=== PATIENT | male | born 1970 | race Caucasian/White ===

== ENCOUNTER 2023-05-04 06:24 | Emergency (ER) | payer BC, SELFPAY ==
[2023-05-04] VITALS (16 sets, daily range): BP systolic 148–178; BP diastolic 94–120; PULSE 79–95; RESP 16–29; TEMP 36.9; O2SAT 94–99; BMI 42.0
--- NOTE | 2023-05-04 06:38 | ECG_ITS ---
[facility] Test Date: 2023-05-04 Pat Name: OLIVIA ALVAREZ Department: Room: - Gender: Male [employer]per: : 1970 Requested By: [id number] Order Number: [id number] Reading MD: LINA ALICEA Measurements Intervals [place] Rate: 94 P: 57 [place]: 154 QRS: -15 QRSD: 96 T: 34 QT: 350 QTc: 402 Interpretive Statements 1100 Sinus rhythm 3633 Inferior myocardial infarction, probably old 9150 abnormal ECG No previous ECG available for comparison Electronically Signed On 05-05-2023 6:48:11 EST by LINA ALICEA
--- NOTE | 2023-05-04 06:38 | XR_ITS ---
The [address] [address] Patient Name: OLIVIA ALVAREZ MRN: [id number] date: 1970 Sex: M Assigned Patient Location: ER Current Patient Location: ED.MAIN Accession/Order Number: [id number] Exam Date: 05/04/2023 06:50 Report Date: 05/04/2023 07:08 At the request of: GIO DUGAN Procedure: XR chest 1V EXAM: XR chest 1V HISTORY: Chest pain. COMPARISON: Chest radiograph dated 05/27/2022. TECHNIQUE: AP erect portable chest radiograph performed. FINDINGS: The trachea is unremarkable. The heart size is within normal limits and stable. The cardiomediastinal silhouette and hilar shadows are unremarkable. There are diminished lung volumes. There is no consolidation or infiltrate, pleural effusion or pulmonary vascular congestion. There is no pneumothorax or acute osseous abnormality. There is a plate and screw device overlying the cervical spine. XR/XR chest 1V IMPRESSION: There is no acute cardiopulmonary process. Electronically authenticated by: PAPO ARGUELLO Date: 05/04/2023 07:08
--- NOTE | 2023-05-04 06:38 | ED.CHESTPAI1 ---
HPI - Chest Pain General Chief Complaint: Chest Pain Stated Complaint: CHEST PAIN Time Seen by Provider: 05/04/23 06:38 Source: patient Mode of arrival: walk-in Limitations: no limitations Related Data Home Medications Medication Instructions Recorded Confirmed cyclobenzaprine 10 mg tablet 10 mg PO DAILY 05/04/23 05/04/23 dapagliflozin propanediol 5 mg 5 mg PO DAILY 05/04/23 05/04/23 tablet (Farxiga) gabapentin 400 mg capsule 400 mg PO TID 05/04/23 05/04/23 Allergies Allergy/AdvReac Type Severity Reaction Status Date / Time tramadol [From Ultram] Allergy Intermediate Difficulty Verified 05/04/23 06:32 Breathing augmentin Allergy Intermediate Vomiting Uncoded 05/04/23 06:32 Exam Constitutional Vital Signs, click to edit/add: Last Vital Signs Temp 98.4 F 05/04/23 06:26 Pulse 88 05/04/23 07:31 Resp 16 05/04/23 07:31 BP 158/111 H 05/04/23 07:31 Pulse Ox 95 05/04/23 07:30 Course Vital Signs Vital signs: Vital Signs Temperature 98.4 F 05/04/23 06:26 Pulse Rate 92 H 05/04/23 06:26 Respiratory Rate 20 05/04/23 06:26 Blood Pressure 162/100 H 05/04/23 06:26 Pulse Oximetry 99 05/04/23 06:26 Temperature 98.4 F 05/04/23 06:26 Pulse Rate 88 05/04/23 07:31 Respiratory Rate 16 05/04/23 07:31 Blood Pressure 158/111 H 05/04/23 07:31 Pulse Oximetry 95 05/04/23 07:30 MDM - Chest Pain MDM Narrative Medical decision making narrative: patient was seen at change of shift. labs were ordered for oncoming physician. I had no other intervention regarding this patient Lab Data Labs: Lab Results 05/04/23 Range/Units 06:40 WBC 8.2 (4.0-11.0) 10^3/uL RBC 4.94 (4.70-6.10) 10^6/uL Hgb 15.8 (14.0-18.0) g/dL Hct 48.2 (42.0-54.0) % MCV 97.6 H (80.0-94.0) fL MCH 32.0 (25.9-34.0) pg MCHC 32.8 (29.9-35.2) g/dL RDW 12.4 (11.0-15.0) % Plt Count 279 (150-450) 10^3/uL MPV 8.9 L (9.5-13.5) fL Neut % (Auto) 51.0 (43.0-75.0) % Lymph % (Auto) 36.9 (20.5-60.0) % [place] % (Auto) 8.0 (1.7-12.0) % Eos % (Auto) 2.8 (0.9-7.0) % Baso % (Auto) 1.1 (0.2-2.0) % Neut # (Auto) 4.2 (1.4-6.5) 10^3/uL Lymph # (Auto) 3.0 (1.2-3.8) 10^3/uL [place] # (Auto) 0.7 (0.3-0.8) 10^3/uL Eos # (Auto) 0.2 (0.0-0.7) 10^3/uL Baso # (Auto) 0.1 (0.0-0.1) 10^3/uL Abs Immat Gran (auto) 0.02 (0.00-0.03) 10^3/uL Imm/Tot Granulo (auto) 0.2 (0.0-0.5) % Sodium 138 (136-145) mmol/L Potassium 3.4 L (3.5-5.1) mmol/L Chloride 101 (98-107) mmol/L Carbon Dioxide 28.7 (21.0-32.0) mmol/L Anion Gap 11.7 BUN 12.0 (7.0-18.0) mg/dL Creatinine 1.08 (0.70-1.30) mg/dL Est GFR ( Amer) >60 (>=60) Est GFR (Non-Af Amer) >60 (>=60) BUN/Creatinine Ratio 11.1 Glucose 207 H (74-106) mg/dL Calcium 8.8 (8.5-10.1) mg/dL Troponin I High Sens 7.4 (4.0-76.1) pg/mL Discharge Plan Discharge Chief Complaint: Chest Pain Clinical Impression: Left against medical advice, Chest pain Patient Disposition: Left Against Medical Advice Time of Disposition Decision: 07:30 Condition: Good Mode of Transportation: Private Vehicle Prescriptions / Home Meds: No Action gabapentin 400 mg capsule 400 mg PO TID cyclobenzaprine 10 mg tablet 10 mg PO DAILY Farxiga 5 mg tablet 5 mg PO DAILY Instructions: Chest Pain (ED) Additional Instructions: Contact your doctor today to have your blood pressure medication refilled. Return to the emergency department if you change her mind or symptoms change. Stand Alone Forms: Portal Instructions Referrals: Physician,Non-Staff, MD [Primary Care Provider] - 1 week Discharge Date/Time: 05/04/23 07:48
[2023-05-04] MEDS: LABETALOL HCL 20 MG/4 ML SYRINGE 10 MG IVP (06:55)
[2023-05-04 06:57] LABS: Basophils Absolute Auto 0.1 10^3/uL (0.0-0.1); Basophils Percent Auto 1.1 % (0.2-2.0); Eosinophils Absolute Auto 0.2 10^3/uL (0.0-0.7); Eosinophils Percent Auto 2.8 % (0.9-7.0); Hematocrit 48.2 % (42.0-54.0); Hemoglobin 15.8 g/dL (14.0-18.0); Immature Granulocytes Abs Auto 0.02 10^3/uL (0.00-0.03); Immature Granulocytes Pct Auto 0.2 % (0.0-0.5); Lymphocytes Percent Auto 36.9 % (20.5-60.0); Mean Corpuscular HGB Conc 32.8 g/dL (29.9-35.2); Mean Corpuscular Volume 97.6 fL (80.0-94.0); Mean Platelet Volume 8.9 fL (9.5-13.5); Monocytes Absolute Auto 0.7 10^3/uL (0.3-0.8); Neutrophils Absolute Auto 4.2 10^3/uL (1.4-6.5); Platelet Count 279 10^3/uL (150-450); Red Blood Count 4.94 10^6/uL (4.70-6.10); Red Cell Distribution Width 12.4 % (11.0-15.0); White Blood Count 8.2 10^3/uL (4.0-11.0)
[2023-05-04 07:17] LABS: Anion Gap 11.7; BUN Creatinine Ratio 11.1; Calcium 8.8 mg/dL (8.5-10.1); Carbon Dioxide 28.7 mmol/L (21.0-32.0); Chloride 101 mmol/L (98-107); Estimated GFR (African America >60 (>=60); Estimated GFR (Non-African Ame >60 (>=60); Glucose 207 mg/dL (74-106); Potassium 3.4 mmol/L (3.5-5.1); Sodium 138 mmol/L (136-145); Troponin I High Sensitivity 7.4 pg/mL (4.0-76.1)
--- NOTE | 2023-05-04 07:24 | ED.CHESTPAI1 ---
HPI - Chest Pain General Chief Complaint: Chest Pain Stated Complaint: CHEST PAIN Time Seen by Provider: 05/04/23 06:38 Source: patient Mode of arrival: walk-in Limitations: no limitations History of Present Illness HPI narrative: 52-year-old male presents to the emergency department for chest pain. He's had it intermittently since yesterday and it's right in the middle of the sternum. It feels like a dull pressure. He's been out of his blood pressure medication for two or three months. No fever cough or trauma or unusual activity. His father of heart attack at age 57. Related Data Home Medications Medication Instructions Recorded Confirmed cyclobenzaprine 10 mg tablet 10 mg PO DAILY 05/04/23 05/04/23 dapagliflozin propanediol 5 mg 5 mg PO DAILY 05/04/23 05/04/23 tablet (Farxiga) gabapentin 400 mg capsule 400 mg PO TID 05/04/23 05/04/23 Allergies Allergy/AdvReac Type Severity Reaction Status Date / Time tramadol [From [facility]] Allergy Intermediate Difficulty Verified 05/04/23 06:32 Breathing augmentin Allergy Intermediate Vomiting Uncoded 05/04/23 06:32 Review of Systems ROS Narrative A ten point review of systems is negative except as noted above. Exam Narrative Exam Narrative: Nurses note and vital signs reviewed and patient is not hypoxic. General: The patient appears well and in no apparent distress. Patient is resting comfortably on cart. Skin: Warm, dry, no pallor noted. There is no rash noted. Head: Normocephalic, atraumatic Eye: Normal conjunctiva, no drainage Ears, Nose, Mouth, and Throat: oral mucosa is moist. Nares patent. Cardiovascular: Regular Rate and Rhythm Respiratory: Patient is in no distress, no accessory muscle use, lungs are clear to auscultation, no wheezing, rales or rhonchi Back: non-tender GI: obese soft and nontender Musculoskeletal: The patient has no evidence of calf tenderness, no pitting edema, symmetrical pulses noted bilaterally Neurological: A&O, normal speech Psychiatric: Cooperative Constitutional Vital Signs, click to edit/add: Last Vital Signs Temp 98.4 F 05/04/23 06:26 Pulse 87 05/04/23 07:00 Resp 24 05/04/23 07:00 BP 156/113 H 05/04/23 07:00 Pulse Ox 94 L 05/04/23 07:00 Course Vital Signs Vital signs: Vital Signs Temperature 98.4 F 05/04/23 06:26 Pulse Rate 92 H 05/04/23 06:26 Respiratory Rate 20 05/04/23 06:26 Blood Pressure 162/100 H 05/04/23 06:26 Pulse Oximetry 99 05/04/23 06:26 Temperature 98.4 F 05/04/23 06:26 Pulse Rate 87 05/04/23 07:00 Respiratory Rate 24 05/04/23 07:00 Blood Pressure 156/113 H 05/04/23 07:00 Pulse Oximetry 94 L 05/04/23 07:00 MDM - Chest Pain MDM Narrative Medical decision making narrative: The patient's symptoms are concerning. He's had chest pressure and has multiple risk factors for coronary artery disease including family history, smoking, hypertension, obesity. The patient should be admitted to the hospital but he is refusing to stay. He is leaving against medical advice and is fully able to make medical decisions for himself. I made several attempts to convince him to stay but these were not successful. Differential Diagnosis Differential diagnosis: Likely pneumothorax, unstable angina pectoris, st elevation myocardial infarction and chest pain Lab Data Attestation: I reviewed the patient's lab results. Labs: Lab Results 05/04/23 Range/Units 06:40 WBC 8.2 (4.0-11.0) 10^3/uL RBC 4.94 (4.70-6.10) 10^6/uL Hgb 15.8 (14.0-18.0) g/dL Hct 48.2 (42.0-54.0) % MCV 97.6 H (80.0-94.0) fL MCH 32.0 (25.9-34.0) pg MCHC 32.8 (29.9-35.2) g/dL RDW 12.4 (11.0-15.0) % Plt Count 279 (150-450) 10^3/uL MPV 8.9 L (9.5-13.5) fL Neut % (Auto) 51.0 (43.0-75.0) % Lymph % (Auto) 36.9 (20.5-60.0) % [place] % (Auto) 8.0 (1.7-12.0) % Eos % (Auto) 2.8 (0.9-7.0) % Baso % (Auto) 1.1 (0.2-2.0) % Neut # (Auto) 4.2 (1.4-6.5) 10^3/uL Lymph # (Auto) 3.0 (1.2-3.8) 10^3/uL [place] # (Auto) 0.7 (0.3-0.8) 10^3/uL Eos # (Auto) 0.2 (0.0-0.7) 10^3/uL Baso # (Auto) 0.1 (0.0-0.1) 10^3/uL Abs Immat Gran (auto) 0.02 (0.00-0.03) 10^3/uL Imm/Tot Granulo (auto) 0.2 (0.0-0.5) % Sodium 138 (136-145) mmol/L Potassium 3.4 L (3.5-5.1) mmol/L Chloride 101 (98-107) mmol/L Carbon Dioxide 28.7 (21.0-32.0) mmol/L Anion Gap 11.7 BUN 12.0 (7.0-18.0) mg/dL Creatinine 1.08 (0.70-1.30) mg/dL Est GFR ( Amer) >60 (>=60) Est GFR (Non-Af Amer) >60 (>=60) BUN/Creatinine Ratio 11.1 Glucose 207 H (74-106) mg/dL Calcium 8.8 (8.5-10.1) mg/dL Troponin I High Sens 7.4 (4.0-76.1) pg/mL Imaging Data Chest x-ray: Radiologist's impression: ITS Impressions Chest X-Ray 05/04/23 06:38 IMPRESSION: There is no acute cardiopulmonary process. Electronically authenticated by: PAPO ARGUELLO Date: 05/04/2023 07:08 ECG Data Attestation: I personally reviewed and interpreted this ECG as follows: (EKG on my interpretation shows normal sinus rhythm without acute change) Heart Score History: Highly Suspicious ECG: Normal Age: >45-<65 years Risk Factors: >3 Risk Factors/ HX of CAD:2 Troponin: <Normal Limit Total Heart Score Recommendations & Risks:: 5 Discharge Plan Discharge Chief Complaint: Chest Pain Clinical Impression: Left against medical advice, Chest pain Patient Disposition: Left Against Medical Advice Time of Disposition Decision: 07:30 Condition: Good Mode of Transportation: Private Vehicle Prescriptions / Home Meds: No Action gabapentin 400 mg capsule 400 mg PO TID cyclobenzaprine 10 mg tablet 10 mg PO DAILY Farxiga 5 mg tablet 5 mg PO DAILY Instructions: Chest Pain (ED) Additional Instructions: Contact your doctor today to have your blood pressure medication refilled. Return to the emergency department if you change her mind or symptoms change. Stand Alone Forms: Portal Instructions Referrals: Physician,Non-Staff, MD [Primary Care Provider] - 1 week
== END 2023-05-04 07:48 | disposition left against medical advice (07) ==
PROVIDERS: Internal Medicine; Emergency Provider Emergency Medicine
DX: R07.9 Chest pain, unspecified (principal); Z79.899 Other long term (current) drug therapy; Z53.29 Procedure and treatment not carried out because of patient's decision for other reasons; F17.210 Nicotine dependence, cigarettes, uncomplicated; I10 Essential (primary) hypertension; E66.9 Obesity, unspecified; Z68.41 Body mass index [BMI] 40.0-44.9, adult
CPT/HCPCS: 36415; 71045; 80048; 84484; 85025; 93005; 96374; 99285; J1290

== ENCOUNTER 2024-03-12 14:12 | Emergency (ER) | payer SELFPAY ==
[2024-03-12 14:17] VITALS: BP 128/83; PULSE 78; TEMP 36.6; O2SAT 98; BMI 36.3
--- OUTSIDE RECORDS SUMMARY | 2024-03-12 14:21 | XMS_ITS | CCD ---
Author Organization [facility] Care Team Providers Care Watch Commander Name Role Phone Morris Mccartney Unavailable LAUREN HAGER Attending Unavailalicia e PAULA CASAREZ Primary Care Unavailable Mor Casarez Primary Care Provider Unavailabl e UNKNOWN, PHYSICIAN Primary Care Unavailable UNKNOWN, PHYSICIAN Referring Unavailable DANI LE Admitting Unavailable DANI LE Attending Unavailable DANI LE Surgeon Unavailable LA Procedure Practitioner Unavailab avani Casarez RUBBER OFF-NUMBERER AND WIRER, Paula Arias Primary Care Provider MOR CASAREZ Primary Care Unavailable DANI LE Referring Unavailable MOR CASAREZ Primary Care Unavailable Hollis RUBBER OFF-Paula HENDERSON Primary Care Provider Hollis RUBBER OFF-NUMBERER AND WIRERPaula Primary Care Provider DANI LE Attending Unavailable Adwoa RUBBER OFF-Monae HENDERSON Unavailable MONAE ORONA Attending Unavailable PAULA CASAREZ Primary Care Unavailable PAULA CASAREZ M Referring Unavailable GORDON, YESIKA Referring Unavailable GORDON, YESIKA Attending Unavailable PAULA CASAREZ Primary Care Unavailable HEIDI, YESIKA Attending Unavailable PAULA CASAREZ Primary Care Unavailable PAULA CASAREZ Referring Unavailable GORDON, YESIKA Attending Unavailable GORDON, YESIKA Referring Unavailable PAULA CASAREZ Primary Care Unavailable GORDON, YESIKA Referring Unavailable PAULA CASAREZ Primary Care Unavailable GORDON, YESIKA Attending Unavailable GORDON, YESIKA Referring Unavailable GORDON, YESIKA Attending Unavailable CASAREZ, PAULA M Primary Care Unavailable CASAREZ, PAULA Primary Care Unavailable LONDONMORRIS JAUREGUI Referring Unavailable LONDON, MORRIS Pinzon Admitting Unavailable LONDONMORRIS Attending Unavailable CASAREZ, PAULA Primary Care Unavailable LONDON, MORRIS L Referring Unavailable LONDON, MORRIS L Admitting Unavailable LONDON, MORRIS L Attending Unavailable CASAREZ, PAULA Primary Care Unavailable CASAREZ, PAULA Attending Unavailable SELF, SELF Referring Unavailable CASAREZ, PAULA Primary Care Unavailable CASAREZ, PAULA Referring Unavailable PANDA EAGLE Attending Unavailable LONDON, MORRIS Pinzon Referring Unavailable CASAREZ, PAULA Primary Care Unavailable LONDON, MORRIS Pinzon Attending Unavailable RUSTY ALAN Attending Unavailable CASAREZ, PAULA Primary Care Unavailable LONDON, MORRIS L Referring Unavailable CASAREZ, PAULA Attending Unavailable CASAREZ, PAULA Primary Care Unavailable SELF, SELF Referring Unavailable CASAREZ, PAULA Primary Care Unavailable PANDA EAGLE Attending Unavailable PANDA EAGLE Referring Unavailable Allergies Allergy Classification Reported Allergen(s) Allergy Type Date of Onset Reaction(s) Facility (20 sources) Amoxicillin / Clavulanate Drug Allergy [address] [facility] Work Phone: (20 sources) traMADol Drug Allergy [address] [facility] Work Phone: (1 source) Amoxicillin / Clavulanate Drug Allergy [address] [facility] Rep[facility] (1 source) traMADol Drug Allergy [address] [facility] Rep[facility] (1 source) BLEACH (SODIUM HYPOCHLORITE); Translations: [BLEACH (SODIUM HYPOCHLORITE)] Propensity to adverse reactions (disorder) [address] [facility] Repository (1 source) ALLERGIES NOT ON FILE; Translations: [ALLERGIES NOT ON FILE] Propensity to adverse reactions (disorder) [facility] Repository (8 sources) Coconut Flavor Propensity to adverse reactions to drug 4 [facility] [place] Medications Current Medications Medication Drug Class(es) Dates Sig (Normalized) Sig (Original) acetaminophen 325 mg / HYDROcodone bitartrate 5 mg oral tablet (10 sources) Opioid Agonist Start: 08-10-2023 End: 08-17-2023 take 1 tablet by mouth every eight hours as needed hydroCODone-aceta minophen 5-325 MG tablet Indications: Post-op pain Take 1 tablet by mouth every 8 hours as needed for up to 7 days. 10 tablet 08/10/2023 Active Start: 07-27-2023 End: 08-06-2023 take 1-2 tablets by mouth every four hours as needed hydroCODone-acetaminophen 5-325 MG table t Indications: Post-op pain Take 1-2 tablets by mouth every 4 hours as needed for up to 7 days. 25 tablet 07/30/2023 08/06/2023 Active Start: 07-27-2023 End: 07-27-2023 take 1-2 tablets by mouth every four hours as needed 1-2 tablet, Oral, EVERY 4 HOURS NEEDE D, Starting on Thu07/27/23 at 0904, Until Thu07/27/23 at 1617, Severe Pain, Maximum dose of acetaminophen is 4000 mg from all sources in 24 hours., Post-op/Post-Proc amLODIPine 5 mg oral tablet (11 sources) Dihydropyridine Calcium Channel Janae Start: 06-10-2021 take 1 tablet by mouth once daily amLODIPine 5 MG tablet Indications: Essential hypertension, benign Take 1 tablet by mouth daily. 30 tablet 3 06/10/2021 Active aspirin 81 mg chewable tablet (12 sources) Platelet Aggregation Inhibitor, Nonsteroidal Anti-inflammatory Drug Start: 05-27-2022 End: 05-27-2022 aspirin chewable tablet 324 mg Start: 02-22-2020 aspirin 81 MG Chew Tab chewable tablet Chew 1 tablet daily. 02/22/2020 Active atorvastatin 20 mg oral tablet (19 sources) HMG-CoA Reductase Inhibitor Start: 09-11-2022 End: 05-01-2023 take 1 tablet by mouth once daily Atorvastatin 20 MG tablet Indications: Hyperlipidemia, unspecified hyperlipidemia type , Atherosclerosis of wiyot coronary artery of wiyot heart without angina pectoris Take 1 tablet by mouth daily. 30 tablet 5 05/01/2023 Active Start: 12-23-2021 take 1 tablet by musa th once daily atorvastatin 20 MG tablet Indications: Hyperlipidemia, unspecified hyperlipidemia type , Atherosclerosis of wiyot coronary artery of wiyot heart without angina pectoris Take 1 tablet by mouth daily. 30 tablet 5 12/23/2021 Active Start: 04-22-2021 take 1 tablet by musa th once daily atorvastatin 20 MG tablet Indications: Hyperlipidemia, unspecified hyperlipidemia type , Atherosclerosis of wiyot coronary artery of wiyot heart without angina pectoris Take 1 tablet by mouth daily. 30 tablet 5 06/11/2021 Active carvedilol 25 mg oral tablet (16 sources) alpha-Adrenergic Janae, beta-Adrenergic Janae Start: 01-27-2023 End: 05-04-2023 take 1 tablet by mouth twice daily carveDILOL (Coreg) 25 MG tablet Indications: Essential hypertension, benign , Atherosclerosis of wiyot coronary artery of wiyot heart without angina pectoris Take 1 tablet by mouth 2 times daily. 60 tablet 5 05/04/2023 Active Start: 11-22-2021 take 1 tablet by musa th twice daily carveDILOL (Coreg) 25 MG tablet Indications: Essential hypertension, benign , Atherosclerosis of wiyot coronary artery of wiyot heart without angina pectoris Take 1 tablet by mouth 2 times daily. 180 tablet 3 11/22/2021 Active Start: 07-22-2021 take 1 tablet by musa th twice daily carveDILOL (Coreg) 25 MG tablet Take 1 tablet by mouth 2 times daily. 60 tablet 3 07/22/2021 Active cefadroxil 500 mg oral capsule (7 sources) Cephalosporin Antibacterial Start: 05-29-2023 take 1 capsule by mouth twice daily cefadroxil 500 MG capsule TAKE 1 CAPSULE BY MOUTH TWICE A DAY FOR SKIN INFECTION 05/29/2023 Active clobetasol propionate 0.5 mg/ml topical solution (7 sources) Corticosteroid Start: 05-29-2023 clobetasol 0.05 % Solution APPLY 3 DROPS TO SCALP ONCE DAILY NEEDED 05/29/2023 Active dapagliflozin 10 mg oral tablet (10 sources) Sodium-Glucose Cotransporter 2 Inhibitor Start: 08-10-2023 take 1 tablet by mouth once daily dapagliflozin (Farxiga) 10 MG tablet Indications: Type 2 diabetes mellitus with hyperglycemia, without long-term current use of insulin Take 1 tablet by mouth daily. 90 tablet 1 08/10/2023 Active Start: 05-01-2023 End: 08-10-2023 take 1 tablet by mouth once daily dapagliflozin (Farxiga) 5 MG tablet Take 1 tablet by mouth daily. 30 tablet 3 05/01/2023 08/10/2023 Discontinued (Dose adjustment (suppress cancel msg)) diclofenac sodium 75 mg delayed release oral tablet (2 sources) Nonsteroidal Anti-inflammatory Drug Start: 02-08-2018 take 1 tablet by mouth twice daily diclofenac EC [address] tablet Take 1 tablet by mouth 2 times daily. 60 tablet 1 02/08/2018 Active doxycycline hyclate 100 mg oral capsule (10 sources) Tetracycline-class Drug Start: 06-26-2023 take 1 capsule by mouth twice daily doxycycline hyclate 100 MG capsule Take 1 capsule by mouth 2 times daily. 06/26/2023 Active Start: 04-02-2022 End: 04-09-2022 doxycycline hyclate (VIBRAMY HOMERO) capsule 100 mg gabapentin 400 mg oral capsule (19 sources) Anti-epileptic Agent Start: 04-28-2019 Gabapenti n 400 MG capsule 1 capsule 3 times daily. 04/28/2019 Active Start: 04-28-2019 gabapentin 300 MG Cap capsule 400 mg 3 times daily. 04/28/2019 Active hydroCHLOROthiazide 25 mg / valsartan 320 mg oral tablet (16 sources) Thiazide Diuretic, Angiotensin 2 Receptor Janae Start: 01-27-2023 End: 05-04-2023 take 1 tablet by mouth once daily valsartan-hydrochlorothiazide (Diovan HCT) 320-25 MG tablet Indications: Essential hypertension, benign Take 1 tablet by mouth daily. 30 tablet 5 05/04/2023 Active Start: 07-22-2021 take 1 tablet by musa th once daily valsartan-hydrochlorothiazide (Diovan HC T) 320-25 MG tablet Take 1 tablet by mouth daily. 90 tablet 3 07/22/2021 Active ibuprofen 200 mg oral capsule (8 sources) Nonsteroidal Anti-inflammatory Drug Ibuprofen (Advil) 200 MG capsule Take by mouth as needed for Mild Pain. Active imiquimod 50 mg/ml topical cream (7 sources) Start: 03-02-2023 imiquimod 5 % Cream Apply 1 Application topically every Thursday, Thursday, Thursday dinner. Apply a thin layer as directed. Leave on skin for 6-10 hours. 12 Each 03/02/2023 Active Start: 02-19-2022 imiquimod 5 % Cream Apply 1 Application topically every Thursday, Thursday, Thursday dinner. Apply a thin layer as directed. Leave on skin for 6-10 hours. 24 Each 02/19/2022 Active Start: 11-29-2021 End: 12-29-2021 imiquimod 5 % Cream Apply 1 Application topically every Thursday, Thursday, Thursday dinner. Apply a thin layer as directed. Leave on skin for 6-10 hours. 24 Each 1 11/29/2021 Active ketoconazole 20 mg/ml medicated shampoo (8 sources) Azole Antifungal Start: 05-29-2023 Ketoconazole 2 % Shampoo shampoo WASH SCALP 3 TIMES A WEEK 05/29/2023 Active 3 ml liraglutide 6 mg/ml pen injector (13 sources) GLP-1 Receptor Agonist Start: 05-13-2022 Liraglutide (Victoza ) 18 MG/3ML Solution Pen-injector injection Indications: Type 2 diabetes mellitus without complication, without long-term current use of insulin , Class 3 severe obesity with serious comorbidity and body mass index (BMI) of 40.0 to 44.9 in adult, unspecified obesity type Inject 1.8 mg under the skin daily. 15 mL 3 05/13/2022 Active Start: 01-07-2022 Liraglutide (V ictoza) 18 MG/3ML Solution Pen-injector injection Indications: Type 2 diabetes mellitus without complication, without long-term current use of insulin , Class 3 severe obesity with serious comorbidity and body mass index (BMI) of 40.0 to 44.9 in adult, unspecified obesity type Inject 1.8 mg under the skin daily. 15 mL 3 01/07/2022 Active Start: 11-21-2021 Liraglutide (V ictoza) 18 MG/3ML Solution Pen-injector injection Indications: Type 2 diabetes mellitus without complication, without long-term current use of insulin , Class 3 severe obesity with serious comorbidity and body mass index (BMI) of 40.0 to 44.9 in adult, unspecified obesity type Inject 2.4 mg under the skin daily. 15 mL 3 11/21/2021 Active Start: 08-19-2021 Liraglutide (V ictoza) 18 MG/3ML Solution Pen-injector injection Indications: Type 2 diabetes mellitus without complication, without long-term current use of insulin , Class 3 severe obesity with serious comorbidity and body mass index (BMI) of 40.0 to 44.9 in adult, unspecified obesity type Inject 1.8 mg under the skin daily. 15 mL 3 08/19/2021 Active Start: 08-16-2021 End: 08-19-2021 Liraglutide (Victoza) 18 MG/ 3ML Solution Pen-injector injection Indications: Type 2 diabetes mellitus with other specified complication, unspecified whether terminal carman insulin use , Class 3 severe obesity with serious comorbidity and body mass index (BMI) of 40.0 to 44.9 in adult, unspecified obesity type Inject 1.2 mg under the skin daily. 15 mL 3 08/16/2021 08/19/2021 Discontinued (Reorder) Start: 07-18-2021 Liraglutide (V ictoza) 18 MG/3ML Solution Pen-injector injection Indications: Type 2 diabetes mellitus with other specified complication, unspecified whether terminal carman insulin use , Class 3 severe obesity with serious comorbidity and body mass index (BMI) of 40.0 to 44.9 in adult, unspecified obesity type Inject 1.2 mg under the skin daily. 15 mL 0 07/18/2021 Active Start: 05-07-2021 End: 07-18-2021 inject 0.6 mg by subcutaneous injection once daily Liraglutide (Victoza) 18 MG/3ML Solution Pen-injector injection Indications: Type 2 diabetes mellitus with other specified complication, unspecified whether nursing home insulin use Inject 0.6 mg under the skin daily. 15 mL 0 06/11/2021 07/18/2021 Discontinued (Reorder) meloxicam 7.5 mg oral tablet (19 sources) Nonsteroidal Anti-inflammatory Drug Start: 03-24-2023 take 1 tablet by mouth once daily Meloxicam 7.5 MG tablet Indications: Chronic pain of right knee Take 1 tablet by mouth daily. 30 tablet 3 03/24/2023 Active Start: 04-21-2022 take 1 tablet by musa th once daily Meloxicam 7.5 MG tablet Indications: Chronic pain of right knee Take 1 tablet by mouth daily. 30 tablet 1 04/21/2022 Active Start: 02-04-2022 take 1 tablet by musa th once daily meloxicam 7.5 MG tablet Indications: Chronic pain of right knee Take 1 tablet by mouth daily. 30 tablet 1 02/04/2022 Active Start: 10-24-2021 take 1 tablet by musa th once daily meloxicam 7.5 MG tablet Indications: Chronic pain of right knee Take 1 tablet by mouth daily. 30 tablet 1 11/29/2021 Active Start: 05-07-2021 take 1 tablet by musa th once daily meloxicam 7.5 MG tablet Indications: Chronic pain of right knee Take 1 tablet by mouth daily. 30 tablet 1 05/07/2021 Active 24 hr metFORMIN hydrochloride 500 mg extended release oral tablet (3 sources) Biguanide Start: 07-23-2021 take 1 tablet by mouth twice daily metFORMIN-XR 500 MG Tab SR 24 HR Indications: Type 2 diabetes mellitus with other specified complication, unspecified whether nursing home insulin use Take 1 tablet by mouth 2 times daily. 60 tablet 3 07/23/2021 Active Start: 06-11-2021 take 1 tablet by musa th twice daily metFORMIN-XR 500 MG Tab SR 24 HR Indications: Type 2 diabetes mellitus with other specified complication, unspecified whether nursing home insulin use Take 1 tablet by mouth 2 times daily. 60 tablet 3 06/11/2021 Active metoprolol tartrate 50 mg oral tablet (5 sources) beta-Adrenergic Janae Start: 04-22-2021 take 1 tablet by mouth twice daily metoprolol 50 MG tab regular release Indications: Essential hypertension, benign Take 1 tablet by mouth 2 times daily. 60 tablet 3 04/22/2021 Active Start: 10-26-2017 take 1 tablet by musa th twice daily, then take 1 tablet by mouth in the morning, then take 1 tablet by mouth in the evening metoprolol 50 MG tab regular release Take 1 tablet by mouth 2 times daily. 1 tablet in the am and 1 tablet in the pm 60 tablet 6 10/26/2017 Active nitroglycerin 0.4 mg sublingual tablet (3 sources) Nitrate Vasodilator Start: 05-27-2022 End: 05-27-2022 nitroGLYCERIN (NITRO-BID) 2 % ointment 1 inch Start: 03-27-2017 nitroGLYCERIN 0.[address] 1 tablet under tongue every 5 minutes as needed for Chest pain. max = 3 doses. If CP persists after 1st dose, call 911 30 tablet 0 03/27/2017 Active predniSONE 20 mg oral tablet (3 sources) Start: 04-02-2022 End: 04-09-2022 predniSONE (DELTASONE) table t 20 mg Start: 12-15-2020 End: 06-10-2021 predniSONE 20 MG tablet 3 ta bs daily x 3days; 2 tabs daily x 3days; 1 tab daily x 3days then 1/2 tablet daily x 3days 20 tablet 0 12/15/2020 06/10/2021 Discontinued (Therapy completed) Semaglutide,0.25 or 0.5MG/DOS, (Ozempic, 0.25 or 0.5 MG/DOSE,) 2 MG/3ML Solution Pen-injector (6 sources) Start: 08-11-2023 Semaglutide,0.25 or 0.5MG/DOS, (Ozempic, 0.25 or 0.5 MG/DOSE,) 2 MG/3ML Solution Pen-injector Indications: Type 2 diabetes mellitus with hyperglycemia, without long-term current use of insulin Inject 0.25 mg under the skin once a week. 3 mL 1 08/11/2023 Active SYRINGE-NEEDLE, DISP, 3 ML (BD Luer-Lock Syringe) 18G X 1-1/2 3 ML Misc (3 sources) Start: 08-25-2023 Syringe/Needle, Disp, (SYRINGE 3CC/20MU2-5/2 ) 22G X 1-1/2 3 ML Misc (3 sources) Start: 08-25-2023 testosterone cypionate 200 mg/ml injectable solution (3 sources) Androgen Start: 08-25-2023 Testosterone Cypionate 200 MG/ML Solution Indications: Low testosterone Inject 200 mg as directed every 14 days. 2 mL 1 08/25/2023 Active valsartan 320 mg oral tablet (3 sources) Angiotensin 2 Receptor Janae Start: 06-17-2021 take 1 tablet by mouth once daily valsartan 320 MG tablet Take 1 tablet by mouth daily. 30 tablet 1 06/17/2021 Active Start: 04-15-2021 take 1 tablet by musa once daily valsartan 320 MG tablet Take 1 tablet by mouth daily. 30 tablet 1 04/15/2021 Active vitamin b12 1 mg oral tablet (19 sources) Vitamin B12 cyanocobalamin 1 000 MCG tablet Take 1 tablet by mouth. One by mouth daily Active VITAMIN D PO (19 sources) VITAMIN D PO Bruno e by mouth. 2,000 mg two by mouth daily 04/29/23 10,000 units every morning. 08/10/23 5,000 units three by mouth once daily Active VITAMIN D PO Bruno e by mouth. 2,000 mg two by mouth daily 04/29/23 10,000 units every morning. Active VITAMIN D PO Bruno e by mouth. 2,000 mg two by mouth daily 04/29/23 10,000 units every morning. 0 Active VITAMIN D PO Bruno e by mouth. 2,000 mg two by mouth daily 0 Active Completed/Discontinued Medications Medication Drug Class(es) Dates Sig (Normalized) Sig (Original) acetaminophen 325 mg / oxyCODONE hydrochloride 5 mg oral tablet (1 source) Opioid Agonist Start: 05-01-2020 End: 06-10-2021 take 1 tablet by mouth every six hours oxyCODONE-acetaminop hen 5-325 MG per tablet Take 1 tablet by mouth every 6 hours. 0 05/01/2020 06/10/2021 Discontinued (Therapy completed) [id number] 200 actuat albuterol 0.09 mg/actuat metered dose inhaler (1 source) beta2-Adrenergi c Agonist Start: 12-15-2020 End: 06-10-2021 take 2 puff(s) by inhalation every four hours as needed for wheezing albuterol 108 (90 Base) MCG/ACT Aero Soln inhaler Inhale 2 puffs every 4 hours as needed for Wheezing. 6.7 g 0 12/15/2020 06/10/2021 Discontinued (Therapy completed) codeine phosphate 2 mg/ml / guaiFENesin 20 mg/ml oral solution (1 source) Opioid Agonist Start: 12-12-2020 End: 06-10-2021 take 5 mL by mouth every six hours as needed for cough guaiFENesin-codeine 100-10 MG/5ML Solution Indications: Exposure to COVID-19 virus Take 5 mL by mouth every 6 hours as needed for Cough for up to 7 days. 118 mL 0 12/12/2020 06/10/2021 Discontinued (Therapy completed) cyclobenzaprine hydrochloride 5 mg oral tablet (18 sources) Muscle Relaxant Start: 03-23-2020 End: 04-28-2023 take 1 tablet by mouth three times daily as needed cyclobenzaprine 5 MG tablet Take 1 tablet by mouth 3 times daily as needed. 0 03/23/2020 04/28/2023 Discontinued (Therapy completed) take 1 tablet by musa th at bedtime as needed for muscle spasms Cyclobenzaprine 10 MG tablet TAKE 1 TABL ET BY MOUTH IN THE MORNING, NOON AND AT BEDTIME FOR MUSCLE SPASMS NEEDED Active docusate sodium 100 mg oral capsule (1 source) Start: 03-23-2020 End: 06-10-2021 take 1 capsule by mouth twice daily DOK 100 MG capsule Take 1 capsule by mouth 2 times daily. 0 03/23/2020 06/10/2021 Discontinued (Therapy completed) fluticasone propionate 0.05 mg/actuat metered dose nasal spray (3 sources) Corticosteroid Start: 04-02-2022 End: 05-14-2023 take 2 spray(s) nasal route once daily fluticasone 50 MCG/ACT Suspension nasal spray 2 sprays each nostril daily 16 g 0 04/02/2022 05/14/2023 Discontinued (Patient Preference) INSULIN PEN NEEDLES ULTRA FINE PRESCRIPTION (11 sources) Start: 03-24-2023 End: 07-27-2023 INSULIN PEN NEEDLES ULTRA FINE PRESCRIPTION Indications: Type 2 diabetes mellitus with other specified complication, unspecified whether nursing home insulin use 1 Each by Instructed route daily. 100 Each 1 03/24/2023 07/27/2023 Discontinued (Stop Taking at Discharge) Start: 03-24-2023 INSULIN PEN NE EDLES ULTRA FINE PRESCRIPTION Indications: Type 2 diabetes mellitus with other specified complication, unspecified whether terminal carman insulin use 1 Each by Instructed route daily. 100 Each 1 03/24/2023 Active Start: 11-22-2021 INSULIN PEN NE EDLES ULTRA FINE PRESCRIPTION Indications: Type 2 diabetes mellitus with other specified complication, unspecified whether nursing home insulin use 1 Each by Instructed route daily. 100 Each 1 11/22/2021 Active Start: 06-11-2021 INSULIN PEN NE EDLES ULTRA FINE PRESCRIPTION Indications: Type 2 diabetes mellitus with other specified complication, unspecified whether terminal carman insulin use 1 Each by Instructed route daily. 100 Each 1 06/11/2021 Active lidocaine 1%/ epinephrine 1:100,000 with sodium bicarbonate 8.4% (10 mL Prepared by Pharmacy) (2 sources) Start: 07-30-2023 End: 07-30-2023 1-10 mL, Infiltration, ONCE, 1 dose, On Macey 07/30/23 at 0915, For physician administration ONLY, Pre-op/Pre-Proc Start: 07-27-2023 End: 07-27-2023 1-10 mL, Infiltration, ONCE, 1 dose, On Thu07/27/23 at 0900, For physician administration ONLY, Pre-op/Pre-Proc lidocaine 1%/epinephrine 1:100,000 with sodium bicarbonate 8.4% (3mL Prepared by Pharmacy) (2 sources) Start: 07-30-2023 End: 07-30-2023 0-3 mL, Infiltration, ONCE, 1 dose, On Thu07/30/23 at 0915, For physician administration ONLY, Pre-op/Pre-Proc Start: 07-27-2023 End: 07-27-2023 0-3 mL, Infiltration, ONCE, 1 dose, On Thu07/27/23 at 0900, For physician administration ONLY, Pre-op/Pre-Proc 2 ml ondansetron 2 mg/ml injection (1 source) Serotonin-3 Receptor Antagonist Start: 07-27-2023 End: 07-27-2023 take 4 mg intravenously every four hours as needed 4 mg, Intravenous, EVERY 4 HOURS NEEDED, Starting on Thu07/27/23 at 0904, Until Thu07/27/23 at 1617, Nausea / Vomiting, Post-op/Post-Proc 1000 ml sodium chloride 9 mg/ml injection (4 sources) Start: 07-30-2023 End: 07-30-2023 Intravenous, at 75 mL/hr, ONCE, 1 dose, On Thu07/30/23 at 0915, Pre-op/Pre-Proc Start: 07-27-2023 End: 07-27-2023 Intravenous, at 50 mL/hr, CO NTINUOUS, Starting on Thu07/27/23 at 0915, Until Thu07/27/23 at 1617, Until tolerating diet then discontinue, Post-op/Post-Proc Start: 05-27-2022 End: 05-27-2022 Sodium chloride 0.9% IV solu tion Problems Active Problems Problem Classification Problem Date Documented Date Episodic/Chronic Anxiety disorders (20 sources) Generalized anxiety disorder; Translations: [Generalized anxiety disorder] 08-16-2016 Chronic Conditions associated with dizziness or vertigo (20 sources) Vertigo; Translations: [Dizziness and giddiness] 08-16-2016 Episodic Diabetes mellitus with complications (4 sources) Type 2 diabetes mellitus; Translations: [Type 2 diabetes mellitus with other specified complication] Chronic Diabetes mellitus without complication (20 sources) Diabetes mellitus; Translations: [Type 2 diabetes mellitus without complications] Onset: 07-03-2020 07-03-2020 Chronic Diabetes mellitus without complication (1 source) Increased glucose level; Translations: [Other abnormal glucose] Episodic Disorders of lipid metabolism (20 sources) Pure hypercholesterolemia; Translations: [Mixed hyperlipidemia] Onset: 03-27-2017 03-27-2017 Chronic Esophageal disorders (20 sources) Gastroesophageal reflux disease; Translations: [Holguin's esophagus] 08-16-2016 Chronic Essential hypertension (20 sources) Benign essential hypertension; Translations: [Essential (primary) hypertension] Onset: 03-04-2019 08-16-2016 Chronic Genitourinary symptoms and ill-defined conditions (4 sources) Urgent desire to urinate; Translations: [Urgency of urination] Onset: 08-25-2023 08-18-2023 Episodic Gout and other crystal arthropathies (20 sources) Gout; Translations: [Gout, unspecified] 08-16-2016 Chronic Headache; including migraine (20 sources) Migraine; Translations: [Migraine, unspecified, not intractable, without status migrainosus] 08-16-2016 Chronic Headache; including migraine (1 source) Morning headache; Translations: [Morning headache] 08-28-2023 Episodic Headache; including migraine (2 sources) Headache; including migraine; Translations: [Headache, unspecified] Onset: 08-28-2023 Mycoses (20 sources) Tinea pedis; Translations: [Tinea pedis] 08-16-2016 Episodic Osteoarthritis (20 sources) Arthritis; Translations: [Unspecified osteoarthritis, unspecified site] 08-16-2016 Chronic Other and ill-defined heart disease (9 sources) Heart disease; Translations: [Heart disease, unspecified] Onset: 03-04-2019 07-02-2023 Chronic Other hereditary and degenerative nervous system conditions (2 sources) Restless legs; Translations: [Restless legs syndrome] Onset: 08-28-2023 08-28-2023 Chronic Other hereditary and degenerative nervous system conditions (1 source) Restless legs syndrome; Translations: [Restless legs syndrome] Onset: 08-28-2023 Chronic Other lower respiratory disease (2 sources) Snoring; Translations: [Snoring] Onset: 08-28-2023 08-28-2023 Episodic Other lower respiratory disease (1 source) Snoring; Translations: [Snoring] Onset: 08-28-2023 Episodic Other nervous system disorders (1 source) Bilateral carpal tunnel syndrome; Translations: [Carpal tunnel syndrome, bilateral upper limbs] 07-02-2023 Chronic Other nervous system disorders (1 source) Numbness of hand; Translations: [Anesthesia of skin] 07-02-2023 Episodic Other nervous system disorders (9 sources) Paresthesia of skin; Translations: [Disturbance of skin sensation] Onset: 07-02-2023 07-02-2023 Episodic Other nervous system disorders (2 sources) Postoperative pain ; Translations: [Other acute postprocedural pain] 07-27-2023 Episodic Other nervous system disorders (2 sources) Other acute postprocedural pain; Translations: [Other acute postprocedural pain] Onset: 07-30-2023 Episodic Other non-traumatic joint disorders (2 sources) Bilateral wrist pain; Translations: [Pain in right wrist] 05-14-2023 Episodic Other nutritional; endocrine; and metabolic disorders (2 sources) Morbid obesity; Translations: [Obesity, morbid, BMI 40.0-49.9] Onset: 02-08-2018 02-08-2018 Chronic Other nutritional; endocrine; and metabolic disorders (3 sources) Severe obesity; Translations: [Morbid (severe) obesity due to excess calories] Chronic Other nutritional; endocrine; and metabolic disorders (19 sources) Body mass index 40+ - severely obese; Translations: [Morbid (severe) obesity due to excess calories] Onset: 02-08-2018 02-08-2018 Chronic Other nutritional; endocrine; and metabolic disorders (1 source) Body mass index 30+ - obesity; Translations: [Obesity, unspecified] Chronic Other screening for suspected conditions (not mental disorders or infectious disease) (5 sources) Decreased testosterone level ; Translations: [Other specified abnormal findings of blood chemistry] Onset: 09-01-2023 08-17-2023 Episodic Other skin disorders (1 source) Pigmented skin lesion ; Translations: [Disorder of pigmentation, unspecified] 05-14-2023 Episodic Other upper respiratory infections (1 source) Acute maxillary sinusitis; Translations: [Acute maxillary sinusitis, unspecified] Episodic Residual codes; unclassified (20 sources) Sleep apnea; Translations: [Sleep apnea, unspecified] 08-16-2016 Chronic Residual codes; unclassified (2 sources) Tobacco user; Translations: [Tobacco abuse] Onset: 03-27-2017 03-27-2017 Chronic Residual codes; unclassified (20 sources) Chronic pain; Translations: [Other chronic pain] 08-16-2016 Chronic Residual codes; unclassified (2 sources) Hypersomnia; Translations: [Hypersomnia, unspecified] Onset: 08-28-2023 08-28-2023 Chronic Residual codes; unclassified (2 sources) Sleep apnea, unspecified; Translations: [Sleep apnea, unspecified] Onset: 08-16-2016 Chronic Residual codes; unclassified (1 source) Hypersomnia, unspecified; Translations: [Hypersomnia, unspecified] Onset: 08-28-2023 Chronic Residual codes; unclassified (1 source) Noncompliance with medication regimen; Translations: [Non compliance w medication regimen] 04-28-2023 Episodic Residual codes; unclassified (2 sources) Family history of prostate cancer; Translations: [Family history of malignant neoplasm of prostate] 08-18-2023 Episodic Residual codes; unclassified (1 source) Insomnia; Translations: [Insomnia, unspecified] 08-28-2023 Episodic Residual codes; unclassified (1 source) Edema of foot; Translations: [Localized edema] 08-28-2023 Episodic Residual codes; unclassified (2 sources) Insomnia, unspecified; Translations: [Insomnia, unspecified] Onset: 08-28-2023 Episodic Residual codes; unclassified (2 sources) Localized edema; Translations: [Localized edema] Onset: 08-28-2023 Episodic Residual codes; unclassified (2 sources) Family history of malignant neoplasm of prostate; Translations: [Family history of malignant neoplasm of prostate] Onset: 08-25-2023 Episodic Residual codes; unclassified (2 sources) Other specified postprocedural states; Translations: [Other specified postprocedural states] Onset: 08-13-2023 Episodic Spondylosis; intervertebral disc disorders; other back problems (10 sources) Displacement of cervical intervertebral disc; Translations: [Degeneration of cervical intervertebral disc] Onset: 01-01-2022 07-02-2023 Chronic Spondylosis; intervertebral disc disorders; other back problems (20 sources) Chronic low back pain; Translations: [Chronic low back pain] Onset: 03-04-2019 08-16-2016 Episodic Substance-related disorders (4 sources) Cigarette smoker ; Translations: [Nicotine dependence, cigarettes, uncomplicated] Onset: 08-25-2023 08-18-2023 Chronic Syncope (1 source) Near syncope; Translations: [Syncope and collapse] Episodic Viral infection (1 source) Genital warts; Translations: [Anogenital (venereal) warts] Episodic Past or Other Problems Problem Classification Problem Date Documented Date Episodic/Chronic Cardiac dysrhythmias (16 sources) Palpitations; Translations: [Palpitations] Onset: 07-22-2021 07-22-2021 Episodic Coronary atherosclerosis and other heart disease (20 sources) Coronary arteriosclerosis in wiyot artery; Translations: [Coronary atherosclerosis] Onset: 03-27-2017 Resolved: 02-27-2020 03-27-2017 Chronic Malaise and fatigue (20 sources) Fatigue; Translations: [Other fatigue] Onset: 03-27-2017 03-27-2017 Episodic Nonspecific chest pain (20 sources) Chest pain; Translations: [Other chest pain] Onset: 03-27-2017 03-27-2017 Episodic Other non-traumatic joint disorders (2 sources) Pain in right wrist; Translations: [Pain in right wrist] Onset: 07-02-2023 Episodic Other non-traumatic joint disorders (2 sources) Pain in left wrist; Translations: [Pain in left wrist] Onset: 07-02-2023 Episodic Residual codes; unclassified (19 sources) Tobacco user; Translations: [Tobacco use] Onset: 03-27-2017 03-27-2017 Episodic Superficial injury; contusion (20 sources) Contusion of sacral region; Translations: [Contusion of lower back and pelvis, initial encounter] Onset: 05-07-2017 05-07-2017 Episodic Unclassified (1 source) Sprain of right knee, unspecified ligament, initial encounter Results Test Name Value Interpretation Reference Range Facility CBC(NO DIFF)on 10-14-2023 Erythrocyte distribution width (RBC) [Ratio] 13.7 % Normal 11.5-14.5 [facility] Hematocrit (Bld) [Volume fraction] 50.2 % Normal 42.0-52.0 [facility] Hemoglobin (Bld) [Mass/Vol] 17.7 g/dL Normal 14.0-18.0 [facility] MCH (RBC) [Entitic mass] 33.9 pg Normal 26.0-35.0 [facility] MCHC (RBC) [Mass/Vol] 35.1 g/dL Normal 27.0-37.0 [facility] MCV (RBC) [Entitic vol] 96.6 fL Normal 80.0-100.0 [facility] Platelet mean volume (Bld) [Entitic vol] 7.1 fL Low 7.4-11.0 [facility] Platelets (Bld) [#/Vol] 299 10*3/uL Normal 130-400 [facility] RBC (Bld) [#/Vol] 5.20 10*6/uL Normal 4.0-6.1 [facility] WBC (Bld) [#/Vol] 11.2 10*3/uL High 3.6-11.0 [facility] PSA,TOTALon 10-14-2023 PSA,TOTAL 1.650 NG/ML Normal 0-4 [facility] Comment on above: Result Comment: OBTAIN BASELINE BETWEEN AGES OF 45-75 LESS THAN 1.0 ng/mL REPEAT TESTING AT 2-4 YEARS 1.0-3.0 ng/mL REPEAT TESTING AT 1-2 YEARS GREATER THAN 3.0 ng/mL REPEAT PSA,LYUDMILA, AND WORKUP FOR BENIGN DISEASE AGE GREATER THAN 75, PSA LESS THAN 3 ng/mL REPEAT TESTING IN 1-4 YEARS Patient results determined by testing on the [employer] Vitros 7600 analyzer by immunometric method. This assay may not be comparable using a different director translational or method. TESTOSTERONEon 10-14-2023 Testosterone [Mass/Vol] 1230.0 ng/dL High 71.8-623.0 [facility] POCT URINALYSIS DIPSTICK AUT OMATED W/O SCOPon 09-01-2023 Amorphous sediment LM Ql (Urine sed) [facility] Appearance (U) clear [facility] Bacteria LM Ql (Urine sed) [facility] Bilirubin Ql (U) Negative [facility] Casts LM.LPF (Urine sed) [#/Area] [facility] Color (U) yellow [facility] Crystals LM Nom (Urine sed) [facility] Epithelial cells.squamous LM.HPF (Urine sed) [#/Area] [facility] Flow cytometry specialist review Emerson (Unsp spec) [Interp] [facility] Glucose Auto test strip (U) [Mass/Vol] mg/dL mg/dL [facility] Ketones [Mass/Vol] Negative mg/dL [facility] Leukocyte esterase Qn (U) [facility] Leukocyte esterase Test strip Ql (U) Negative [facility] Nitrite Ql (U) Negative [facility] pH (U) 6.0 [pH] 5 - 7 [facility] Protein Ql (U) Negative mg/dL [facility] RBC LM.HPF (Urine sed) [#/Area] [facility] RBC Ql (U) Negative [facility] Specific gravity (U) [Rel density] 1.015 1.001 - 1.035 [facility] Transitional cells LM Ql (Urine sed) [facility] Urobilinogen Qn (U) 0.2 [facility] WBC LM.HPF (Urine sed) [#/Area] [facility] SEX HORMONE BINDING CLOBULIN on 08-20-2023 SEX HORMONE BINDING GLOB,SERUM 21.6 Normal [facility] Comment on above: Result Comment: Refe rence range: 19.3 to 76.4 Unit: nmol/L PERFORMED AT [facility] Performed By: #### L SEXH ####[place] [address] CBC(NO DIFF)on 08-19-2023 Erythrocyte distribution width (RBC) [Ratio] 12.9 % Normal 11.5-14.5 [facility] Comment on above: Performed By: #### L SEXH #### [place] [address] Hematocrit (Bld) [Volume fraction] 47.4 % Normal 42.0-52.0 [facility] Comment on above: Performed By: #### L SEXH #### Testing performed at [address] [place] [address] Hemoglobin (Bld) [Mass/Vol] 16.7 g/dL Normal 14.0-18.0 [facility] Comment on above: Performed By: #### L SEXH #### Testing performed at [address] [place] [address] MCH (RBC) [Entitic mass] 33.2 pg Normal 26.0-35.0 [facility] Comment on above: Performed By: #### L SEXH #### Testing performed at [address] [place] [address] MCHC (RBC) [Mass/Vol] 35.2 g/dL Normal 27.0-37.0 [facility] Comment on above: Performed By: #### L SEXH #### Testing performed at [address] [place] [address] MCV (RBC) [Entitic vol] 94.3 fL Normal 80.0-100.0 [facility] Comment on above: Performed By: #### L SEXH #### Testing performed at [address] [place] [address] Platelet mean volume (Bld) [Entitic vol] 6.7 fL Low 7.4-11.0 [facility] Comment on above: Performed By: #### L SEXH #### Testing performed at [address] [place] [address] Platelets (Bld) [#/Vol] 284 10*3/uL Normal 130-400 [facility] Comment on above: Performed By: #### L SEXH #### Testing performed at [address] [place] [address] RBC (Bld) [#/Vol] 5.03 10*6/uL Normal 4.0-6.1 [facility] Comment on above: Performed By: #### L SEXH #### Testing performed at [address] [place] [address] WBC (Bld) [#/Vol] 7.0 10*3/uL Normal 3.6-11.0 [facility] Comment on above: Performed By: #### L SEXH #### Testing performed at [facility] [address] [place] [id number] ESTRADIOLon 08-19-2023 ESTRADIOL 32.2 pg/mL Normal [facility] Comment on above: Result Comment: Reference Interval Normal female follicular 97.5-592 Normal pre-ovulatory peak 685-1404 Normal female luteal 120-738 Postmenopausal females 19.7-141 Normal males 19.7-242 FSHon 08-19-2023 FSH 2.27 mIU/mL Normal [facility] Comment on above: Result Comment: Reference Interval Follicular phase 1.98-11.6 Mid-cycle peak 5.14-23.4 Luteal phase 1.38-9.58 Postmenopausal 21.5-131 Normal males (Ages 19-65) 1.55-9.74 LHon 08-19-2023 LH 2.19 mIU/mL Normal [facility] Comment on above: Result Comment: Reference Interval Follicular phase 2.58-12.1 Mid-cycle peak 27.3-96.9 Luteal phase 0.833-15.5 Postmenopausal 13.1-86.5 PROLACTINon 08-19-2023 PROLACTIN 8.2 ng/mL Normal 3.7-17.9 [facility] PSA,TOTALon 08-19-2023 PSA,TOTAL 1.790 NG/ML Normal 0-4 [facility] Comment on above: Result Comment: OBTAIN BASELINE BETWEEN AGES OF 45-75 LESS THAN 1.0 ng/mL REPEAT TESTING AT 2-4 YEARS 1.0-3.0 ng/mL REPEAT TESTING AT 1-2 YEARS GREATER THAN 3.0 ng/mL REPEAT PSA,LYUDMILA, AND WORKUP FOR BENIGN DISEASE AGE GREATER THAN 75, PSA LESS THAN 3 ng/mL REPEAT TESTING IN 1-4 YEARS Patient results determined by testing on the [employer] 7600 analyzer by immunometric method. This assay may not be comparable using a different director translational or method. Performed By: #### L SEXH #### Testing performed at [facility] [address] [place] [address] [place] [address] TESTOSTERONEon 08-19-2023 Testosterone [Mass/Vol] 157.0 ng/dL Normal 71.8-623.0 [facility] Comment on above: Performed By: #### L SEXH #### Testing performed at [facility] [address] [facility] [place] [address] [place] [address] POCT URINALYSIS DIPSTICK AUT OMATED W/O SCOPon 08-18-2023 Amorphous sediment LM Ql (Urine sed) [facility] Appearance (U) clear [facility] Bacteria LM Ql (Urine sed) [facility] Bilirubin Ql (U) Negative [facility] Casts LM.LPF (Urine sed) [#/Area] [facility] Color (U) Yellow [facility] Crystals LM Nom (Urine sed) [facility] Epithelial cells.squamous LM.HPF (Urine sed) [#/Area] [facility] Flow cytometry specialist review Emerson (Unsp spec) [Interp] [facility] Glucose Auto test strip (U) [Mass/Vol] mg/dL mg/dL [facility] Ketones [Mass/Vol] Negative mg/dL [facility] Leukocyte esterase Qn (U) [facility] Leukocyte esterase Test strip Ql (U) Negative [facility] Nitrite Ql (U) Negative [facility] pH (U) 6 [pH] 5 - 7 [facility] Protein Ql (U) Negative mg/dL [facility] RBC LM.HPF (Urine sed) [#/Area] [facility] RBC Ql (U) Negative [facility] Specific gravity (U) [Rel density] 1.015 1.001 - 1.035 [facility] Transitional cells LM Ql (Urine sed) [facility] Urobilinogen Qn (U) 0.2 [facility] WBC LM.HPF (Urine sed) [#/Area] [facility] TESTOSTERONEon 08-11-2023 Testosterone [Mass/Vol] 122.0 ng/dL Normal 71.8-623.0 [facility] CMP FASTINGon 08-10-2023 A:G RATIO 1.3 RATIO Normal 1.3-2.2 [facility] Comment on above: Performed By: #### L IP2, CMPF #### Testing performed at [facility] [address] [place] [address] ALBUMIN 4.8 G/dl Normal 3.5-5.0 [facility] Comment on above: Performed By: #### L IP2, CMPF #### Testing performed at [facility] [address] [place] [address] ALP [Catalytic activity/Vol] 86 U/L Normal 38-126 [facility] Comment on above: Performed By: #### L IP2, CMPF #### Testing performed at [facility] [address] [place] [address] ALT [Catalytic activity/Vol] 37 U/L Normal <50 [facility] Comment on above: Performed By: #### L IP2, CMPF #### Testing performed at [address] [address] AST [Catalytic activity/Vol] 36 U/L Normal 17-59 [facility] Comment on above: Performed By: #### L IP2, CMPF #### Testing performed at [address] [address] Bilirubin [Mass/Vol] 0.6 mg/dL Normal 0.2-1.3 [facility] Comment on above: Performed By: #### L IP2, CMPF #### Testing performed at [address] [address] Calcium [Mass/Vol] 9.8 mg/dL Normal 8.4-10.2 [facility] Comment on above: Performed By: #### L IP2, CMPF #### Testing performed at [address] [address] Chloride [Moles/Vol] 102 mmol/L Normal 98-107 [facility] Comment on above: Result Comment: Jordan pickens note: Triglyceride levels of 600mg/dL or higher may positively bias chloride results by approximately 2.1 mmol Performed By: #### L IP2, CMPF #### Testing performed at [address] [address] CO2 [Moles/Vol] 27 mmol/L Normal 22-30 [facility] Comment on above: Performed By: #### L IP2, CMPF #### [place] [address] Creatinine [Mass/Vol] 0.90 mg/dL Normal 0.7-1.2 [facility] Comment on above: Performed By: #### L IP2, CMPF #### [place] [address] EST. GFR, 115 ml/min/1.73sq.m [facility] Comment on above: Performed By: #### L IP2, CMPF #### [place] [address] EST. GFR,Non 95 ml/min/1.73sq.m [facility] Comment on above: Performed By: #### L IP2, CMPF #### [place] [address] GFR Information Average GFR for 50-5 9 years old = 93. Normal [facility] Comment on above: Result Comment: [employer] Offbearer raymundo Kidney disease, GFR = <60. Kidney failure, GFR = <15. The GFR estimate is not adjusted for extreme body surface area or acute process, nor has it been validated for women or ethnic groups other than and . Testing performed at [place] [address] Performed By: #### L IP2, CMPF #### [place] [address] Glucose [Mass/Vol] 135 mg/dL High 70-100 [facility] Comment on above: Result Comment: NORMAL <100 mg/dL PREDIABETES 101-126 mg/dL DIABETES 126 mg/dL or higher Performed By: #### L IP2, CMPF #### [place] [address] Potassium [Moles/Vol] 3.7 mmol/L Normal 3.5-5.1 [facility] Comment on above: Performed By: #### L IP2, CMPF #### Testing performed at [facility] [address] [place] [address] Protein [Mass/Vol] 8.6 g/dL High 6.3-8.2 [facility] Comment on above: Performed By: #### L IP2 CMPF #### Testing performed at [facility] [address] [place] [address] Sodium [Moles/Vol] 137 mmol/L Normal 137-145 [facility] Comment on above: Performed By: #### L IP2 CMPF #### Testing performed at [facility] [address] [place] [address] Urea nitrogen [Mass/Vol] 15 mg/dL Normal 7-20 [facility] Comment on above: Performed By: #### L IP2 CMPF #### Testing performed at [address] [address] COMPREHENSIVE METABOLIC PANE Sean 08-10-2023 Albumin [Mass/Vol] 4.8 G/dl 3.5 - 5.0 G/dl [facility] Albumin/Globulin [Mass ratio] 1.3 {ratio} [facility] ALP [Catalytic activity/Vol] 86 U/L [facility] ALT [Catalytic activity/Vol] 37 U/L NINF [facility] AST [Catalytic activity/Vol] 36 U/L [facility] Bilirubin [Mass/Vol] 0.6 mg/dL [facility] Calcium [Mass/Vol] 9.8 mg/dL [facility] Chloride [Moles/Vol] 102 mmol/L [facility] Comment on above: Please note: Triglyc eride levels of 600mg/dL or higher may positively bias chloride results by approximately 2.1 mmol CO2 [Moles/Vol] 27 mmol/L [facility] Creatinine [Mass/Vol] 0.90 mg/dL [facility] GFR COMMENT Average GFR for 50-5 9 years old = 93. [facility] Comment on above: Chronic Kidney disea se, GFR = <60. Kidney failure, GFR = <15. The GFR estimate is not adjusted for extreme body surface area or acute process, nor has it been validated for women or ethnic groups other than and . Testing performed at [place] [address] GFR/1.73 sq M.predicted among blacks MDRD (S/P/Bld) [Vol rate/Area] 115 mL/min/{1.73_m2} ml/min/1.73s q.m [facility] GFR/1.73 sq M.predicted among non-blacks MDRD (S/P/Bld) [Vol rate/Area] 95 mL/min/{1.73_m2} ml/min/1.73s q.m [facility] Glucose post fast [Mass/Vol] 135 mg/dL High [facility] Comment on above: NORMAL <100 mg/dL PREDIABETES 101-126 mg/dL DIABETES 126 mg/dL or higher Potassium [Moles/Vol] 3.7 mmol/L [facility] Protein [Mass/Vol] 8.6 g/dL High [facility] Sodium [Moles/Vol] 137 mmol/L [facility] Urea nitrogen [Mass/Vol] 15 mg/dL [facility] HEMOGLOBIN A1Con 08-10-2023 Glucose [Mass/Vol] 197 mg/dL [facility] Comment on above: Testing performed at [place] [address] HbA1c (Bld) [Mass fraction] 8.5 % High 0 - 6 % [facility] Comment on above: NORMAL <5.7% PREDIABETES 5.7-6.4% DIABETES 6.5% OR HIGHER Interpretation and review of laboratory results Abnormal [facility] Glucose [Mass/Vol] 197 mg/dL Normal [facility] Comment on above: Result Comment: Test ing performed at [place] [address] Performed By: #### H A1CT #### [place] [address] HbA1c (Bld) [Mass fraction] 8.5 % High 0-6 [facility] Comment on above: Result Comment: NORMAL <5.7% PREDIABETES 5.7-6.4% DIABETES 6.5% OR HIGHER Performed By: #### H A1CT #### [place] [address] LIPID PANEL W CALCULATED LDL on 08-10-2023 Cholesterol [Mass/Vol] 166 mg/dL [facility] Cholesterol in HDL [Mass/Vol] 41 mg/dL [facility] Cholesterol in LDL [Mass/Vol] 68 mg/dL NINF [facility] Cholesterol in VLDL [Mass/Vol] 57 mg/dL High [facility] Cholesterol.total/Ch olesterol in HDL [Mass ratio] 4.05 {ratio} RATIO [facility] Comment on above: RISK TOTAL/HDL RATIO MEN WOMEN 1/2 AVERAGE 3.43 3.27 AVERAGE 4.97 4.44 2X AVERAGE 9.55 7.05 3X AVERAGE 23.99 11.04 Testing performed at [place], [place] [address] Triglyceride [Mass/Vol] 287 mg/dL High [facility] LIPID PROFILEon 08-10-2023 Cholesterol [Mass/Vol] 166 mg/dL Normal 120-200 [facility] Comment on above: Performed By: #### L IP2, CMPF #### Testing performed at [facility] [address] [place] [address] Cholesterol in HDL [Mass/Vol] 41 mg/dL Normal 26-63 [facility] Comment on above: Performed By: #### L IP2, CMPF #### Testing performed at [facility] [address] [place] [address] Cholesterol in LDL [Mass/Vol] 68 mg/dL Normal <100 [facility] Comment on above: Performed By: #### L IP2, CMPF #### Testing performed at [facility] [address] [place] [address] Cholesterol in VLDL [Mass/Vol] 57 mg/dL High 5.0-25 [facility] Comment on above: Performed By: #### L IP2, CMPF #### Testing performed at [facility] [address] [place] [address] Cholesterol.total/Ch olesterol in HDL [Mass ratio] 4.05 {ratio} Normal [facility] Comment on above: Result Comment: RISK TOTAL/HDL RATIO MEN WOMEN 1/2 AVERAGE 3.43 3.27 AVERAGE 4.97 4.44 2X AVERAGE 9.55 7.05 3X AVERAGE 23.99 11.04 Testing performed at [place], [place] [address] Performed By: #### L JO [id number] #### [place] [address] Triglyceride [Mass/Vol] 287 mg/dL High 0-150 [facility] Comment on above: Performed By: #### L JO [id number] #### [place] [address] No Panel Informationon 08-09 Interpretation and review of laboratory results Abnormal [facility] RAPID TOX SCREEN,URINEon AMPHETAMINE Negative Normal NEGATIVE [facility] Comment on above: Result Comment: <500 ng/ml CUTOFF Performed By: #### R TOX #### [place] [address] BARBITURATES Negative Normal NEGATIVE [facility] Comment on above: Result Comment: <200 ng/ml CUTOFF Performed By: #### R TOX #### [place] [address] BENZODIAZEPINES Positive Abnormal NEGATIVE [facility] Comment on above: Result Comment: <200 ng/ml CUTOFF *Unconfirmed Screening Result* Unconfirmed screening results are to be used only for medical treatment purposes. Performed By: #### R TOX #### [place] [address] BUPRENORPHINE Negative Normal NEGATIVE [facility] Comment on above: Result Comment: <12. 5 ng/ml CUTOFF Performed By: #### R TOX #### [place] [address] CANNABINOIDS Positive Abnormal NEGATIVE [facility] Comment on above: Result Comment: <50 ng/ml CUTOFF *Unconfirmed Screening Result* Unconfirmed screening results are to be used only for medical treatment purposes. Performed By: #### R TOX #### [place] [address] COCAINE Negative Normal NEGATIVE [facility] Comment on above: Result Comment: <150 ng/ml CUTOFF Performed By: #### R TOX #### [place] [address] FENTANYL Negative Normal NEGATIVE [facility] Comment on above: Result Comment: 20 n g/mL CUTOFF *Unconfirmed Screening Result* Unconfirmed screening results are to be used only for medical treatment purposes. This test has not been approved by the FDA. Testing performed at [place] [address] Performed By: #### R TOX #### [place] [address] METHADONE Negative Normal NEGATIVE [facility] Comment on above: Result Comment: Meth adone Metabolite <100 ng/ml CUTOFF Performed By: #### R TOX #### [place] [address] METHAMPHETAMINE Negative Normal NEGATIVE [facility] Comment on above: Result Comment: <500 ng/ml CUTOFF Performed By: #### R TOX #### [place] [address] OPIATES Positive Abnormal NEGATIVE [facility] Comment on above: Result Comment: <300 ng/ml CUTOFF *Unconfirmed Screening Result* Unconfirmed screening results are to be used only for medical treatment purposes. Performed By: #### R TOX #### [place] [address] OXYCODONE Positive Abnormal NEGATIVE [facility] Comment on above: Result Comment: <100 ng/ml CUTOFF *Unconfirmed Screening Result* Unconfirmed screening results are to be used only for medical treatment purposes. Performed By: #### R TOX #### [place] [address] TRICYCLIC ANTIDEPRESSANTS Negative Normal NEGATIVE [facility] Comment on above: Result Comment: <100 0 ng/ml CUTOFF Performed By: #### R TOX #### [place] [address] TOXICOLOGY DRUG SCREEN, URIN Magdaleno 07-30-2023 Amphetamine (U) [Mass/Vol] Negative NEGATIVE NG/ML [facility] Comment on above: <500 ng/ml CUTOFF Barbiturates Screen Ql (U) Negative NEGATIVE NG/ML [facility] Comment on above: <200 ng/ml CUTOFF Benzodiazepines Ql (U) Positive Abnormal NEGATIVE NG/ML [facility] Comment on above: <200 ng/ml CUTOFF *Unconfirmed Screening Result* Unconfirmed screening results are to be used only for medical treatment purposes. Benzoylecgonine Ql (U) Negative NEGATIVE NG/ML [facility] Comment on above: <150 ng/ml CUTOFF Buprenorphine Ql (U) Negative NEGATIV E NG/ML [facility] Comment on above: <12.5 ng/ml CUTOFF Cannabinoids Screen Ql (U) Positive Abnormal NEGATIVE NG/ML [facility] Comment on above: <50 ng/ml CUTOFF *Unconfirmed Screening Result* Unconfirmed screening results are to be used only for medical treatment purposes. Fentanyl Negative NEGATIVE NG/ML [facility] Comment on above: 20 ng/mL CUTOFF *Unconfirmed Screening Result* Unconfirmed screening results are to be used only for medical treatment purposes. This test has not been approved by the FDA. Testing performed at [place] [address] Interpretation and review of laboratory results Abnormal [facility] Methadone Screen Ql (U) Negative NEGATIVE NG/ML [facility] Comment on above: Methadone Metabolite <100 ng/ml CUTOFF Methamphetamine (U) [Mass/Vol] Negative NEGATIVE NG/ML [facility] Comment on above: <500 ng/ml CUTOFF Opiates Screen Ql (U) Positive Abnormal NEGATIVE NG/ML [facility] Comment on above: <300 ng/ml CUTOFF *Unconfirmed Screening Result* Unconfirmed screening results are to be used only for medical treatment purposes. oxyCODONE Ql (U) Positive Abnormal NEGATIVE NG/ML [facility] Comment on above: <100 ng/ml CUTOFF *Unconfirmed Screening Result* Unconfirmed screening results are to be used only for medical treatment purposes. Tricyclic antidepressants Screen Ql (U) Negative NEGATIVE NG/ML [facility] Comment on above: <1000 ng/ml CUTOFF [facility] RAPID TOX SCREEN,URINEon AMPHETAMINE Negative Normal NEGATIVE [facility] Comment on above: Result Comment: <500 ng/ml CUTOFF Performed By: #### R TOX #### [place] [address] BARBITURATES Negative Normal NEGATIVE [facility] Comment on above: Result Comment: <200 ng/ml CUTOFF Performed By: #### R TOX #### [place] [address] BENZODIAZEPINES Negative Normal NEGATIVE [facility] Comment on above: Result Comment: <200 ng/ml CUTOFF Performed By: #### R TOX #### [place] [address] BUPRENORPHINE Negative Normal NEGATIVE [facility] Comment on above: Result Comment: <12. 5 ng/ml CUTOFF Performed By: #### R TOX #### [place] [address] CANNABINOIDS Negative Normal NEGATIVE [facility] Comment on above: Result Comment: <50 ng/ml CUTOFF Performed By: #### R TOX #### [place] [address] COCAINE Negative Normal NEGATIVE [facility] Comment on above: Result Comment: <150 ng/ml CUTOFF Performed By: #### R TOX #### [place] [address] FENTANYL Negative Normal NEGATIVE [facility] Comment on above: Result Comment: 20 n g/mL CUTOFF *Unconfirmed Screening Result* Unconfirmed screening results are to be used only for medical treatment purposes. This test has not been approved by the FDA. Testing performed at [place] [address] Performed By: #### R TOX #### [place] [address] METHADONE Negative Normal NEGATIVE [facility] Comment on above: Result Comment: Meth adone Metabolite <100 ng/ml CUTOFF Performed By: #### R TOX #### [place] [address] METHAMPHETAMINE Negative Normal NEGATIVE [facility] Comment on above: Result Comment: <500 ng/ml CUTOFF Performed By: #### R TOX #### [place] [address] OPIATES Negative Normal NEGATIVE [facility] Comment on above: Result Comment: <300 ng/ml CUTOFF Performed By: #### R TOX #### [place] [address] OXYCODONE Negative Normal NEGATIVE [facility] Comment on above: Result Comment: <100 ng/ml CUTOFF Performed By: #### R TOX #### Testing performed at [facility] [address] [place] [address] TRICYCLIC ANTIDEPRESSANTS Positive Abnormal NEGATIVE [facility] Comment on above: Result Comment: <100 0 ng/ml CUTOFF *Unconfirmed Screening Result* Unconfirmed screening results are to be used only for medical treatment purposes. Performed By: #### R TOX #### [place] [address] TOXICOLOGY DRUG SCREEN, URIN Magdaleno 07-27-2023 Amphetamine (U) [Mass/Vol] Negative NEGATIVE NG/ML [facility] Comment on above: <500 ng/ml CUTOFF Barbiturates Screen Ql (U) Negative NEGATIVE NG/ML [facility] Comment on above: <200 ng/ml CUTOFF Benzodiazepines Ql (U) Negative NEGATIVE NG/ML [facility] Comment on above: <200 ng/ml CUTOFF Benzoylecgonine Ql (U) Negative NEGATIVE NG/ML [facility] Comment on above: <150 ng/ml CUTOFF Buprenorphine Ql (U) Negative NEGATIV E NG/ML [facility] Comment on above: <12.5 ng/ml CUTOFF Cannabinoids Screen Ql (U) Negative NEGATIVE NG/ML [facility] Comment on above: <50 ng/ml CUTOFF Fentanyl Negative NEGATIVE NG/ML [facility] Comment on above: 20 ng/mL CUTOFF *Unconfirmed Screening Result* Unconfirmed screening results are to be used only for medical treatment purposes. This test has not been approved by the FDA. Testing performed at [place] [address] Interpretation and review of laboratory results Abnormal [facility] Methadone Screen Ql (U) Negative NEGATIVE NG/ML [facility] Comment on above: Methadone Metabolite <100 ng/ml CUTOFF Methamphetamine (U) [Mass/Vol] Negative NEGATIVE NG/ML [facility] Comment on above: <500 ng/ml CUTOFF Opiates Screen Ql (U) Negative NEGATIVE NG/ML [facility] Comment on above: <300 ng/ml CUTOFF oxyCODONE Ql (U) Negative NEGATIVE NG/ML [facility] Comment on above: <100 ng/ml CUTOFF Tricyclic antidepressants Screen Ql (U) Positive Abnormal NEGATIVE NG/ML [facility] Comment on above: <1000 ng/ml CUTOFF *Unconfirmed Screening Result* Unconfirmed screening results are to be used only for medical treatment purposes. [facility] 36on 05-26-2023 36 Gabapentin refill requested. Allergies on file Pharmacy on file. Normal [facility] CBCon 04-28-2023 Basophils/100 WBC (Bld) 1 % Normal 0-2.0 [facility] Comment on above: Performed By: #### A CBC, CMPF, LIP2 #### Testing performed at [place] [id number] DTYPE MANUAL DIFF Normal [facility] Comment on above: Performed By: #### A CBC, CMPF, LIP2 #### Testing performed at [address] [address] Eosinophils/100 WBC (Bld) 4 % Normal 0-7.0 [facility] Comment on above: Performed By: #### A CBC, CMPF, LIP2 #### Testing performed at [address] [address] Lymphocytes/100 WBC (Bld) 41 % Normal 20.5-51.1 [facility] Comment on above: Performed By: #### A CBC, CMPF, LIP2 #### Testing performed at [address] [address] Monocytes/100 WBC (Bld) 7 % Normal 1.7-10.0 [facility] Comment on above: Performed By: #### A CBC, CMPF, LIP2 #### Testing performed at [address] [address] Neutrophils/100 WBC (Bld) 47 % Normal 42.2-75.2 [facility] Comment on above: Performed By: #### A CBC, CMPF, LIP2 #### Testing performed at [address] [address] PLATELET COMMENT ADEQUATE Normal [facility] Comment on above: Result Comment: Test ing performed at [place] [address] Performed By: #### A CBC, CMPF, LIP2 #### [place] [address] RBC morphology finding Nom (Bld) NORMAL Normal [facility] Comment on above: Performed By: #### A CBC, CMPF, LIP2 #### [place] [address] Erythrocyte distribution width (RBC) [Ratio] 13.4 % Normal 11.5-14.5 [facility] Comment on above: Performed By: #### A CBC, CMPF, LIP2 #### [place] [address] Hematocrit (Bld) [Volume fraction] 46.2 % Normal 42.0-52.0 [facility] Comment on above: Performed By: #### A CBC, CMPF, LIP2 #### [place] [address] Hemoglobin (Bld) [Mass/Vol] 15.5 g/dL Normal 14.0-18.0 [facility] Comment on above: Performed By: #### A CBC, CMPF, LIP2 #### [place] [address] MCH (RBC) [Entitic mass] 32.2 pg Normal 26.0-35.0 [facility] Comment on above: Performed By: #### A CBC, CMPF, LIP2 #### [place] [address] MCHC (RBC) [Mass/Vol] 33.6 g/dL Normal 27.0-37.0 [facility] Comment on above: Performed By: #### A CBC, CMPF, LIP2 #### [place] [address] MCV (RBC) [Entitic vol] 96.0 fL Normal 80.0-100.0 [facility] Comment on above: Performed By: #### A CBC, CMPF, LIP2 #### [place] [address] Platelet mean volume (Bld) [Entitic vol] 7.8 fL Normal 7.4-11.0 [facility] Comment on above: Result Comment: Test ing performed at [place] [address] Performed By: #### A CBC, CMPF, LIP2 #### [place] [address] Platelets (Bld) [#/Vol] 308 10*3/uL Normal 130-400 [facility] Comment on above: Performed By: #### A CBC, CMPF, LIP2 #### [place] [address] RBC (Bld) [#/Vol] 4.82 10*6/uL Normal 4.0-6.1 [facility] Comment on above: Performed By: #### A CBC, CMPF, LIP2 #### [place] [address] WBC (Bld) [#/Vol] 9.5 10*3/uL Normal 3.6-11.0 [facility] Comment on above: Performed By: #### A CBC, CMPF, LIP2 #### [place] [address] CBC, EDIF, PLATELETon 2023 Basophils/100 WBC (Bld) 1 % 0 - 2.0 % [facility] Differential cell count method Nom (Bld) MANUAL DIFF % [facility] Eosinophils/100 WBC (Bld) 4 % 0 - 7.0 % [facility] Erythrocyte distribution width (RBC) [Ratio] 13.4 % 11.5 - 14.5 % [facility] Hematocrit (Bld) [Volume fraction] 46.2 % 42.0 - 52.0 % [facility] Hemoglobin (Bld) [Mass/Vol] 15.5 g/dL [facility] Lymphocytes/100 WBC (Bld) 41 % 20.5 - 51.1 % [facility] MCH (RBC) [Entitic mass] 32.2 pg 26.0 - 35.0 PG [facility] MCHC (RBC) [Mass/Vol] 33.6 g/dL [facility] MCV (RBC) [Entitic vol] 96.0 fL [facility] Monocytes/100 WBC (Bld) 7 % 1.7 - 10.0 % [facility] Morphology Emerson (Bld) [Interp] NORMAL [facility] Neutrophils/100 WBC (Bld) 47 % 42.2 - 75.2 % [facility] Platelet mean volume (Bld) [Entitic vol] 7.8 fL [facility] Platelet morphology finding Nom (Bld) ADEQUATE [facility] Comment on above: Testing performed at [place], [place] [address] Platelets (Bld) [#/Vol] 308 10*3/uL 130 - 400 10*3/uL [facility] RBC (Bld) [#/Vol] 4.82 10*6/uL 4.0 - 6.1 10*6/uL [facility] WBC (Bld) [#/Vol] 9.5 10*3/uL 3.6 - 11.0 10*3/uL [facility] CMP FASTINGon 04-28-2023 A:G RATIO 1.3 RATIO Normal 1.3-2.2 [facility] Comment on above: Performed By: #### A CBC, CMPF, LIP2 #### Testing performed at [address] [address] ALBUMIN 4.6 G/dl Normal 3.5-5.0 [facility] Comment on above: Performed By: #### A CBC, CMPF, LIP2 #### Testing performed at [address] [address] ALP [Catalytic activity/Vol] 91 U/L Normal 38-126 [facility] Comment on above: Performed By: #### A CBC, CMPF, LIP2 #### Testing performed at [address] [address] ALT [Catalytic activity/Vol] 65 U/L High <50 [facility] Comment on above: Performed By: #### A CBC, CMPF, LIP2 #### [place] [address] AST [Catalytic activity/Vol] 56 U/L Normal 17-59 [facility] Comment on above: Performed By: #### A CBC, CMPF, LIP2 #### [place] [address] Bilirubin [Mass/Vol] 0.4 mg/dL Normal 0.2-1.3 [facility] Comment on above: Performed By: #### A CBC, CMPF, LIP2 #### [place] [address] Calcium [Mass/Vol] 9.5 mg/dL Normal 8.4-10.2 [facility] Comment on above: Performed By: #### A CBC, CMPF, LIP2 #### [place] [address] Chloride [Moles/Vol] 106 mmol/L Normal 98-107 [facility] Comment on above: Result Comment: Jordan pickens note: Triglyceride levels of 600mg/dL or higher may positively bias chloride results by approximately 2.1 mmol Performed By: #### A CBC, CMPF, LIP2 #### [place] [address] CO2 [Moles/Vol] 22 mmol/L Normal 22-30 [facility] Comment on above: Performed By: #### A CBC, CMPF, LIP2 #### [place] [address] Creatinine [Mass/Vol] 1.00 mg/dL Normal 0.7-1.2 [facility] Comment on above: Performed By: #### A CBC, CMPF, LIP2 #### [place] [address] EST. GFR, 102 ml/min/1.73sq.m Normal [facility] Comment on above: Performed By: #### A CBC, CMPF, LIP2 #### Testing [place] [address] EST. GFR,Non 84 ml/min/1.73sq.m Normal [facility] Comment on above: Performed By: #### A CBC, CMPF, LIP2 #### [place] [address] GFR Information Average GFR for 50-5 9 years old = 93. Normal [facility] Comment on above: Result Comment: [employer] raymundo Kidney disease, GFR = <60. Kidney failure, GFR = <15. The GFR estimate is not adjusted for extreme body surface area or acute process, nor has it been validated for women or ethnic groups other than and . Testing performed at [place] [address] Performed By: #### A CBC, CMPF, LIP2 #### [place] [address] Glucose [Mass/Vol] 177 mg/dL High 70-100 [facility] Comment on above: Result Comment: NORMAL <100 mg/dL PREDIABETES 101-126 mg/dL DIABETES 126 mg/dL or higher Performed By: #### A CBC, CMPF, LIP2 #### [place] [address] Potassium [Moles/Vol] 4.0 mmol/L Normal 3.5-5.1 [facility] Comment on above: Performed By: #### A CBC, CMPF, LIP2 #### [place] [address] Protein [Mass/Vol] 8.2 g/dL Normal 6.3-8.2 [facility] Comment on above: Performed By: #### A CBC, CMPF, LIP2 #### [place] [address] Sodium [Moles/Vol] 139 mmol/L Normal 137-145 [facility] Comment on above: Performed By: #### A CBC, CMPF, LIP2 #### [place] [address] Urea nitrogen [Mass/Vol] 11 mg/dL Normal 7-20 [facility] Comment on above: Performed By: #### A CBC, CMPF, LIP2 #### Testing performed at [address] [address] COMPREHENSIVE METABOLIC PANE Sean 04-28-2023 Albumin [Mass/Vol] 4.6 G/dl 3.5 - 5.0 G/dl [facility] Albumin/Globulin [Mass ratio] 1.3 {ratio} [facility] ALP [Catalytic activity/Vol] 91 U/L [facility] ALT [Catalytic activity/Vol] 65 U/L High NINF [facility] AST [Catalytic activity/Vol] 56 U/L [facility] Bilirubin [Mass/Vol] 0.4 mg/dL [facility] Calcium [Mass/Vol] 9.5 mg/dL [facility] Chloride [Moles/Vol] 106 mmol/L [facility] Comment on above: Please note: Triglyc eride levels of 600mg/dL or higher may positively bias chloride results by approximately 2.1 mmol CO2 [Moles/Vol] 22 mmol/L [facility] Creatinine [Mass/Vol] 1.00 mg/dL [facility] GFR COMMENT Average GFR for 50-5 9 years old = 93. [facility] Comment on above: Chronic Kidney disea se, GFR = <60. Kidney failure, GFR = <15. The GFR estimate is not adjusted for extreme body surface area or acute process, nor has it been validated for women or ethnic groups other than and . Testing performed at [place], [place] [address] GFR/1.73 sq M.predicted among blacks MDRD (S/P/Bld) [Vol rate/Area] 102 mL/min/{1.73_m2} ml/min/1.73s q.m [facility] GFR/1.73 sq M.predicted among non-blacks MDRD (S/P/Bld) [Vol rate/Area] 84 mL/min/{1.73_m2} ml/min/1.73s q.m [facility] Glucose post fast [Mass/Vol] 177 mg/dL High [facility] Comment on above: NORMAL <100 mg/dL PREDIABETES 101-126 mg/dL DIABETES 126 mg/dL or higher Potassium [Moles/Vol] 4.0 mmol/L [facility] Protein [Mass/Vol] 8.2 g/dL [facility] Sodium [Moles/Vol] 139 mmol/L [facility] Urea nitrogen [Mass/Vol] 11 mg/dL [facility] HEMOGLOBIN A1Con 04-28-2023 Glucose [Mass/Vol] 148 mg/dL [facility] Comment on above: Testing performed at [place] [address] HbA1c (Bld) [Mass fraction] 6.8 % High 0 - 6 % [facility] Comment on above: NORMAL <5.7% PREDIABETES 5.7-6.4% DIABETES 6.5% OR HIGHER Interpretation and review of laboratory results Abnormal [facility] Glucose [Mass/Vol] 148 mg/dL Normal [facility] Comment on above: Result Comment: Test ing performed at [place] [address] Performed By: #### H A1CT #### [place] [address] HbA1c (Bld) [Mass fraction] 6.8 % High 0-6 [facility] Comment on above: Result Comment: NORMAL <5.7% PREDIABETES 5.7-6.4% DIABETES 6.5% OR HIGHER Performed By: #### H A1CT #### [place] [address] LIPID PANEL W CALCULATED LDL on 04-28-2023 Cholesterol [Mass/Vol] 228 mg/dL High [facility] Cholesterol in HDL [Mass/Vol] 32 mg/dL [facility] Cholesterol in LDL [Mass/Vol] 110 mg/[facility] Cholesterol in VLDL [Mass/Vol] 86 mg/dL High [facility] Cholesterol.total/Ch olesterol in HDL [Mass ratio] 7.13 {ratio} RATIO [facility] Comment on above: RISK TOTAL/HDL RATIO MEN WOMEN 1/2 AVERAGE 3.43 3.27 AVERAGE 4.97 4.44 2X AVERAGE 9.55 7.05 3X AVERAGE 23.99 11.04 Testing performed at [facility], [place], [place] [address] Triglyceride [Mass/Vol] 429 mg/dL High [facility] LIPID PROFILEon 04-28-2023 Cholesterol [Mass/Vol] 228 mg/dL High 120-200 [facility] Comment on above: Performed By: #### A CBC, CMPF, LIP2 #### Testing performed at [facility] [address] [place] [address] Cholesterol in HDL [Mass/Vol] 32 mg/dL Normal 26-63 [facility] Comment on above: Performed By: #### A CBC, CMPF, LIP2 #### Testing performed at [address] [address] Cholesterol in LDL [Mass/Vol] 110 mg/dL High <100 [facility] Comment on above: Performed By: #### A CBC, CMPF, LIP2 #### Testing performed at [address] [address] Cholesterol in VLDL [Mass/Vol] 86 mg/dL High 5.0-25 [facility] Comment on above: Performed By: #### A CBC, CMPF, LIP2 #### Testing performed at [address] [address] Cholesterol.total/Ch olesterol in HDL [Mass ratio] 7.13 {ratio} Normal [facility] Comment on above: Result Comment: RISK TOTAL/HDL RATIO MEN WOMEN 1/2 AVERAGE 3.43 3.27 AVERAGE 4.97 4.44 2X AVERAGE 9.55 7.05 3X AVERAGE 23.99 11.04 Testing performed at [place], [place] [address] Performed By: #### A CBC, CMPF, LIP2 #### Testing performed at [facility] [address] [place] [address] Triglyceride [Mass/Vol] 429 mg/dL High 0-150 [facility] Comment on above: Performed By: #### A CBC, CMPF, LIP2 #### Testing performed at [address] [address] No Panel Informationon 04-28 Interpretation and review of laboratory results Abnormal [facility] 36on 02-12-2023 36 Prescription sent. Normal [facility]on 02-11-2023 36 Gabapentin 400 mg Allergies on file [facility] Patient requests a refill [facility] Telephoneon 02-11-2023 Telephone [phone] Janette Alvarez 1970 M Date Provider Department Center 02/11/2023 TO PONCE MP ORTHO MPORTHO No family history on file [facility] 12-27-2022 29 Addended by: DAVID VAUGHN on: 12/27/2022 07:57 AM Modules accepted: Orders [facility] Orders Onlyon 12-27-2022 Orders Only [id number] Janette Alvarez 1970 M Provider Department Center 12/27/2022 820-DAVID VAIL ORTHO MPORTHO No family history on file [facility] 12-04-2022 29 Addended by: DANI LE on: 02/11/2023 01:27 PM Modules accepted: Orders [facility] Follow-Upon 12-04-2022 Follow-Up [id number] Janette Alvarez 1970 Provider Department [place] 12/04/2022 266-DANI LE [facility] No family history on file Level of Service:93313 LA OFFICE/OUTPATIENT ESTABLISHED LOW MDM 20-29 MIN [facility] 11-11-2022 36 Voicemail left askin g patient to return call. [facility] 36on 11-10-2022 36 Patient would like t america Hale to call him back. [facility] 10-24-2022 36 Sent to pharmacy [facility] 36 pt called in wanting a refill on Gabapentin 400mg and Cyclobenzaprine 10mg. he uses [facility] This message was previously put in by someone else, but wasn't done correctly. He would like a call back when this is done. [facility] Telephoneon 10-22-2022 Telephone [id number] Janette Alvarez 1970 M Date Provider Department Center 10/22/2022 DANI QUEVEDO MP No family history on file [facility] 10-08-2022 36 I spoke with [facility] also and they got the order. They needed the C9 approval and I faxed them that today [facility] 10-03-2022 36 Patient returned hung l and states he would prefer to get this done in [facility]. Order faxed to [facility] to have them call to schedule. [facility] 10-02-2022 29 Addended by: DAVID VAUGHN on: 10/02/2022 02:07 PM Modules accepted: Orders [facility] 10-02-2022 36 Ok order is in - radiology should call him to schedule and we'll go from there. [facility] 36 There needs to be an order put in. If that is done, then he needs to call radiology and schedule it. If an end date extension is needed, I will get it done once radiology lets me know what date its scheduled for [facility] 09-22-2022 36 Patient left me a voicemail stating he had a hearing for his CT which he won, CT scan was denied and then overturned. He states that was over a month and a half ago and he has not received any notification from anyone on scheduling the CT scan. He would like to have this done rocco. Can you please look into this and update the patient on what needs to be done... Thanks! [facility] Telephoneon 09-22-2022 Telephone [id number] Janette Alvarez 1970 M Date Provider Department Center 09/22/2022 DANI QUEVEDO MP No family history on file [facility] 3608-04-2022 36 Please advise refill request. [facility] Refillon 08-04-2022 Refill [id number] Janette Alvarez 1970 M Date Provider Department Center 08/04/2022 266-ELGAFY DANI NWO [facility] No family history on file Reason for Visit and Comments: Med Refill [[id number]] [facility] 36on 06-30-2022 36 Please advise refill request. [facility]illon 06-30-2022 Refill [id number] UzielJanette montoya t 1970 M Date Provider Department Center 06/30/2022 266-ELHODAFYDEYSIDANI ORTHO MPORTHO No family history on file Reason for Visit and Comments: Med Refill [[id number]] [facility] Orders Onlyon 06-09-2022 Orders Only [id number] UzielJanette montoya jc 1970 M Date Provider Department Center 06/09/2022 [facility] No family history on file [facility] 36on 05-29-2022 36 Please advise refill request. [facility]illon 05-29-2022 Refill [id number] UzielJanette montoya jc 1970 M Date Provider Department Center 05/29/2022 266-ELDEYSI LONDONSEIN [facility] No family history on file Reason for Visit and Comments: Med Refill [[id number]] [facility] CBC, EDIF, PLATELETon 2022 ABSOLUTE BASOPHIL COUNT 0.1 10*3/uL 0.0 - 0.2 10*3/uL [facility] Basophils/100 WBC (Bld) 0.9 % 0.0 - 2.0 % [facility] Differential cell count method Nom (Bld) AUTO DIFF % [facility] Eosinophils (Bld) [#/Vol] 0.2 10*3/uL 0.0 - 0.7 10*3/uL [facility] Eosinophils/100 WBC (Bld) 2.8 % 0.0 - 11.0 % [facility] Erythrocyte distribution width (RBC) [Ratio] 13.4 % 11.5 - 14.5 % [facility] Hematocrit (Bld) [Volume fraction] 48.8 % 42.0 - 52.0 % [facility] Hemoglobin (Bld) [Mass/Vol] 16.2 g/dL [facility] Interpretation and review of laboratory results Abnormal [facility] Lymphocytes (Bld) [#/Vol] 2.7 10*3/uL 1.2 - 3.4 10*3/uL [facility] Lymphocytes/100 WBC (Bld) 33.7 % 20.0 - 55.0 % [facility] MCH (RBC) [Entitic mass] 32.1 pg 26.0 - 35.0 PG [facility] MCHC (RBC) [Mass/Vol] 33.3 g/dL [facility] MCV (RBC) [Entitic vol] 96.6 fL [facility] Monocytes (Bld) [#/Vol] 0.6 10*3/uL 0.0 - 0.7 10*3/uL [facility] Monocytes/100 WBC (Bld) 8.0 % 0.0 - 10.0 % [facility] Neutrophils (Bld) [#/Vol] 4.3 10*3/uL 1.4 - 6.5 10*3/uL [facility] Neutrophils/100 WBC (Bld) 54.6 % 37.0 - 75.0 % [facility] Platelet mean volume (Bld) [Entitic vol] 7.2 fL Low [facility] Platelets (Bld) [#/Vol] 285 10*3/uL 130.0 - 400.0 10*3/uL [facility] RBC (Bld) [#/Vol] 5.05 10*6/uL 4.0 - 6.1 10*6/uL [facility] WBC (Bld) [#/Vol] 7.9 10*3/uL 3.6 - 11.0 10*3/uL [facility] COMPREHENSIVE METABOLIC PANE Sean 05-27-2022 Albumin [Mass/Vol] 4.1 G/dl 3.5 - 5.0 G/dl [facility] Albumin/Globulin [Mass ratio] 1.0 {ratio} Low [facility] ALP [Catalytic activity/Vol] 72 U/L [facility] ALT [Catalytic activity/Vol] 24 U/L [facility] AST [Catalytic activity/Vol] 25 U/L [facility] Bilirubin [Mass/Vol] 0.2 mg/dL [facility] Calcium [Mass/Vol] 9.1 mg/dL [facility] Chloride [Moles/Vol] 96 mmol/L Low [facility] CO2 [Moles/Vol] 29 mmol/L [facility] Creatinine [Mass/Vol] 1.18 mg/dL [facility] GFR COMMENT Average GFR for 40-4 9 years old = 99. [facility] Comment on above: Chronic Kidney disea se, GFR = <60. Kidney failure, GFR = <15. The GFR estimate is not adjusted for extreme body surface area or acute process, nor has it been validated for women or ethnic groups other than and . GFR/1.73 sq M.predicted among blacks MDRD (S/P/Bld) [Vol rate/Area] 84 mL/min/{1.73_m2} ml/min/1.73s q.m [facility] GFR/1.73 sq M.predicted among non-blacks MDRD (S/P/Bld) [Vol rate/Area] 70 mL/min/{1.73_m2} ml/min/1.73s q.m [facility] Glucose post fast [Mass/Vol] 223 mg/dL High [facility] Comment on above: NORMAL <100 mg/dL PREDIABETES 101-126 mg/dL DIABETES 126 mg/dL or higher Interpretation and review of laboratory results Abnormal [facility] Potassium [Moles/Vol] 3.6 mmol/L [facility] Protein [Mass/Vol] 8.1 g/dL [facility] Sodium [Moles/Vol] 133 mmol/L Low [facility] Urea nitrogen [Mass/Vol] 16 mg/dL [facility] D-DIMER,QUANTITATIVEon 05-27 Fibrin D-dimer FEU (PPP) [Mass/Vol] <0.27 NINF [facility] Comment on above: If result is greater than the cutoff value of 0.56 mg/L then the potential for PE or DVT exists. Other conditions exist which may cause a falsely elevated level. Please correlate clinically, including radiological findings and other clinical parameters. [facility] NOVEL CORONAVIRUS LAB 1 - NA SOPHARYNGEALon 05-27-2022 NARRATIVE -1 This test was perfor med using isothermal JEFF and has been approved as Emergency Use Authorization (EUA) for the qualitative detection [id number] nucleic acid. [facility] SARS-CoV-2 (COVID-19) RNA JEFF+probe Ql (Unsp spec) Not detected NOT DETECTED [facility] Comment on above: Negative results do not preclude SARS-CoV-2 infection and should not be used as the sole basis for treatment or other patient management decisions. Optimum specimen types and timing for peak viral levels during infections caused by SARS-CoV-2 has not been determined. The possibility of a false negative result should especially be considered if the patient's recent exposures or clinical presentation suggest that SARS-CoV-2 infection is probable, and diagnostic tests for other causes of illness (e.g., other respiratory illness) are negative. Collection of a new specimen and re-testing may be necessary if the patient is critically ill or clinically deteriorating. [facility] TROPONIN I, HIGH SENSITIVITY on 05-27-2022 TROPONIN I, HIGH SENSITIVITY 2 pg/mL 0 - 20 pg/mL [facility] Comment on above: Indeterminant: >12 to 100 pg/mL female >20 to 100 pg/mL male Indicative of myocardial injury. Serial sampling is recommended, a change of greater than or equal to 20 pg/mL is indicative of acute coronary syndrome. [facility] XR Chest PA uprighton 2022 IMPRESSION: There is no acute cardiopulmonary process. RADIOLOGY EXAM: XR CHEST PA 1 VIEW HISTORY: Chest pain. COMPARISON: 05/25/2017. TECHNIQUE: Single AP erect portable chest radiograph performed. FINDINGS: Plate and screw device overlying the inferior aspect of the cervical spine/cervicothoracic junction. The trachea air column is unremarkable. The heart size is within normal limits and stable. The mediastinal and hilar shadows are unremarkable. The lung walker are clear. There is no consolidation or infiltrate. There is no pleural effusion or pulmonary vascular congestion. There is no pneumothorax or osseous abnormality. RADIOLOGY Wilian Mariscal MD - 05/27/2022 EXAM: XR CHEST PA 1 VIEW HISTORY: Chest pain. COMPARISON: 05/25/2017. TECHNIQUE: Single AP erect portable chest radiograph performed. FINDINGS: Plate and screw device overlying the inferior aspect of the cervical spine/cervicothoracic junction. The trachea air column is unremarkable. The heart size is within normal limits and stable. The mediastinal and hilar shadows are unremarkable. The lung walker are clear. There is no consolidation or infiltrate. There is no pleural effusion or pulmonary vascular congestion. There is no pneumothorax or osseous abnormality. IMPRESSION IMPRESSION: There is no acute cardiopulmonary process. [facility] Radiology Study observation (narrative) [employer] XR Chest PA uprightOrdered B y: Wilian Mariscal on 05-27-2022 [employer] Work Phone: INFLUENZA A AND B, PCRon FLUAV and FLUBV Ag IF Nom (Unsp spec) Negative NEGATIVE [facility] FLUBV Ag IA Ql (Unsp spec) Negative NEGATIVE [facility] Comment on above: TESTING PERFORMED BY JEFF [facility] NOVEL CORONAVIRUS LAB 1 - NA SOPHARYNGEALon 04-02-2022 NARRATIVE -1 This test was perfor med using isothermal JEFF and has been approved as Emergency Use Authorization (EUA) for the qualitative detection [id number] nucleic acid. [facility] SARS-CoV-2 (COVID-19) RNA JEFF+probe Ql (Unsp spec) Not detected NOT DETECTED [facility] Comment on above: Negative results do not preclude SARS-CoV-2 infection and should not be used as the sole basis for treatment or other patient management decisions. Optimum specimen types and timing for peak viral levels during infections caused by SARS-CoV-2 has not been determined. The possibility of a false negative result should especially be considered if the patient's recent exposures or clinical presentation suggest that SARS-CoV-2 infection is probable, and diagnostic tests for other causes of illness (e.g., other respiratory illness) are negative. Collection of a new specimen and re-testing may be necessary if the patient is critically ill or clinically deteriorating. [facility] [employer] CBC, EDIF, PLATELETon 2021 ABSOLUTE BASOPHIL COUNT 0.0 10*3/uL 0.0 - 0.2 10*3/uL [facility] Basophils/100 WBC (Bld) 0.5 % 0.0 - 2.0 % [facility] Differential cell count method Nom (Bld) AUTO DIFF % [facility] [employer] Eosinophils (Bld) [#/Vol] 0.2 10*3/uL 0.0 - 0.7 10*3/uL [facility] Eosinophils/100 WBC (Bld) 2.0 % 0.0 - 11.0 % [facility] Erythrocyte distribution width (RBC) [Ratio] 13.5 % 11.5 - 14.5 % [facility] Hematocrit (Bld) [Volume fraction] 44.9 % 42.0 - 52.0 % [facility] Hemoglobin (Bld) [Mass/Vol] 15.3 g/dL [facility] Interpretation and review of laboratory results Abnormal [facility] Lymphocytes (Bld) [#/Vol] 3.2 10*3/uL 1.2 - 3.4 10*3/uL [facility] Lymphocytes/100 WBC (Bld) 38.1 % 20.0 - 55.0 % [facility] MCH (RBC) [Entitic mass] 32.9 pg 26.0 - 35.0 PG [facility] MCHC (RBC) [Mass/Vol] 34.1 g/dL [facility] MCV (RBC) [Entitic vol] 96.3 fL [facility] Monocytes (Bld) [#/Vol] 0.8 10*3/uL High 0.0 - 0.7 10*3/uL [facility] Monocytes/100 WBC (Bld) 9.4 % 0.0 - 10.0 % [facility] Neutrophils (Bld) [#/Vol] 4.2 10*3/uL 1.4 - 6.5 10*3/uL [facility] Neutrophils/100 WBC (Bld) 50.0 % 37.0 - 75.0 % [facility] Platelet mean volume (Bld) [Entitic vol] 8.1 fL [facility] Platelets (Bld) [#/Vol] 248 10*3/uL 130.0 - 400.0 10*3/uL [facility] RBC (Bld) [#/Vol] 4.66 10*6/uL 4.0 - 6.1 10*6/uL [facility] WBC (Bld) [#/Vol] 8.4 10*3/uL 3.6 - 11.0 10*3/uL [facility] CHEM 7 (LYTES,BUN,CREA,GLUC) on 02-12-2022 Chloride [Moles/Vol] 98 mmol/L [facility] CO2 [Moles/Vol] 26 mmol/L [facility] Creatinine [Mass/Vol] 1.21 mg/dL [facility] GFR COMMENT Average GFR for 40-4 9 years old = 99. [facility] Comment on above: Chronic Kidney disea se, GFR = <60. Kidney failure, GFR = <15. The GFR estimate is not adjusted for extreme body surface area or acute process, nor has it been validated for women or ethnic groups other than and . GFR/1.73 sq M.predicted among blacks MDRD (S/P/Bld) [Vol rate/Area] 82 mL/min/{1.73_m2} ml/min/1.73s q.m [facility] GFR/1.73 sq M.predicted among non-blacks MDRD (S/P/Bld) [Vol rate/Area] 68 mL/min/{1.73_m2} ml/min/1.73s q.m [facility] Glucose post fast [Mass/Vol] 101 mg/dL High [facility] Comment on above: NORMAL <100 mg/dL PREDIABETES 101-126 mg/dL DIABETES 126 mg/dL or higher Potassium [Moles/Vol] 3.3 mmol/L Low [facility] Sodium [Moles/Vol] 139 mmol/L [facility] Urea nitrogen [Mass/Vol] 14 mg/dL [facility] HEPATIC FUNCTION PANELon Albumin [Mass/Vol] 4.3 g/dL [facility] ALP [Catalytic activity/Vol] 64 U/L [facility] ALT [Catalytic activity/Vol] 28 U/L [facility] AST [Catalytic activity/Vol] 34 U/L [facility] Bilirubin [Mass/Vol] 0.8 mg/dL [facility] Bilirubin.direct [Mass/Vol] 0.1 mg/dL [facility] Protein [Mass/Vol] 8.3 g/dL High [facility] LIPASEon 02-12-2022 Lipase [Catalytic activity/Vol] 34 U/L 23 - 300 U/L [facility] No Panel Informationon 02-12 Interpretation and review of laboratory results Abnormal [facility] Portable XR Chest Views APon 02-12-2022 IMPRESSION: Negative. RADIOLOGY EXAM: XR CHEST AP PORTABLE HISTORY: pain COMPARISON: Portable chest 07/09/2021 TECHNIQUE: AP portable chest 1615 hours. FINDINGS: Prior cervical spine fusion. Heart size normal. Lungs clear. RADIOLOGY Chino Cardenas Jr., MD - 02/12/2022 EXAM: XR CHEST AP PORTABLE HISTORY: pain COMPARISON: Portable chest 07/09/2021 TECHNIQUE: AP portable chest 1615 hours. FINDINGS: Prior cervical spine fusion. Heart size normal. Lungs clear. IMPRESSION IMPRESSION: Negative. [facility] Radiology Study observation (narrative) [facility] Portable XR Chest Views APOr dered By: Chino Cardenas on 02-12-2022 [employer] Work Phone: TROPONIN I, HIGH SENSITIVITY on 02-12-2022 TROPONIN I, HIGH SENSITIVITY 2 pg/mL 0 - 20 pg/mL [employer] Comment on above: Indeterminant: >12 to 100 pg/mL female >20 to 100 pg/mL male Indicative of myocardial injury. Serial sampling is recommended, a change of greater than or equal to 20 pg/mL is indicative of acute coronary syndrome. [facility] US.doppler Carotid arteries - bilateralon 11-29-2021 DUPLEX ULTRASOUND EXAMINATION OF THE CAROTID ARTERIES. COMPARISON: None. HISTORY / INDICATIONS: Near syncope TECHNIQUE: Bilateral common carotid arteries, extracranial internal and external carotid arteries are evaluated with monroy-scale imaging, color Doppler, and spectral analysis according to a standard protocol. ICA-CCA ratios are calculated with field service representative peak-systolic velocities and recorded. Vertebral arteries are evaluated in one segment to evaluate for patency and character of flow. Comparison with previous evaluation is performed when available. Unless otherwise specified, all velocities are measured in cm/sec. Carotid stenosis is reported according to validated velocity parameters, similar to NASCET criteria. FINDINGS: Right Carotid: There is minimal plaque burden. Velocity measurements as follows: Internal Carotid Artery 68/30; 81/33; 70/38. ICA to CCA ratio: 1.1. Left Carotid: There is minimal plaque burden. Velocity measurements as follows: Internal Carotid Artery 88/20; 82/32; 79/33. ICA to CCA ratio: 1.1. Antegrade flow was seen in both vertebral arteries. CONCLUSION: 1. Less than 50% stenosis of the right ICA. 2. Less than 50% stenosis of the left ICA. 3. Vertebral arteries are patent and demonstrate antegrade flow. RADIOLOGY Ene Wade MD - 11/29/2021 DUPLEX ULTRASOUND EXAMINATION OF THE CAROTID ARTERIES. COMPARISON: None. HISTORY / INDICATIONS: Near syncope TECHNIQUE: Bilateral common carotid arteries, extracranial internal and external carotid arteries are evaluated with monroy-scale imaging, color Doppler, and spectral analysis according to a standard protocol. ICA-CCA ratios are calculated with field service representative peak-systolic velocities and recorded. Vertebral arteries are evaluated in one segment to evaluate for patency and character of flow. Comparison with previous evaluation is performed when available. Unless otherwise specified, all velocities are measured in cm/sec. Carotid stenosis is reported according to validated velocity parameters, similar to NASCET criteria. FINDINGS: Right Carotid: There is minimal plaque burden. Velocity measurements as follows: Internal Carotid Artery 68/30; 81/33; 70/38. ICA to CCA ratio: 1.1. Left Carotid: There is minimal plaque burden. Velocity measurements as follows: Internal Carotid Artery 88/20; 82/32; 79/33. ICA to CCA ratio: 1.1. Antegrade flow was seen in both vertebral arteries. CONCLUSION: 1. Less than 50% stenosis of the right ICA. 2. Less than 50% stenosis of the left ICA. 3. Vertebral arteries are patent and demonstrate antegrade flow. [facility] Radiology Study observation (narrative) [facility] US.doppler Carotid arteries - bilateralOrdered By: Ene Wade on 11-29-2021 [facility] Work Phone: CT CERVICAL SPINE WO CONTRAS Ton 09-06-2021 CT CERVICAL SPINE WO CONTRAST RADRPT EXAMINATION: CT CERVICAL SPINE WO CONTRAST HISTORY: TECH NOTES: Degeneration of C5-C6 intervertebral disc Degeneration of C5-C6 intervertebral disc COMPARISON: Cervical spine radiograph on 06/21/2021, MRI cervical spine on 2019. TECHNIQUE: CT Cervical spine without IV contrast. Coronal and sagittal reformations were performed. Dose reduction techniques were achieved by using automated exposure control and/or adjustment of mA and/or kV according to patient size and/or use of iterative reconstruction technique. FINDINGS: The visualized portion of the posterior fossa appears unremarkable. The craniocervical alignment is preserved. The occipital condyles appear intact. The lateral mass of C1 and C2 is well aligned. There is mild dextroconvex curvature of the thoracic spine. The visualized portion of the paranasal sinuses, mastoid air cells are clear. There has been interval postsurgical changes from anterior cervical disc fusion at C5-C7 with plates and screws. The hardware appears intact. The visualized portion of the posterior fossa appears unremarkable. The clivus appears intact. The occiput appears intact. Degenerative disc disease as described level by level below: C2-C3: There is mild broad-based disc-osteophyte complex with uncovertebral hypertrophy. No significant central canal stenosis or neural foraminal narrowing. C3-C4: There is broad-based disc bulge superimposed with asymmetric left posterior disc-osteophyte complex and uncovertebral hypertrophy. Constellation of the findings are causing mild left-sided neural foraminal narrowing. There is mild central canal stenosis. C4-C5: Broad-based disc-osteophyte complex with mild uncovertebral hypertrophy. There is mild left neural foraminal narrowing. C5-C6: Postsurgical changes from anterior cervical disc fusion. There is broad-based disc bulge along with mild uncovertebral hypertrophy. There is moderate left, mild to moderate right-sided neural foraminal narrowing. There is also mild central canal stenosis. C6-C7: Disc-osteophyte complex superimposed with uncovertebral hypertrophy. Constellation of the findings are causing moderate central canal stenosis. The central canal at this level measures 8.5 mm. There is also mild bilateral neural foraminal narrowing. C7-T1: Moderate right, mild left-sided neural foraminal narrowing. No significant central canal stenosis. The prevertebral soft tissues appear unremarkable. The visualized portion of the nasopharynx, oropharynx appears unremarkable. The thyroid gland appears unremarkable. There is no deep cervical chain lymphadenopathy. Report electronically signed by: Dr. Ghada Montanez IMPRESSION: Postsurgical changes from anterior cervical disc fusion at C5-C7. The hardware appears intact. Multilevel degenerative disc disease as described above, most prominent at C5-C6, C6-C7. Degeneration of C5-C6 intervertebral disc Interpreted by: Ghada Montanez MD Signed by: Ghada Montanez MD 09/09/21 Final result Normal [facility] COMPREHENSIVE METABOLIC PANE Sean 08-19-2021 Albumin [Mass/Vol] 4.5 G/dl 3.5 - 5.0 G/dl [facility] Albumin/Globulin [Mass ratio] 1.2 {ratio} Low [facility] ALP [Catalytic activity/Vol] 77 U/L [facility] ALT [Catalytic activity/Vol] 59 U/L High <50 IU/L [facility] AST [Catalytic activity/Vol] 71 U/L High [facility] Bilirubin [Mass/Vol] 0.5 mg/dL [facility] Calcium [Mass/Vol] 10.0 mg/dL [facility] Chloride [Moles/Vol] 98 mmol/L [facility] Comment on above: Please note: Triglyc eride levels of 600mg/dL or higher may positively bias chloride results by approximately 2.1 mmol CO2 [Moles/Vol] 28 mmol/L [facility] Creatinine [Mass/Vol] 1.00 mg/dL [facility] GFR COMMENT Average GFR for 40-4 9 years old = 99. [facility] Comment on above: Chronic Kidney disea se, GFR = <60. Kidney failure, GFR = <15. The GFR estimate is not adjusted for extreme body surface area or acute process, nor has it been validated for women or ethnic groups other than and . Testing performed at [place], [place] [address] GFR/1.73 sq M.predicted among blacks MDRD (S/P/Bld) [Vol rate/Area] 103 mL/min/{1.73_m2} ml/min/1.73s q.m [facility] GFR/1.73 sq M.predicted among non-blacks MDRD (S/P/Bld) [Vol rate/Area] 85 mL/min/{1.73_m2} ml/min/1.73s q.m [facility] Glucose post fast [Mass/Vol] 92 mg/dL [facility] Comment on above: NORMAL <100 mg/dL PREDIABETES 101-126 mg/dL DIABETES 126 mg/dL or higher Interpretation and review of laboratory results Abnormal [facility] Potassium [Moles/Vol] 3.5 mmol/L [facility] Protein [Mass/Vol] 8.4 g/dL High [facility] Sodium [Moles/Vol] 137 mmol/L [facility] Urea nitrogen [Mass/Vol] 18 mg/dL [facility] HEMOGLOBIN A1Con 08-19-2021 Glucose [Mass/Vol] 146 mg/dL [facility] Comment on above: Testing performed at [place], [place] [address] HbA1c (Bld) [Mass fraction] 6.7 % High 0 - 6 % [facility] Comment on above: NORMAL <5.7% PREDIABETES 5.7-6.4% DIABETES 6.5% OR HIGHER Interpretation and review of laboratory results Abnormal [facility] CBC, EDIF, PLATELETon 2021 ABSOLUTE BASOPHIL COUNT 0.1 10*3/uL 0.0 - 0.2 10*3/uL [facility] Basophils/100 WBC (Bld) 0.6 % 0.0 - 2.0 % [facility] Differential cell count method Nom (Bld) AUTO DIFF % [facility] Eosinophils (Bld) [#/Vol] 0.20 10*3/uL 0.0 - 0.7 10*3/uL [facility] Eosinophils/100 WBC (Bld) 2.1 % 0.0 - 11.0 % [facility] Erythrocyte distribution width (RBC) [Ratio] 13.0 % 11.5 - 14.5 % [facility] Hematocrit (Bld) [Volume fraction] 48.4 % 42.0 - 52.0 % [facility] Hemoglobin (Bld) [Mass/Vol] 16.7 g/dL [facility] Lymphocytes (Bld) [#/Vol] 2.70 10*3/uL 1.2 - 3.4 10*3/uL [facility] Lymphocytes/100 WBC (Bld) 30.6 % 20.0 - 55.0 % [facility] MCH (RBC) [Entitic mass] 32.3 pg 26.0 - 35.0 PG [facility] MCHC (RBC) [Mass/Vol] 34.5 g/dL [facility] MCV (RBC) [Entitic vol] 93.5 fL [facility] Monocytes (Bld) [#/Vol] 0.7 10*3/uL 0.0 - 0.7 10*3/uL [facility] Monocytes/100 WBC (Bld) 8.4 % 0.0 - 10.0 % [facility] Neutrophils (Bld) [#/Vol] 5.1 10*3/uL 1.4 - 6.5 10*3/uL [facility] Neutrophils/100 WBC (Bld) 58.3 % 37.0 - 75.0 % [facility] Platelet mean volume (Bld) [Entitic vol] 7.6 fL [facility] Platelets (Bld) [#/Vol] 285 10*3/uL 130.0 - 400.0 10*3/uL [facility] RBC (Bld) [#/Vol] 5.17 10*6/uL 4.0 - 6.1 10*6/uL [facility] WBC (Bld) [#/Vol] 8.8 10*3/uL 3.6 - 11.0 10*3/uL [facility] COMPREHENSIVE METABOLIC PANE Sean 07-09-2021 Albumin [Mass/Vol] 4.3 G/dl 3.5 - 5.0 G/dl [facility] Albumin/Globulin [Mass ratio] 1.1 {ratio} Low [facility] ALP [Catalytic activity/Vol] 80 U/L [facility] ALT [Catalytic activity/Vol] 55 U/L [facility] AST [Catalytic activity/Vol] 43 U/L High [facility] Bilirubin [Mass/Vol] 0.6 mg/dL [facility] Calcium [Mass/Vol] 9.4 mg/dL [facility] Chloride [Moles/Vol] 101 mmol/L [facility] CO2 [Moles/Vol] 28 mmol/L [facility] Creatinine [Mass/Vol] 0.96 mg/dL [facility] GFR COMMENT Average GFR for 40-4 9 years old = 99. [facility] Comment on above: Chronic Kidney disea se, GFR = <60. Kidney failure, GFR = <15. The GFR estimate is not adjusted for extreme body surface area or acute process, nor has it been validated for women or ethnic groups other than and . GFR/1.73 sq M.predicted among blacks MDRD (S/P/Bld) [Vol rate/Area] 108 mL/min/{1.73_m2} ml/min/1.73s q.m [facility] GFR/1.73 sq M.predicted among non-blacks MDRD (S/P/Bld) [Vol rate/Area] 89 mL/min/{1.73_m2} ml/min/1.73s q.m [facility] Glucose post fast [Mass/Vol] 135 mg/dL High [facility] Comment on above: NORMAL <100 mg/dL PREDIABETES 101-126 mg/dL DIABETES 126 mg/dL or higher Interpretation and review of laboratory results Abnormal [facility] Potassium [Moles/Vol] 3.8 mmol/L [facility] Protein [Mass/Vol] 8.3 g/dL High [facility] Sodium [Moles/Vol] 137 mmol/L [facility] Urea nitrogen [Mass/Vol] 13 mg/dL [facility] D-DIMER,QUANTITATIVEon 07-09 Fibrin D-dimer FEU (PPP) [Mass/Vol] 0.30 <0.50 mg/L FEU [facility] Comment on above: If result is greater than the cutoff value of 0.50 mg/L then the potential for PE or DVT exists. Other conditions exist which may cause a falsely elevated level. Please correlate clinically, including radiological findings and other clinical parameters. [facility] LIPASEon 07-09-2021 Lipase [Catalytic activity/Vol] 29 U/L 23 - 300 U/L [facility] MAGNESIUMon 07-09-2021 Magnesium [Mass/Vol] 1.9 mg/dL [facility] No Panel Informationon 07-09 [facility] TROPONIN I, HIGH SENSITIVITY on 07-09-2021 TROPONIN I, HIGH SENSITIVITY 2 pg/mL 0 - 20 pg/mL [facility] Comment on above: Indeterminant: >12 to 100 pg/mL female >20 to 100 pg/mL male Indicative of myocardial injury. Serial sampling is recommended, a change of greater than or equal to 20 pg/mL is indicative of acute coronary syndrome. [facility] TROPONIN I, HIGH SENSITIVITY 3 pg/mL 0 - 20 pg/mL [facility] Comment on above: Indeterminant: >12 to 100 pg/mL female >20 to 100 pg/mL male Indicative of myocardial injury. Serial sampling is recommended, a change of greater than or equal to 20 pg/mL is indicative of acute coronary syndrome. [facility] XR CERVICAL SPINE (2-3 VIEWS )on 06-20-2021 XR CERVICAL SPINE (2-3 VIEWS) RADRPT HISTORY: Neck pain status post surgery TECHNIQUE: 3 views cervical spine were obtained. COMPARISON: 10/18/2020 FINDINGS: There has been anterior cervical fusion C5-C7. Metallic hardware is in satisfactory position. There is degenerative disc disease. No fracture, compression deformity or subluxation seen. Prevertebral soft tissues normal. Alignment is normal. There is mild tilting of the cervical spine leftward which is stable. Report electronically signed by: Dr. Porfirio Sanders IMPRESSION: Stable postoperative changes. Mild degenerative disc disease. Neck pain s/p sx Interpreted by: Porfirio Sanders MD Signed by: Porfirio Sanders MD 06/21/21 Final result Normal [facility] Comment on above: Order Comment: Trans cribed per paper order CBC, EDIF, PLATELETon 2021 ABSOLUTE BASOPHIL COUNT 0.1 10*3/uL 0.0 - 0.2 10*3/uL [facility] Comment on above: Testing performed at [facility], [place], [place] [address] Basophils/100 WBC (Bld) 1.2 % 0.0 - 2.0 % [facility] Differential cell count method Nom (Bld) AUTO DIFF % [facility] Eosinophils (Bld) [#/Vol] 0.10 10*3/uL 0.0 - 0.7 10*3/uL [facility] Eosinophils/100 WBC (Bld) 1.5 % 0.0 - 11.0 % [facility] Erythrocyte distribution width (RBC) [Ratio] 12.9 % 11.5 - 14.5 % [facility] Hematocrit (Bld) [Volume fraction] 48.0 % 42.0 - 52.0 % [facility] Hemoglobin (Bld) [Mass/Vol] 16.6 g/dL [facility] Lymphocytes (Bld) [#/Vol] 3.00 10*3/uL 1.2 - 3.4 10*3/uL [facility] Lymphocytes/100 WBC (Bld) 37.9 % 20.0 - 55.0 % [facility] MCH (RBC) [Entitic mass] 32.6 pg 26.0 - 35.0 PG [facility] MCHC (RBC) [Mass/Vol] 34.6 g/dL [facility] MCV (RBC) [Entitic vol] 94.2 fL [facility] Monocytes (Bld) [#/Vol] 0.6 10*3/uL 0.0 - 0.7 10*3/uL [facility] Monocytes/100 WBC (Bld) 7.4 % 0.0 - 10.0 % [facility] Neutrophils (Bld) [#/Vol] 4.1 10*3/uL 1.4 - 6.5 10*3/uL [facility] Neutrophils/100 WBC (Bld) 52.0 % 37.0 - 75.0 % [facility] Platelet mean volume (Bld) [Entitic vol] 7.9 fL [facility] Platelets (Bld) [#/Vol] 269 10*3/uL 130.0 - 400.0 10*3/uL [facility] RBC (Bld) [#/Vol] 5.10 10*6/uL 4.0 - 6.1 10*6/uL [facility] WBC (Bld) [#/Vol] 8.0 10*3/uL 3.6 - 11.0 10*3/uL [facility] COMPREHENSIVE METABOLIC PANE Sean 06-10-2021 Albumin [Mass/Vol] 4.5 G/dl 3.5 - 5.0 G/dl [facility] Albumin/Globulin [Mass ratio] 1.2 {ratio} Low [facility] ALP [Catalytic activity/Vol] 104 U/L [facility] ALT [Catalytic activity/Vol] 54 U/L High <50 IU/L [facility] AST [Catalytic activity/Vol] 47 U/L [facility] Bilirubin [Mass/Vol] 0.3 mg/dL [facility] Calcium [Mass/Vol] 9.1 mg/dL [facility] Chloride [Moles/Vol] 104 mmol/L [facility] Comment on above: Please note: Triglyc eride levels of 600mg/dL or higher may positively bias chloride results by approximately 2.1 mmol CO2 [Moles/Vol] 25 mmol/L [facility] Creatinine [Mass/Vol] 0.80 mg/dL [facility] GFR COMMENT Average GFR for 40-4 9 years old = 99. [facility] Comment on above: Chronic Kidney disea se, GFR = <60. Kidney failure, GFR = <15. The GFR estimate is not adjusted for extreme body surface area or acute process, nor has it been validated for women or ethnic groups other than and . Testing performed at [place], [place] [address] GFR/1.73 sq M.predicted among blacks MDRD (S/P/Bld) [Vol rate/Area] 133 mL/min/{1.73_m2} ml/min/1.73s q.m [facility] GFR/1.73 sq M.predicted among non-blacks MDRD (S/P/Bld) [Vol rate/Area] 110 mL/min/{1.73_m2} ml/min/1.73s q.m [facility] Glucose post fast [Mass/Vol] 134 mg/dL High [facility] Comment on above: NORMAL <100 mg/dL PREDIABETES 101-126 mg/dL DIABETES 126 mg/dL or higher Potassium [Moles/Vol] 4.0 mmol/L [facility] Protein [Mass/Vol] 8.3 g/dL High [facility] Sodium [Moles/Vol] 138 mmol/L [facility] Urea nitrogen [Mass/Vol] 16 mg/dL [facility] HEMOGLOBIN A1Con 06-10-2021 Glucose [Mass/Vol] 197 mg/dL [facility] Comment on above: Testing performed at [place], [place] [address] HbA1c (Bld) [Mass fraction] 8.5 % High 0 - 6 % [facility] Comment on above: NORMAL <5.7% PREDIABETES 5.7-6.4% DIABETES 6.5% OR HIGHER Interpretation and review of laboratory results Abnormal [facility] LIPID PANEL W CALCULATED LDL on 06-10-2021 Cholesterol [Mass/Vol] 241 mg/dL High [facility] Cholesterol in HDL [Mass/Vol] 35 mg/dL [facility] Cholesterol in LDL [Mass/Vol] 125 mg/dL MG/DL [facility] Cholesterol in VLDL [Mass/Vol] 81 mg/dL High [facility] Cholesterol.total/Ch olesterol in HDL [Mass ratio] 6.89 {ratio} RATIO [facility] Comment on above: RISK TOTAL/HDL RATIO MEN WOMEN 1/2 AVERAGE 3.43 3.27 AVERAGE 4.97 4.44 2X AVERAGE 9.55 7.05 3X AVERAGE 23.99 11.04 Testing performed at [place], [place] [address] Triglyceride [Mass/Vol] 403 mg/dL High [facility] No Panel Informationon 06-10 Interpretation and review of laboratory results Abnormal [facility] TSH W/FT4 REFLEXon 2 TSH Qn 3.880 m[IU]/L [facility] Comment on above: Testing performed at [place], [place] [address] [facility] XR CERVICAL SPINE (2-3 VIEWS )on 04-26-2020 Postsurgical changes without acute abnormality. [place], [place] EXAM: XR CERVICAL SP INE (2-3 VIEWS) HISTORY: Displacement of intervertebral disc at C5-C6 level COMPARISON: 01/30/2019 TECHNIQUE: 3 views cervical spine FINDINGS: There is straightening of normal cervical lordosis. Atlantooccipital and atlantoaxial articulations are congruent. Vertebral body heights and facet alignments are maintained. There are postsurgical changes from C5 C7 ACDF. The hardware appears intact. No acute fracture or malalignment. Lung apices are clear. Report electronically signed by: [facility] Radiant Results From [facility] - 04/26/2020 2:44 PM EST EXAM: XR CERVICAL SPINE (2-3 VIEWS) HISTORY: Displacement of intervertebral disc at C5-C6 level COMPARISON: 01/30/2019 TECHNIQUE: 3 views cervical spine FINDINGS: There is straightening of normal cervical lordosis. Atlantooccipital and atlantoaxial articulations are congruent. Vertebral body heights and facet alignments are maintained. There are postsurgical changes from C5 C7 ACDF. The hardware appears intact. No acute fracture or malalignment. Lung apices are clear. Report electronically signed by: Dr. Hitesh Whipple IMPRESSION: Postsurgical changes without acute abnormality. [place], [place] BASIC METABOLIC PANELon 11-2 Calcium [Mass/Vol] 9.1 mg/dL Normal 8.6-10.[address] [facility] Comment on above: Order Comment: No: D o not add to previous draw Performed By: #### 0 0071 #### [facility] [address] [place] [address], [place] Chloride [Moles/Vol] 100 mmol/L Normal 98-[address] [facility] Comment on above: Order Comment: No: D o not add to previous draw Performed By: #### 0 0071 #### [facility] [address] [place] [address], [place] CO2 [Moles/Vol] 27 mmol/L Normal 21-[address] [facility] Comment on above: Order Comment: No: D o not add to previous draw Performed By: #### 0 0071 #### [facility] [address] [place] [address], [place] Creatinine [Mass/Vol] 1.04 mg/dL Normal 0.70-1.[address] [facility] Comment on above: Order Comment: No: D o not add to previous draw Performed By: #### 0 0071 #### [facility] [address] [place] [address], [place] GFR/1.73 sq M predicted among blacks MDRD (S/P/Bld) [Vol rate/Area] mL/min/{1.73_m2} Normal >[address] [facility] Comment on above: Order Comment: No: D o not add to previous draw Performed By: #### 0 0071 #### [facility] [address] [place] [address], [place] GFR/1.73 sq M predicted among non-blacks MDRD (S/P/Bld) [Vol rate/Area] mL/min/{1.73_m2} Normal >[address] [facility] Comment on above: Order Comment: No: D o not add to previous draw Performed By: #### 0 0071 #### [facility] [address] [place] [address], [place] Glucose [Mass/Vol] 132 mg/dL High 70-[address] [facility] Comment on above: Order Comment: No: D o not add to previous draw Performed By: #### 0 0071 #### [facility] [address] [place] [address], [facility] Potassium [Moles/Vol] 4.0 mmol/L Normal 3.5-5.[address] [facility] Comment on above: Order Comment: No: D o not add to previous draw Performed By: #### 0 0071 #### [facility] [address] [place] [address], [facility] Sodium [Moles/Vol] 135 mmol/L Low 136-[address] [facility] Comment on above: Order Comment: No: D o not add to previous draw Performed By: #### 0 0071 #### [facility] [address] [place] [address], [facility] Urea nitrogen [Mass/Vol] 12 mg/dL Normal 7-[address] [facility] Comment on above: Order Comment: No: D o not add to previous draw Performed By: #### 0 0071 #### [facility] [address] [facility] [place] [address], [facility] CBC W/DIFFon 03-03-2020 ABS BASOPHILS 0.0 10*3/uL Normal 0.0-0.[address] [facility] Comment on above: Order Comment: No: D o not add to previous draw Performed By: #### 5 0103 #### [facility] [address] [place] [address], [facility] ABS IMM GRANS 0.1 10*3/uL Normal 0.0-0.[address] [facility] Comment on above: Order Comment: No: D o not add to previous draw Performed By: #### 5 0103 #### [facility] [address] [place] [address], [facility] ABS NEUTROPHILS 11.5 10*3/uL High 1.6-7.[address] [facility] Comment on above: Order Comment: No: D o not add to previous draw Performed By: #### 5 0103 #### [facility] [address] [place] [address], [facility] Basophils/100 WBC (Bld) 0.1 % Normal 0.0-1.[address] [facility] Comment on above: Order Comment: No: D o not add to previous draw Performed By: #### 5 0103 #### [facility] [address] [place] [address], [facility] Eosinophils (Bld) [#/Vol] 0.0 10*3/uL Normal 0.0-0.[address] [facility] Comment on above: Order Comment: No: D o not add to previous draw Performed By: #### 5 0103 #### [facility] [address] [place] [address], [facility] Eosinophils/100 WBC (Bld) 0.1 % Normal 0.0-6.[address] [facility] Comment on above: Order Comment: No: D o not add to previous draw Performed By: #### 5 0103 #### [facility] [address] [place] [address], [facility] Erythrocyte distribution width (RBC) [Ratio] 12.0 % Normal 11.5-15.[address] [facility] Comment on above: Order Comment: No: D o not add to previous draw Performed By: #### 5 0103 #### [facility] [address] [place] [id number], [facility] Hematocrit (Bld) [Volume fraction] 42.7 % Normal 39.0-50.[address] [facility] Comment on above: Order Comment: No: D o not add to previous draw Performed By: #### 5 0103 #### [facility] [address] [place] [id number], [facility] Hemoglobin (Bld) [Mass/Vol] 14.0 g/dL Normal 13.0-17.[address] [facility] Comment on above: Order Comment: No: D o not add to previous draw Performed By: #### 5 0103 #### [facility] [address] [facility] [place] [address], [facility] IMMATURE GRANS 0.5 % Normal 0.0-1.[address] [facility] Comment on above: Order Comment: No: D o not add to previous draw Performed By: #### 5 0103 #### [facility] [address] [place] [address], [facility] Lymphocytes (Bld) [#/Vol] 2.3 10*3/uL Normal 1.2-4.[address] [facility] Comment on above: Order Comment: No: D o not add to previous draw Performed By: #### 5 0103 #### [facility] [address] [place] [address], [facility] Lymphocytes/100 WBC (Bld) 15.2 % Low 20.0-45.[address] [facility] Comment on above: Order Comment: No: D o not add to previous draw Performed By: #### 5 0103 #### [facility] [address] [facility] [place] [address], [facility] MCH (RBC) [Entitic mass] 31.2 pg Normal 27.0-33.[address] [facility] Comment on above: Order Comment: No: D o not add to previous draw Performed By: #### 5 0103 #### [facility] [address] [place] [address], [facility] MCHC (RBC) [Mass/Vol] 32.8 g/dL Normal 32.0-35.[address] [facility] Comment on above: Order Comment: No: D o not add to previous draw Performed By: #### 5 0103 #### [facility] [address] [id number], [facility] MCV (RBC) [Entitic vol] 95.1 fL Normal 82.0-98.[address] [facility] Comment on above: Order Comment: No: D o not add to previous draw Performed By: #### 5 0103 #### [facility] [address] [place] [address], [facility] Monocytes (Bld) [#/Vol] 1.4 10*3/uL High 0.1-1.[address] [facility] Comment on above: Order Comment: No: D o not add to previous draw Performed By: #### 5 0103 #### [facility] [address] [place] [address], [facility] MONOS 9.1 % Normal 5.0-12.[address] [facility] Comment on above: Order Comment: No: D o not add to previous draw Performed By: #### 5 0103 #### [facility] [address] [place] [address], [facility] Neutrophils/100 WBC (Bld) 75.0 % High 40.0-72.[address] [facility] Comment on above: Order Comment: No: D o not add to previous draw Performed By: #### 5 0103 #### [facility] [address] [place] [address], [facility] Nucleated RBC/100 WBC (Bld) [Ratio] 0 % Normal 0-[address] [facility] Comment on above: Order Comment: No: D o not add to previous draw Performed By: #### 5 0103 #### [facility] [address] [place] [address], [facility] PLAT CNT 251 10*3/uL Normal 150-[address] [facility] Comment on above: Order Comment: No: D o not add to previous draw Performed By: #### 5 0103 #### [facility] [address] [facility] [address], [facility] RBC (Bld) [#/Vol] 4.49 10*6/uL Normal 4.20-5.[address] [facility] Comment on above: Order Comment: No: D o not add to previous draw Performed By: #### 5 0103 #### [address] WBC (Bld) [#/Vol] 15.34 10*3/uL High 4.00-10.[address] [facility] Comment on above: Order Comment: No: D o not add to previous draw Performed By: #### 5 0103 #### [facility] [address] CERVICAL SPINE 2 OR 3 [facility] 03-03-2020 CERVICAL SPINE 2 OR [address] [facility] Department of Radiology [address] [place] [id number] ===== Patient Name: RUSTY ALVAREZ : 1970 Sex: M Age: Race: White Pt. Location: OUTP Patient Status: I Ordered Date: 03/03/2020 5:00:00 AM Completed Date: 03/03/2020 08:37 AM Requesting Provider: DIOMEDES PÉREZ Attending Provider: DANI LE Report Copy To: Signs & Symptoms: Post OP History: Comments: Hardware Evaluation, AP AND Lat Exam: CERVICAL SPINE 2 OR 3 S ===== CERVICAL SPINE 2 OR 3 S 03/03/2020 8:37 AM CLINICAL INDICATIONS: Post OP TECHNOLOGIST COMMENTS: post op hardware evaluation . cervical fusion one day ago QUESTION FOR THE RADIOLOGIST: Hardware Evaluation, AP \EANDE\ Lat PROTOCOL: 2 view cervical spine. COMPARISON: None IMPRESSION: Anterior cervical spinal fusion C5-7 in satisfactory alignment with expected postoperative changes in the prevertebral and anterior soft tissues. Electronically signed: Arely Monte M.D.. Transcribed by: [email or web address], User Resident: Electronically Signed by: ARELY MONTE @ 03/03/2020 09:[address] [facility] Comment on above: Order Comment: Hardw are Evaluation, AP AND Lat CERVICAL SPINE 2 OR 3 Son 03-02-2020 CERVICAL SPINE 2 OR [address] [facility] Department of Radiology [address] [place] [id number] ===== Patient Name: RUSTY ALVAREZ : 1970 Sex: M Age: Race: White Pt. Location: OUTP Patient Status: I Ordered Date: 03/02/2020 7:30:00 AM Completed Date: 03/02/2020 10:07 AM Requesting Provider: DANI LE Attending Provider: DANI LE Report Copy To: Signs & Symptoms: C5-C7 ANTERIOR CERVICAL DISCECTOMY WITH FUSION History: Comments: C5-C7 ANTERIOR CERVICAL DISCECTOMY WITH FUSION Exam: CERVICAL SPINE 2 OR 3 [facility] ===== CERVICAL SPINE 2 OR 3 [facility] 03/02/2020 10:07 AM CLINICAL INDICATIONS: C5-C7 ANTERIOR CERVICAL DISCECTOMY WITH FUSION TECHNOLOGIST COMMENTS: Dr Le used 20 seconds of fluoro time for C5-7 ACDF red c-arm in 0730 out 1005 QUESTION FOR THE RADIOLOGIST: C5-C7 ANTERIOR CERVICAL DISCECTOMY WITH FUSION PROTOCOL: AP, Odontoid and Lateral views were obtained. COMPARISON: None FINDINGS: 20 seconds fluoroscopy time provided for cervical spine fusion. 8 images obtained demonstrating anterior fusion of lower cervical spine. IMPRESSION: As above Electronically signed: Greg Montgomery. Transcribed by: [email or web address], User Resident: GREG MONTGOMERY Electronically Signed by: GREG MONTGOMERY @ 03/02/2020 03:54 PM I personally read this/these film(s) with this resident Normal [facility] Comment on above: Order Comment: C5-C7 ANTERIOR CERVICAL DISCECTOMY WITH FUSION Operative Reporton 0 Operative Report MR#: [id number] [facility] Pt. Name: Rusty Alvarez Room #: PAT Discharge Date: Birthdate: 1970 OPERATIVE REPORT DATE OF SURGERY: 03/02/2020 SURGEON: Dani Le M.D. REHABILITATION WORKER: Diomedes Cope M.D. PREOPERATIVE DIAGNOSES: C5 to C7 disk degeneration prolapse with spinal canal as well as foramina stenosis and cervical radiculopathy (ICD-10 M50.22, M99.51, and M50.12). MEDICAL COMORBITIES: High BMI 42, hypertension, sleep apnea ANESTHESIA: General endotracheal. POSITION: Supine position on the Ted table in reverse Trendelenburg position. OPERATIONS PERFORMED: 1. C5-C6 and C6-C7 anterior cervical diskectomy through a standard left side Valenzuela-Yip approach and anterior interbody fusion using threaded bone dowel spacer size 9 mm at C5-C6 and 9 mm at C6-C7 level (91791, 18110, 36141 x2). 2. Anterior cervical instrumentation C5 to C7 using Synthes CSLP 2-level plate 40 mm (55138). 3. Use of surgical microscope (97140). 4. Application and removal of Yepez-Wells tongs (32567). 5. Use of intraoperative fluoroscopy, (62791). POSTOPERATIVE DIAGNOSES: C5 to C7 disk degeneration prolapse with spinal canal as well as foramina stenosis and cervical radiculopathy (ICD-10 M50.22, M99.51, and M50.12). ESTIMATED BLOOD LOSS: 50 mL. FLUIDS GIVEN: 1800 mL. crystalloid. URINE OUTPUT: 100 mL. DRAIN: One. COMPLICATIONS: None. COUNTS: Needle, sponge, and instrument count correct at the end of surgical procedure. DISPOSITION: The patient was transferred to the recovery room extubated in a stable condition. INDICATION: Mr. Alvarez is 49 year-old patient, who was seen in the clinic with a chief complaint of neck pain as well as radicular pain in both upper extremities ith the right side more than the left. X-ray as well as MRI scan has confirmed C5 to C7 disk degeneration prolapse causing spinal canal as well as foramina stenosis. Due to the severity of symptoms affecting daily activity and failure of conservative treatment, we recommended the above-mentioned surgical procedure. We explained to the patient the risk and benefit of the above-mentioned surgical procedure, which include but not limited to intraoperative complications from anesthesia including , dural tear, spinal cord or nerve root injury that may result in temporary or permanent paralysis, malposition of hardware that may require revision, injury to the esophagus or the neck vessels that may require exploration and repair. Postoperative complications include but not limited to blindness, infection, DVT/PE, incomplete relief of symptoms, pseudoarthrosis, and requirement of further surgery at the same or adjacent level, dysphagia, and hoarseness of voice. The patient fully understood the risks and benefits and signed consent for surgery as well as blood transfusion. The patient had been cleared for surgery by family doctor. The patient also has been seen in preoperative clinic at the [facility]. DESCRIPTION OF THE PROCEDURE: The patient was taken to the operating room today and was positively identified, received smooth general endotracheal intubation, as well as received IV antibiotic for surgical prophylaxis. Under aseptic condition, a Arango catheter was inserted. Thigh-high AKIKO stockings as well as sequential compression devices used for DVT prophylaxis. Spinal cord monitoring leads were applied. The patient was positioned supine on a supine Ted table. An interscapular pad was placed between the shoulder blade and the arm was tucked by the side and gentle shoulder pull-down with tape was carried out to facilitate visualization of cervical spine with image intensifier. Under aseptic condition, a [employer] tong was applied and 10 pounds of traction was connected to the tongs. The C-arm was then brought into AP and lateral position and marked the level of skin incision centered over C6 vertebral body. The skin was then prepped and draped in the usual manner. The intended area of skin incision was then infiltrated with 1 mL of 0.5% Marcaine with epinephrine. A standard left side Valenzuela-Yip approach to the cervical spine was performed. Transverse skin incision centered over C6 vertebral body was performed. The platysma was incised in line of skin incision. Subplatysmal dissection was then carried out. Blunt finger dissection was then performed to create a surgical corridor between the sternocleidomastoid and carotid sheaths laterally, trachea, esophagus, and strap muscles medially. Once we approached the prevertebral fascia, a double bent spinal needle was inserted and the correct level of surgery was confirmed with the image intensifier. After confirmation of correct level of surgery, the prevertebral fascia as well as the longus colli was elevated subperiosteally with electrocautery. A Shadow-Line self-retaining retractor was then placed under the longus colli. Leksell rongeur was then used to remove the anterior osteophyte. Under image intensifier, [place] distraction pins were then placed in the vertebral body of C5, C6 and C7. We started at C5-6 level and the same procedure was repeated at C6-C7 level. At each level, distraction was achieved between the [place] pins and 15 blade was used to cut into the annulus and the anterior part of the disk was then removed using curette as well as pituitary rongeur. A #2 Kerrison rongeur was then used to bite the anterior inferior lip of C5 and C6 vertebral body. Once we approached the posterior part of the disk, high-power surgical microscope was brought into the surgical field. The uncovertebral osteophyte at each level was then resected bilaterally using high-speed Midas Felipe as well as #2 Kerrison rongeur. The posterior part of the disk was then removed using upbiting curette as well as pituitary rongeur. A #2 Kerrison rongeur used to perform foraminotomy at each level. At the end of the decompression at each level, the dura was visible and decompressed from uncovertebral joint to uncovertebral joint, and bilateral foraminotomies were performed. At this stage, we prepared the endplate to the interbody fusion at each level by taking down the cartilaginous endplate to the level of the bony endplate. The surgical microscope was then taken away from the operative field. Attention was then directed for anterior cervical interbody fusion. Trial spacer started with 6 and incrementally increased to 9 at C5-C6 until 9 at C6-C7 level. At this size, we achieved good press-fit with the trial spacer. The actual 9mm threaded bone dowel spacer was then opened and was inserted into the disk space between C5-C6 with excellent press-fit being achieved. The 9 mm threaded bone dowel spacer was then opened and was inserted into the disk space between C6-C7 with excellent press-fit being achieved. The distraction between the [place] pin was then released and the hole for the pins was blocked with bone wax to control bleeding. The 10-pound of traction was disconnected from the tongs. Attention was then directed for anterior cervical instrumentation. 2 levels CSLP 40mm two levels plate was found to be the appropriate size plate. The plate was contoured into gentle lordosis and temporarily fixed to the vertebral body with temporary fixation pins. The plate was then secured to the vertebral body of C5, C6 and C7 with 4.35 mm in diameter 16 mm in length cancellous screws with excellent purchase being achieved with all screws. A set screw was then applied to lock the screw head to the plate. Final image intensifier both AP and lateral, confirmed good alignment of the spine, hardware and graft in good position. With bone dry hemostasis and no CSF leak, we proceeded with closure. A deep Hemovac drain was inserted. A #2-0 Vicryl was used for closure of the platysma. A #3-0 Vicryl used for closure of subcutaneous tissue and #3-0 Biosyn used for subcuticular closure. Octylseal applied to the skin. The suction canister was then connected to the drain. The patient tolerated the procedure well. There was no immediate complication. There were no sustained spinal cord monitoring changes during the surgical procedure. The Bridg tongs was removed without any complication. The patient was extubated and taken to recovery room in a soft collar in a stable condition. I was present for the entire surgical procedure. POSTOPERATIVE PLAN: Mobilization as tolerated in soft collar, which is medically necessary for stabilization and rehabilitation Upright x-ray when able IV antibiotic for 24 hours Electronically Signed by: Dani Le M.D. 03/02/2020 11:01 A Dani Le M.D. Date Dict: 03/02/2020/10:56 Alexia/Dani Le M.D. Date Trans: 03/02/2020 10:56 A/ [id number] [facility] POC GLUCOSE LABon 03-02-2020 Glucose [Mass/Vol] 123 mg/dL High 70-[address] [facility] Comment on above: Performed By: #### 8 [id number] #### [facility] [address] [facility]. [address] TYPE AND SCREENon 03-02-2020 ABO INTERPRETATION O Normal [facility] Comment on above: Performed By: #### 5 0103 #### [facility] [address] RH INTERPRETATION Positive Normal [facility] Comment on above: Performed By: #### 5 0103 #### [facility] [address] *SARS-CoV-2 COVID-19on 02-27 [id number] Not Detected Normal Not Detected [facility] Comment on above: Order Comment: The A ptima SARS-CoV-2 assay is a nucleic acid amplification test intended for the qualitative detection of RNA from SARS-CoV-2 isolated and purified from nasopharyngeal (PLACER MINER),oropharyngeal (OP), nasal swab, sputum, and bronchoalveolar lavage (BAL) specimens from patients with signs and symptoms of infection who are suspected of COVID-19. Results are for the identification of SARS-CoV-2 RNA. The SARS-CoV-2 RNA is generally detectable during the acute phase of infection. The Aptima SARS-CoV-2 Assay on the [employer] and [place] Fusion system is intended for use by laboratory personnel specifically instructed and trained in the operation of the [place] [employer] Fusion system. The Aptima SARS-CoV-2 assay is only for use under the Food and Drug Administration Emergency Use Authorization. Testing is limited to laboratories certified under the Clinical Laboratory Improvement Amendments of 1988 (CLIA), 42 U.S.C. ???263a, to perform high complexity tests. Not Detected: Not detected does not preclude SARS-CoV-2 infection and should not be used as the sole basis for patient management decisions. Not detected results must be combined with clinical observations, patient history, and epidemiological information. Performed By: #### 3 1792 #### [facility] [address] *MRSA/MSSA CULTUREon 020 *MRSA/MSSA CULTURE Clinical Report: (D) Specimen: NASAL SWAB Collected: 02/01/2020 13:38 Status: Final Last Updated: 02/02/2020 13:38 ISO (Final) No Methicillin Resistant Staphylococcus aureus Isolated (MRSA) ISO (Final) No Methicillin Sensitive Staphylococcus aureus Isolated (MSSA) Normal [facility] Comment on above: Performed By: #### 3 1302 #### [facility] [address] APTTon 02-01-2020 aPTT Coag (Bld) [Time] 28.7 s Normal 25.0-35.[address] [facility] Comment on above: Result Comment: ALL RESULTS MUST BE INTERPRETED WITH RESPECT TO BLOOD DRAWING ARTIFACT OR DILUTION ERROR OF ANTICOAGULANT AT THE TIME OF SAMPLING. THE APTT SHOULD NOT BE USED TO MONITOR UNFRACTIONATED HEPARIN THERAPY, THIS LABORATORY NO LONGER HAS AN ESTABLISHED THERAPEUTIC RANGE BASED ON THE APTT. IT IS RECOMMENDED THAT THE UFH - HEPARIN ASSAY (ANTI-XA ACTIVITY) BE USED FOR THIS PURPOSE. Performed By: #### 5 0103 #### [facility] [address] [facility]. [address] BASIC METABOLIC PANELon 01-12 Calcium [Mass/Vol] 9.6 mg/dL Normal 8.6-10.[address] [facility] Comment on above: Performed By: #### 5 0103 #### [facility] [address] [facility] [place] [address], [place] Chloride [Moles/Vol] 103 mmol/L Normal 98-[address] [facility] Comment on above: Performed By: #### 5 0103 #### [facility] [address] [place] [address], [facility] CO2 [Moles/Vol] 27 mmol/L Normal 21-[address] [facility] Comment on above: Performed By: #### 5 0103 #### [facility] [address] [place] [address], [facility] Creatinine [Mass/Vol] 0.91 mg/dL Normal 0.70-1.[address] [facility] Comment on above: Performed By: #### 5 0103 #### [facility] [address] [place] [address], [facility] GFR/1.73 sq M predicted among blacks MDRD (S/P/Bld) [Vol rate/Area] mL/min/{1.73_m2} Normal >[address] [facility] Comment on above: Performed By: #### 5 0103 #### [facility] [address] [place] [address], [facility] GFR/1.73 sq M predicted among non-blacks MDRD (S/P/Bld) [Vol rate/Area] mL/min/{1.73_m2} Normal >[address] [facility] Comment on above: Performed By: #### 5 0103 #### [facility] [address] [place] [address], [place] Glucose [Mass/Vol] 97 mg/dL Normal 70-[address] [facility] Comment on above: Performed By: #### 5 0103 #### [facility] [address] [place] [address], [place] Potassium [Moles/Vol] 3.7 mmol/L Normal 3.5-5.[address] [facility] Comment on above: Performed By: #### 5 0103 #### [facility] [address] Sodium [Moles/Vol] 137 mmol/L Normal 136-[address] [facility] Comment on above: Performed By: #### 5 0103 #### [facility] [address] Urea nitrogen [Mass/Vol] 10 mg/dL Normal 7-[address] [facility] Comment on above: Performed By: #### 5 0103 #### [facility] [address] CBC W/DIFFon 02-01-2020 ABS BASOPHILS 0.1 10*3/uL Normal 0.0-0.[address] [facility] Comment on above: Performed By: #### 5 0103 #### [facility] [address] ABS IMM GRANS 0.0 10*3/uL Normal 0.0-0.[address] [facility] Comment on above: Performed By: #### 5 0103 #### [facility] [address] ABS NEUTROPHILS 6.5 10*3/uL Normal 1.6-7.[address] [facility] Comment on above: Performed By: #### 5 0103 #### [facility] [address] Basophils/100 WBC (Bld) 0.6 % Normal 0.0-1.[address] [facility] Comment on above: Performed By: #### 5 0103 #### [facility] [address] [place] [address], [facility] Eosinophils (Bld) [#/Vol] 0.1 10*3/uL Normal 0.0-0.[address] [facility] Comment on above: Performed By: #### 5 3 #### [facility] [address] [place] [address], [facility] Eosinophils/100 WBC (Bld) 1.2 % Normal 0.0-6.[address] [facility] Comment on above: Performed By: #### 5 0103 #### [facility] [address] [facility]. [address] Erythrocyte distribution width (RBC) [Ratio] 12.4 % Normal 11.5-15.[address] [facility] Comment on above: Performed By: #### 5 0103 #### [facility] [address] [facility]. [address] Hematocrit (Bld) [Volume fraction] 46.1 % Normal 39.0-50.[address] [facility] Comment on above: Performed By: #### 5 0103 #### [facility] [address] Hemoglobin (Bld) [Mass/Vol] 15.8 g/dL Normal 13.0-17.[address] [facility] Comment on above: Performed By: #### 5 0103 #### [facility] [address] [facility]. [address] IMMATURE GRANS 0.2 % Normal 0.0-1.[address] [facility] Comment on above: Performed By: #### 5 0103 #### [facility] [address] [facility]. [address] Lymphocytes (Bld) [#/Vol] 3.2 10*3/uL Normal 1.2-4.[address] [facility] Comment on above: Performed By: #### 5 3 #### [facility] [address] Lymphocytes/100 WBC (Bld) 30.5 % Normal 20.0-45.[address] [facility] Comment on above: Performed By: #### 5 3 #### [facility] [address] [facility] [place] [address], [facility] MCH (RBC) [Entitic mass] 31.8 pg Normal 27.0-33.[address] [facility] Comment on above: Performed By: #### 5 3 #### [facility] [address] [facility]. [address] MCHC (RBC) [Mass/Vol] 34.3 g/dL Normal 32.0-35.[address] [facility] Comment on above: Performed By: #### 3 #### [facility] [address] [facility] [place] [address], [facility] MCV (RBC) [Entitic vol] 92.8 fL Normal 82.0-98.[address] [facility] Comment on above: Performed By: #### 102 #### [facility] [address] [facility] [place] [address], [facility] Monocytes (Bld) [#/Vol] 0.6 10*3/uL Normal 0.1-1.[address] [facility] Comment on above: Performed By: #### 5 3 #### [facility] [address] MONOS 5.6 % Normal 5.0-12.[address] [facility] Comment on above: Performed By: #### 102 #### [facility] [address] [facility] Neutrophils/100 WBC (Bld) 61.9 % Normal 40.0-72.[address] [facility] Comment on above: Performed By: #### 102 #### [facility] [address] [facility] [place] [address], [facility] Nucleated RBC/100 WBC (Bld) [Ratio] 0 % Normal 0-[address] [facility] Comment on above: Performed By: #### 3 #### [facility] [address] [place] [address], [facility] PLAT CNT 303 10*3/uL Normal 150-[address] [facility] Comment on above: Performed By: #### 102 #### [facility] [address] [facility] [place] [address], [facility] RBC (Bld) [#/Vol] 4.97 10*6/uL Normal 4.20-5.[address] [facility] Comment on above: Performed By: #### 5 3 #### [facility] [address] [place] [address], [facility] WBC (Bld) [#/Vol] 10.40 10*3/uL Normal 4.00-10.[address] [facility] Comment on above: Performed By: #### 5 3 #### [facility] [address] [facility]. [address] PROTHROMBIN TIMEon 10-21-202 0 INR Coag (PPP) [Relative time] 0.89 {INR} Low 0.91-1.[address] [facility] Comment on above: Result Comment: ACCC P RECOMMENDED INR FOR WARFARIN THERAPY ------- ------- CONDITION INR PROPHYLAXIS OF VENOUS THROMBOSIS 2-3 (HIGH-RISK SURGERY) TREATMENT OF VENOUS THROMBOSIS 2-3 TREATMENT OF PULMONARY EMBOLISM 2-3 PREVENTION OF SYSTEMIC EMBOLISM: 2-3 ACUTE MYOCARDIAL INFARCTION TISSUE HEART VALVES VALVULAR HEART DISEASE ATRIAL FIBRILLATION RECURRENT SYSTEMIC EMBOLISM MECHANICAL HEART VALVE 2.5-3.5 FROM: ORAL ANTICOAGULANTS. MECHANISM OF ACTION, CLINICAL EFFECTIVENESS, AND OPTIMAL THERAPEUTIC RANGE. CHEST 1995;108:231S-246S. Performed By: #### 5 0103 #### [facility] [address] [place] [address], [facility] PT Coag (PPP) [Time] 12.0 s Low 12.3-14.[address] [facility] Comment on above: Result Comment: ALL RESULTS MUST BE INTERPRETED WITH RESPECT TO BLOOD DRAWING ARTIFACT OR DILUTION ERROR OF ANTICOAGULANT AT THE TIME OF SAMPLING. Performed By: #### 5 0103 #### [facility] [address] [place] [address], [place] TYPE AND CROSSMATCHon 2019 ABO INTERPRETATION O Normal [facility] Comment on above: Performed By: #### 6 2594 #### [facility] [address] [place] [address], [place] RH INTERPRETATION Positive Normal [facility] Comment on above: Performed By: #### 6 2594 #### [facility] [address] [place] [address], [place] URINALYSISon 02-01-2020 Appearance (U) SL CLOUDY Abnormal CLEAR [facility] Comment on above: Performed By: #### 1 0008 #### [facility] [address] [place] [address], [place] Bilirubin [Mass/Vol] Negative Normal NEGATIVE [facility] Comment on above: Performed By: #### 1 0008 #### [facility] [address] [place] [address], [place] BLOOD SMALL Abnormal NEGATIVE [facility] Comment on above: Performed By: #### 1 0008 #### [facility] [address] [place] [address], [place] Color (U) YELLOW Normal YELLOW [facility] Comment on above: Performed By: #### 1 0008 #### [facility] [address] [place] [address], [place] EPIS MANY Abnormal FEW,OCC,NONE SEEN [facility] Comment on above: Performed By: #### 1 0008 #### [facility] [address] [place] [address], [place] Glucose [Mass/Vol] Negative Normal NEGATIVE [facility] Comment on above: Performed By: #### 1 0008 #### [facility] [address] [place] [place] [address], [facility] KETONE Negative Normal NEGATIVE [facility] Comment on above: Performed By: #### 1 0008 #### [facility] [address] [place] [address], [facility] LEUK THANH Negative Normal NEGATIVE [facility] Comment on above: Performed By: #### 1 0008 #### [facility] [address] [place] [address], [facility] MUCUS THREADS OCC Abnormal NONE SEEN [facility] Comment on above: Performed By: #### 1 0008 #### [facility] [address] [facility] [place] [address], [facility] Nitrite Ql (U) Negative Normal NEGATIVE [facility] Comment on above: Performed By: #### 1 0008 #### [facility] [address] [facility] [place] [address], [facility] pH (Bld) 5.0 Normal 5.0-8.[address] [facility] Comment on above: Performed By: #### 1 0008 #### [facility] [address] [facility] [place] [address], [facility] Protein (U) [Mass/Vol] 100 mg/dL Abnormal NEGATIVE [facility] Comment on above: Performed By: #### 1 0008 #### [facility] [address] [facility] [place] [address], [facility] RBC (U) [#/Vol] 0-2 Abnormal N[address] SEEN [facility] Comment on above: Performed By: #### 1 0008 #### [facility] [address] [place] [address], [facility] SPEC GRAV 1.015 Normal 1.015-1.[address] [facility] Comment on above: Performed By: #### 1 0008 #### [facility] [address] [place] [address], [place] WBC UA 3-5 Abnormal N[address] SEEN [facility] Comment on above: Performed By: #### 1 0008 #### [facility] [address] [place] [address], [facility] MRI KNEE RIGHT WITHOUT CONTR Robin 03-03-2018 IMPRESSION: 1. Chron ic full-thickness ACL rupture associated with anterior translation of the tibia relative to the femur. 2. There is a complex tear throughout the posterior horn and body posterior horn junction of the medial meniscus with advanced extrusion of the body in the presence of mild medial compartment arthritis. 3. There is also a complex tear of the posterior horn of the lateral meniscus in the presence of mild lateral compartment osteoarthritis. The posterior root of the lateral meniscus is not well defined either due to intrasubstance degeneration and/or tearing. 4. Mild patellofemoral compartment osteoarthritis with focal high-grade chondral loss in the lateral trochlea and medial patellar facet. 5. Moderate joint effusion. Invalid Interpretation Code RADIOLOGY RIGHT KNEE MRI HISTO RY: Right knee pain and swelling with limited mobility ongoing since June 2017. Medial sided knee pain. Patient smokes 1 pack per day. TECHNIQUE: Axial STIR, coronal, and sagittal fat-saturated PD, sagittal T1, sagittal T2 sequences of the knee without IV contrast. 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 The PCL is intact. There is a complex tear throughout the posterior horn and body posterior horn junction of the medial meniscus with advanced extrusion of the body in the presence of mild medial compartment arthritis. Mildly thickened appearance of the proximal third of the MCL suggests remote MCL sprain. No evidence of acute collateral ligament injury. There is also a complex tear of the posterior horn of the lateral meniscus in the presence of mild lateral compartment osteoarthritis. The posterior root of the lateral meniscus is not well defined either due to intrasubstance degeneration and/or tearing. Small foci of degenerative subchondral bone edema in the posterior aspect of the lateral femoral condyle and lateral tibial plateau are seen. No significant extrusion of the lateral meniscus. Mild patellofemoral compartment arthritis with focal high-grade chondral loss in the lateral trochlea and medial patellar facet. Mild underlying degenerative subchondral bone edema in both articular margins. Moderate joint effusion is seen. No acute fracture. Invalid Interpretation Code RADIOLOGY User, Interfaces - 03/03/2018 4:04 PM EST RIGHT KNEE MRI HISTORY: Right knee pain and swelling with limited mobility ongoing since June 2017. Medial sided knee pain. Patient smokes 1 pack per day. TECHNIQUE: Axial STIR, coronal, and sagittal fat-saturated PD, sagittal T1, sagittal T2 sequences of the knee without IV contrast. 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 The PCL is intact. There is a complex tear throughout the posterior horn and body posterior horn junction of the medial meniscus with advanced extrusion of the body in the presence of mild medial compartment arthritis. Mildly thickened appearance of the proximal third of the MCL suggests remote MCL sprain. No evidence of acute collateral ligament injury. There is also a complex tear of the posterior horn of the lateral meniscus in the presence of mild lateral compartment osteoarthritis. The posterior root of the lateral meniscus is not well defined either due to intrasubstance degeneration and/or tearing. Small foci of degenerative subchondral bone edema in the posterior aspect of the lateral femoral condyle and lateral tibial plateau are seen. No significant extrusion of the lateral meniscus. Mild patellofemoral compartment arthritis with focal high-grade chondral loss in the lateral trochlea and medial patellar facet. Mild underlying degenerative subchondral bone edema in both articular margins. Moderate joint effusion is seen. No acute fracture. IMPRESSION IMPRESSION: 1. 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 2. There is a complex tear throughout the posterior horn and body posterior horn junction of the medial meniscus with advanced extrusion of the body in the presence of mild medial compartment arthritis. 3. There is also a complex tear of the posterior horn of the lateral meniscus in the presence of mild lateral compartment osteoarthritis. The posterior root of the lateral meniscus is not well defined either due to intrasubstance degeneration and/or tearing. 4. Mild patellofemoral compartment osteoarthritis with focal high-grade chondral loss in the lateral trochlea and medial patellar facet. 5. Moderate joint effusion. Invalid Interpretation Code RADIOLOGY [facility] Repor ton 11-04-2016 [facility] Report Type: OrthopedicDictated by: To be signed by: Transcribed by: Transcribed D/ Dictation D/ Report: October 29, 2016 Morris Mccartney M.D. [address] [place] [address] Re: Rusty Alvarez Dear Dr. Mccartney: Thank you for this referral. As you know, Vj is a very pleasant, active, 46-year-old male with a history of right hip pain that has bothered him now for the last 4 years or so. It is dull, aching, and constant in nature. It is focal on the side of the hip. He has worked with therapy, medications, and exercise. It is improved partially by rest and inactivity, as well as [id number] anti-inflammatories. He is here today for further evaluation of the symptoms. The remaining portion of the history is per the documentation form. PAST MEDICAL HISTORY: High blood pressure. High cholesterol. Osteoarthritis. 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 PAST SURGICAL HISTORY: Cyst removed on head. FAMILY HISTORY: Father with heart disease, diabetes, hypertension, cancer, and stroke. Mother with hypertension, diabetes. Brother and sister with hypertension. SOCIAL HISTORY: The patient lives with his fiance. He has four children. The patient works as a cash grain grower. The patient does have basement stairs in the home. The patient smokes a pack a day for 12 years. He does use alcohol on occasion. Denies recreational drug use. The patient does not currently receive any services in the home. The patient is not on any senior programs. The patient does have transportation to go to outpatient therapy if needed. The patient does not have any equipment for in home use. He is followed by Dr. Hayward, a materials scientist, and also by Dr. Garcia, a foot doctor. He is not followed by pain management. REVIEW OF SYSTEMS: Constitutional: Positive for insomnia and chronic fever. Eyes: Negative. ENT: Positive for loss of hearing, rotting teeth and seasonal allergies. Cardiovascular: Positive for hypertension and high cholesterol. Respiratory: Negative. Gastrointestinal: Positive for heartburn and acid reflux. Musculoskeletal: Positive for arthritis, joint pain and back pain. Skin: Negative. Neurologic: Positive for numbness. Psychiatric: Negative. Hematologic: Negative. Endocrine: Negative. MEDICATIONS: Gabapentin. Metoprolol. Nitro tabs. Prilosec. Atorvastatin (not using at present). Vitamin D. Ibuprofen. Ranexa. Isosorbide. ALLERGIES: ULTRAM - nausea. AUGMENTIN - nausea and vomiting. METAL ALLERGIES: NONE. PHYSICAL EXAMINATION: This is an alert, oriented, age appropriate male in no acute distress, pleasant and cooperative; 5 feet 10 inches, 275 pounds, BMI 39.5. Pain is 8-9. His bilateral lower extremities have no gross deformity, normal stability, 5/5 motor, intact sensation, normal coordination and reflexes. Skin is intact, no nodules. Gait is a normal, antalgic gait, no Trendelenburg. His right hip has sharp pain over the greater trochanter with reproduction of symptoms. Full and supple motion of the hip, no pain, no impingement. No palpable defect in the abductors. Left hip has full motion, no pain, normal neurovascular status. DIAGNOSTIC STUDY/INTERPRETATION/IM PRESSION: AP pelvis and hip series demonstrate no evidence of fracture, subluxation, dislocation or AVN. The joint space is well preserved. IMPRESSION: Right hip trochanteric bursitis, IT tendinitis. PLAN: I reviewed my findings with Vj. We have gone over the diagnosis and treatment. My recommendation is for a course of physical therapy, including modalities. Prescription for that and dexamethasone was given today for the iontophoresis. I offered him an injection. He was in agreement with this. After explanation of risks, benefits and alternatives, lidocaine/Kenalog injection was given with a spinal needle into the greater trochanter of the right hip and in the bursa. A prescription for meloxicam was given. I will follow up with him at the completion of therapy. Should he continue to have problems, I would be happy to reevaluate. Normal [facility] Radiologyon 11-04-2016 Radiology Type: OutpatientDictated by: Signed by: Transcribed by: Transcribed Date/Time: 10/30/2016 08:42Dictation Date/Time: 10/29/2016 16:32Report: DATE OF SERVICE: 10/29/2016 DIAGNOSTIC STUDY/INTERPRETATION/IM PRESSION: AP pelvis and hip series demonstrate no evidence of fracture, subluxation, dislocation or AVN. The joint space is well preserved. Normal [facility] Vital Signs Date Time Vital Sign Value Performing Clinician Sandeep gaming 09-01-2023 08:04-0400 Body height 177.8 cm Yesika Gordon [employer] Work Phone: [facility] 09-01-2023 08:04-0400 Body mass index (BMI) [Ratio] 42.76 kg/m2 Yesika Gordon [employer] Work Phone: [facility] 09-01-2023 08:04-0400 Body weight 135.17 kg Yesika Gordon [employer] Work Phone: [facility] 09-01-2023 08:04-0400 Respiratory rate 16 /min Yesika Gordon [employer] Work Phone: [facility] 08-28-2023 14:24-0400 Body height 177.8 cm Monae Rosaion [employer] Work Phone: [facility] 08-28-2023 14:24-0400 Body mass index (BMI) [Ratio] 42.84 kg/m2 Monae Adwoa [employer] Work Phone: [facility] 08-28-2023 14:24-0400 Body weight 135.44 kg Monae Adwoa [employer] Work Phone: [facility] 08-28-2023 14:24-0400 Diastolic blood pressure 80 mm[Hg] Monae Adwoa [employer] Work Phone: [facility] 08-28-2023 14:24-0400 Heart rate 87 /min Monae Adwoa [employer] Work Phone: [facility] 08-28-2023 14:24-0400 SaO2% (BldA) [Mass fraction] 96 % Monae Adwoa [employer] Work Phone: [facility] 08-28-2023 14:24-0400 Systolic blood pressure 108 mm[Hg] Monae Adwoa [employer] Work Phone: [facility] 08-25-2023 09:01-0400 Body height 175.3 cm Yesika Gordon [employer] Work Phone: [facility] 08-25-2023 09:01-0400 Body mass index (BMI) [Ratio] 44.3 kg/m2 Yesikajarad Floydton [employer] Work Phone: [facility] 08-25-2023 09:01-0400 Body weight 136.08 kg Yesika Gordon [employer] Work Phone: [facility] 08-25-2023 09:01-0400 Respiratory rate 16 /min Yesika Gordon [employer] Work Phone: [facility] 08-18-2023 09:27-0400 Body height 175.3 cm Yesikajarad [place] [employer] Work Phone: [facility] 08-18-2023 09:27-0400 Body mass index (BMI) [Ratio] 44.3 kg/m2 Yesika Gordon [employer] Work Phone: [facility] 08-18-2023 09:27-0400 Body weight 136.08 kg Yesika Gordon [employer] Work Phone: [facility] 08-18-2023 09:27-0400 Respiratory rate 16 /min Yesika Gordon [employer] Work Phone: [facility] 08-13-2023 14:58-0400 Body height 175.3 cm Panda POE-C Work Phone: [facility] 08-13-2023 14:58-0400 Body mass index (BMI) [Ratio] 44.41 kg/m2 Panda Eagle PA-C Work Phone: [facility] 08-13-2023 14:58-0400 Body temperature 97.3 [degF] Panda Eagle PA-C Work Phone: [facility] 08-13-2023 14:58-0400 Body weight 136.4 kg Panda Eagle PA-C Work Phone: [facility] 08-10-2023 14:33-0400 Body height 175.3 cm Paula Casarez [employer] Work Phone: [employer] 08-10-2023 14:33-0400 Body mass index (BMI) [Ratio] 44.42 kg/m2 Paula Casarez [employer] Work Phone: [facility] 08-10-2023 14:33-0400 Body temperature 98.1 [degF] Paula Casarez [employer] Work Phone: [facility] 08-10-2023 14:33-0400 Body weight 136.44 kg Paula Casarez [employer] Work Phone: [facility] 08-10-2023 14:33-0400 Diastolic blood pressure 78 mm[Hg] Paula Casarez [employer] Work Phone: [facility] [employer] 08-10-2023 14:33-0400 Heart rate 74 /min Paula Casarez [employer] Work Phone: [facility] 08-10-2023 14:33-0400 Respiratory rate 16 /min Paula Casarez [employer] Work Phone: [facility] [employer] 08-10-2023 14:33-0400 SaO2% (BldA) [Mass fraction] 96 % Paula Casarez [employer] Work Phone: [facility] 08-10-2023 14:33-0400 Systolic blood pressure 114 mm[Hg] Paula Casarez [employer] Work Phone: [facility] 07-30-2023 11:40-0400 Diastolic blood pressure 69 mm[Hg] Morris London MD Work Phone: [facility] [employer] 07-30-2023 11:40-0400 Respiratory rate 16 /min Morris London MD Work Phone: [facility] [employer] 07-30-2023 11:40-0400 SaO2% (BldA) [Mass fraction] 96 % Morris London MD Work Phone: [facility] 07-30-2023 11:40-0400 Systolic blood pressure 109 mm[Hg] Morris London MD [facility] 07-30-2023 11:10-0400 Heart rate 73 /min Morris London MD Work Phone: [facility] 07-30-2023 08:55-0400 Body height 175.3 cm Morris London MD Work Phone: [facility] [employer] [facility] 07-30-2023 08:55-0400 Body mass index (BMI) [Ratio] 43.86 kg/m2 Morris London MD Work Phone: [facility] [employer] [facility] 07-30-2023 08:55-0400 Body temperature 97.3 [degF] Morris London MD Work Phone: [facility] 07-30-2023 08:55-0400 Body weight 134.72 kg Morris London MD Work Phone: [facility] [employer] [facility] 07-27-2023 11:45-0400 Diastolic blood pressure 76 mm[Hg] Morris London MD Work Phone: [facility] [employer] [facility] 07-27-2023 11:45-0400 Heart rate 68 /min Morris London MD Work Phone: [employer] [facility] 07-27-2023 11:45-0400 Respiratory rate 18 /min Morris London MD Work Phone: [facility] [employer] [facility] 07-27-2023 11:45-0400 SaO2% (BldA) [Mass fraction] 99 % Morris London MD Work Phone: [facility] [employer] [facility] 07-27-2023 11:45-0400 Systolic blood pressure 114 mm[Hg] Morris London MD Work Phone: [facility] 07-27-2023 11:15-0400 Body temperature 97 [degF] Morris London MD Work Phone: [facility] 07-27-2023 08:34-0400 Body height 175.3 cm Morris London MD Work Phone: [facility] 07-27-2023 08:34-0400 Body mass index (BMI) [Ratio] 43.86 kg/m2 Morris London MD Work [facility]: [facility] 07-27-2023 08:34-0400 Body weight 134.72 kg Morris London MD Work Phone: [facility] 07-02-2023 14:59-0400 Body height 175.3 cm Panda Eagle PA-C Work Phone: [facility] 07-02-2023 14:59-0400 Body mass index (BMI) [Ratio] 45.58 kg/m2 Panda Eagle PA-C Work Phone: [facility] 07-02-2023 14:59-0400 Body temperature 98.29 [degF] Panda Eagle PA-C Work Phone: [facility] 07-02-2023 14:59-0400 Body weight 140 kg Panda Eagle PA-C Work Phone: [facility] 04-28-2023 14:34-0500 Diastolic blood pressure 94 mm[Hg] Paula Casarez [employer] Work Phone: [facility] 04-28-2023 14:34-0500 Systolic blood pressure 150 mm[Hg] Paula Casarez [employer] Work Phone: [facility] 04-28-2023 14:24-0500 Body height 175.3 cm Paula Casarez [employer] Work Phone: [facility] 04-28-2023 14:24-0500 Body mass index (BMI) [Ratio] 45.57 kg/m2 Paula Casarez [employer] Work Phone: [facility] 04-28-2023 14:24-0500 Body temperature 97.5 [degF] Paula Casarez [employer] Work Phone: [facility] 04-28-2023 14:24-0500 Body weight 139.98 kg Paula Casarez [employer] Work Phone: [facility] 04-28-2023 14:24-0500 Heart rate 98 /min Paula Casarez [employer] Work Phone: [facility] 04-28-2023 14:24-0500 Respiratory rate 20 /min Paula Casarez [employer] Work Phone: [facility] 05-27-2022 08:23-0500 Diastolic blood pressure 59 mm[Hg] Roger Sparks MD Work Phone: [facility] 05-27-2022 08:23-0500 Heart rate 80 /min Roger Sparks MD Work Phone: [facility] 05-27-2022 08:23-0500 Respiratory rate 18 /min Roger Sparks MD Work Phone: [facility] 05-27-2022 08:23-0500 SaO2% (BldA) [Mass fraction] 96 % Roger Sparks MD Work Phone: [facility] 05-27-2022 08:23-0500 Systolic blood pressure 110 mm[Hg] Roger Sparks MD Work Phone: [facility] 05-27-2022 07:10-0500 Body height 175.3 cm Roger Sparks MD Work Phone: [facility] 05-27-2022 06:58-0500 Body temperature 97.7 [degF] Roger Sparks MD Work Phone: [facility] 04-02-2022 18:02-0500 Body temperature 98.71 [degF] Paula Casarez [employer] Work Phone: [facility] 04-02-2022 18:02-0500 Diastolic blood pressure 82 mm[Hg] Paula Casarez [employer] Work Phone: [facility] 04-02-2022 18:02-0500 Heart rate 81 /min Paula Casarez [employer] Work Phone: [facility] 04-02-2022 18:02-0500 Respiratory rate 16 /min Paula Casarez [employer] Work Phone: [facility] 04-02-2022 18:02-0500 SaO2% (BldA) [Mass fraction] 98 % Paula Casarez [employer] Work Phone: [facility] 04-02-2022 18:02-0500 Systolic blood pressure 132 mm[Hg] Paula Casarez [employer] Work Phone: [facility] 04-02-2022 16:58-0500 Body height 177.8 cm Paula Casarez [employer] Work Phone: [facility] 02-12-2022 16:23-0400 Diastolic blood pressure 87 mm[Hg] Paula Casarez [employer] Work Phone: [facility] 02-12-2022 16:23-0400 Heart rate 79 /min Paula Casarez [employer] Work Phone: [facility] 02-12-2022 16:23-0400 Respiratory rate 20 /min Paula Casarez [employer] Work Phone: [facility] [employer] 02-12-2022 16:23-0400 SaO2% (BldA) [Mass fraction] 99 % Paula Casarez [employer] Work Phone: [facility] 02-12-2022 16:23-0400 Systolic blood pressure 130 mm[Hg] Paula Casarez [employer] Work Phone: [facility] 02-12-2022 14:51-0400 Body temperature 98.71 [degF] Paula Casarez [employer] Work Phone: [facility] 02-12-2022 14:49-0400 Body mass index (BMI) [Ratio] 39.68 kg/m2 Paula Casarez [employer] Work Phone: [facility] [employer] 02-12-2022 14:49-0400 Body weight 129.05 kg Paula Casarez [employer] Work Phone: [facility] 11-28-2021 15:15-0400 Body mass index (BMI) [Ratio] 40.45 kg/m2 Ebony Aragon MD Work Phone: [facility] 11-28-2021 15:15-0400 Body temperature 97.59 [degF] Ebony Aragon MD Work Phone: [facility] 11-28-2021 15:15-0400 Body weight 131.54 kg Ebony Aragon MD Work Phone: [facility] 11-28-2021 15:15-0400 Diastolic blood pressure 70 mm[Hg] Ebony Aragon MD Work Phone: [facility] 11-28-2021 15:15-0400 Heart rate 88 /min Ebony Aragon MD Work Phone: [facility] 11-28-2021 15:15-0400 SaO2% (BldA) [Mass fraction] 96 % Ebony Aragon MD Work Phone: [facility] 11-28-2021 15:15-0400 Systolic blood pressure 140 mm[Hg] Ebony Aragon MD Work Phone: [facility] 08-19-2021 14:34-0400 Body height 180.3 cm Paula Casarez APRN-NUMBERER [employer]ER Work Phone: [facility] 08-19-2021 14:34-0400 Body mass index (BMI) [Ratio] 41.56 kg/m2 Paula Casarez APRN[employer]ER [employer]ER Work Phone: [facility] 08-19-2021 14:34-0400 Body temperature 98.1 [degF] Paula Casarez [employer] Work Phone: [facility] 08-19-2021 14:34-0400 Body weight 135.17 kg Paula Casarez [employer] Work Phone: [facility] 08-19-2021 14:34-0400 Diastolic blood pressure 80 mm[Hg] Paula Casarez APRN-[employer]ER [employer]ER Work Phone: [facility] 08-19-2021 14:34-0400 Heart rate 84 /min Paula Casarez [employer] Work Phone: [facility] 08-19-2021 14:34-0400 Respiratory rate 16 /min Paula Casarez [employer] Work Phone: [facility] 08-19-2021 14:34-0400 SaO2% (BldA) [Mass fraction] 96 % Paula Casarez [employer] Work Phone: [facility] 08-19-2021 14:34-0400 Systolic blood pressure 138 mm[Hg] Paula Casarez [employer] Work Phone: [facility] 07-18-2021 12:31-0400 Body height 180.3 cm Paula Casarez [employer] Work Phone: [facility] 07-18-2021 12:31-0400 Body mass index (BMI) [Ratio] 43.1 kg/m2 Paula Casarez [employer] Work Phone: [facility] 07-18-2021 12:31-0400 Body temperature 98.91 [degF] Paula Casarez [employer] Work Phone: [facility] 07-18-2021 12:31-0400 Body weight 140.16 kg Paula Casarez [employer] Work Phone: [facility] 07-18-2021 12:31-0400 Diastolic blood pressure 82 mm[Hg] Paula Casarez [employer] Work Phone: [facility] 07-18-2021 12:31-0400 Heart rate 88 /min Paula Casarez [employer] Work Phone: [facility] 07-18-2021 12:31-0400 Respiratory rate 16 /min Paula Casarez [employer] Work Phone: [facility] 07-18-2021 12:31-0400 SaO2% (BldA) [Mass fraction] 97 % Paula Casarez [employer] Work Phone: [facility] [facility] 07-18-2021 12:31-0400 Systolic blood pressure 130 mm[Hg] Paula Casarez [employer] Work Phone: [facility] 07-09-2021 10:13-0400 Diastolic blood pressure 75 mm[Hg] Musa Cotton MD Work Phone: [facility] 07-09-2021 10:13-0400 Heart rate 74 /min Musa Cotton MD Work Phone: [facility] 07-09-2021 10:13-0400 Respiratory rate 16 /min Musa Cotton MD Work Phone: [facility] 07-09-2021 10:13-0400 SaO2% (BldA) [Mass fraction] 98 % Musa Cotton MD Work Phone: [facility] 07-09-2021 10:13-0400 Systolic blood pressure 126 mm[Hg] Musa Cotton MD Work Phone: [facility] 07-09-2021 07:46-0400 Body temperature 98.4 [degF] Musa Cotton MD Work Phone: [facility] 06-10-2021 14:57-0500 Body height 180.3 cm Paula Casarez [employer] Work Phone: [facility] [facility] 06-10-2021 14:57-0500 Body mass index (BMI) [Ratio] 44.21 kg/m2 Paula Casarez [employer] Work Phone: [facility] 06-10-2021 14:57-0500 Body temperature 99.39 [degF] Paula Casarez [employer] Work Phone: [facility] 06-10-2021 14:57-0500 Body weight 143.79 kg Paula Casarez [employer] Work Phone: [facility] 06-10-2021 14:57-0500 Diastolic blood pressure 100 mm[Hg] Paula Casarez [employer] Work Phone: [facility] 06-10-2021 14:57-0500 Heart rate 84 /min Paula Casarez [employer] Work Phone: [facility] 06-10-2021 14:57-0500 Respiratory rate 16 /min Paula Casarez [employer] Work Phone: [facility] 06-10-2021 14:57-0500 SaO2% (BldA) [Mass fraction] 97 % Paula Casarez RUBBER [employer] AND WIRER Work Phone: [facility] 06-10-2021 14:57-0500 Systolic blood pressure 160 mm[Hg] Paula Casarez RUBBER OFF-NUMBERER [employer] WIRER Work Phone: [facility] Encounters Encounter Date Encounter Type Care Provider Facility Start: 10-14-2023 ambulatory [facility] Start: 09-01-2023 End: 09-01-2023 Office outpatient visit 15 minutes Yesikajarad Gordon RUBBER [employer]ER [employer] WIRER Work Phone: [facility] Comment on above: Low testosterone (Pr imary Dx) Start: 09-01-2023 ambulatory [facility] Start: 08-28-2023 ambulatory [facility] Start: 08-28-2023 Encounter for other specified special examinations [facility] Start: 08-28-2023 End: 08-28-2023 Office outpatient new 45 minutes Monae Orona RUBBER OFF-[employer]ER [employer] WIRER Work Phone: [facility] Pulmonary Disease [facility] Comment on above: Sleep apnea, unspeci fied type (Primary Dx); Snoring; Insomnia, unspecified type; Fatigue, unspecified type; Hypersomnia, unspecified; Restless legs syndrome; Morning headache; Tests ordered; Pedal edema Start: 08-28-2023 End: 08-28-2023 Patient encounter status Monae Orona RUBBER OFF-[employer]ER [employer] WIRER Work Phone: [employer] [facility] Start: 08-25-2023 End: 08-25-2023 Office outpatient visit 25 minutes Yesika Gordon RUBBER [employer]ER [employer] WIRER Work Phone: [facility] Comment on above: Low testosterone (Pr imary Dx); Family history of prostate cancer in father; Smoking greater than 30 pack years; Urinary urgency Start: 08-25-2023 [facility] Start: 08-19-2023 [facility] Start: 08-18-2023 End: 08-18-2023 Office outpatient visit 25 minutes Yesika Gordon RUBBER [employer]ER [employer] WIRER Work Phone: [facility] Comment on above: Low testosterone (Pr imary Dx); Family history of prostate cancer in father; Smoking greater than 30 pack years; Urinary urgency Start: 08-18-2023 [facility] Start: 08-13-2023 End: 08-13-2023 Postop follow up visit related to original px Panda Eagle PA-C Work Phone: [facility] Comment on above: S/P endoscopic carpa l tunnel release- MUNIR (Primary Dx) Start: 08-13-2023 [facility] Start: 08-10-2023 End: 08-10-2023 Office outpatient visit 25 minutes Paula Casarez RUBBER OFF-NUMBERER [employer] WIRER Work Phone: [facility] Comment on above: Essential hypertensi on, benign (Primary Dx); Hyperlipidemia, unspecified hyperlipidemia type; Type 2 diabetes mellitus with hyperglycemia, without long-term current use of insulin; Sleep apnea, unspecified type Start: 08-10-2023 [facility] Start: 07-30-2023 End: 07-30-2023 ambulatory [facility] Start: 07-30-2023 End: 07-30-2023 Encounter for other preprocedural examination MORRIS LONDON [facility] Start: 07-30-2023 End: 07-30-2023 Patient encounter status Morris London MD Work Phone: [facility] Start: 07-30-2023 End: 07-30-2023 Subsequent hospital visit by physician Morris London MD Work Phone: [facility] Periop Comment on above: Carpal tunnel syndro me on left Start: 07-27-2023 End: 07-27-2023 ambulatory PAULA [facility] Start: 07-27-2023 End: 07-27-2023 Patient encounter status Morris London MD Work Phone: [facility] Start: 07-27-2023 End: 07-27-2023 Subsequent hospital visit by physician Morris London MD Work Phone: [facility] Periop Comment on above: Carpal tunnel syndro me on right Start: 07-23-2023 Patient encounter status Carlito London MD Work Phone: [facility] Work Phone: Start: 07-21-2023 ambulatory [facility] Start: 07-08-2023 ambulatory MORRIS Pinzon [facility] Start: 07-02-2023 End: 07-02-2023 Office outpatient new 45 minutes Panda Eagle PA-C Work Phone: [facility] Comment on above: Bilateral wrist pain (Primary Dx); Bilateral hand numbness; Carpal tunnel syndrome, bilateral Start: 07-02-2023 ambulatory PAULA [facility] Start: 04-28-2023 End: 04-28-2023 Office outpatient visit 25 minutes Paula Casarez RUBBER [employer]ER [employer] WIRER Work Phone: [facility] Comment on above: Hyperlipidemia, unsp ecified hyperlipidemia type (Primary Dx); Essential hypertension, benign; Type 2 diabetes mellitus with hyperglycemia, without long-term current use of insulin; Non compliance w medication regimen; Bilateral wrist pain; Atypical pigmented skin lesion Start: 04-28-2023 ambulatory PAULA [facility] Start: 12-04-2022 End: 12-04-2022 ambulatory DANI [facility] Start: 05-27-2022 End: 05-27-2022 Emergency department patient visit Roger Sparks MD Work Phone: [facility] Emergency Department Start: 04-02-2022 End: 04-02-2022 Emergency department patient visit Paulayovana Casarez RUBBER [employer]ER [employer] WIRER Work Phone: [facility] Emergency Department Start: 02-12-2022 End: 02-12-2022 Emergency department patient visit Paula Hollis RUBBER OFF-NUMBERER AND WIRER Work Phone: [facility] Emergency Department Start: 11-29-2021 End: 11-29-2021 Subsequent hospital visit by physician Paula Casarez APRN-NUMBERER AND WIRER Work Phone: [facility] Ultrasound Comment on above: Arrived Start: 11-28-2021 End: 11-28-2021 Office outpatient new 45 minutes Ebony Aragon MD Work Phone: [facility] Infectious Disease Comment on above: Genital warts (Prima ry Dx); Type 2 diabetes mellitus with other neurologic complication, without long-term current use of insulin; Essential hypertension, benign; Mixed hyperlipidemia; Obesity (BMI 35.0-39.9 without comorbidity) Start: 09-06-2021 ambulatory [facility] Start: 08-19-2021 End: 08-19-2021 Office outpatient visit 25 minutes Paula Casarez RUBBER [employer]-NUMBERER [employer] WIRER Work Phone: [facility] Comment on above: Essential hypertensi on, benign (Primary Dx); Type 2 diabetes mellitus without complication, without long-term current use of insulin; Class 3 severe obesity with serious comorbidity and body mass index (BMI) of 40.0 to 44.9 in adult, unspecified obesity type Start: 07-18-2021 End: 07-18-2021 Office outpatient visit 15 minutes Paula Casarez RUBBER OFF-NUMBERER [employer] WIRER Work Phone: [facility] Comment on above: Essential hypertensi on, benign (Primary Dx); Type 2 diabetes mellitus with other specified complication, unspecified whether terminal carman insulin use; Class 3 severe obesity with serious comorbidity and body mass index (BMI) of 40.0 to 44.9 in adult, unspecified obesity type Start: 07-09-2021 End: 07-09-2021 Emergency department patient visit Musa Cotton MD Work Phone: [facility] Emergency Department Start: 06-20-2021 ambulatory MOR CASAREZ [facility] Start: 06-10-2021 End: 06-10-2021 Office outpatient visit 25 minutes Paula Casarez RUBBER OFF-NUMBERER [employer] WIRER Work Phone: [facility] Comment on above: Essential hypertensi on, benign (Primary Dx); Hyperlipidemia, unspecified hyperlipidemia type; Elevated glucose; Class 3 severe obesity with serious comorbidity and body mass index (BMI) of 40.0 to 44.9 in adult, unspecified obesity type Start: 04-26-2020 End: 04-28-2020 Subsequent hospital visit by physician [facility] Xray Room [facility] Radiology Comment on above: 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 level Start: 03-02-2020 End: 03-03-2020 Evaluation and management of inpatient PHYSICIAN UNKNOWN Facility:[facility] Start: 06-02-2019 Patient encounter procedure LAUREN HAGER [facility] Start: 03-08-2018 End: 03-08-2018 Patient encounter procedure Other Other [facility] Start: 03-03-2018 End: 03-03-2018 Patient encounter procedure Tammy Shannon Work Phone: [facility] Comment on above: Arrived Procedures Date Procedure Procedure Detail Performing Clinician Start: 09-01-2023 Urnls dip stick/tabl et rgnt auto w/o microscopy Yesikajarad Gordon RUBBER [employer]ER [employer] WIRER Work Phone: Start: 08-18-2023 Urnls dip stick/tabl et rgnt auto w/o microscopy Yesika Gordon RUBBER [employer]ER [employer] WIRER Work Phone: Start: 08-10-2023 Comprehensive metabo lic panel Paula Casarez RUBBER [employer]-NUMBERER [employer] WIRER Work Phone: Start: 08-10-2023 Lipid panel Paula spicer RUBBER [employer]-NUMBERER [employer] WIRER Work Phone: Start: 07-30-2023 Urine drug screening Josefina London MD Work Phone: Start: 07-27-2023 Urine drug screening Ca rlos L Rico DO Work Phone: Start: 04-28-2023 End: 04-28-2023 Comprehensive metabolic panel Paula Casarez RUBBER [employer]ER [employer] WIRER Work Phone: Start: 04-28-2023 Lipid panel Paula Hugo Rhiannon spicer RUBBER [employer]NUMBERER [employer] WIRER Work Phone: Start: 05-27-2022 Iadna nos amplified probe tq each organism Roger Sparks MD Work Phone: Start: 05-27-2022 Radiologic exam ches t single view Roger Sparks MD Work Phone: Start: 05-27-2022 Complete blood count with white cell differential, automated Roger Sparks MD Work Phone: Start: 05-27-2022 Comprehensive metabo lic panel Roger Sparks MD Work Phone: Start: 05-27-2022 Ecg routine ecg w/le ast 12 lds w/i&r Roger Spraks MD Work Phone: Start: 04-02-2022 Iadna nos amplified probe tq each organism Rosario Rose RUBBER [employer]NUMBERER [employer] WIRER Work Phone: Start: 04-02-2022 Quantitative PCR analysis Rosario Rose RUBBER [employer]ER [employer] WIRER Work Phone: Start: 02-12-2022 Radiologic exam ches t single view Keya POE-C Work Phone: Start: 02-12-2022 Albumin serum plasma/whole blood Keya Gomez PA-C Work Phone: Start: 02-12-2022 Complete blood count with white cell differential, automated Keya NORMANC Work Phone: Start: 11-29-2021 Duplex scan extracra nial art compl bi study Paula Casarez RUBBER [employer]-NUMBERER [employer] WIRER Work Phone: Start: 08-19-2021 Comprehensive metabo lic panel Paula Casarez RUBBER [employer]NUMBERER [employer] WIRER Work Phone: Start: 07-09-2021 Radiologic exam ches t single view Musa Cotton MD Work Phone: Start: 07-09-2021 Complete blood count with white cell differential, automated Musa Cotton MD Work Phone: Start: 07-09-2021 Comprehensive metabo lic panel Musa Cotton MD Work Phone: Start: 07-09-2021 Ecg routine ecg w/le ast 12 lds w/i&r Musa Cotton MD Work Phone: Start: 07-08-2021 Assay of troponin quantitative Musa Cotton MD Work Phone: Start: 06-10-2021 Complete blood count with white cell differential, automated Paula Casarez RUBBER [employer]-NUMBERER [employer] WIRER Work Phone: Start: 06-10-2021 Comprehensive metabo lic panel Paula Casarez RUBBER [employer]NUMBERER [employer] WIRER Work Phone: Start: 06-10-2021 Lipid panel Paula Jurado llgabino RUBBER OFF-NUMBERER AND WIRER Work Phone: Start: 04-26-2020 Radex spine cervical 2 or 3 views Dani Le Work Phone: Start: 03-02-2020 FUSION 2-6 C JT W IN TBD FUS DEV, ANT APPR A COL, OPEN DANI LE Start: 03-02-2020 RESECTION OF CERVICA L VERTEBRAL DISC, OPEN APPROACH DAIN LE Start: 03-02-2020 Antibody screen PHYSICI AN UNKNOWN Comment on above: Performed By: #### [id number] #### [facility] [address] [place] [place] [address], [facility] Start: 02-01-2020 Antibody screen PHYSICI AN UNKNOWN Comment on above: Performed By: #### [id number] #### [facility] [address] [place] [address], [facility] Start: 03-03-2018 End: 03-03-2018 MRI of knee Tammy Shiva Work Phone: History of decompres donte of median nerve S/P endoscopic carpal tunnel release- MUNIR Panda Eagle PA-C Work Phone: Plan of Treatment Date Care Activity Detail Author Start: 08-18-2024 Prostate specific an tigen measurement PROSTATE CANCER SCREENING DISCUSSION [facility] Start: 08-09-2024 Lipid panel LIPIDS [facility] Start: 04-28-2024 Lipid panel LIPIDS [facility] Start: 02-09-2024 Hemoglobin A1c measurement HBA1C TEST [facility] Start: 01-25-2024 End: 01-25-2024 Patient encounter procedure 01/25/2024 3:15 PM EDT Office Visit [facility] Cardiology [address] [place] [address] Rusty Alan MD [address] [facility] 1st [place] [address] [facility] Start: 12-04-2023 End: 12-04-2023 Patient encounter procedure 12/04/2023 2:45 PM EDT Office Visit [facility] [address] [facility] [place] [address] Monae Orona, RUBBER OFF-[employer]ER [employer] WIRER [address] [place] [address] [facility] Start: 10-27-2023 Hemoglobin A1c measurement HBA1C TEST [facility] Start: 10-13-2023 End: 10-13-2023 Patient encounter procedure 10/13/2023 8:15 AM EDT Office Visit [facility] [address] 1st [place] [address] Yesika Gordon, RUBBER OFF-NUMBERER [employer] WIRER [address] [place] [address] [facility] Start: 09-28-2023 End: 08-31-2024 CBC,PLATELETS CBC,PLATELETS Lab Routine Low testosterone Expected: 09/28/2023 (Approximate), Expires: 08/31/2024 [facility] Comment on above: Expected: 09/28/2023 (Approximate), Expires: 08/31/2024 Start: 09-28-2023 End: 08-31-2024 PSA screening PSA, SCREENING Lab Routine Low testosterone Expected: 09/28/2023 (Approximate), Expires: 08/31/2024 [facility] Comment on above: Expected: 09/28/2023 (Approximate), Expires: 08/31/2024 Start: 09-28-2023 End: 08-31-2024 Testosterone [Mass/volume] in Serum or Plasma TESTOSTERONE Lab Routine Low testosterone Expected: 09/28/2023 (Approximate), Expires: 08/31/2024 [facility] Comment on above: Expected: 09/28/2023 (Approximate), Expires: 08/31/2024 Start: 09-15-2023 End: 09-15-2023 Patient encounter procedure 09/15/2023 8:00 AM EDT Office Visit [place] [address] [place] [address] [facility] Urology 1 Nurse, Avb [facility] Start: 09-01-2023 End: 09-01-2023 Patient encounter procedure 09/01/2023 8:15 AM EDT Office Visit [place] [address] [place] [address] Yesika Gordon, RUBBER [employer]ER [employer] WIRER [address] [place] [address] [facility] Start: 08-28-2023 End: 08-28-2023 Patient encounter procedure 08/28/2023 2:30 PM EDT Office Visit [facility] [address] [facility] [place] [address] Monae Orona, RUBBER OFF-NUMBERER AND WIRER [address] [facility] [place] [address] [facility] Start: 08-25-2023 End: 08-25-2023 Patient encounter procedure 08/25/2023 8:15 AM EDT Office Visit [place] [address] [place] [address] Yesika Gordon [place], RUBBER [employer]ER [employer] WIRER [address] [place] [address], [place] [address] [facility] Start: 08-18-2023 End: 08-17-2024 CBC,PLATELETS CBC,PLATELETS Lab Routine Low testosterone Expected: 08/18/2023, Expires: 08/17/2024 [facility] Comment on above: Expected: 08/18/2023 , Expires: 08/17/2024 Start: 08-18-2023 End: 08-17-2024 ESTRADIOL, ENHANCED ESTRADIOL, ENHANCED Lab Routine Low testosterone Expected: 08/18/2023, Expires: 08/17/2024 [facility] Comment on above: Expected: 08/18/2023 , Expires: 08/17/2024 Start: 08-18-2023 End: 08-17-2024 FSH FSH Lab Routine Low testosterone Expected: 08/18/2023, Expires: 08/17/2024 [facility] Comment on above: Expected: 08/18/2023 , Expires: 08/17/2024 Start: 08-18-2023 End: 08-17-2024 LH LH Lab Routine Low testosterone Expected: 08/18/2023, Expires: 08/17/2024 [facility] Comment on above: Expected: 08/18/2023 , Expires: 08/17/2024 Start: 08-18-2023 End: 08-17-2024 PROLACTIN PROLACTIN Lab Routine Low testosterone Expected: 08/18/2023, Expires: 08/17/2024 [facility] Comment on above: Expected: 08/18/2023 , Expires: 08/17/2024 Start: 08-18-2023 End: 08-17-2024 PSA screening PSA, SCREENING Lab Routine Low testosterone Expected: 08/18/2023, Expires: 08/17/2024 [facility] Comment on above: Expected: 08/18/2023 , Expires: 08/17/2024 Start: 08-18-2023 End: 08-17-2024 SEX HORMONE BINDING GLOBULIN SEX HORMONE BINDING GLOBULIN Lab Routine Low testosterone Expected: 08/18/2023, Expires: 08/17/2024 [facility] Comment on above: Expected: 08/18/2023 , Expires: 08/17/2024 Start: 08-18-2023 End: 08-17-2024 Testosterone [Mass/volume] in Serum or Plasma TESTOSTERONE Lab Routine Low testosterone Expected: 08/18/2023, Expires: 08/17/2024 [facility] Comment on above: Expected: 08/18/2023 , Expires: 08/17/2024 Start: 08-18-2023 End: 08-18-2023 Patient encounter procedure 08/18/2023 9:30 AM EDT Office Visit [facility] [address] [facility] 1st [place] [address] Yesika Gordon, RUBBER [employer]ER [employer] WIRER [address] [place] [address], [place] [address] [facility] Start: 08-13-2023 End: 08-13-2023 Patient encounter procedure 08/13/2023 3:30 PM EDT Office Visit [facility] [address] [place] [address] Panda Eagle PAJuanC [address] [facility] [place], [place] [id number] [facility] Start: 07-30-2023 End: 07-30-2023 Admission to same day surgery center 07/30/2023 12:00 PM EDT - 07/30/2023 12:30 PM EDT Surgery [facility] [address] [place] [address] Morris London MD [address] [facility] [place], [place] [id number] ENDOSCOPY CARPAL TUNNEL RELEASE *PRE-OP BLOCK* [facility] Comment on above: ENDOSCOPY CARPAL JURGEN ARELI RELEASE *PRE-OP BLOCK* Start: 07-30-2023 Subsequent hospital visit by physician 07/30/2023 12:00 PM EDT Hospital Encounter [facility] [address] [place] [id number] Morris London MD [address] [place] [address] [place] [address] Carpal tunnel syndrome on left [facility] Comment on above: Carpal tunnel syndro me on left Start: 07-30-2023 End: 07-30-2023 Ndsc wrst surg w/rls transvrs carpl ligm [facility] Start: 07-27-2023 End: 07-27-2023 Ndsc wrst surg w/rls transvrs carpl ligm ENDOSCOPY CARPAL TUNNEL RELEASE Carpal tunnel syndrome on right 07/27/2023 10:44 AM EDT [facility] OR Start: 07-08-2023 End: 07-08-2023 Admission to establishment 07/08/2023 1:00 PM EDT Pre-Operative Nurse Assessment [facility] Pre Admission Testing [address] [facility] [place] [address] [facility] Pre Admission Testing Start: 06-26-2023 End: 07-24-2023 XR Wrist - left 3 Views XR WRIST LEFT 3+ VIEWS Imaging Routine Bilateral wrist pain Expected: 06/26/2023, Expires: 07/24/2023 [facility] Comment on above: Expected: 06/26/2023 , Expires: 07/24/2023 Start: 06-26-2023 End: 07-24-2023 XR Wrist - right 3 Views XR WRIST RIGHT 3+ VIEWS Imaging Routine Bilateral wrist pain Expected: 06/26/2023, Expires: 07/24/2023 [facility] Comment on above: Expected: 06/26/2023 , Expires: 07/24/2023 Start: 12-12-2022 COVID-19 VACCINE ( season) COVID-19 VACCINE () [facility] Start: 2022 Prostate specific an tigen measurement PROSTATE CANCER SCREENING DISCUSSION [facility] Start: 2022 Zoster vaccine hzv l alexandra for subcutaneous use ZOSTER (SHINGLES) VACCINE (1 of 2) [facility] Start: 06-10-2022 Lipid panel LIPIDS [facility] Start: 06-10-2022 LIPIDS LIPIDS [facility] Start: 05-24-2022 Hemoglobin A1c measurement HBA1C TEST [facility] Start: 02-24-2022 End: 02-24-2022 Patient encounter procedure 02/24/2022 Office Visit Cardiovascular Medicine Neo Sampson MD [address] [facility] [place] [address] [address] [facility] Start: 02-19-2022 Hemoglobin A1c measurement HBA1C TEST [facility] Start: 12-26-2021 End: 12-26-2021 Patient encounter procedure 12/26/2021 Office Visit Infectious Diseases Ebony Aragon MD [address] [place] [address] [facility] Infectious Disease Start: 12-12-2021 Influenza vaccination [facility] Start: 12-08-2021 Hemoglobin A1c measurement HBA1C TEST [facility] Start: 11-29-2021 End: 11-29-2021 Patient encounter procedure 11/29/2021 Appointment Ultrasound Paula Casarez, RUBBER [employer]ER [employer] WIRER [address] [place] [facility] [phone] [facility] Ultrasound Start: 08-19-2021 End: 08-19-2021 Patient encounter procedure 08/19/2021 Office Visit Family Medicine Paula Casarez, RUBBER OFF-[employer]ER [employer] WIRER [address] [place] [facility] [phone] [facility] Start: 07-22-2021 End: 07-22-2021 Patient encounter procedure 07/22/2021 Office Visit Cardiovascular Medicine Neo Sampson MD [address] [place] [address], [place] [address] [facility] Start: 05-10-2021 LIPIDS LIPIDS [facility] Start: 12-12-2020 Influenza vaccination INFLUENZA VACC INE (#1) [facility] Start: 11-07-2020 Hemoglobin A1c measurement HBA1C TEST [facility] Start: 06-07-2020 End: 06-07-2020 Office Visit 06/07/2020 Office Visit [facility] Start: 12-13-2019 Influenza vaccination Flu vaccine (# 1) [place], [place] Start: 03-08-2018 End: 03-08-2018 Ambulatory 03/08/2018 Office Visit Orthopaedics Farooq Rosenthal MD [address] [place] [address] [phone] [facility] Start: 12-12-2017 Influenza vaccination INFLUENZA VACC INE (#1) [facility] Work Phone: Start: 2017 Colonoscopy COLORECTAL CAN CER SCREENING DISCUSSION [facility] Start: 2017 Screening for malign ant neoplasm of colon COLORECTAL CANCER SCREENING DISCUSSION [facility] Start: 2012 Fasting lipid profile LIPID SCREENIN G [facility] Work Phone: Start: 2012 Lipid panel Lipid screen [place], [place] Start: 09-27-1991 DTaP/Tdap/Td vaccine (1 - Tdap) DTaP/Tdap/Td vaccine (1 - Tdap) [place], [place] Start: 09-27-1991 Hepatitis B vaccination HEP B VACCINE (1 of 3 - 19+ 3-dose series) [facility] Start: 09-27-1991 Third diphtheria, te tanus and acellular pertussis (DTaP) vaccination TDAP (ADULT) [facility] Start: 1990 Tetanus vaccination TETANUS [facility] Start: 09-27-1987 HIV screening [facility] screen [facility] [place] Start: 1978 PNEUMOCOCCAL VACCINE SERIES (1 - PCV) PNEUMOCOCCAL VACCINE SERIES (1 - PCV) [facility] Start: 1978 PNEUMOCOCCAL VACCINE SERIES (1 of 2 - PCV) PNEUMOCOCCAL VACCINE SERIES (1 of 2 - PCV) [facility] Start: 1978 PNEUMOCOCCAL VACCINE SERIES (1 of 2 - PPSV23) PNEUMOCOCCAL VACCINE SERIES (1 of 2 - PPSV23) [facility] Start: 1977 COVID-19 VACCINE (#1) COVID-19 VACCI NE (#1) [facility] Start: 1977 COVID-19 VACCINE (1) COVID-19 VACCIN E (1) [facility] Start: 03-28-1973 COVID-19 VACCINE (#1) COVID-19 VACCI NE (#1) [facility] Start: 1972 Diabetic foot examination DIABETIC F OOT EXAM [facility] Start: 1972 Diabetic retinal eye exam EYE EXAM [facility] Start: 1972 Endoscopy of gastrointestinal tract NOS ENDOSCOPY [facility] Start: 1972 Glaucoma screening EYE EXAM [facility] Start: 1972 Hepatitis B vaccination HEP B VACCINE (1 of 3 - 3-dose series) [facility] Start: 1972 Hepatitis C screening Hepatitis C [place], [place] Start: 1972 Microalbumin measure ment, urine, quantitative URINE MICROALBUMIN TEST [facility] Start: 1970 Tetanus vaccination TETANUS [facility] Start: 1972 Urine screening for protein URINE MICROALBUMIN TEST [facility] Polysomnography SLEEP STUDY - DIAGNOSTIC PFT Routine Sleep apnea, unspecified type Snoring Insomnia, unspecified type Fatigue, unspecified type Hypersomnia, unspecified Restless legs syndrome Morning headache Ordered: 08/28/2023 [facility] Comment on above: Ordered: 08/28/2023 Portable XR Chest Vi ews AP XR CHEST AP PORTABLE Imaging STAT 07/09/2021 8:10 AM EDT [facility] SLEEP STUDY - TITRATION SLEEP ST UDY - TITRATION PFT Routine Sleep apnea, unspecified type Snoring Insomnia, unspecified type Fatigue, unspecified type Hypersomnia, unspecified Restless legs syndrome Morning headache Ordered: 08/28/2023 [facility] Comment on above: Ordered: 08/28/2023 Standard ECG ECG ECG STAT 7:44 AM EDT [facility] Standard ECG ECG ECG STAT 6:54 AM EST [facility] Immunizations Immunization Date Immunization Notes Care Provider Blossom manzanares 05-17-2019 influenza virus vaccine, unspecified formulation Paula Casarez [employer] Work Phone: [facility] 06-01-2017 PPD (MANTOUX TEST); Translations: [PPD (MANTOUX TEST)] Tammy Shannon [facility] Work Phone: Payers Date Payer Category Payer Unknown AYLIN VIERA TR ADITIONAL [id number] 2023-Present [address] [place] [address] [id number] 2023 Unknown [id number] [address] [facility] [id number] 2021-Present [address] [address] [place] [address] [id number] [facility] [id number] 2021-Present [address] [address] [place] [address] [id number] 2019 Private Health Insurance [id number] 2018 Unknown [id number] [id number] 2018 Unknown [id number] 1972 Unknown [id number] 2.16.840.1.841293.3.579. 2.903 1972 Unknown [id number] 2.16.840.1.540888.3.579. 2.647 1972 Unknown [id number] 2.16.840.1.928276.3.579. 2.754 1972 Unknown [id number] 2.16.840.1.625284.3.579. 2.754 1972 Unknown [id number] 2.16.840.1.650226.3.579. 2.983 1972 Unknown [id number] 2.16.840.1.195979.3.579. 2.98 1972 Unknown [id number] 2.16.840.1.281502.3.579. 2.983 1972 Unknown [id number] 2.16.840.1.910773.3.579. 2.98 1972 Unknown [id number] 2.16.840.1.369032.3.579. 2.98 1972 Unknown [id number] 2.16.840.1.506399.3.579. 2.98 1972 Unknown [id number] 2.16.840.1.845983.3.579. 2.98 1972 Unknown [id number] 2.16.840.1.213020.3.579. 2.98 1972 Unknown [id number] 2.16.840.1.958856.3.579. 2.98 1972 Unknown [id number] 2.16.840.1.771264.3.579. 2.98 1972 Unknown [id number] 2.16.840.1.338882.3.579. 2.983 1972 Unknown [id number] 2.16.840.1.418244.3.579. 2.98 1972 Unknown [id number] 2.16.840.1.359647.3.579. 2.98 1972 Unknown [id number] 2.16.840.1.310445.3.579. 2.98 Worker's Compensation [id number] Social History Date Type Detail Facility Start: 02-17-2018 End: 07-08-2023 Tobacco smoking status NHIS Current every day smoker [facility] Work Phone: Start: 02-17-2018 End: 08-28-2023 Cigarettes smoked current (pack per day) - Reported [facility] Work Phone: Start: 1970 Sex Assigned At Not on file [facility] Work Phone: Start: 08-16-2016 End: 07-08-2023 Tobacco use and exposure User of smokeless tobacco [facility] History of tobacco use Snuff User [facility] Start: 06-10-2021 End: 05-27-2022 Alcohol intake Ex-drinker (finding) [facility] Start: 05-17-2019 History SDOH Alcohol Comment rarely [facility] Start: 06-29-2021 End: 05-27-2022 Exposure to SARS-CoV-2 (event) Not sure [facility] History of tobacco use Cigarette Smoker A [facility] History of tobacco use Passive smoker [facility] Start: 04-28-2023 End: 09-01-2023 Alcohol intake Current drinker of alcohol (finding) [facility] Start: 04-28-2023 End: 08-28-2023 Tobacco use panel [facility] Gender identity Identifies as tamela varma gender (finding) [facility] Medical Equipment Procedure Code Equipment Code Equipment Origin al Text Equipment Identifier Dates 1 strip by Instructed route 3 times daily. [id number] Start: 08-19-2021 Use one to check glucose 3 times a day [id number] Start: 08-19-2021 Clinical Notes 06-10-2021 to 09-01-2023 INEZ Brown - 09/01/2023 8:15 AM Ramiro Mckinney MA - 09/01/2023 8:15 AM Marin Carrillo - 08/28/2023 2:30 PM INEZ Hart - 08/28/2023 2:30 PM EDT Note Date & Type Note Facility 09-01-2023 History of Present illness Narrative Chief Complaint Patient presents with Follow-up Low testosterone HPI: 52 y.o. male known to the urology department for low testosterone. Patient has elected to proceed with trial of testosterone cypionate. Pt presents today for medication administration teaching. Review of Systems Constitutional: Positive for fatigue. Respiratory: Negative for shortness of breath. Cardiovascular: Negative for chest pain. Gastrointestinal: Negative. Endocrine: Negative. Musculoskeletal: Negative. Skin: Negative. Allergic/Immunologic: Negative. Neurological: Negative. Hematological: Negative. Psychiatric/Behavioral: Negative. Nurse Note: Review of Systems Constitutional: Negative. HENT: Negative. Eyes: Negative. Respiratory: Negative. Cardiovascular: Negative. Gastrointestinal: Negative. Endocrine: Negative. Genitourinary: Negative. Musculoskeletal: Negative. Skin: Negative. Allergic/Immunologic: Negative. Neurological: Negative. Hematological: Negative. Psychiatric/Behavioral: Negative. Nursing Assessment: Physical Exam Patient comes to us today for a follow up for low testosterone. Patient denies pain or discomfort. Patient states he has no new urinary issues. Patient has no further questions or concerns at this time. Lab Results Component Value Date APPEARANCE clear 09/01/2023 COLOR yellow 09/01/2023 SPECIFICGRAV 1.015 09/01/2023 BLOOD neg 09/01/2023 PH 6.0 09/01/2023 PROTEIN neg 09/01/2023 UROBILINOGEN 0.2 09/01/2023 NITRITE neg 09/01/2023 LEUKOCYTE neg 09/01/2023 LEUKOCESTUR NEGATIVE 09/08/2018 History Allergies Allergen Reactions Coconut Flavor Anaphylaxis Augmentin [Amoxicillin-Pot Clavulanate] Nausea and Vomiting Ultram [Tramadol] Nausea Only has Chronic low back pain; GERD (gastroesophageal reflux disease); Generalized anxiety disorder; Essential hypertension, benign; Mixed hyperlipidemia; Sleep apnea; Vertigo; Tinea pedis; Migraine; Gout; Chronic pain; Holguin esophagus; Arthritis; Other fatigue; Other chest pain; Tobacco abuse; Pure hypercholesterolemia; Sacral bruising, initial encounter; body mass index of 40.0-49.9; Diabetes (A1C > or equal to 6.5%); Palpitations; Degeneration of intervertebral disc at C6-C7 level; Heart disease; Hypertensive disorder; Neck pain; Paresthesia of both hands; and Encounter for pre-operative cardiovascular clearance on their problem list. Current Outpatient Medications Medication Sig Dispense Refill Atorvastatin 20 MG tablet Take 1 tablet by mouth daily. 30 tablet 5 carveDILOL (Coreg) 25 MG tablet Take 1 tablet by mouth 2 times daily. 60 tablet 5 clobetasol 0.05 % Solution APPLY 3 DROPS TO SCALP ONCE DAILY NEEDED cyanocobalamin 1000 MCG tablet Take 1 tablet by mouth. One by mouth daily Cyclobenzaprine 10 MG tablet TAKE 1 TABLET BY MOUTH IN THE MORNING, NOON AND AT BEDTIME FOR MUSCLE SPASMS NEEDED dapagliflozin (Farxiga) 10 MG tablet Take 1 tablet by mouth daily. 90 tablet 1 doxycycline hyclate 100 MG capsule Take 1 capsule by mouth 2 times daily. Gabapentin 400 MG capsule 1 capsule 3 times daily. glucose blood test strips (ASCENSIA MICROFILL TEST) Strip strip 1 strip by Instructed route 3 times daily. 100 strip 3 GLUCOSE MONITOR LANCETS PRESCRIPTION Use one to check glucose 3 times a day 100 Each 3 Ibuprofen (Advil) 200 MG capsule Take by mouth as needed for Mild Pain. Ketoconazole 2 % Shampoo shampoo WASH SCALP 3 TIMES A WEEK Meloxicam 7.5 MG tablet Take 1 tablet by mouth daily. 30 tablet 3 Semaglutide,0.25 or 0.5MG/DOS, (Ozempic, 0.25 or 0.5 MG/DOSE,) 2 MG/3ML Solution Pen-injector Inject 0.25 mg under the skin once a week. 3 mL 1 SYRINGE-NEEDLE, DISP, 3 ML (BD Luer-Lock Syringe) 18G X 1-1/2 3 ML Misc 1 Each by Unknown route every 14 days. Use to draw up testosterone 25 Each 0 Syringe/Needle, Disp, (SYRINGE 3CC/49JW0-7/2 ) 22G X 1-1/2 3 ML Misc 1 Each by Unknown route every 14 days. 25 Each 0 valsartan-hydrochlorothiazide (Diovan HCT) 320-25 MG tablet Take 1 tablet by mouth daily. 30 tablet 5 VITAMIN D PO Take by mouth. 2,000 mg two by mouth daily 04/29/23 10,000 units every morning. 08/10/23 5,000 units three by mouth once daily cefadroxil 500 MG capsule TAKE 1 CAPSULE BY MOUTH TWICE A DAY FOR SKIN INFECTION (Patient not taking: Reported on 08/28/2023) hydroCODone-acetaminophen 5-325 MG tablet Take 1 tablet by mouth every 8 hours as needed for up to 7 days. 10 tablet 0 Testosterone Cypionate 200 MG/ML Solution Inject 200 mg as directed every 14 days. (Patient not taking: Reported on 08/28/2023) 2 mL 1 No current facility-administered medications for this visit. family history includes Alcoholism in his father; Arthritis - Osteo in his brother, father, maternal grandfather, maternal grandmother, mother, paternal grandfather, and paternal grandmother; Breast Cancer in his maternal grandmother; Diabetes in his mother and another family member; Heart Disease - Other in his maternal grandfather, maternal grandmother, paternal grandfather, and paternal grandmother; Kidney Disease in his maternal grandmother; Lung Cancer in his paternal uncle; Myocardial Infarction in his father, paternal grandfather, and paternal grandmother; Other - Specify in his father; Stroke in his maternal grandmother and paternal grandmother. Past Medical History: Diagnosis Date Fever of unknown origin 2009 Doctor in [place]. Pt. outside temp will read 98 and internal temp can read up to 106 occurs every two days H/O endoscopy 2012 H/O colonoscopy 2013 Other chest pain 03/27/2017 Heart disease 03/04/2019 Diabetes (A1C > or equal to 6.5%) 07/03/2020 Arthritis Holguin esophagus BPH (benign prostatic hyperplasia) CAD (coronary artery disease) Chicken pox Chronic low back pain Chronic pain Colitis Essential hypertension, benign Generalized anxiety disorder GERD (gastroesophageal reflux disease) Gout Internal hemorrhoids Migraine Mixed hyperlipidemia Sleep apnea Tinea pedis Tobacco dependency Vertigo Past Surgical History: Procedure Laterality Date ENDOSCOPY CARPAL TUNNEL RELEASE Left 07/30/2023 Laterality: Left; Surgeon: Morris London MD; Location: [facility] OR ENDOSCOPY CARPAL TUNNEL RELEASE Right 07/27/2023 Laterality: Right; Surgeon: Morris London MD; Location: [facility] OR CERVICAL FUSION 03/02/2020 Dr Le @ [facility] HEART CATHETERIZATION Right 2019 2012 AND 2019 NO STENTS ORAL SURGERY 01/2017 complete tooth extraction OTHER SURGICAL SCALP WOUND REPAIR Social History Socioeconomic History Marital status: Spouse name: Not on file Number of children: Not on file Years of education: Not on file Highest education level: Not on file Occupational History Not on file Tobacco Use Smoking status: Every Day Current packs/day: 1.00 Types: Cigarettes Passive exposure: Past Smokeless tobacco: Current Types: Snuff Vaping Use Vaping status: Never Used Substance and Sexual Activity Alcohol use: Yes Comment: rarely Drug use: Not Currently Types: Marijuana Sexual activity: Yes Partners: Female Other Topics Concern Not on file Social History Narrative Not on file Social Determinants of Health Financial Resource Strain: Not on file Food Insecurity: Not on file Transportation Needs: Not on file Physical Activity: Not on file Stress: Not on file Social Connections: Not on file Intimate Partner Violence: Unknown (06/04/2023) Received from [facility] Safety & Environment Fear of Current or Ex-Partner: Not on file Emotionally Abused: Not on file Physically Abused: Not on file Sexually Abused: Not on file Physically or Sexually Abused: Not on file Housing Stability: Not on file Physical Exam: Resp 16 Ht 1.778 m (5' 10 ) Wt 135.2 kg (298 lb) BMI 42.76 kg/m Smoking Status Every Day Body mass index is 42.76 kg/m . Constitutional: Appears well, no acute distress. Cardiovascular: Regular rate and rhythm. No lower extremity edema. Pulmonary: Respirations even and unlabored. Lungs clear to auscultation. Abdomen: Soft, non-tender. Bowel sounds active x 4. No CVA/suprapubic tenderness noted. Musculoskeletal: All major joints are without swelling, erythema, or bony deformity. Normal range of motion of all major joints. Skin: Warm, dry and intact. Neuro: No sensory or motor deficits. Assessment/Plan: 1. Low testosterone 2. Family history of prostate cancer in father 3. Smoking greater than 30 pack years 4. Urgency We discussed appropriate storage, handling, preparation, administration, and disposal of testosterone cypionate and needles. All questions and concerns were addressed. He will follow up in 6 weeks with labs prior. If good response he will continue to follow up every 6 months for repeat labs and medication refills. Urinalysis - negative Patient was advised to call with any questions or concerns. If symptoms worsen patient was advised to follow up in our office or the Emergency Dept. Benefits, Risks, Contraindications, and Complications of recommended treatments were explained the patient understands and agrees to proceed with plan. Nurse Note: Review of Systems Constitutional: Negative. HENT: Negative. Eyes: Negative. Respiratory: Negative. Cardiovascular: Negative. Gastrointestinal: Negative. Endocrine: Negative. Genitourinary: Negative. Musculoskeletal: Negative. Skin: Negative. Allergic/Immunologic: Negative. Neurological: Negative. Hematological: Negative. Psychiatric/Behavioral: Negative. Nursing Assessment: Physical Exam Patient comes to us today for a follow up for low testosterone. Patient denies pain or discomfort. Patient states he has no new urinary issues. Patient has no further questions or concerns at this time. Lab Results Component Value Date APPEARANCE clear 09/01/2023 COLOR yellow 09/01/2023 SPECIFICGRAV 1.015 09/01/2023 BLOOD neg 09/01/2023 PH 6.0 09/01/2023 PROTEIN neg 09/01/2023 UROBILINOGEN 0.2 09/01/2023 NITRITE neg 09/01/2023 LEUKOCYTE neg 09/01/2023 LEUKOCESTUR NEGATIVE 09/08/2018 documented in this encounter [facility] 08-28-2023 History of Present illness Narrative SLEEP Ronks Score - 19 CPAP/BIPAP/APAP Pressure - NA Neck Circumference - 19.5 in Most Recent Sleep Study - NA Oxygen Use - no If so, how many liters and is it PRN, Nocturnal, or continuous? Patient is benefiting from PAP therapy--NA DME - NA Referred by- Paula Casarez Have you ever seen a sleep specialist (New Patient) - NO Have you ever been treated for Sleep Apnea (New Patient) - NO Work Schedule- [employer]; Lots of overtime all shifts Sleep Schedule: Time to bed 10-10:30 pm Average time to fall asleep Immediatly Time up for the day 4 am How many times a night do you wake up 15-30 Symptoms include : Snoring/snorting - YES Insomnia- YES Are you currently taking any OTC or prescription medications for insomnia - YES If so, What medications are you currently taking or previously been prescribed for insomnia? Muscle relaxer, Gabapentin, and 2 OTC meds Daytime Sleepiness - YES Are you able to take naps during the day - NO If so, how often? NA Do you experience tossing or turning at night? YES Restless legs - YES If so, what medications are you currently taking or have previously been prescribed for RLS? YES; Gabapentin Are you currently or have you previously been treated for ADHD, Narcolepsy, or Fatigue? - NO If so, what medications are you currently taking or have previously been prescribed for ADHD, Narcolepsy, or Fatigue? NA Waking with gasping/shortness of breath - YES Difficulty concentrate- - YES Waking with headache- YES Significant weight change- NO: Fluctuate Have you ever been on medication management for weight loss, spoke with anyone about weight loss surgery/procedures, or have you had a surgical procedure to help with weight loss? YES; Ozempic Pain 0-10- 3 If yes, Location- Generalized Upcoming surgeries?- NO Has witnessed apnea ( some body told patient that they stop breathing in their sleep) - YES Med Refills (that we prescribe) - NA New patient referred by Paula Casarez. Patient states he is tired all the time and has fallen asleep behind the wheel numerous times. HPI Rusty Alvarez is a 52 y.o. male being seen today for sleep apnea evaluation. Patient referred to sleep clinic by PCP to evaluate and treat for sleep disorder/sleep apnea with history of snoring, apnea, fatigue, migraines, hypertensions, overweight, GERD, DM. He has been experiencing the following symptoms that could correlate with Sleep apnea: snoring, choking, periods of not breathing, tossing and turning, restless legs, decreased memory, decreased concentration, excessive daytime sleepiness, difficulty falling asleep once awakened, feels sleepy during the day, morning dry mouth, bruxism and maintaining sleep at times. At times he wakes up multiple times a night and does not always feel refreshed in the morning. He also reports sleepiness at times while at work, driving, reading, watching television. Patient has fallen asleep while driving recently, states always tired. Patient denies other sleep concerns at today's appointment. Vitals: 08/28/23 1424 BP: 108/80 Pulse: 87 SpO2: 96% Weight: 135.4 kg (298 lb 9.6 oz) Height: 1.778 m (5' 10 ) Physical Exam Vitals and nursing note reviewed. Constitutional: General: He is not in acute distress. Appearance: He is well-developed. HENT: Head: Normocephalic and atraumatic. Right Ear: External ear normal. Left Ear: External ear normal. Eyes: General: Right eye: No discharge. Left eye: No discharge. Neck: Vascular: No JVD. Cardiovascular: Rate and Rhythm: Normal rate. Pulses: Normal pulses. Heart sounds: No murmur heard. No friction rub. No gallop. Pulmonary: Effort: Pulmonary effort is normal. No respiratory distress. Breath sounds: No wheezing. Musculoskeletal: General: No deformity. Normal range of motion. Cervical back: Normal range of motion and neck supple. Skin: General: Skin is warm and dry. Neurological: General: No focal deficit present. Mental Status: He is alert and oriented to person, place, and time. Psychiatric: Mood and Affect: Mood normal. Behavior: Behavior normal. Judgment: Judgment normal. Past Medical History: Diagnosis Date Arthritis Holguin esophagus BPH (benign prostatic hyperplasia) CAD (coronary artery disease) Chicken pox Chronic low back pain Chronic pain Colitis Diabetes (A1C > or equal to 6.5%) 07/03/2020 Essential hypertension, benign Fever of unknown origin 2009 Doctor in [place]. Pt. outside temp will read 98 and internal temp can read up to 106 occurs every two days Generalized anxiety disorder GERD (gastroesophageal reflux disease) Gout H/O colonoscopy 2014 H/O endoscopy 2013 Heart disease 03/04/2019 Internal hemorrhoids Migraine Mixed hyperlipidemia Other chest pain 03/27/2017 Sleep apnea Tinea pedis Tobacco dependency Vertigo Past Surgical History: Procedure Laterality Date ENDOSCOPY CARPAL TUNNEL RELEASE Left 07/30/2023 Laterality: Left; Surgeon: Morris London MD; Location: [facility] OR ENDOSCOPY CARPAL TUNNEL RELEASE Right 07/27/2023 Laterality: Right; Surgeon: Morris London MD; Location: [facility] OR CERVICAL FUSION 03/02/2020 Dr Le @ [facility] HEART CATHETERIZATION Right 2019 2012 AND 2019 NO STENTS ORAL SURGERY 01/2017 complete tooth extraction OTHER SURGICAL SCALP WOUND REPAIR Allergies Allergen Reactions Coconut Flavor Anaphylaxis Augmentin [Amoxicillin-Pot Clavulanate] Nausea and Vomiting Ultram [Tramadol] Nausea Only Outpatient Medications Prior to Visit Medication Sig Dispense Refill Atorvastatin 20 MG tablet Take 1 tablet by mouth daily. 30 tablet 5 carveDILOL (Coreg) 25 MG tablet Take 1 tablet by mouth 2 times daily. 60 tablet 5 clobetasol 0.05 % Solution APPLY 3 DROPS TO SCALP ONCE DAILY NEEDED cyanocobalamin 1000 MCG tablet Take 1 tablet by mouth. One by mouth daily Cyclobenzaprine 10 MG tablet TAKE 1 TABLET BY MOUTH IN THE MORNING, NOON AND AT BEDTIME FOR MUSCLE SPASMS NEEDED dapagliflozin (Farxiga) 10 MG tablet Take 1 tablet by mouth daily. 90 tablet 1 doxycycline hyclate 100 MG capsule Take 1 capsule by mouth 2 times daily. Gabapentin 400 MG capsule 1 capsule 3 times daily. glucose blood test strips (ASCENSIA MICROFILL TEST) Strip strip 1 strip by Instructed route 3 times daily. 100 strip 3 GLUCOSE MONITOR LANCETS PRESCRIPTION Use one to check glucose 3 times a day 100 Each 3 Ibuprofen (Advil) 200 MG capsule Take by mouth as needed for Mild Pain. Ketoconazole 2 % Shampoo shampoo WASH SCALP 3 TIMES A WEEK Meloxicam 7.5 MG tablet Take 1 tablet by mouth daily. 30 tablet 3 Semaglutide,0.25 or 0.5MG/DOS, (Ozempic, 0.25 or 0.5 MG/DOSE,) 2 MG/3ML Solution Pen-injector Inject 0.25 mg under the skin once a week. 3 mL 1 SYRINGE-NEEDLE, DISP, 3 ML (BD Luer-Lock Syringe) 18G X 1-1/2 3 ML Misc 1 Each by Unknown route every 14 days. Use to draw up testosterone 25 Each 0 Syringe/Needle, Disp, (SYRINGE 3CC/36MY2-8/2 ) 22G X 1-1/2 3 ML Misc 1 Each by Unknown route every 14 days. 25 Each 0 valsartan-hydrochlorothiazide (Diovan HCT) 320-25 MG tablet Take 1 tablet by mouth daily. 30 tablet 5 VITAMIN D PO Take by mouth. 2,000 mg two by mouth daily 04/29/23 10,000 units every morning. 08/10/23 5,000 units three by mouth once daily cefadroxil 500 MG capsule TAKE 1 CAPSULE BY MOUTH TWICE A DAY FOR SKIN INFECTION (Patient not taking: Reported on 08/28/2023) hydroCODone-acetaminophen 5-325 MG tablet Take 1 tablet by mouth every 8 hours as needed for up to 7 days. 10 tablet 0 Testosterone Cypionate 200 MG/ML Solution Inject 200 mg as directed every 14 days. (Patient not taking: Reported on 08/28/2023) 2 mL 1 No facility-administered medications prior to visit. Family History Problem Relation Age of Onset Diabetes Mother Arthritis - Osteo Mother Alcoholism Father Arthritis - Osteo Father Myocardial Infarction Father Other - Specify Father substance abuse Arthritis - Osteo Brother Lung Cancer Paternal Uncle Breast Cancer Maternal Grandmother Arthritis - Osteo Maternal Grandmother Stroke Maternal Grandmother Heart Disease - Other Maternal Grandmother CAD Kidney Disease Maternal Grandmother Heart Disease - Other Maternal Grandfather CAD Arthritis - Osteo Maternal Grandfather Stroke Paternal Grandmother Arthritis - Osteo Paternal Grandmother Myocardial Infarction Paternal Grandmother Heart Disease - Other Paternal Grandmother CAD Myocardial Infarction Paternal Grandfather Arthritis - Osteo Paternal Grandfather Heart Disease - Other Paternal Grandfather CAD Diabetes Other unknown Social History Socioeconomic History Marital status: Spouse name: Not on file Number of children: Not on file Years of education: Not on file Highest education level: Not on file Occupational History Not on file Tobacco Use Smoking status: Every Day Current packs/day: 1.00 Types: Cigarettes Passive exposure: Past Smokeless tobacco: Current Types: Snuff Vaping Use Vaping status: Never Used Substance and Sexual Activity Alcohol use: Yes Comment: rarely Drug use: Not Currently Types: Marijuana Sexual activity: Yes Partners: Female Other Topics Concern Not on file Social History Narrative Not on file Social Determinants of Health Financial Resource Strain: Not on file Food Insecurity: Not on file Transportation Needs: Not on file Physical Activity: Not on file Stress: Not on file Social Connections: Not on file Intimate Partner Violence: Unknown (06/04/2023) Received from [facility] [place] Safety & Environment Fear of Current or Ex-Partner: Not on file Emotionally Abused: Not on file Physically Abused: Not on file Sexually Abused: Not on file Physically or Sexually Abused: Not on file Housing Stability: Not on file SLEEP Ronks Score - 19 CPAP/BIPAP/APAP Pressure - NA Neck Circumference - 19.5 in Most Recent Sleep Study - NA Oxygen Use - no If so, how many liters and is it PRN, Nocturnal, or continuous? Patient is benefiting from PAP therapy--NA DME - NA Referred by- Paula Casarez Have you ever seen a sleep specialist (New Patient) - NO Have you ever been treated for Sleep Apnea (New Patient) - NO Work Schedule- [employer]; Lots of overtime all shifts Sleep Schedule: Time to bed 10-10:30 pm Average time to fall asleep Immediatly Time up for the day 4 am How many times a night do you wake up 15-30 Symptoms include : Snoring/snorting - YES Insomnia- YES Are you currently taking any OTC or prescription medications for insomnia - YES If so, What medications are you currently taking or previously been prescribed for insomnia? Muscle relaxer, Gabapentin, and 2 OTC meds Daytime Sleepiness - YES Are you able to take naps during the day - NO If so, how often? NA Do you experience tossing or turning at night? YES Restless legs - YES If so, what medications are you currently taking or have previously been prescribed for RLS? YES; Gabapentin Are you currently or have you previously been treated for ADHD, Narcolepsy, or Fatigue? - NO If so, what medications are you currently taking or have previously been prescribed for ADHD, Narcolepsy, or Fatigue? NA Waking with gasping/shortness of breath - YES Difficulty concentrate- - YES Waking with headache- YES Significant weight change- NO: Fluctuate Have you ever been on medication management for weight loss, spoke with anyone about weight loss surgery/procedures, or have you had a surgical procedure to help with weight loss? YES; Ozempic Pain 0-10- 3 If yes, Location- Generalized Upcoming surgeries?- NO Has witnessed apnea ( some body told patient that they stop breathing in their sleep) - YES Med Refills (that we prescribe) - NA New patient referred by Paula Casarez. Patient states he is tired all the time and has fallen asleep behind the wheel numerous times. ROS Reviewed. IMPRESSION AND PLAN: * Sleep apnea, unspecified * Hypersomnia * Fatigue * Snoring * Bruxism * RLS * Insomnia * Overweight * Order Test * Evaluation and Management visit that is part of an ongoing, longitudinal care relationship * Patient was advised to lose weight. * Patient was advised to avoid alcohol and sedative medications. * Patient was advised to exercise precaution while operating a motorized vehicle. * Patient was advised to maintain a regular sleep schedule. * Will order for an overnight Polysomnography/Titration. Ronks Score - 19 * Patient will follow up after completing testing, approximately 2 months Discussed with patient: the physiology of Sleep Apnea, medical conditions associated with sleep apnea (DM, HTN, CAD, Depression, Stroke, Headaches, CHF, Heart Dysrhythmias) and treatment options. Advised patient to avoid activities that could harm self or others when tired/sleep, including driving and/or operating heavy machinery. Depending on polysomnography results: - Order PAP titration based on insurance requirements, if already on therapy continue therapy, or if symptomatic with high AHI complete another titration. - Will start/continue PAP therapy after results of PAP titration - I will have prescription sent to a [employer] company of choice- who will be calling patient in approximately next 1-2 weeks. - Patient should be eligible for new supplies approximately every 3-6 months, depending on your insurance coverage, DME company will inform patient of coverage - If patient mask does not fit well, contact [employer] company before 30 days are up to get a new mask without an additional charge - Insurance requires regular usage and periodic office follow ups for PAP therapy to continue to cover supplies Insurance Requirements: - Your insurance requires a [id number] follow up visit within 31-90 days period after starting PAP therapy. - Your insurance requires compliance with PAP therapy, which is at least 4 hours per night for 70% of the time. This must be done over at least 30 day period and must occur within the initial 31-90 day period after starting PAP therapy. - Your insurance also requires at least a yearly follow up to continue to pay for PAP therapy and supplies. A total of 45 minutes were spent at this encounter, and this includes obtaining and/or reviewing separately obtained history , performing exam, review of previous tests and results, independently interpreting results of tests and communicating results to the patient/family/caregiver, ordering medications/tests/procedures, counseling the patient and/family on plan of care, referring/communicating with other health vehicle care specialist, as well as documenting the clinical information in the EHR. This includes face to face time and preparing to see the patient (review of tests) I personally reviewed selected chart notes, results, interpreted tests, imaging today before seeing the pt; reviewed and discussed w/ pt, questions answered. Portions of this chart were created using [employer] electronic dictation. Please excuse any typographical or grammatical errors contained herein as a result. INEZ Gaviria documented in this encounter [facility] 05-17-2024 Instructions Monae Orona APRN-[employer]ER - 08/28/2023 2:30 PM EDT Images from the original note were not included. What you need to know about how sleep apnea affects your body [email or web address]-[email or web address]/the-fac nm-lqofs-uaie-blood-pressure/pulm httjw-mmpjgpdzoofz-vuap-blood-pre mlxgs-gq-ovo-yuhrd-cr-wnls-system If you ve ever awakened yourself with a sudden snore -- or if your partner nudges you awake to get you to turn over -- it s possible you could be affected by sleep apnea, which is associated with high blood pressure, arrhythmia, stroke and heart failure. Why is this a big deal? For people with DONIS, it becomes difficult to keep the upper airway open during sleep because weight overpowers the muscles that hold it open. Each time the airway closes during sleep, there is a pause in breathing; it can happen five to 30 times an hour or more, causing the sleeper to wake up suddenly, gasping for air. When the air flow stops, the body releases stress hormones, which over time can lead to heart disease -- the leading cause of in the [place] -- stroke and high blood pressure. It also can increase the risk of type 2 diabetes, liver problems and metabolic syndrome. It s also associated with obesity, and experts say it can be part of a vicious cycle in which the sleep deprivation it causes can lead to even more obesity, which in turn makes the condition worse. Who s at risk? People who are overweight are especially at risk for DONIS because fat deposits around the upper airway can cause the airway s muscles to lose tone over time, leading to obstructed breathing. Similarly, people with thicker necks, narrow throats or enlarged tonsils or adenoids may also be at risk. Men are more likely to have sleep apnea than women, and it occurs significantly more often in older adults. There also may be an increased risk for people with a family history of sleep apnea, smokers or drinkers. What are the signs? Aside from loud snoring and sudden stopped breathing or gasping for air during sleep (observed by someone else, obviously), symptoms may seem similar to those of any sleep disorder: Waking up with a dry mouth Morning headaches Difficulty sleeping or excessive sleepiness Irritability or trouble paying attention while awake Loud Snoring Insomnia Night Sweats Frequent Urination at Night Untreated sleep apnea puts heart health at risk Did you know that sleep apnea impacts heart health? Left untreated, moderate and severe obstructive sleep apnea can more than double your risk of dying from heart disease. DONIS is a cause of systemic hypertension (HTN) and is associated with an increased incidence of stroke, heart failure (HF), atrial fibrillation (AF), and coronary heart disease (CHD). Severe DONIS may increase all-cause mortality and cardiovascular mortality. According to the AASM, there are five barrientos warning signs and risk factors for sleep apnea: - Snoring - choking or gasping during sleep - fatigue or daytime sleepiness - obesity (BMI of 30 or higher) - high blood pressure. The AASM warns that untreated obstructive sleep apnea hurts HEARTS by increasing the risk of: H - Heart failure E - Elevated blood pressure A - Atrial fibrillation R - Resistant hypertension T - Type 2 diabetes S - Stroke Additionally, a scientific statement on sleep duration and quality from the [place] [employer] states that moderate and severe sleep apnea are associated with an elevated risk of cardiovascular disease. One of the major health risks linked with obesity is obstructive sleep apnea (DONIS). It involves repetitive breathing pauses that occur during sleep. The most common warning sign for sleep apnea is loud and frequent snoring, but not the only warning sign. Thin people also can have sleep apnea, but a major risk factor for sleep apnea is excess body weight. An adult with a body mass index (BMI) of 30 or higher is considered to be obese. The risk of sleep apnea increases with the amount of excess body weight. What causes resistant hypertension? Underlying Medical Causes In about 25 percent (1 out of 4) of people with resistant hypertension, there s an identifiable, or secondary, cause. People whose blood pressure is raised by a medical condition are said to have secondary hypertension. Secondary hypertension will be very hard to control until those conditions are addressed. The more resistant the hypertension, the more likely there is to be a secondary cause. Some common secondary causes of hypertension include: - Structural Disorders - Sleep apnea, a tendency to stop breathing for seconds during sleep - Renal (kidney) artery stenosis, a narrowing of the artery that sends blood to the kidneys - Coarctation of the aorta, a narrowing of part of the aorta (the artery that sends blood from the heart to the rest of the body) - Kidney failure Overweight and Sleep: The interrelationships between obesity and DONIS are complex and bidirectional. Obesity places patients at higher risk for DONIS and patients with DONIS are likely to gain more weight than equally obese subjects without DONIS. Weight loss is recommended in patients who are obese with DONIS as it improves overall health and reduces the severity of DONIS. As the medical community learns more about sleep apnea, several important links to excess body weight are emerging. Not only can excess weight cause sleep apnea, but it can worsen the symptoms and exacerbate its detrimental health effects. Insufficient sleep may also lead to weight gain, making it a vicious cycle. Encouragingly, many studies show that weight loss improves sleep apnea. If you are struggling with sleep apnea or excess weight, it s important to understand the complex interactions between the two conditions. Weight loss can reduce the severity of sleep apnea. But it is unlikely to cure DONIS, but this is always a GOAL. The most effective treatment for sleep apnea is CPAP therapy, it is the Gold Standard Treatment. CPAP provides gently pressurized air through a mask that you wear during sleep. The airflow keeps your airway open and restores normal breathing. The importance of adequate, quality sleep cannot be over emphasized. Researchers continue to discover more and more benefits of sleep, above and beyond resting enough to feel more awake during the day and to be able to make it through the day without feeling the need for a nap. Although you might be young now and it may seem as if poor sleep is only impacting your days now and then, lack of good sleep will have long-term effects on your mental and physical health and virtually every system of the body. Can Sleep Apnea Cause Weight Gain? While excess weight has long been known to be a risk factor for DONIS, an increasing amount of evidence suggests the relationship is reciprocal. This is because sleep deprivation is associated with decreased leptin (an appetite-suppressing hormone) and increased ghrelin (an appetite-stimulating hormone), which may increase cravings for calorie-dense foods. Additional data indicates that insufficient sleep leads to overeating, obesity, and a decrease in fat-loss during calorie restriction. It also appears that DONIS patients, in particular, may be more susceptible to weight gain than people who have the same BMI and health status but do not suffer from sleep apnea. This is illustrated in one study that showed people with DONIS gained significantly more weight (around 16 pounds in the year leading up to their DONIS diagnosis compared with BMI-matched people without DONIS. Sleep apnea can also deplete people of the energy they need to maintain a healthy body weight. Daytime sleepiness is a common sleep apnea symptom, resulting from fragmented, unrefreshing sleep. Excessive sleepiness may lead sleep apnea sufferers to exert less physical activity during waking hours. This may be particularly problematic for obese people, who frequently experience more shortness of breath and chest discomfort with physical effort, resulting in limited exercise. Without dietary changes, decreased activity levels can lead to additional weight gain. Why It Matters (Weight/Sleep): Ten percent of weight gain is associated with a sixfold increase in risk of DONIS. Increased body weight over time increases the risk for DONIS and accelerates its progression. Plasma ghrelin levels (appetite or hunger hormone ) are significantly higher in patients with DONIS than in BMI-matched controls, but decrease to levels similar to those of patients who are obese without DONIS after continuous positive airway pressure (CPAP) treatment. Weight loss improves DONIS by several mechanisms, including reduction in fatty tissue in the throat (i.e., parapharyngeal fat) and the tongue. Loss of abdominal fat increases mediastinal traction on the upper airway making it less likely to collapse during sleep. Importantly, weight loss benefits commonly associated comorbidities in patients who are obese with DONIS such as hypertension and insulin resistance. Studies have also shown that compliance with CPAP treatment improves leptin (hunger inhibitory hormone) imbalance. The National Institutes of Health (NIH) and the [employer] Task Force on Preventive Health Care recommend the use of BMI and waist circumference to screen adults for obesity What are PERIODIC LIMB MOVEMENTS? Periodic limb movements are when you have episodes of simple, repetitive muscle movements. You are unable to control them. They usually do not keep you from falling asleep. Instead, they can disrupt your or your bed partner s sleep during the night. This can cause you both to be very tired during the day. Periodic limb movements do not involve a change in body position, stretching a muscle, or a cramp. Instead, the movements tend to involve the tightening or flexing of a muscle. They occur most often in the lower legs. Limb movements during sleep are much more common. When they occur often through the night, they can disrupt your sleep many times. Normally, you are unaware of the movements or of waking up. The degree to which these movements occur can change from night to night. They usually happen during non-rapid eye movement sleep in the first half of the night. When these movements are very severe, then they may also happen while you are awake. An episode will normally last from a few minutes to an hour. Within that time, movements tend to occur every 20 to 40 seconds. They may affect only one of the legs. More often, they will affect both legs. Limb movements during sleep are quite common. For most people, the movements do not disturb their sleep in a significant way. This means that it is not a sleep disorder. The sleep of the bed partner tends to be affected more often than that of the patient. The movements reach the level of a disorder, periodic limb movement disorder, when they disrupt the patient s sleep and daily life. This disorder may be a factor in causing you to have any of the following: - Depression - Bad memory - Short attention span - Fatigue What are symptoms of periodic limb movements: Normally, you are unaware of the movements. This can make it very hard for you to know if you have periodic limb movements. Someone who sleeps in the same bed with you would be more likely to notice the movements. You might have periodic limb movement disorder if: - Someone else told you that your body makes unusual, repetitive movements while you sleep - These movements tend to occur in your lower legs - You feel like you are never well-rested, even after a full night of sleep - You are often very tired during the day It is also important to know if there is something else that is causing your sleep problems. They may be a result of one of the following: - Another sleep disorder (for example, restless legs syndrome or sleep apnea) - A medical condition - Medication use (for example, anxiety and depression medications) - A mental health disorders - Substance abuse How to diagnose periodic limb movements? For most people, the movements do not disturb their sleep in a severe way. They do not need to seek medical help. In other cases, severe movements can greatly disturb your sleep and life. In this case, you will want to see a sleep doctor. You should complete a sleep diary for two weeks. This will give the doctor clues as to what might be causing your problems. You can also rate your sleep with the Ronks Sleepiness Scale. This will help show how your sleep is affecting your daily life. The doctor will need to know your complete medical history. Be sure to inform her of any past or present drug and medication use. Also, tell her if you or a relative have ever had a sleep disorder. Your doctor will likely have you do a sleep study. This is called a polysomnography. The test records your brain waves, heart rate, and breathing as you sleep. It also monitors how your arms and legs move. Not only will it keep track of your movements, but it will also help detect any other sleep disorder that you may have. How to treat periodic limb movements? When it is necessary to treat periodic limb movement disorder, the same drugs that are used for restless legs syndrome also work. These include drugs that replace a chemical in the brain called dopamine. These drugs are also used to treat Parkinson s disease. However, if you have periodic limb movement disorder, you are not at an increased risk of getting Parkinson s disease. Other medications used include the following: Sleeping tablets & Some anti-seizure medications Low iron levels have been associated with periodic limb movements during sleep. Your doctor may recommend a blood test to check your iron levels and if low, an iron supplement may be recommended. Lifestyle changes: If your symptoms are mild (not painful and at most once a week), cutting back on caffeine, alcohol and tobacco products; exercising; massaging your legs and/or taking hot baths before bed may help reduce symptoms. Talk to your doctor about whether these options might help you. Massaging the legs and feet Taking a warm bath Taking a cool bath Relaxing in a whirlpool tub Resting the legs on a heating pad Putting a cold pack or ice pack on the legs Avoid Triggers It can also be helpful to avoid substances that trigger symptoms Caffeine: Caffeine can aggravate symptoms for some people who have RLS. In addition to coffee, caffeine is found in tea, cola soft drinks, energy drinks, chocolate, and some romg-pty-melbjib medications. Alcohol: Drinking alcoholic beverages increases symptoms in some people with RLS. Tobacco: Tobacco and nicotine may cause RLS symptoms to flare up. Besides cigarettes, tobacco-containing products include cigars, e-cigarettes, and smokeless tobacco. Certain medications: Antihistamines in nonprescription cold and allergy medications can cause RLS symptoms to get worse. Some antidepressants also have an effect on RLS symptoms, but no one should stop a medication without first consulting their doctor. You may be surprised to learn that there is a link between sleep apnea and low testosterone. Sleep apnea is a sleep disorder in which your breathing stops and restarts several times while you re asleep, with pauses lasting anywhere from a couple of seconds to more than 20 seconds at a time. When left untreated, it can cause a variety of problems from hypertension to heart arrhythmias. Common symptoms of sleep apnea include: ? Loud snoring ? Insomnia ? Dry mouth ? Gasping for air while sleeping ? Headaches ? Night sweats ? Frequent urination at night ? Irritability ? Fatigue Research shows that testosterone levels rise while you re asleep and fall while you re awake. This means that testosterone production peaks while you re sleeping. Men with sleep disorders like sleep apnea get less sleep than the average person, which can lead to low testosterone. Low T can cause a wide range of complications and affect your overall quality of life. Testosterone levels slowly begin to decline around the age of 30. This continues for the rest of a man s life, and sleep apnea can cause testosterone levels to drop even further. Symptoms of low testosterone include: ? Erectile dysfunction ? Fatigue ? Depression ? Hair loss ? Weight gain ? Low sex drive ? Lower muscle mass ? Irritability ? Mood changes ? Difficulty concentrating ? Anemia When your body gets the rest it needs, you wake up feeling refreshed and energized. You also have healthier testosterone levels, which reduces your risk of heart attack, stroke, high blood pressure, osteoporosis and other complications. documented in this encounter [facility] 08-25-2023 History of Present illness Narrative Chief Complaint Patient presents with Follow-up Low testosterone HPI: 52 y.o. male recently seen as a new patient for evaluation of low testosterone. Patient reported fatigue, low energy, low libido, increased body fat, and mood disturbances. Risk factors include diabetes, metabolic syndrome, obesity, and smoking. He is scheduled for DONIS evaluation. Reports he is up 15-30 times a night; does not get up to void. Reports urgency at baseline. Denies history of kidney stones or urinary tract infections. Patient reports family history of prostate cancer in father, at age 57 from prostate cancer. Reports family history of renal cancer in maternal grandmother. Current smoker; 1 PPD x 38 years. Review of Systems Constitutional: Positive for fatigue. Respiratory: Negative for shortness of breath. Cardiovascular: Negative for chest pain. Gastrointestinal: Negative. Endocrine: Negative. Musculoskeletal: Negative. Skin: Negative. Allergic/Immunologic: Negative. Neurological: Negative. Hematological: Negative. Psychiatric/Behavioral: Negative. Nurse Note: Review of Systems Nursing Assessment: Physical Exam Patient comes to us today for a follow up for low testosterone. Patient has no further questions or concerns at this time. History Allergies Allergen Reactions Coconut Flavor Anaphylaxis Augmentin [Amoxicillin-Pot Clavulanate] Nausea and Vomiting Ultram [Tramadol] Nausea Only has Chronic low back pain; GERD (gastroesophageal reflux disease); Generalized anxiety disorder; Essential hypertension, benign; Mixed hyperlipidemia; Sleep apnea; Vertigo; Tinea pedis; Migraine; Gout; Chronic pain; Holguin esophagus; Arthritis; Other fatigue; Other chest pain; Tobacco abuse; Pure hypercholesterolemia; Sacral bruising, initial encounter; body mass index of 40.0-49.9; Diabetes (A1C > or equal to 6.5%); Palpitations; Degeneration of intervertebral disc at C6-C7 level; Heart disease; Hypertensive disorder; Neck pain; Paresthesia of both hands; and Encounter for pre-operative cardiovascular clearance on their problem list. Current Outpatient Medications Medication Sig Dispense Refill Atorvastatin 20 MG tablet Take 1 tablet by mouth daily. 30 tablet 5 carveDILOL (Coreg) 25 MG tablet Take 1 tablet by mouth 2 times daily. 60 tablet 5 cefadroxil 500 MG capsule TAKE 1 CAPSULE BY MOUTH TWICE A DAY FOR SKIN INFECTION (Patient not taking: Reported on 08/10/2023) clobetasol 0.05 % Solution APPLY 3 DROPS TO SCALP ONCE DAILY NEEDED cyanocobalamin 1000 MCG tablet Take 1 tablet by mouth. One by mouth daily Cyclobenzaprine 10 MG tablet TAKE 1 TABLET BY MOUTH IN THE MORNING, NOON AND AT BEDTIME FOR MUSCLE SPASMS NEEDED dapagliflozin (Farxiga) 10 MG tablet Take 1 tablet by mouth daily. 90 tablet 1 doxycycline hyclate 100 MG capsule Take 1 capsule by mouth 2 times daily. Gabapentin 400 MG capsule 1 capsule 3 times daily. glucose blood test strips (ASCENSIA MICROFILL TEST) Strip strip 1 strip by Instructed route 3 times daily. 100 strip 3 GLUCOSE MONITOR LANCETS PRESCRIPTION Use one to check glucose 3 times a day 100 Each 3 hydroCODone-acetaminophen 5-325 MG tablet Take 1 tablet by mouth every 8 hours as needed for up to 7 days. 10 tablet 0 Ibuprofen (Advil) 200 MG capsule Take by mouth as needed for Mild Pain. Ketoconazole 2 % Shampoo shampoo WASH SCALP 3 TIMES A WEEK Meloxicam 7.5 MG tablet Take 1 tablet by mouth daily. 30 tablet 3 Semaglutide,0.25 or 0.5MG/DOS, (Ozempic, 0.25 or 0.5 MG/DOSE,) 2 MG/3ML Solution Pen-injector Inject 0.25 mg under the skin once a week. 3 mL 1 SYRINGE-NEEDLE, DISP, 3 ML (BD Luer-Lock Syringe) 18G X 1-1/2 3 ML Misc 1 Each by Unknown route every 14 days. Use to draw up testosterone 25 Each 0 Syringe/Needle, Disp, (SYRINGE 3CC/70BJ2-4/2 ) 22G X 1-1/2 3 ML Misc 1 Each by Unknown route every 14 days. 25 Each 0 Testosterone Cypionate 200 MG/ML Solution Inject 200 mg as directed every 14 days. 2 mL 1 valsartan-hydrochlorothiazide (Diovan HCT) 320-25 MG tablet Take 1 tablet by mouth daily. 30 tablet 5 VITAMIN D PO Take by mouth. 2,000 mg two by mouth daily 04/29/23 10,000 units every morning. 08/10/23 5,000 units three by mouth once daily No current facility-administered medications for this visit. family history includes Alcoholism in his father; Arthritis - Osteo in his brother, father, maternal grandfather, maternal grandmother, mother, paternal grandfather, and paternal grandmother; Breast Cancer in his maternal grandmother; Diabetes in his mother and another family member; Heart Disease - Other in his maternal grandfather, maternal grandmother, paternal grandfather, and paternal grandmother; Kidney Disease in his maternal grandmother; Lung Cancer in his paternal uncle; Myocardial Infarction in his father, paternal grandfather, and paternal grandmother; Other - Specify in his father; Stroke in his maternal grandmother and paternal grandmother. Past Medical History: Diagnosis Date Fever of unknown origin 2009 Doctor in [place]. Pt. outside temp will read 98 and internal temp can read up to 106 occurs every two days H/O endoscopy 2012 H/O colonoscopy 2013 Other chest pain 03/27/2017 Heart disease 03/04/2019 Diabetes (A1C > or equal to 6.5%) 07/03/2020 Arthritis Holguin esophagus BPH (benign prostatic hyperplasia) CAD (coronary artery disease) Chicken pox Chronic low back pain Chronic pain Colitis Essential hypertension, benign Generalized anxiety disorder GERD (gastroesophageal reflux disease) Gout Internal hemorrhoids Migraine Mixed hyperlipidemia Sleep apnea Tinea pedis Tobacco dependency Vertigo Past Surgical History: Procedure Laterality Date ENDOSCOPY CARPAL TUNNEL RELEASE Left 07/30/2023 Laterality: Left; Surgeon: Morris London MD; Location: [facility] OR ENDOSCOPY CARPAL TUNNEL RELEASE Right 07/27/2023 Laterality: Right; Surgeon: Morris London MD; Location: [facility] OR CERVICAL FUSION 03/02/2020 Dr Le @ [facility] HEART CATHETERIZATION Right 2019 2012 AND 2019 NO STENTS ORAL SURGERY 01/2017 complete tooth extraction OTHER SURGICAL SCALP WOUND REPAIR Social History Socioeconomic History Marital status: Spouse name: Not on file Number of children: Not on file Years of education: Not on file Highest education level: Not on file Occupational History Not on file Tobacco Use Smoking status: Every Day Current packs/day: 1.00 Types: Cigarettes Passive exposure: Past Smokeless tobacco: Current Types: Snuff Vaping Use Vaping status: Never Used Substance and Sexual Activity Alcohol use: Yes Comment: rarely Drug use: Not Currently Types: Marijuana Sexual activity: Yes Partners: Female Other Topics Concern Not on file Social History Narrative Not on file Social Determinants of Health Financial Resource Strain: Not on file Food Insecurity: Not on file Transportation Needs: Not on file Physical Activity: Not on file Stress: Not on file Social Connections: Not on file Intimate Partner Violence: Unknown (06/04/2023) Received from [facility] [place] Safety & Environment Fear of Current or Ex-Partner: Not on file Emotionally Abused: Not on file Physically Abused: Not on file Sexually Abused: Not on file Physically or Sexually Abused: Not on file Housing Stability: Not on file Physical Exam: Smoking Status Every Day There is no height or weight on file to calculate BMI. Constitutional: Appears well, no acute distress. Cardiovascular: Regular rate and rhythm. No lower extremity edema. Pulmonary: Respirations even and unlabored. Lungs clear to auscultation. Abdomen: Soft, non-tender. Bowel sounds active x 4. No CVA/suprapubic tenderness noted. Musculoskeletal: All major joints are without swelling, erythema, or bony deformity. Normal range of motion of all major joints. Skin: Warm, dry and intact. Neuro: No sensory or motor deficits. Assessment/Plan: 1. Low testosterone 2. Family history of prostate cancer in father 3. Smoking greater than 30 pack years 4. Urgency Labs reviewed. Testosterone 157/122. H&H normal. PSA 1.79. Today we again discussed the role testosterone plays for a male patient. I have indicated that low testosterone can be associated with metabolic syndrome, erectile dysfunction, coronary artery disease, diabetes, depression, osteoporosis, fatigue, low sex drive, poor sleep, high cholesterol, increased abdominal fat, muscle loss, irritability, hot flashes, and inability to concentrate. We went on to discuss treatment options including topical gel or patch, biweekly to triweekly depo testosterone injection, and Testosterone pellets 4-6 month treatment. The risks of testosterone replacement were discussed including stimulation of growth of prostate cancer; worsening of symptoms related to benign prostatic hypertrophy; liver toxicity and liver tumor; gynecomastia; erythrocytosis; testicular atrophy and infertility; skin diseases; and sleep apnea. He wishes to proceed with a trial of testosterone cypionate. He will follow up in 1 week for medication administration teaching. He will repeat labs in 6 weeks. If good response he will continue to follow up every 6 months for repeat labs and medication refills. Patient was advised to call with any questions or concerns. If symptoms worsen patient was advised to follow up in our office or the Emergency Dept. Benefits, Risks, Contraindications, and Complications of recommended treatments were explained the patient understands and agrees to proceed with plan. Nurse Note: Review of Systems Nursing Assessment: Physical Exam Patient comes to us today for a follow up for low testosterone. Patient has no further questions or concerns at this time. documented in this encounter [facility] 08-18-2023 History of Present illness Narrative Chief Complaint Patient presents with New Patient Low testosterone HPI: 52 y.o. male presenting as a new patient for evaluation of low testosterone. Patient reports fatigue, low energy, low libido, increased body fat, and mood disturbances. Risk factors include diabetes, metabolic syndrome, obesity, and smoking. Denies history of CO/CVA. He reports urgency at baseline. Reports he is up 15-30 times a night; does not get up to avoid. He is scheduled for DONIS evaluation. Denies history of kidney stones or urinary tract infections. Patient reports family history of prostate cancer in father, at age 57 from prostate cancer. Reports family history of renal cancer in maternal grandmother. Current smoker; 1 PPD x 38 years. PCP notes, labs, and images reviewed Testosterone 122 HgbA1c 8.5 (07/2023) Creatinine 0.90 (07/2023) ROS: Nurse Note: Review of Systems Constitutional: Negative. HENT: Negative. Eyes: Negative. Respiratory: Negative. Cardiovascular: Negative. Gastrointestinal: Negative. Endocrine: Negative. Genitourinary: Positive for difficulty urinating and urgency. Musculoskeletal: Negative. Skin: Negative. Allergic/Immunologic: Negative. Neurological: Negative. Hematological: Negative. Psychiatric/Behavioral: Negative. Nursing Assessment: Physical Exam Patient comes to us today for a new patient appointment for low testosterone. Patient denies pain or discomfort. Nocutria-positive Frequency-negative Urgency-positive Patient states he is up 30 times a night urinating. Patient states his testosterone levels fluctuate, he can feel when they are high and low. Patient also states he is gaining a lot of weight. Patient has no further questions or concerns at this time. History Allergies Allergen Reactions Coconut Flavor Anaphylaxis Augmentin [Amoxicillin-Pot Clavulanate] Nausea and Vomiting Ultram [Tramadol] Nausea Only has Chronic low back pain; GERD (gastroesophageal reflux disease); Generalized anxiety disorder; Essential hypertension, benign; Mixed hyperlipidemia; Sleep apnea; Vertigo; Tinea pedis; Migraine; Gout; Chronic pain; Holguin esophagus; Arthritis; Other fatigue; Other chest pain; Tobacco abuse; Pure hypercholesterolemia; Sacral bruising, initial encounter; body mass index of 40.0-49.9; Diabetes (A1C > or equal to 6.5%); Palpitations; Degeneration of intervertebral disc at C6-C7 level; Heart disease; Hypertensive disorder; Neck pain; Paresthesia of both hands; and Encounter for pre-operative cardiovascular clearance on their problem list. Current Outpatient Medications Medication Sig Dispense Refill Atorvastatin 20 MG tablet Take 1 tablet by mouth daily. 30 tablet 5 carveDILOL (Coreg) 25 MG tablet Take 1 tablet by mouth 2 times daily. 60 tablet 5 clobetasol 0.05 % Solution APPLY 3 DROPS TO SCALP ONCE DAILY NEEDED cyanocobalamin 1000 MCG tablet Take 1 tablet by mouth. One by mouth daily Cyclobenzaprine 10 MG tablet TAKE 1 TABLET BY MOUTH IN THE MORNING, NOON AND AT BEDTIME FOR MUSCLE SPASMS NEEDED dapagliflozin (Farxiga) 10 MG tablet Take 1 tablet by mouth daily. 90 tablet 1 doxycycline hyclate 100 MG capsule Take 1 capsule by mouth 2 times daily. Gabapentin 400 MG capsule 1 capsule 3 times daily. glucose blood test strips (ASCENSIA MICROFILL TEST) Strip strip 1 strip by Instructed route 3 times daily. 100 strip 3 GLUCOSE MONITOR LANCETS PRESCRIPTION Use one to check glucose 3 times a day 100 Each 3 Ibuprofen (Advil) 200 MG capsule Take by mouth as needed for Mild Pain. Ketoconazole 2 % Shampoo shampoo WASH SCALP 3 TIMES A WEEK Meloxicam 7.5 MG tablet Take 1 tablet by mouth daily. 30 tablet 3 Semaglutide,0.25 or 0.5MG/DOS, (Ozempic, 0.25 or 0.5 MG/DOSE,) 2 MG/3ML Solution Pen-injector Inject 0.25 mg under the skin once a week. 3 mL 1 valsartan-hydrochlorothiazide (Diovan HCT) 320-25 MG tablet Take 1 tablet by mouth daily. 30 tablet 5 VITAMIN D PO Take by mouth. 2,000 mg two by mouth daily 04/29/23 10,000 units every morning. 08/10/23 5,000 units three by mouth once daily cefadroxil 500 MG capsule TAKE 1 CAPSULE BY MOUTH TWICE A DAY FOR SKIN INFECTION (Patient not taking: Reported on 08/10/2023) hydroCODone-acetaminophen 5-325 MG tablet Take 1 tablet by mouth every 8 hours as needed for up to 7 days. 10 tablet 0 No current facility-administered medications for this visit. family history includes Alcoholism in his father; Arthritis - Osteo in his brother, father, maternal grandfather, maternal grandmother, mother, paternal grandfather, and paternal grandmother; Breast Cancer in his maternal grandmother; Diabetes in his mother and another family member; Heart Disease - Other in his maternal grandfather, maternal grandmother, paternal grandfather, and paternal grandmother; Kidney Disease in his maternal grandmother; Lung Cancer in his paternal uncle; Myocardial Infarction in his father, paternal grandfather, and paternal grandmother; Other - Specify in his father; Stroke in his maternal grandmother and paternal grandmother. Past Medical History: Diagnosis Date Fever of unknown origin 2009 Doctor in [place]. Pt. outside temp will read 98 and internal temp can read up to 106 occurs every two days H/O endoscopy 2012 H/O colonoscopy 2013 Other chest pain 03/27/2017 Heart disease 03/04/2019 Diabetes (A1C > or equal to 6.5%) 07/03/2020 Arthritis Holguin esophagus BPH (benign prostatic hyperplasia) CAD (coronary artery disease) Chicken pox Chronic low back pain Chronic pain Colitis Essential hypertension, benign Generalized anxiety disorder GERD (gastroesophageal reflux disease) Gout Internal hemorrhoids Migraine Mixed hyperlipidemia Sleep apnea Tinea pedis Tobacco dependency Vertigo Past Surgical History: Procedure Laterality Date ENDOSCOPY CARPAL TUNNEL RELEASE Left 07/30/2023 Laterality: Left; Surgeon: Morris London MD; Location: [facility] OR ENDOSCOPY CARPAL TUNNEL RELEASE Right 07/27/2023 Laterality: Right; Surgeon: Morris London MD; Location: [facility] OR CERVICAL FUSION 03/02/2020 Dr Le @ [facility] HEART CATHETERIZATION Right 2019 2012 AND 2019 NO STENTS ORAL SURGERY 01/2017 complete tooth extraction OTHER SURGICAL SCALP WOUND REPAIR Social History Socioeconomic History Marital status: Spouse name: Not on file Number of children: Not on file Years of education: Not on file Highest education level: Not on file Occupational History Not on file Tobacco Use Smoking status: Every Day Current packs/day: 1.00 Types: Cigarettes Passive exposure: Past Smokeless tobacco: Current Types: Snuff Vaping Use Vaping status: Never Used Substance and Sexual Activity Alcohol use: Yes Comment: rarely Drug use: Not Currently Types: Marijuana Sexual activity: Yes Partners: Female Other Topics Concern Not on file Social History Narrative Not on file Social Determinants of Health Financial Resource Strain: Not on file Food Insecurity: Not on file Transportation Needs: Not on file Physical Activity: Not on file Stress: Not on file Social Connections: Not on file Intimate Partner Violence: Unknown (06/04/2023) Received from [facility] Safety & Environment Fear of Current or Ex-Partner: Not on file Emotionally Abused: Not on file Physically Abused: Not on file Sexually Abused: Not on file Physically or Sexually Abused: Not on file Housing Stability: Not on file Physical Exam: Resp 16 Ht 1.753 m (5' 9 ) Wt 136.1 kg (300 lb) BMI 44.30 kg/m Smoking Status Every Day Body mass index is 44.3 kg/m . Constitutional: Appears well, no acute distress. Cardiovascular: Regular rate and rhythm. No lower extremity edema. Pulmonary: Respirations even and unlabored. Lungs clear to auscultation. Abdomen: Soft, non-tender. Bowel sounds active x 4. No CVA/suprapubic tenderness noted. Musculoskeletal: All major joints are without swelling, erythema, or bony deformity. Normal range of motion of all major joints. Skin: Warm, dry and intact. Neuro: No sensory or motor deficits. Assessment/Plan: 1. Low testosterone 2. Family history of prostate cancer in father 3. Smoking greater than 30 pack years 4. Urgency Labs reviewed. Testosterone 122, this was an afternoon draw. He will need AM lab draw as well as additional hormone and baseline studies. I suspect low testosterone and symptoms are due to DONIS. He has an appointment next week. While we can certainly consider treating his low testosterone he will need to be monitored very closely. We discussed the risks associated with testosterone replacement. He will follow up next week to review lab results. Urinalysis with glucosuria, otherwise normal. Patient was advised to call with any questions or concerns. If symptoms worsen patient was advised to follow up in our office or the Emergency Dept. Benefits, Risks, Contraindications, and Complications of recommended treatments were explained the patient understands and agrees to proceed with plan. Nurse Note: Review of Systems Constitutional: Negative. HENT: Negative. Eyes: Negative. Respiratory: Negative. Cardiovascular: Negative. Gastrointestinal: Negative. Endocrine: Negative. Genitourinary: Positive for difficulty urinating and urgency. Musculoskeletal: Negative. Skin: Negative. Allergic/Immunologic: Negative. Neurological: Negative. Hematological: Negative. Psychiatric/Behavioral: Negative. Nursing Assessment: Physical Exam Patient comes to us today for a new patient appointment for low testosterone. Patient denies pain or discomfort. Nocutria-positive Frequency-negative Urgency-positive Patient states he is up 30 times a night urinating. Patient states his testosterone levels fluctuate, he can feel when they are high and low. Patient also states he is gaining a lot of weight. Patient has no further questions or concerns at this time. Lab Results Component Value Date APPEARANCE clear 08/18/2023 COLOR Yellow 08/18/2023 SPECIFICGRAV 1.015 08/18/2023 BLOOD Neg 08/18/2023 PH 6 08/18/2023 PROTEIN Neg 08/18/2023 UROBILINOGEN 0.2 08/18/2023 NITRITE Neg 08/18/2023 LEUKOCYTE Neg 08/18/2023 LEUKOCESTUR NEGATIVE 09/08/2018 documented in this encounter [facility] 08-13-2023 History of Present illness Narrative Review of Systems Constitutional: Negative for chills, fatigue and fever. Eyes: Negative for visual disturbance. Respiratory: Negative for shortness of breath. Cardiovascular: Negative for chest pain. Gastrointestinal: Negative for abdominal pain and blood in stool. Endocrine: Negative for polydipsia. Genitourinary: Negative for hematuria. Musculoskeletal: Positive for arthralgias. Negative for myalgias. Neurological: Negative for seizures. Hematological: Does not bruise/bleed easily. Psychiatric/Behavioral: Negative for dysphoric mood. 08/13/23 HPI: Rusty Alvarez presents to the office today 2 weeks status post Bilateral endoscopic carpal tunnel release, doing well. He has not had complaints. His numbness and tingling has resolved. PE: Bilateral hand incision is clean and dry and healing well. He is able to make a composite fist. Brisk capillary refill. Skin is warm and dry. Two point Discrimination (mm): Thumb Index Long Ring Small Right 7 7 7 7 7 Left 7 7 7 7 7 Assessment: S/P Bilateral ECTR. Plan: I discussed scar massage. There are no restrictions, he can progress activity as tolerated. Follow up on an as needed basis. documented in this encounter [facility] 08-10-2023 History of Present illness Narrative Nurse Note: Review of Systems Constitutional: Positive for chills, fatigue and fever. HENT: Positive for hearing loss. Negative for congestion, ear pain, facial swelling, postnasal drip, rhinorrhea, sinus pressure, sinus pain, sneezing, sore throat and trouble swallowing. Respiratory: Negative for cough, chest tightness, shortness of breath and wheezing. Cardiovascular: Negative for chest pain. Gastrointestinal: Negative for abdominal pain, diarrhea, nausea and vomiting. Genitourinary: Negative for dysuria. Musculoskeletal: Positive for arthralgias and myalgias. Skin: Negative for rash. Nursing Assessment: Physical Exam Lab draw first stick right ant. Cub. With butterfly. Pt. Tolerated well. Pressure bandage applied. Chief Complaint: Chief Complaint Patient presents with Hyperlipidemia Pt. Is here for follow up on hyperlipidemia. History of Present Illness Rusty Alvarez is a 52 y.o. male who comes in to follow up on diabetes, HTN From the diabetes standpoint, he reports good compliance with his medications. He checks his blood sugars daily . Typical AM readings are 200s. Highest reading he recalls is 317. Any low blood sugars: no. Lab Results Component Value Date HGBA1C 6.8 (H) 04/28/2023 HTN Since his last visit, he reports that he has been checking his blood pressures intermittently. His blood pressures have typically been 110/70s. He has been compliant with his medication regimen. He has not noted any side effects. Headaches: no Visual Changes: no Chest Pain: no Shortness of Breath: no Palpitations: no Edema: no Cholesterol: Compliance with medications is good. Side effects: no. Diet no, Exercise no Lab Results Component Value Date CHOLESTEROL 228 (H) 04/28/2023 TRIG 429 (H) 04/28/2023 HDL 32 04/28/2023 LDLCALC 110 (H) 04/28/2023 Concerns with Fatigue, weight- unable to lose weight. Has hx of sleep apnea but does not use CPAP and has not scheduled with sleep clinic - was previously referred Active Problem List Hehas Chronic low back pain; GERD (gastroesophageal reflux disease); Generalized anxiety disorder; Essential hypertension, benign; Mixed hyperlipidemia; Sleep apnea; Vertigo; Tinea pedis; Migraine; Gout; Chronic pain; Holguin esophagus; Arthritis; Other fatigue; Other chest pain; Tobacco abuse; Pure hypercholesterolemia; Sacral bruising, initial encounter; body mass index of 40.0-49.9; Diabetes (A1C > or equal to 6.5%); Palpitations; Degeneration of intervertebral disc at C6-C7 level; Heart disease; Hypertensive disorder; Neck pain; Paresthesia of both hands; and Encounter for pre-operative cardiovascular clearance on their problem list. Current Medications Current Outpatient Medications Medication Sig Dispense Refill Atorvastatin 20 MG tablet Take 1 tablet by mouth daily. 30 tablet 5 carveDILOL (Coreg) 25 MG tablet Take 1 tablet by mouth 2 times daily. 60 tablet 5 clobetasol 0.05 % Solution APPLY 3 DROPS TO SCALP ONCE DAILY NEEDED cyanocobalamin 1000 MCG tablet Take 1 tablet by mouth. One by mouth daily Cyclobenzaprine 10 MG tablet TAKE 1 TABLET BY MOUTH IN THE MORNING, NOON AND AT BEDTIME FOR MUSCLE SPASMS NEEDED dapagliflozin (Farxiga) 5 MG tablet Take 1 tablet by mouth daily. 30 tablet 3 doxycycline hyclate 100 MG capsule Take 1 capsule by mouth 2 times daily. Gabapentin 400 MG capsule 1 capsule 3 times daily. glucose blood test strips (ASCENSIA MICROFILL TEST) Strip strip 1 strip by Instructed route 3 times daily. 100 strip 3 GLUCOSE MONITOR LANCETS PRESCRIPTION Use one to check glucose 3 times a day 100 Each 3 hydroCODone-acetaminophen 5-325 MG tablet Take 1 tablet by mouth every 8 hours as needed for up to 7 days. 10 tablet 0 Ibuprofen (Advil) 200 MG capsule Take by mouth as needed for Mild Pain. Ketoconazole 2 % Shampoo shampoo WASH SCALP 3 TIMES A WEEK Meloxicam 7.5 MG tablet Take 1 tablet by mouth daily. 30 tablet 3 valsartan-hydrochlorothiazide (Diovan HCT) 320-25 MG tablet Take 1 tablet by mouth daily. 30 tablet 5 VITAMIN D PO Take by mouth. 2,000 mg two by mouth daily 04/29/23 10,000 units every morning. 08/10/23 5,000 units three by mouth once daily cefadroxil 500 MG capsule TAKE 1 CAPSULE BY MOUTH TWICE A DAY FOR SKIN INFECTION (Patient not taking: Reported on 08/10/2023) No current facility-administered medications for this visit. Allergies He is allergic to coconut flavor, augmentin [amoxicillin-pot clavulanate], and ultram [tramadol]. Family History family history includes Alcoholism in his father; Arthritis - Osteo in his brother, father, maternal grandfather, maternal grandmother, mother, paternal grandfather, and paternal grandmother; Breast Cancer in his maternal grandmother; Diabetes in his mother and another family member; Heart Disease - Other in his maternal grandfather, maternal grandmother, paternal grandfather, and paternal grandmother; Kidney Disease in his maternal grandmother; Lung Cancer in his paternal uncle; Myocardial Infarction in his father, paternal grandfather, and paternal grandmother; Other - Specify in his father; Stroke in his maternal grandmother and paternal grandmother. Social History reports that he has been smoking cigarettes. He has been exposed to tobacco smoke. His smokeless tobacco use includes snuff. He reports current alcohol use. He reports that he does not currently use drugs after having used the following drugs: Marijuana. Immunizations Immunization History Administered Date(s) Administered PPD (Mantoux Test) 06/01/2017 Review of Systems See nursing documentation for full ROS Physical Exam Blood pressure 114/78, pulse 74, temperature 98.1 F (36.7 C), temperature source Temporal, resp. rate 16, height 1.753 m (5' 9 ), weight (!) 136.4 kg (300 lb 12.8 oz), SpO2 96%., Body mass index is 44.42 kg/m . Physical Exam Constitutional: Appearance: He is obese. HENT: Mouth/Throat: Pharynx: Oropharynx is clear. Eyes: Conjunctiva/sclera: Conjunctivae normal. Cardiovascular: Rate and Rhythm: Normal rate and regular rhythm. Pulmonary: Effort: Pulmonary effort is normal. Breath sounds: Normal breath sounds. Lymphadenopathy: Cervical: No cervical adenopathy. Skin: General: Skin is warm and dry. Neurological: General: No focal deficit present. Mental Status: He is alert. Psychiatric: Mood and Affect: Mood normal. BP Readings from Last 3 Encounters: 04/29/24 114/78 07/30/23 109/69 07/27/23 114/76 No components found for: LDL , LDLCHOLCALC , DIRLDLCHOL , LDLDIRECTMEA , LDLPOINTOFCA Lab Results Component Value Date HGBA1C 6.8 (H) 04/28/2023 No results found for: MICROALBUMIN , MICROALBUPOC , MICROALB No results found for: CREATININE Lab Results Component Value Date SODIUM 139 04/28/2023 POTASSIUM 4.0 04/28/2023 CHLORIDE 106 04/28/2023 CO2 22 04/28/2023 Assessment/Plan 1. Essential hypertension, benign Stable and controlled on current treatment Due for labs - LIPID PANEL W CALCULATED LDL; Future - COMPREHENSIVE METABOLIC PANEL; Future - HEMOGLOBIN A1C; Future - HEMOGLOBIN A1C - COMPREHENSIVE METABOLIC PANEL - LIPID PANEL W CALCULATED LDL 2. Hyperlipidemia, unspecified hyperlipidemia type Due for repeat labs - LIPID PANEL W CALCULATED LDL; Future - COMPREHENSIVE METABOLIC PANEL; Future - HEMOGLOBIN A1C; Future - HEMOGLOBIN A1C - COMPREHENSIVE METABOLIC PANEL - LIPID PANEL W CALCULATED LDL 3. Type 2 diabetes mellitus with hyperglycemia, without long-term current use of insulin Uncontrolled home readings Will increase Farxiga and add on Ozempic for glucose control and help with weight loss - patient agrees with plan Due for labs - dapagliflozin (Farxiga) 10 MG tablet; Take 1 tablet by mouth daily. Dispense: 90 tablet; Refill: 1 - LIPID PANEL W CALCULATED LDL; Future - COMPREHENSIVE METABOLIC PANEL; Future - HEMOGLOBIN A1C; Future - HEMOGLOBIN A1C - COMPREHENSIVE METABOLIC PANEL - LIPID PANEL W CALCULATED LDL - Semaglutide,0.25 or 0.5MG/DOS, (Ozempic, 0.25 or 0.5 MG/DOSE,) 2 MG/3ML Solution Pen-injector; Inject 0.25 mg under the skin once a week. Dispense: 3 mL; Refill: 1 4. Sleep apnea, unspecified type Stressed importance of treating sleep apnea, will help with fatigue, weight loss, BP, etc - AMB REFERRAL TO SLEEP MEDICINE documented in this encounter [facility] 07-30-2023 Nurse Surgical operation note Vs stable. Denies pain or discomfort at this time. Respirations are even and unlabored. Alert and oriented x 3. Education provided with discharge instructions. Verbalizes understanding. Reminded of follow up visit with LUI Eagle on 08-13-23 and to pick pain medication up at [facility] in [place]. All personal items on pt. All needs met. Pt escorted to car via wheelchair by this nurse. [facility] 07-30-2023 Nurse Note Vs stable. Denies pain or discomfort at this time. Respirations are even and unlabored. Alert and oriented x 3. Education provided with discharge instructions. Verbalizes understanding. Reminded of follow up visit with LUI Eagle on 08-13-23 and to pick pain medication up at [facility] in [place]. All personal items on pt. All needs met. Pt escorted to car via wheelchair by this nurse. Patient transferred to preop bay 11, via cart, all side rails up Accompanied by Modesto Valenzuela CRNA B/p 104/73 Pulse 76 O2 sat 98 Patient alert and oriented X3 on arrival Report given to Kimi Pearce RN documented in this encounter [facility] 07-30-2023 Hospital Discharge instructions Lilo Pearce RN - 07/30/2023 11:33 AM EDT Anesthesia Precautions & Expectations: After anesthesia, rest for [address], drink alcoholic beverages or make any important decisions during this time. General anesthesia may cause a sore throat, jaw discomfort or muscle aches. These symptoms can last for one or two days.Dr. London s Post-Op Hand Instructions Rusty Alvarez @[email or web address]@ Following your surgery, you will have a dressing on your arm or hand. Depending on the type of surgery, it may be a soft gauze dressing, pritesh bandage, cast or a combination of these. It is important to keep this dressing clean and dry, as it is meant to stay in place until you follow-up with the doctor or therapist. The surgeon may inform you or your family the day of surgery if these instructions may be modified. Avoid getting it wet and observe it for any drainage that may appear. If you note a large amount of drainage, please contact your doctor. There will be some discomfort or pain at the operative site. This can be lessened by the use of an ice pack, elevating your hand above the level of your heart, and by the use of pain medication as needed. After the first 24 hours, you should use the operated hand to the extent your dressing will allow and make a fist 20 times an hour. This will help decrease swelling, especially in the fingers, and aid in lessening stiffness following surgery. In addition, you may be instructed to begin a therapy program in the days following your surgery. If this is the case, you will be notified. If there are any questions or problems, please feel free to contact your physician by calling [phone] ([phone]). If it is after hours you can contact the admission specialist doctor by calling [facility] at . Prescription refills will only be done during normal business hours. Please allow 48 hours for your prescription to be refilled. There are certain restrictions that apply to the first 24 hours following surgery, especially after having a general or regional anesthetic: 1. Do not operate power equipment today (including cars, motorcycles, power saws, drills, etc.) 2. Do not sign any legal documents today. 3. Advance diet slowly, starting with liquids. No alcoholic beverages for at least 24 hours (longer if you are taking prescription pain medication). 4. You should be accompanied by an adult for the next 24 hours. documented in this encounter [facility] 07-30-2023 Nurse Surgical operation note Patient transferred to [facility]op [facility], via cart, all side rails up Accompanied by Modesto Valenzuela CRNA B/p 104/73 Pulse 76 O2 sat 98 Patient alert and oriented X3 on arrival Report given to Kimi Pearce RN [facility] 07-30-2023 Surgery Postoperative evaluation and management note Procedure: Procedure(s) (LRB): ENDOSCOPY CARPAL TUNNEL RELEASE *PRE-OP BLOCK* (Left) Surgeon: Surgeons and Role: * Morris London MD - Primary Optical Effects Line Up Person: * No surgical staff found * ANESTHESIA TYPE: Monitor Anesthesia Care ESTIMATED BLOOD LOSS: Minimal. COMPLICATIONS: None. DISPOSITION: To the recovery room in stable. INDICATIONS: Rusty Alvarez is 52 y.o. years old. Rusty presented to my office with symptoms of Carpal tunnel syndrome on left [G56.02] and has failed non operative management. The risk and benefits of the procedure have been discussed in detail as well as non surgical options and Rusty does wish to proceed. OPERATIVE TECHNIQUE: After properly identifying the patient, the patient's extremity, and obtaining informed consent, the patient had approximately 10 mL of 1% lidocaine with epinephrine injected in the preoperative area to anesthetize the hand. She was next taken to the operating room, where she was prepped and draped in standard sterile fashion after IV sedation. An Esmarch bandage was used to exsanguinate the limb. The tourniquet was inflated to 250 mmHg. Once inflated, an incision is made in the wrist crease proximal to the hand. Hemostasis was obtained with bipolar cautery. The antebrachial fascia is identified. It is released proximally. The nerve is visualized. A double-pronged skin hook is placed. The Arthrex camera and guiding system are placed into the carpal tunnel. The distal-most aspect of the carpal canal is identified. Once identified, the blade is deployed, releasing the transverse carpal ligament entirely from distal to proximal. It is visualized after release and there is noted to be well released. Both edges of the transverse carpal ligament are seen well. The scope is removed. Subsequently, inspection is carried out in the canal with direct visualization and spreading of the scissors to confirm no residual bands. The wound is closed with 5-0 Monocryl suture. Once closed, Dermabond is applied. The patient is awakened and transported to the recovery room in stable condition, having tolerated the procedure well [facility] 07-30-2023 Surgery Postoperative evaluation and management note DATE: 07/30/2023 Patient: Rusty Alvarze Pre-Op Dx: Carpal tunnel syndrome on left [G56.02] Post-Op Dx: Carpal tunnel syndrome on left [G56.02] Procedure: Procedure(s) (LRB): ENDOSCOPY CARPAL TUNNEL RELEASE *PRE-OP BLOCK* (Left) Surgeon: Surgeons and Role: * Morris London MD - Primary Optical Effects Line Up Person: * No surgical staff found * ANESTHESIA TYPE: Monitor Anesthesia Care INTRAVENOUS FLUIDS: Per anesthesia record ESTIMATED BLOOD LOSS: Per anesthesia record Specimens: * No specimens in log * Implants: * No implants in log * COMPLICATIONS: * No complications entered in OR log * DISPOSITION: To the recovery room in stable condition [facility] 07-30-2023 Miscellaneous Notes Procedure: Procedure(s) (LRB): ENDOSCOPY CARPAL TUNNEL RELEASE *PRE-OP BLOCK* (Left) Surgeon: Surgeons and Role: * Morris London MD - Primary Optical Effects Line Up Person: * No surgical staff found * ANESTHESIA TYPE: Monitor Anesthesia Care ESTIMATED BLOOD LOSS: Minimal. COMPLICATIONS: None. DISPOSITION: To the recovery room in stable. INDICATIONS: Rusty Alvarez is 52 y.o. years old. Rusty presented to my office with symptoms of Carpal tunnel syndrome on left [G56.02] and has failed non operative management. The risk and benefits of the procedure have been discussed in detail as well as non surgical options and Rusty does wish to proceed. OPERATIVE TECHNIQUE: After properly identifying the patient, the patient's extremity, and obtaining informed consent, the patient had approximately 10 mL of 1% lidocaine with epinephrine injected in the preoperative area to anesthetize the hand. She was next taken to the operating room, where she was prepped and draped in standard sterile fashion after IV sedation. An Esmarch bandage was used to exsanguinate the limb. The tourniquet was inflated to 250 mmHg. Once inflated, an incision is made in the wrist crease proximal to the hand. Hemostasis was obtained with bipolar cautery. The antebrachial fascia is identified. It is released proximally. The nerve is visualized. A double-pronged skin hook is placed. The Arthrex camera and guiding system are placed into the carpal tunnel. The distal-most aspect of the carpal canal is identified. Once identified, the blade is deployed, releasing the transverse carpal ligament entirely from distal to proximal. It is visualized after release and there is noted to be well released. Both edges of the transverse carpal ligament are seen well. The scope is removed. Subsequently, inspection is carried out in the canal with direct visualization and spreading of the scissors to confirm no residual bands. The wound is closed with 5-0 Monocryl suture. Once closed, Dermabond is applied. The patient is awakened and transported to the recovery room in stable condition, having tolerated the procedure well DATE: 07/30/2023 Patient: Rusty Alvarez Pre-Op Dx: Carpal tunnel syndrome on left [G56.02] Post-Op Dx: Carpal tunnel syndrome on left [G56.02] Procedure: Procedure(s) (LRB): ENDOSCOPY CARPAL TUNNEL RELEASE *PRE-OP BLOCK* (Left) Surgeon: Surgeons and Role: * Morris London MD - Primary Optical Effects Line Up Person: * No surgical staff found * ANESTHESIA TYPE: Monitor Anesthesia Care INTRAVENOUS FLUIDS: Per anesthesia record ESTIMATED BLOOD LOSS: Per anesthesia record Specimens: * No specimens in log * Implants: * No implants in log * COMPLICATIONS: * No complications entered in OR log * DISPOSITION: To the recovery room in stable condition documented in this encounter [facility] 07-30-2023 Attending History and physical note I have examined the patient and reviewed the previous H&P and there are no changes. Morris London MD 07/30/2023 10:04 AM Source Note - Panda Eagle PA-C - 07/02/2023 3:20 PM EDT 07/02/23 HPI: Vj is a 52-year-old white male who presents to the office today to complain of bilateral hand numbness and tingling and he has had for 4 years. Sustained a work related injury to his neck. He states since then he has had numbness and tingling in his hands. He has had neck surgery and that did not resolve the issue. The right bothers him more than left. He has difficulty with fine motor skills and dropping objects. The numbness is constant but does get worse in the morning. He was swelling of his hands. He is worn night splints without relief. He is right-hand dominant. Past Medical History: Diagnosis Date Arthritis Holguin esophagus BPH (benign prostatic hyperplasia) CAD (coronary artery disease) Chicken pox Chronic low back pain Chronic pain Colitis Diabetes (A1C > or equal to 6.5%) 07/03/2020 Essential hypertension, benign Fever of unknown origin 2009 Doctor in [place]. Pt. outside temp will read 98 and internal temp can read up to 106 occurs every two days Generalized anxiety disorder GERD (gastroesophageal reflux disease) Gout H/O colonoscopy 2014 H/O endoscopy 2013 Heart disease 03/04/2019 Internal hemorrhoids Migraine Mixed hyperlipidemia Other chest pain 03/27/2017 Sleep apnea Tinea pedis Tobacco dependency Vertigo Past Surgical History: Procedure Laterality Date CERVICAL FUSION 03/02/2020 Dr Le @ [facility] ORAL SURGERY 01/2017 complete tooth extraction HEART CATHETERIZATION Right 08/2016 Current Outpatient Medications: Atorvastatin 20 MG tablet, Take 1 tablet by mouth daily., Disp: 30 tablet, Rfl: 5 carveDILOL (Coreg) 25 MG tablet, Take 1 tablet by mouth 2 times daily., Disp: 60 tablet, Rfl: 5 cyanocobalamin 1000 MCG tablet, Take 1 tablet by mouth. One by mouth daily, Disp: , Rfl: dapagliflozin (Farxiga) 5 MG tablet, Take 1 tablet by mouth daily., Disp: 30 tablet, Rfl: 3 gabapentin 300 MG Cap capsule, 400 mg 3 times daily., Disp: , Rfl: glucose blood test strips (ASCENSIA MICROFILL TEST) Strip strip, 1 strip by Instructed route 3 times daily., Disp: 100 strip, Rfl: 3 GLUCOSE MONITOR LANCETS PRESCRIPTION, Use one to check glucose 3 times a day, Disp: 100 Each, Rfl: 3 Meloxicam 7.5 MG tablet, Take 1 tablet by mouth daily., Disp: 30 tablet, Rfl: 3 valsartan-hydrochlorothiazide (Diovan HCT) 320-25 MG tablet, Take 1 tablet by mouth daily., Disp: 30 tablet, Rfl: 5 VITAMIN D PO, Take by mouth. 2,000 mg two by mouth daily 04/29/23 10,000 units every morning., Disp: , Rfl: amLODIPine 5 MG tablet, Take 1 tablet by mouth daily. (Patient not taking: Reported on 04/28/2023), Disp: 30 tablet, Rfl: 3 aspirin 81 MG Chew Tab chewable tablet, Chew 1 tablet daily. (Patient not taking: Reported on 04/28/2023), Disp: , Rfl: imiquimod 5 % Cream, Apply 1 Application topically every Thursday, Thursday, Thursday dinner. Apply a thin layer as directed. Leave on skin for 6-10 hours. (Patient not taking: Reported on 07/02/2023), Disp: 12 Each, Rfl: 1 INSULIN PEN NEEDLES ULTRA FINE PRESCRIPTION, 1 Each by Instructed route daily. (Patient not taking: Reported on 04/28/2023), Disp: 100 Each, Rfl: 1 Liraglutide (Victoza) 18 MG/3ML Solution Pen-injector injection, Inject 1.8 mg under the skin daily. (Patient not taking: Reported on 04/28/2023), Disp: 15 mL, Rfl: 3 Allergies Allergen Reactions Augmentin [Amoxicillin-Pot Clavulanate] Nausea and Vomiting Ultram [Tramadol] Nausea Only Social History Socioeconomic History Marital status: Spouse name: Not on file Number of children: Not on file Years of education: Not on file Highest education level: Not on file Occupational History Not on file Tobacco Use Smoking status: Every Day Current packs/day: 1.00 Types: Cigarettes Passive exposure: Past Smokeless tobacco: Current Types: Snuff Vaping Use Vaping status: Never Used Substance and Sexual Activity Alcohol use: Yes Comment: rarely Drug use: Yes Types: Marijuana Sexual activity: Yes Partners: Female Other Topics Concern Not on file Social History Narrative Not on file Social Determinants of Health Financial Resource Strain: Not on file Food Insecurity: Not on file Transportation Needs: Not on file Physical Activity: Not on file Stress: Not on file Social Connections: Not on file Intimate Partner Violence: Unknown (06/04/2023) Received from [facility] Safety & Environment Fear of Current or Ex-Partner: Not on file Emotionally Abused: Not on file Physically Abused: Not on file Sexually Abused: Not on file Physically or Sexually Abused: Not on file Housing Stability: Not on file Family History Problem Relation Age of Onset Diabetes Mother Arthritis - Osteo Mother Alcoholism Father Arthritis - Osteo Father Myocardial Infarction Father Other - Specify Father substance abuse Arthritis - Osteo Brother Lung Cancer Paternal Uncle Breast Cancer Maternal Grandmother Arthritis - Osteo Maternal Grandmother Stroke Maternal Grandmother Heart Disease - Other Maternal Grandmother CAD Kidney Disease Maternal Grandmother Heart Disease - Other Maternal Grandfather CAD Arthritis - Osteo Maternal Grandfather Stroke Paternal Grandmother Arthritis - Osteo Paternal Grandmother Myocardial Infarction Paternal Grandmother Heart Disease - Other Paternal Grandmother CAD Myocardial Infarction Paternal Grandfather Arthritis - Osteo Paternal Grandfather Heart Disease - Other Paternal Grandfather CAD Diabetes Other unknown Review of Systems Constitutional: Negative for chills, fatigue and fever. HENT: Negative for hearing loss. Eyes: Negative for visual disturbance. Respiratory: Negative for shortness of breath. Gastrointestinal: Negative for abdominal pain and blood in stool. Endocrine: Negative for polydipsia. Genitourinary: Negative for hematuria. Musculoskeletal: Positive for arthralgias. Negative for myalgias. Neurological: Positive for numbness. Negative for dizziness and seizures. Hematological: Does not bruise/bleed easily. Psychiatric/Behavioral: Negative for dysphoric mood. Physical Examination: Visit Vitals Temperature 98.3 F (36.8 C) Height 1.753 m (5' 9 ) Weight (Abnormal) 140 kg (308 lb 10.3 oz) Body Mass Index 45.58 kg/m A&O x3 Lungs: Clear to auscultation bilaterally. No wheezes rales or rhonchi appreciated. Heart: Regular rate rhythm. No murmur noted. Abdomen: Normoactive bowel sounds. Extremity: Exam of his bilateral hands demonstrates positive Tinel's and Phalen's. He is able make a composite fist. He has brisk capillary refill and skin is warm and dry. Two point Discrimination (mm): Thumb Index Long Ring Small Right 7 7 7 7 7 Left 7 7 7 7 7 Diagnostic Studies: Nerve study of the hand was not available to me today however he was able to pull it up on his cell phone. That nerve study was completed January 01, 2021 and demonstrated severe right carpal tunnel syndrome and moderate left carpal tunnel syndrome. Assessment: 1. Bilateral wrist pain 2. Bilateral hand numbness 3. Carpal tunnel syndrome, bilateral Plan: I have discussed the options with him. At this point he does desire surgical intervention. Plan will be to proceed with a right endoscopic carpal tunnel release followed by a left endoscopic carpal tunnel release shortly after. Risks and benefits have been discussed, he understands and does wish to proceed. He is offered a preoperative evaluation and declines that today as he is previously met Dr. London in the past. [facility] 07-30-2023 History and physical note I have examined the patient and reviewed the previous H&P and there are no changes. Morris London MD 07/30/2023 10:04 AM Source Note - Panda Eagle PA-C - 07/02/2023 3:20 PM EDT 07/02/23 HPI: Vj is a 52-year-old white male who presents to the office today to complain of bilateral hand numbness and tingling and he has had for 4 years. Sustained a work related injury to his neck. He states since then he has had numbness and tingling in his hands. He has had neck surgery and that did not resolve the issue. The right bothers him more than left. He has difficulty with fine motor skills and dropping objects. The numbness is constant but does get worse in the morning. He was swelling of his hands. He is worn night splints without relief. He is right-hand dominant. Past Medical History: Diagnosis Date Arthritis Holguin esophagus BPH (benign prostatic hyperplasia) CAD (coronary artery disease) Chicken pox Chronic low back pain Chronic pain Colitis Diabetes (A1C > or equal to 6.5%) 07/03/2020 Essential hypertension, benign Fever of unknown origin 2010 Doctor in [place]. Pt. outside temp will read 98 and internal temp can read up to 106 occurs every two days Generalized anxiety disorder GERD (gastroesophageal reflux disease) Gout H/O colonoscopy 2014 H/O endoscopy 2013 Heart disease 03/04/2019 Internal hemorrhoids Migraine Mixed hyperlipidemia Other chest pain 03/27/2017 Sleep apnea Tinea pedis Tobacco dependency Vertigo Past Surgical History: Procedure Laterality Date CERVICAL FUSION 03/02/2020 Dr Le @ [place] ORAL SURGERY 01/2017 complete tooth extraction HEART CATHETERIZATION Right 08/2016 Current Outpatient Medications: Atorvastatin 20 MG tablet, Take 1 tablet by mouth daily., Disp: 30 tablet, Rfl: 5 carveDILOL (Coreg) 25 MG tablet, Take 1 tablet by mouth 2 times daily., Disp: 60 tablet, Rfl: 5 cyanocobalamin 1000 MCG tablet, Take 1 tablet by mouth. One by mouth daily, Disp: , Rfl: dapagliflozin (Farxiga) 5 MG tablet, Take 1 tablet by mouth daily., Disp: 30 tablet, Rfl: 3 gabapentin 300 MG Cap capsule, 400 mg 3 times daily., Disp: , Rfl: glucose blood test strips (ASCENSIA MICROFILL TEST) Strip strip, 1 strip by Instructed route 3 times daily., Disp: 100 strip, Rfl: 3 GLUCOSE MONITOR LANCETS PRESCRIPTION, Use one to check glucose 3 times a day, Disp: 100 Each, Rfl: 3 Meloxicam 7.5 MG tablet, Take 1 tablet by mouth daily., Disp: 30 tablet, Rfl: 3 valsartan-hydrochlorothiazide (Diovan HCT) 320-25 MG tablet, Take 1 tablet by mouth daily., Disp: 30 tablet, Rfl: 5 VITAMIN D PO, Take by mouth. 2,000 mg two by mouth daily 04/29/23 10,000 units every morning., Disp: , Rfl: amLODIPine 5 MG tablet, Take 1 tablet by mouth daily. (Patient not taking: Reported on 04/28/2023), Disp: 30 tablet, Rfl: 3 aspirin 81 MG Chew Tab chewable tablet, Chew 1 tablet daily. (Patient not taking: Reported on 04/28/2023), Disp: , Rfl: imiquimod 5 % Cream, Apply 1 Application topically every Thursday, Thursday, Thursday dinner. Apply a thin layer as directed. Leave on skin for 6-10 hours. (Patient not taking: Reported on 07/02/2023), Disp: 12 Each, Rfl: 1 INSULIN PEN NEEDLES ULTRA FINE PRESCRIPTION, 1 Each by Instructed route daily. (Patient not taking: Reported on 04/28/2023), Disp: 100 Each, Rfl: 1 Liraglutide (Victoza) 18 MG/3ML Solution Pen-injector injection, Inject 1.8 mg under the skin daily. (Patient not taking: Reported on 04/28/2023), Disp: 15 mL, Rfl: 3 Allergies Allergen Reactions Augmentin [Amoxicillin-Pot Clavulanate] Nausea and Vomiting Ultram [Tramadol] Nausea Only Social History Socioeconomic History Marital status: Spouse name: Not on file Number of children: Not on file Years of education: Not on file Highest education level: Not on file Occupational History Not on file Tobacco Use Smoking status: Every Day Current packs/day: 1.00 Types: Cigarettes Passive exposure: Past Smokeless tobacco: Current Types: Snuff Vaping Use Vaping status: Never Used Substance and Sexual Activity Alcohol use: Yes Comment: rarely Drug use: Yes Types: Marijuana Sexual activity: Yes Partners: Female Other Topics Concern Not on file Social History Narrative Not on file Social Determinants of Health Financial Resource Strain: Not on file Food Insecurity: Not on file Transportation Needs: Not on file Physical Activity: Not on file Stress: Not on file Social Connections: Not on file Intimate Partner Violence: Unknown (06/04/2023) Received from [facility] Safety & Environment Fear of Current or Ex-Partner: Not on file Emotionally Abused: Not on file Physically Abused: Not on file Sexually Abused: Not on file Physically or Sexually Abused: Not on file Housing Stability: Not on file Family History Problem Relation Age of Onset Diabetes Mother Arthritis - Osteo Mother Alcoholism Father Arthritis - Osteo Father Myocardial Infarction Father Other - Specify Father substance abuse Arthritis - Osteo Brother Lung Cancer Paternal Uncle Breast Cancer Maternal Grandmother Arthritis - Osteo Maternal Grandmother Stroke Maternal Grandmother Heart Disease - Other Maternal Grandmother CAD Kidney Disease Maternal Grandmother Heart Disease - Other Maternal Grandfather CAD Arthritis - Osteo Maternal Grandfather Stroke Paternal Grandmother Arthritis - Osteo Paternal Grandmother Myocardial Infarction Paternal Grandmother Heart Disease - Other Paternal Grandmother CAD Myocardial Infarction Paternal Grandfather Arthritis - Osteo Paternal Grandfather Heart Disease - Other Paternal Grandfather CAD Diabetes Other unknown Review of Systems Constitutional: Negative for chills, fatigue and fever. HENT: Negative for hearing loss. Eyes: Negative for visual disturbance. Respiratory: Negative for shortness of breath. Gastrointestinal: Negative for abdominal pain and blood in stool. Endocrine: Negative for polydipsia. Genitourinary: Negative for hematuria. Musculoskeletal: Positive for arthralgias. Negative for myalgias. Neurological: Positive for numbness. Negative for dizziness and seizures. Hematological: Does not bruise/bleed easily. Psychiatric/Behavioral: Negative for dysphoric mood. Physical Examination: Visit Vitals Temperature 98.3 F (36.8 C) Height 1.753 m (5' 9 ) Weight (Abnormal) 140 kg (308 lb 10.3 oz) Body Mass Index 45.58 kg/m A&O x3 Lungs: Clear to auscultation bilaterally. No wheezes rales or rhonchi appreciated. Heart: Regular rate rhythm. No murmur noted. Abdomen: Normoactive bowel sounds. Extremity: Exam of his bilateral hands demonstrates positive Tinel's and Phalen's. He is able make a composite fist. He has brisk capillary refill and skin is warm and dry. Two point Discrimination (mm): Thumb Index Long Ring Small Right 7 7 7 7 7 Left 7 7 7 7 7 Diagnostic Studies: Nerve study of the hand was not available to me today however he was able to pull it up on his cell phone. That nerve study was completed January 01, 2021 and demonstrated severe right carpal tunnel syndrome and moderate left carpal tunnel syndrome. Assessment: 1. Bilateral wrist pain 2. Bilateral hand numbness 3. Carpal tunnel syndrome, bilateral Plan: I have discussed the options with him. At this point he does desire surgical intervention. Plan will be to proceed with a right endoscopic carpal tunnel release followed by a left endoscopic carpal tunnel release shortly after. Risks and benefits have been discussed, he understands and does wish to proceed. He is offered a preoperative evaluation and declines that today as he is previously met Dr. London in the past. documented in this encounter [facility] 07-27-2023 Nurse Surgical operation note Patient discharge from [facility] bay 11 in stable condition. IV removed and catheter intact. Discharge instructions reviewed with patient and family who all voiced understanding. Patient taken out to vehicle via wheel chair. [facility] 07-27-2023 Nurse Note Patient discharge from [facility] bay 11 in stable condition. IV removed and catheter intact. Discharge instructions reviewed with patient and family who all voiced understanding. Patient taken out to vehicle via wheel chair. [facility] cart in position of comfort, HOB elevated, with anesthesia. Rails elevated. Family at bedside. Cart locked. Monitors applied. Report given to Michael LUDWIG 43% 66 F documented in this encounter [facility] 07-27-2023 Hospital Discharge instructions Michael Cantor RN - 07/27/2023 11:23 AM EDT Images from the original note were not included. Rusty Alvarez 07/27/2023 MORRIS LONDON M.D. HOME INSTRUCTIONS FOR OUTPATIENT HAND SURGERY: Following your surgery, you will have a dressing on your arm or hand. Depending on the type of surgery, it may be a soft gauze dressing, pritesh bandage, cast or a combination of these. It is important to keep this dressing clean and dry, as it is meant to stay in place until you follow-up with the doctor or therapist. The surgeon may inform you or your family on the day of surgery if these instructions may be modified. In the setting of many small hand procedures, the wrap can be replaced with another type of bandage. If advised that it is ok, another wrap or even a waterproof band aide can be used over your incision. In all cases avoid getting the incision wet and observe it for any drainage that may appear. Your bandage should not be tight or rub you in a way that is problematic. Sometimes swelling can change this and cause a problem. If it should become tight or rub you in a way that is causing excessive discomfort in most situations loosening the wrap is the first step and can be done without concern. However, in the setting of a fracture or tendon repair please notify surgeon before unwrapping your surgical wound. Please do not apply neosporin or any other ointment on your incision until after the sutures have been removed. If you note a large amount of drainage, please contact your doctor. There will be some discomfort or pain at the operative site. This can be lessened by the use of an ice pack, elevating your hand above the level of your heart, and by the use of pain medication as needed. After the first 24 hours, you should use the operated hand to the extent your dressing will allow and make a fist 20 times an hour. This will help decrease swelling, especially in the fingers, and aid in lessening stiffness following surgery. Avoid lifting anything heavier than a gallon of milk with your surgical hand until you sutures are removed. This is most important if the surgical incision is on your palm. Lifting something too heavy could lead to the tearing out of your sutures and result wound complications. In addition, you may be instructed to begin a therapy program in the days following your surgery. If this is the case, you will be notified. If there are any questions or problems, please feel free to contact your physician by calling [phone] ([phone]). If it is after hours you can contact the admission specialist doctor by calling [facility] at [phone]. Prescription refills will only be done during normal business hours. Please allow 48 hours for your prescription to be refilled. There are certain restrictions that apply to the first 24 hours following surgery, especially after having a generalor regional anesthetic: 1. Do not operate power equipment today (including cars, motorcycles, power saws, drills, etc.) 2. Do not sign any legal documents today. 3. Advance diet slowly, starting with liquids. No alcoholic beverages for at least 24 hours (longer if you are taking prescription pain medication). 4. You should be accompanied by an adult for the next 24 hours. If you do not have a post-operative appointment scheduled with your doctor please call the office on the next business day for an appointment at [phone] ([phone]). documented in this encounter [facility] 07-27-2023 Nurse Surgical operation note Patient taken to bay 11 via cart in position of comfort, HOB elevated, with anesthesia. Rails elevated. Family at bedside. Cart locked. Monitors applied. Report given to Michael LUDWIG 43% 66 F [facility] 07-27-2023 Surgery Postoperative evaluation and management note Procedure: Procedure(s) (LRB): ENDOSCOPY CARPAL TUNNEL RELEASE *PRE-OP BLOCK* (Right) Surgeon: Surgeons and Role: * Morris London MD - Primary Optical Effects Line Up Person: * No surgical staff found * ANESTHESIA TYPE: Monitor Anesthesia Care ESTIMATED BLOOD LOSS: Minimal. COMPLICATIONS: None. DISPOSITION: To the recovery room in stable. INDICATIONS: Rusty Alvarez is 52 y.o. years old. Rusty presented to my office with symptoms of Carpal tunnel syndrome on right [G56.01] and has failed non operative management. The risk and benefits of the procedure have been discussed in detail as well as non surgical options and Rusty does wish to proceed. OPERATIVE TECHNIQUE: After properly identifying the patient, the patient's extremity, and obtaining informed consent, the patient had approximately 10 mL of 1% lidocaine with epinephrine injected in the preoperative area to anesthetize the hand. She was next taken to the operating room, where she was prepped and draped in standard sterile fashion.ater IV sedation. An Esmarch bandage was used to exsanguinate the limb. The tourniquet was inflated to 250 mmHg. Once inflated, an incision is made in the wrist crease proximal to the hand. Hemostasis was obtained with bipolar cautery. The antebrachial fascia is identified. It is released proximally. The nerve is visualized. A double-pronged skin hook is placed. The Arthrex camera and guiding system are placed into the carpal tunnel. The distal-most aspect of the carpal canal is identified. Once identified, the blade is deployed, releasing the transverse carpal ligament entirely from distal to proximal. It is visualized after release and there is noted to be well released. Both edges of the transverse carpal ligament are seen well. The scope is removed. Subsequently, inspection is carried out in the canal with direct visualization and spreading of the scissors to confirm no residual bands. The wound is closed with 5-0 Monocryl suture. Once closed, Dermabond is applied. The patient is awakened and transported to the recovery room in stable condition, having tolerated the procedure well [employer] Work Phone: 07-27-2023 Miscellaneous Notes Procedure: Procedure(s) (LRB): ENDOSCOPY CARPAL TUNNEL RELEASE *PRE-OP BLOCK* (Right) Surgeon: Surgeons and Role: * Morris London MD - Primary Optical Effects Line Up Person: * No surgical staff found * ANESTHESIA TYPE: Monitor Anesthesia Care ESTIMATED BLOOD LOSS: Minimal. COMPLICATIONS: None. DISPOSITION: To the recovery room in stable. INDICATIONS: Rusty Alvarez is 52 y.o. years old. Rusty presented to my office with symptoms of Carpal tunnel syndrome on right [G56.01] and has failed non operative management. The risk and benefits of the procedure have been discussed in detail as well as non surgical options and Rusty does wish to proceed. OPERATIVE TECHNIQUE: After properly identifying the patient, the patient's extremity, and obtaining informed consent, the patient had approximately 10 mL of 1% lidocaine with epinephrine injected in the preoperative area to anesthetize the hand. She was next taken to the operating room, where she was prepped and draped in standard sterile fashion.ater IV sedation. An Esmarch bandage was used to exsanguinate the limb. The tourniquet was inflated to 250 mmHg. Once inflated, an incision is made in the wrist crease proximal to the hand. Hemostasis was obtained with bipolar cautery. The antebrachial fascia is identified. It is released proximally. The nerve is visualized. A double-pronged skin hook is placed. The Arthrex camera and guiding system are placed into the carpal tunnel. The distal-most aspect of the carpal canal is identified. Once identified, the blade is deployed, releasing the transverse carpal ligament entirely from distal to proximal. It is visualized after release and there is noted to be well released. Both edges of the transverse carpal ligament are seen well. The scope is removed. Subsequently, inspection is carried out in the canal with direct visualization and spreading of the scissors to confirm no residual bands. The wound is closed with 5-0 Monocryl suture. Once closed, Dermabond is applied. The patient is awakened and transported to the recovery room in stable condition, having tolerated the procedure well documented in this encounter [facility] 07-02-2023 History of Present illness Narrative Review of Systems Constitutional: Negative for chills, fatigue and fever. HENT: Negative for hearing loss. Eyes: Negative for visual disturbance. Respiratory: Negative for shortness of breath. Gastrointestinal: Negative for abdominal pain and blood in stool. Endocrine: Negative for polydipsia. Genitourinary: Negative for hematuria. Musculoskeletal: Positive for arthralgias. Negative for myalgias. Neurological: Positive for numbness. Negative for dizziness and seizures. Hematological: Does not bruise/bleed easily. Psychiatric/Behavioral: Negative for dysphoric mood. documented in this encounter [facility] 04-28-2023 History of Present illness Narrative Nurse Note: Review of Systems Constitutional: Positive for chills, fatigue and fever. HENT: Positive for congestion, ear pain, facial swelling, hearing loss, postnasal drip, rhinorrhea, sinus pressure and sinus pain. Negative for sore throat and trouble swallowing. Respiratory: Negative for cough, chest tightness, shortness of breath and wheezing. Cardiovascular: Positive for chest pain. Gastrointestinal: Positive for abdominal pain and nausea. Negative for diarrhea and vomiting. Genitourinary: Negative for dysuria. Musculoskeletal: Positive for arthralgias and myalgias. Skin: Negative for rash. Nursing Assessment: Physical Exam Lab draw first stick right ant. Cub. With butterfly. Pt. Tolerated well. Pressure bandage applied. Chief Complaint: Chief Complaint Patient presents with Hypertension Pt. Is here for check up on hypertension and other issues.Pt. has not had his blood pressure meds for two months. Wrist Pain Pt. Is here for referral for munir wrist pain and numbness. Skin Lesion Pt. Would like to have referral to bleach maker for lesions on right cheek, right spiritism area and scalp. History of Present Illness Rusty Alvarez is a 52 y.o. male who comes in to follow up on diabetes, HTN, Lipids He has not had any of his medication for about 2 months Lab Results Component Value Date HGBA1C 6.1 (H) 11/21/2021 HTN Since his last visit, he reports that he has been checking his blood pressures intermittently. His blood pressures have typically been high . He has been compliant with his medication regimen. He has not noted any side effects. Headaches: yes Visual Changes: no Chest Pain: no Shortness of Breath: no Palpitations: no Edema: no Cholesterol: Compliance with medications is -been out for 2 months. Side effects: no. 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 Also concerned with skin lesion on right cheek- gets irritated and changing Also has several lumps on scalp- recurrent Active Problem List Hehas Chronic low back pain; GERD (gastroesophageal reflux disease); Generalized anxiety disorder; Essential hypertension, benign; Mixed hyperlipidemia; Sleep apnea; Vertigo; Tinea pedis; Migraine; Gout; Chronic pain; Holguin esophagus; Arthritis; Other fatigue; Other chest pain; Tobacco abuse; Pure hypercholesterolemia; Sacral bruising, initial encounter; body mass index of 40.0-49.9; Diabetes (A1C > or equal to 6.5%); and Palpitations on their problem list. Current Medications Current Outpatient Medications Medication Sig Dispense Refill cyanocobalamin 1000 MCG tablet Take 1 tablet by mouth. One by mouth daily gabapentin 300 MG Cap capsule 400 mg 3 times daily. glucose blood test strips (ASCENSIA MICROFILL TEST) Strip strip 1 strip by Instructed route 3 times daily. 100 strip 3 GLUCOSE MONITOR LANCETS PRESCRIPTION Use one to check glucose 3 times a day 100 Each 3 Meloxicam 7.5 MG tablet Take 1 tablet by mouth daily. 30 tablet 3 VITAMIN D PO Take by mouth. 2,000 mg two by mouth daily 04/29/23 10,000 units every morning. amLODIPine 5 MG tablet Take 1 tablet by mouth daily. (Patient not taking: Reported on 04/28/2023) 30 tablet 3 aspirin 81 MG Chew Tab chewable tablet Chew 1 tablet daily. (Patient not taking: Reported on 04/28/2023) Atorvastatin 20 MG tablet Take 1 tablet by mouth daily. (Patient not taking: Reported on 04/28/2023) 30 tablet 5 carveDILOL (Coreg) 25 MG tablet Take 1 tablet by mouth 2 times daily. Pt needs an appt for further refills. (Patient not taking: Reported on 04/28/2023) 60 tablet 0 fluticasone 50 MCG/ACT Suspension nasal spray 2 sprays each nostril daily (Patient not taking: Reported on 04/28/2023) 16 g 0 imiquimod 5 % Cream Apply 1 Application topically every Thursday, Thursday, Thursday dinner. Apply a thin layer as directed. Leave on skin for 6-10 hours. 12 Each 1 INSULIN PEN NEEDLES ULTRA FINE PRESCRIPTION 1 Each by Instructed route daily. (Patient not taking: Reported on 04/28/2023) 100 Each 1 Liraglutide (Victoza) 18 MG/3ML Solution Pen-injector injection Inject 1.8 mg under the skin daily. (Patient not taking: Reported on 04/28/2023) 15 mL 3 valsartan-hydrochlorothiazide (Diovan HCT) 320-25 MG tablet Take 1 tablet by mouth daily. (Patient not taking: Reported on 04/28/2023) 30 tablet 0 No current facility-administered medications for this visit. Allergies He is allergic to augmentin [amoxicillin-pot clavulanate] and ultram [tramadol]. Family History family history includes Alcoholism in his father; Arthritis - Osteo in his brother, father, maternal grandfather, maternal grandmother, mother, paternal grandfather, and paternal grandmother; Breast Cancer in his maternal grandmother; Diabetes in his mother and another family member; Heart Disease - Other in his maternal grandfather, maternal grandmother, paternal grandfather, and paternal grandmother; Kidney Disease in his maternal grandmother; Lung Cancer in his paternal uncle; Myocardial Infarction in his father, paternal grandfather, and paternal grandmother; Other - Specify in his father; Stroke in his maternal grandmother and paternal grandmother. Social History reports that he has been smoking cigarettes. He has been smoking an average of 1 pack per day. He has been exposed to tobacco smoke. His smokeless tobacco use includes snuff. He reports current alcohol use. He reports current drug use. Drug: Marijuana. Immunizations Immunization History Administered Date(s) Administered PPD (Mantoux Test) 06/01/2017 Review of Systems See nursing documentation for full ROS Physical Exam Blood pressure (!) 150/94, pulse 98, temperature 97.5 F (36.4 C), temperature source Temporal, resp. rate 20, height 1.753 m (5' 9 ), weight (!) 140 kg (308 lb 9.6 oz)., Body mass index is 45.57 kg/m . Physical Exam Constitutional: Appearance: He is obese. HENT: Head: Right Ear: Tympanic membrane, ear canal and external ear normal. Left Ear: Tympanic membrane, ear canal and external ear normal. Mouth/Throat: Pharynx: Oropharynx is clear. Eyes: Conjunctiva/sclera: Conjunctivae normal. Neck: Vascular: No carotid bruit. Cardiovascular: Rate and Rhythm: Normal rate and regular rhythm. Pulmonary: Effort: Pulmonary effort is normal. Breath sounds: Normal breath sounds. Musculoskeletal: Right lower leg: No edema. Left lower leg: No edema. Lymphadenopathy: Cervical: No cervical adenopathy. Skin: General: Skin is warm and dry. Neurological: General: No focal deficit present. Mental Status: He is alert. Psychiatric: Mood and Affect: Mood normal. Behavior: Behavior normal. BP Readings from Last 3 Encounters: 04/28/23 (!) 150/94 05/27/22 110/59 04/02/22 132/82 No components found for: LDL , LDLCHOLCALC , DIRLDLCHOL , LDLDIRECTMEA , LDLPOINTOFCA Lab Results Component Value Date HGBA1C 6.1 (H) 11/21/2021 No results found for: MICROALBUMIN , MICROALBUPOC , MICROALB No results found for: CREATININE Lab Results Component Value Date SODIUM 133 (L) 05/27/2022 POTASSIUM 3.6 05/27/2022 CHLORIDE 96 (L) 05/27/2022 CO2 29 05/27/2022 Assessment/Plan 1. Hyperlipidemia, unspecified hyperlipidemia type Has been out of medication Over due for labs - will check today and then likely refill his medication - LIPID PANEL W CALCULATED LDL; Future - CBC, EDIF, PLATELET; Future - COMPREHENSIVE METABOLIC PANEL; Future - HEMOGLOBIN A1C; Future - HEMOGLOBIN A1C - COMPREHENSIVE METABOLIC PANEL - CBC, EDIF, PLATELET - LIPID PANEL W CALCULATED LDL 2. Essential hypertension, benign uncontrolled- has not been on medications for 2 months Restart and check labs - LIPID PANEL W CALCULATED LDL; Future - CBC, EDIF, PLATELET; Future - COMPREHENSIVE METABOLIC PANEL; Future - HEMOGLOBIN A1C; Future - HEMOGLOBIN A1C - COMPREHENSIVE METABOLIC PANEL - CBC, EDIF, PLATELET - LIPID PANEL W CALCULATED LDL 3. Type 2 diabetes mellitus with hyperglycemia, without long-term current use of insulin Uncontrolled- has not been on medications for 2 months Check labs and then restart meds as needed - LIPID PANEL W CALCULATED LDL; Future - CBC, EDIF, PLATELET; Future - COMPREHENSIVE METABOLIC PANEL; Future - HEMOGLOBIN A1C; Future - HEMOGLOBIN A1C - COMPREHENSIVE METABOLIC PANEL - CBC, EDIF, PLATELET - LIPID PANEL W CALCULATED LDL 4. Non compliance w medication regimen 5. Bilateral wrist pain - AMB REFERRAL TO ORTHOPAEDICS 6. Atypical pigmented skin lesion - AMB REFERRAL TO DERMATOLOGY documented in this encounter [facility] 12-04-2022 Note Chief Complaint: nec k pain and headache HPI When did this problem begin: Long time Timing/frequency of occurrence: Constant Pain description: dull ache Pain severity: 8 Radicular pain: No Numbness/tingling: No Pain is getting: gradually worsening Weakness: No What improves symptoms: Rest What makes symptoms worse: Activity Gait disturbance: No Fine hand dexterity problem: No Previous treatment for this problem: C5-7 ACDF ROS Constitutional: Fatigue: No Weight loss: No Fever: No Chills: No No past surgical history on file. No past medical history on file. No past surgical history on file. Not on File Current Outpatient Medications: cyclobenzaprine (Flexeril) 10 mg tablet, Take 1 tablet (10 mg) by mouth if needed in the morning, at noon, and at bedtime for muscle spasms., Disp: 90 tablet, Rfl: 0 gabapentin (Neurontin) 400 mg capsule, Take 1 capsule (400 mg) by mouth in the morning, at noon, and at bedtime., Disp: 90 capsule, Rfl: 0 gabapentin (Neurontin) 400 mg capsule, Take 1 capsule (400 mg) by mouth in the morning, at noon, and at bedtime., Disp: 90 capsule, Rfl: 0 Social History Socioeconomic History Marital status: Spouse name: Not on file Number of children: Not on file Years of education: Not on file Highest education level: Not on file Occupational History Not on file Tobacco Use Smoking status: Not on file Smokeless tobacco: Not on file Substance and Sexual Activity Alcohol use: Not on file Drug use: Not on file Sexual activity: Not on file Other Topics Concern Not on file Social History Narrative Not on file Social Determinants of Health Financial Resource Strain: Not on file Food Insecurity: Not on file Transportation Needs: Not on file Physical Activity: Not on file Stress: Not on file Social Connections: Not on file Intimate Partner Violence: Not on file Housing Stability: Not on file No family history on file. Physical Exam There were no vitals taken for this visit. Musculoskeletal Ortho spine musculoskeletal examination: Alignment spine: normal Tenderness: cervical paraspinal Range of motion Cervical spine: limited Spurling Test: Negative Neurological Biceps strength: 5 Wrist extension: 5 Triceps strength: 5 Finger flexor: 5 Finger abduction strength: 5 Flexion at the hip strength: 5 Quadriceps strength: 5 Tibialis anterior strength: 5 Plantar flexion strength: 5 Extensor Hallicis Longus strength: 5 Sensory Exam: intact DTR/ Pathologic reflexes Biceps reflex- 2 Brachioradialis reflex- 2 Triceps reflex- 2 Patellar reflex- 2 Achilles reflex- 2 Babinski- negative Rivera reflex: Absent Gait and station Gait: Normal Images: I, Dr. Dani Le, personally reviewed the images and my personal interpretation are: CT cervical spine sold fusion at C5-7, adjacent segment disc degeneration Assessment and Plan 52 years presents with neck pain and headache History of C5-[address] cervical spine sold fusion at C5-7, adjacent segment disc degeneration Explained the clinical and radiological findings with the patient and discussed management options. Recommended No current indication for surgical management Submit C9 for pain management referral [facility] 05-27-2022 Physician Emergency department Note Emergency Department Report [facility] EMERGENCY DEPARTMENT Service Date:.05/27/22 PCP: Paula Casarez Chief Complaint: Chief Complaint Patient presents with Chest Pain Chest pain started 2 days ago in center of chest. Pt states the pain radiates to his left arm across the chest. HPI Rusty Alvarez is a 51 y.o. male presents to the ED with chief complaint of chest pain. He states he had symptoms yesterday and he left work. He states he was on his way to work today when he had this chest pain when over into the left side. He has had no nausea or vomiting. He states had a dry cough. Denies any fevers or chills. He does not take aspirin prior to arrival just his regular medication. He states he has a history of heart disease but is unable to have stents. 2 location of the plaques. He denies any fevers or chills. Denies any abdominal pain. Denies any loss of bowel or bladder control. Denies any headache or neck stiffness. Denies any rash. He denies any recent travel or trauma. He is a smoker Review of Systems: Review of Systems General: negative for fevers chills or weight change HENT: negative for sore throat earache, nosebleeds Eyes: negative Skin: negative Abdomen: negative Respiratory: positive for dry cough. Negative for hemoptysis, wheezing Heart: positive for chest pain. Negative for palpitations, syncope Neurologic: negative for headache, weakness, syncope Lymphatic: negative Musculoskeletal: negative for fall or trauma Past Medical History: Past Medical History: Diagnosis Date Arthritis Holguin esophagus BPH (benign prostatic hyperplasia) CAD (coronary artery disease) Chicken pox Chronic low back pain Chronic pain Colitis Diabetes (A1C > or equal to 6.5%) 07/03/2020 Essential hypertension, benign Fever of unknown origin 2010 Doctor in [place]. Pt. outside temp will read 98 and internal temp can read up to 106 occurs every two days Generalized anxiety disorder GERD (gastroesophageal reflux disease) Gout H/O colonoscopy 2014 H/O endoscopy 2013 Internal hemorrhoids Migraine Mixed hyperlipidemia Sleep apnea Tinea pedis Tobacco dependency Vertigo Past Surgical History: Past Surgical History: Procedure Laterality Date CERVICAL FUSION 03/02/2020 Dr Le @ [place] ORAL SURGERY 01/2017 complete tooth extraction HEART CATHETERIZATION Right 08/2016 Allergies: Allergies Allergen Reactions Augmentin [Amoxicillin-Pot Clavulanate] Nausea and Vomiting Ultram [Tramadol] Nausea Only Medications: Discharge Medication List as of 05/27/2022 8:13 AM CONTINUE these medications which have NOT CHANGED Details amLODIPine 5 MG tablet Take 1 tablet by mouth daily. Normal Disp-30 tablet, R-3 atorvastatin 20 MG tablet Take 1 tablet by mouth daily. Normal Disp-30 tablet, R-5 carveDILOL (Coreg) 25 MG tablet Take 1 tablet by mouth 2 times daily. Normal Disp-180 tablet, R-3 fluticasone 50 MCG/ACT Suspension nasal spray 2 sprays each nostril daily Normal Disp-16 g, R-0 aspirin 81 MG Chew Tab chewable tablet Chew 1 tablet daily. OTC cyanocobalamin 1000 MCG tablet Take 1,000 mcg by mouth. One by mouth daily Historical Med cyclobenzaprine 5 MG tablet Take 1 tablet by mouth 3 times daily as needed. Historical Med gabapentin 300 MG Cap capsule 400 mg 3 times daily. Historical Med glucose blood test strips (ASCENSIA MICROFILL TEST) Strip strip 1 strip by Instructed route 3 times daily. Normal Disp-100 strip, R-3 !! GLUCOSE MONITOR LANCETS PRESCRIPTION Use one to check glucose 3 times a day Normal Disp-100 Each, R-3 imiquimod 5 % Cream Apply 1 Application topically every Thursday, Thursday, Thursday dinner. Apply a thin layer as directed. Leave on skin for 6-10 hours. Normal Disp-24 Each, R-1 !! INSULIN PEN NEEDLES ULTRA FINE PRESCRIPTION 1 Each by Instructed route daily. Normal Disp-100 Each, R-1 Liraglutide (Victoza) 18 MG/3ML Solution Pen-injector injection Inject 1.8 mg under the skin daily. Normal Disp-15 mL, R-3 Meloxicam 7.5 MG tablet Take 1 tablet by mouth daily. Normal Disp-30 tablet, R-1 valsartan-hydrochlorothiazide (Diovan HCT) 320-25 MG tablet Take 1 tablet by mouth daily. Normal Disp-90 tablet, R-3 VITAMIN D PO Take by mouth. 2,000 mg two by mouth daily Historical Med !! - Potential duplicate medications found. Please discuss with provider. Family History: Family History Problem Relation Age of Onset Diabetes Mother Arthritis - Osteo Mother Alcoholism Father Arthritis - Osteo Father Myocardial Infarction Father Other - Specify Father substance abuse Arthritis - Osteo Brother Lung Cancer Paternal Uncle Breast Cancer Maternal Grandmother Arthritis - Osteo Maternal Grandmother Stroke Maternal Grandmother Heart Disease - Other Maternal Grandmother CAD Kidney Disease Maternal Grandmother Heart Disease - Other Maternal Grandfather CAD Arthritis - Osteo Maternal Grandfather Stroke Paternal Grandmother Arthritis - Osteo Paternal Grandmother Myocardial Infarction Paternal Grandmother Heart Disease - Other Paternal Grandmother CAD Myocardial Infarction Paternal Grandfather Arthritis - Osteo Paternal Grandfather Heart Disease - Other Paternal Grandfather CAD Diabetes Other unknown Social History: Social History Socioeconomic History Marital status: Spouse name: Not on file Number of children: Not on file Years of education: Not on file Highest education level: Not on file Occupational History Not on file Tobacco Use Smoking status: Every Day Packs/day: 1.00 Types: Cigarettes Smokeless tobacco: Current Types: Snuff Substance and Sexual Activity Alcohol use: Not Currently Comment: rarely Drug use: No Sexual activity: Yes Partners: Female Other Topics Concern Not on file Social History Narrative Not on file Social Determinants of Health Financial Resource Strain: Not on file Food Insecurity: Not on file Transportation Needs: Not on file Physical Activity: Not on file Stress: Not on file Social Connections: Not on file Intimate Partner Violence: Not on file Housing Stability: Not on file Physical Exam: Physical Exam General: Well-nourished well-hydrated nontoxic HENT: head is atraumatic. Scalp is nontender. Face is symmetric. Mucous membranes are hydrated. Nose without exudates Eyes: pupils are equal. Sclerae anicteric Skin: warm, dry. No rash. No petechiae Abdomen: soft. No distention guarding or rebound Respiratory: clear. No rhonchi. No wheezing Heart: heart tones are regular. Capillary refill is brisk Neurologic: awake, alert, oriented 3. Moving all extremities well. Nonfocal neurologic exam Lymphatic: no anterior posterior cervical lymphadenopathy no lymphedema Musculoskeletal: negative Homans sign. No fracture trauma or deformity Psychiatric: cooperative with examiner Vital Signs During ED Visit Patient Vitals for the past 24 hrs: BP Temp Temp src Pulse Resp SpO2 Height 05/27/22 0823 110/59 -- -- 80 18 96 % -- 05/27/22 0710 -- -- -- -- -- -- 1.753 m (5' 9 ) 05/27/22 0700 126/80 -- -- 82 23 96 % -- 05/27/22 0658 131/77 97.7 F (36.5 C) Oral 80 16 100 % -- Orders/Results: Results for orders placed or performed during the hospital encounter of 05/27/22 [facility] 1 - NASOPHARYNGEAL Specimen: NASOPHARYNGEAL; Fluid/Swab Result Value Ref Range SARS COV 2 RNA, QL REAL TIME RT PCR NOT DETECTED NOT DETECTED NARRATIVE -1 This test was performed using isothermal JEFF and has been approved as Emergency Use Authorization (EUA) for the qualitative detection [id number] nucleic acid. TROPONIN I, HIGH SENSITIVITY Result Value Ref Range TROPONIN I, HIGH SENSITIVITY 2 0 - 20 pg/mL CBC, EDIF, PLATELET Result Value Ref Range WBC (WHITE BLOOD COUNT) 7.9 3.6 - 11.0 10*3/uL RBC 5.05 4.0 - 6.1 10*6/uL HEMOGLOBIN (HGB) 16.2 14.0 - 18.0 G/DL HEMATOCRIT (HCT) 48.8 42.0 - 52.0 % MEAN CELL VOLUME 96.6 80.0 - 100.0 FL Mean Cell HGB 32.1 26.0 - 35.0 PG MEAN CELL HGB CONCENTRATION 33.3 27.0 - 37.0 G/DL RBC DISTRIBUTION 13.4 11.5 - 14.5 % PLATELET COUNT 285 130.0 - 400.0 10*3/uL MEAN PLATELET VOLUME 7.2 (L) 7.4 - 11.0 FL DIFFERENTIAL TYPE AUTO DIFF % NEUTROPHILS 54.6 37.0 - 75.0 % LYMPHOCYTE 33.7 20.0 - 55.0 % MONOCYTE % 8.0 0.0 - 10.0 % EOSINOPHIL % 2.8 0.0 - 11.0 % BASOPHIL % 0.9 0.0 - 2.0 % Absolute Neutrophil Count 4.3 1.4 - 6.5 10*3/uL LYMPHOCYTES, ABSOLUTE 2.7 1.2 - 3.4 10*3/uL MONOCYTES, ABSOLUTE 0.6 0.0 - 0.7 10*3/uL ABSOLUTE EOSINOPHIL COUNT 0.2 0.0 - 0.7 10*3/uL ABSOLUTE BASOPHIL COUNT 0.1 0.0 - 0.2 10*3/uL COMPREHENSIVE METABOLIC PANEL Result Value Ref Range Glucose 223 (H) 70 - 100 MG/DL BUN 16 7 - 20 MG/DL CREATININE SERUM 1.18 0.66 - 1.25 MG/DL SODIUM 133 (L) 136 - 145 MMOL/L POTASSIUM 3.6 3.5 - 5.1 MMOL/L CHLORIDE 96 (L) 98 - 107 MMOL/L CALCIUM 9.1 8.4 - 10.2 MG/DL PROTEIN, TOTAL 8.1 6.3 - 8.2 GM/DL Albumin 4.1 3.5 - 5.0 G/dl BILIRUBIN, TOTAL 0.2 0.2 - 1.2 MG/DL AST 25 15 - 41 IU/L ALKALINE PHOSPHATASE 72 38 - 126 IU/L CARBON DIOXIDE (CO2) 29 22 - 30 MMOL/L A/G Ratio 1.0 (L) 1.3 - 2.2 RATIO ALT 24 17 - 63 IU/L ESTIMATED GFR, NON AMER 70 ml/min/1.73sq.m ESTIMATED GFR, 84 ml/min/1.73sq.m GFR COMMENT Average GFR for 40-49 years old = 99. D-DIMER,QUANTITATIVE Result Value Ref Range D-DIMER <0.27 <0.50 g/ml Radiographic Imaging XR CHEST PA 1 VIEW Final Result IMPRESSION: There is no acute cardiopulmonary process. Procedures: Procedures Moderate Sedation Procedure: No ED Summary/MDM EKG interpreted by me shows sinus rhythm. Rate of 82 bpm. LA interval 160 ms. No STEMI. This is compared to February 12, 2022 most previous EKG. I appreciate no significant change. Patient's chest x-ray shows no infiltrate no failure or pneumonia. His d-dimer is negative. Chemistry panel reveals a glucose of 223 with a BUN of 16 creatinine of 1.1. Troponin is not elevated. At this time he is resting comfortably. I did discuss with him about observation the hospital and at this time he does not wish to stay. He has capacity to make decisions. He states he will follow-up with his materials scientist Dr. Sampson. He is encouraged to quit smoking. He should take a baby aspirin every day. Return if any worsening symptoms Clinical Impression: 1. Chest pain, unspecified type No follow-ups on file. Discharge Medication List as of 05/27/2022 8:13 AM Discharge Medication List as of 05/27/2022 8:13 AM An After Visit Summary was printed and given to the patient with above information. . Roger Sparks MD 05/27/22 1512 [facility] Work Phone: 05-27-2022 Emergency department Note Emergency Department Report [facility] EMERGENCY DEPARTMENT Service Date:.05/27/22 PCP: Paula Casarez Chief Complaint: Chief Complaint Patient presents with Chest Pain Chest pain started 2 days ago in center of chest. Pt states the pain radiates to his left arm across the chest. HPI Rusty Alvarez is a 51 y.o. male presents to the ED with chief complaint of chest pain. He states he had symptoms yesterday and he left work. He states he was on his way to work today when he had this chest pain when over into the left side. He has had no nausea or vomiting. He states had a dry cough. Denies any fevers or chills. He does not take aspirin prior to arrival just his regular medication. He states he has a history of heart disease but is unable to have stents. 2 location of the plaques. He denies any fevers or chills. Denies any abdominal pain. Denies any loss of bowel or bladder control. Denies any headache or neck stiffness. Denies any rash. He denies any recent travel or trauma. He is a smoker Review of Systems: Review of Systems General: negative for fevers chills or weight change HENT: negative for sore throat earache, nosebleeds Eyes: negative Skin: negative Abdomen: negative Respiratory: positive for dry cough. Negative for hemoptysis, wheezing Heart: positive for chest pain. Negative for palpitations, syncope Neurologic: negative for headache, weakness, syncope Lymphatic: negative Musculoskeletal: negative for fall or trauma Past Medical History: Past Medical History: Diagnosis Date Arthritis Holguin esophagus BPH (benign prostatic hyperplasia) CAD (coronary artery disease) Chicken pox Chronic low back pain Chronic pain Colitis Diabetes (A1C > or equal to 6.5%) 07/03/2020 Essential hypertension, benign Fever of unknown origin 2009 Doctor in [place]. Pt. outside temp will read 98 and internal temp can read up to 106 occurs every two days Generalized anxiety disorder GERD (gastroesophageal reflux disease) Gout H/O colonoscopy 2014 H/O endoscopy 2012 Internal hemorrhoids Migraine Mixed hyperlipidemia Sleep apnea Tinea pedis Tobacco dependency Vertigo Past Surgical History: Past Surgical History: Procedure Laterality Date CERVICAL FUSION 03/02/2020 Dr Le @ [place] ORAL SURGERY 01/2017 complete tooth extraction HEART CATHETERIZATION Right 08/2016 Allergies: Allergies Allergen Reactions Augmentin [Amoxicillin-Pot Clavulanate] Nausea and Vomiting Ultram [Tramadol] Nausea Only Medications: Discharge Medication List as of 05/27/2022 8:13 AM CONTINUE these medications which have NOT CHANGED Details amLODIPine 5 MG tablet Take 1 tablet by mouth daily. Normal Disp-30 tablet, R-3 atorvastatin 20 MG tablet Take 1 tablet by mouth daily. Normal Disp-30 tablet, R-5 carveDILOL (Coreg) 25 MG tablet Take 1 tablet by mouth 2 times daily. Normal Disp-180 tablet, R-3 fluticasone 50 MCG/ACT Suspension nasal spray 2 sprays each nostril daily Normal Disp-16 g, R-0 aspirin 81 MG Chew Tab chewable tablet Chew 1 tablet daily. OTC cyanocobalamin 1000 MCG tablet Take 1,000 mcg by mouth. One by mouth daily Historical Med cyclobenzaprine 5 MG tablet Take 1 tablet by mouth 3 times daily as needed. Historical Med gabapentin 300 MG Cap capsule 400 mg 3 times daily. Historical Med glucose blood test strips (ASCENSIA MICROFILL TEST) Strip strip 1 strip by Instructed route 3 times daily. Normal Disp-100 strip, R-3 !! GLUCOSE MONITOR LANCETS PRESCRIPTION Use one to check glucose 3 times a day Normal Disp-100 Each, R-3 imiquimod 5 % Cream Apply 1 Application topically every Thursday, Thursday, Thursday dinner. Apply a thin layer as directed. Leave on skin for 6-10 hours. Normal Disp-24 Each, R-1 !! INSULIN PEN NEEDLES ULTRA FINE PRESCRIPTION 1 Each by Instructed route daily. Normal Disp-100 Each, R-1 Liraglutide (Victoza) 18 MG/3ML Solution Pen-injector injection Inject 1.8 mg under the skin daily. Normal Disp-15 mL, R-3 Meloxicam 7.5 MG tablet Take 1 tablet by mouth daily. Normal Disp-30 tablet, R-1 valsartan-hydrochlorothiazide (Diovan HCT) 320-25 MG tablet Take 1 tablet by mouth daily. Normal Disp-90 tablet, R-3 VITAMIN D PO Take by mouth. 2,000 mg two by mouth daily Historical Med !! - Potential duplicate medications found. Please discuss with provider. Family History: Family History Problem Relation Age of Onset Diabetes Mother Arthritis - Osteo Mother Alcoholism Father Arthritis - Osteo Father Myocardial Infarction Father Other - Specify Father substance abuse Arthritis - Osteo Brother Lung Cancer Paternal Uncle Breast Cancer Maternal Grandmother Arthritis - Osteo Maternal Grandmother Stroke Maternal Grandmother Heart Disease - Other Maternal Grandmother CAD Kidney Disease Maternal Grandmother Heart Disease - Other Maternal Grandfather CAD Arthritis - Osteo Maternal Grandfather Stroke Paternal Grandmother Arthritis - Osteo Paternal Grandmother Myocardial Infarction Paternal Grandmother Heart Disease - Other Paternal Grandmother CAD Myocardial Infarction Paternal Grandfather Arthritis - Osteo Paternal Grandfather Heart Disease - Other Paternal Grandfather CAD Diabetes Other unknown Social History: Social History Socioeconomic History Marital status: Spouse name: Not on file Number of children: Not on file Years of education: Not on file Highest education level: Not on file Occupational History Not on file Tobacco Use Smoking status: Every Day Packs/day: 1.00 Types: Cigarettes Smokeless tobacco: Current Types: Snuff Substance and Sexual Activity Alcohol use: Not Currently Comment: rarely Drug use: No Sexual activity: Yes Partners: Female Other Topics Concern Not on file Social History Narrative Not on file Social Determinants of Health Financial Resource Strain: Not on file Food Insecurity: Not on file Transportation Needs: Not on file Physical Activity: Not on file Stress: Not on file Social Connections: Not on file Intimate Partner Violence: Not on file Housing Stability: Not on file Physical Exam: Physical Exam General: Well-nourished well-hydrated nontoxic HENT: head is atraumatic. Scalp is nontender. Face is symmetric. Mucous membranes are hydrated. Nose without exudates Eyes: pupils are equal. Sclerae anicteric Skin: warm, dry. No rash. No petechiae Abdomen: soft. No distention guarding or rebound Respiratory: clear. No rhonchi. No wheezing Heart: heart tones are regular. Capillary refill is brisk Neurologic: awake, alert, oriented 3. Moving all extremities well. Nonfocal neurologic exam Lymphatic: no anterior posterior cervical lymphadenopathy no lymphedema Musculoskeletal: negative Homans sign. No fracture trauma or deformity Psychiatric: cooperative with examiner Vital Signs During ED Visit Patient Vitals for the past 24 hrs: BP Temp Temp src Pulse Resp SpO2 Height 05/27/22 0823 110/59 -- -- 80 18 96 % -- 05/27/22 0710 -- -- -- -- -- -- 1.753 m (5' 9 ) 05/27/22 0700 126/80 -- -- 82 23 96 % -- 05/27/22 0658 131/77 97.7 F (36.5 C) Oral 80 16 100 % -- Orders/Results: Results for orders placed or performed during the hospital encounter of 05/27/22 [facility] 1 - NASOPHARYNGEAL Specimen: NASOPHARYNGEAL; Fluid/Swab Result Value Ref Range SARS COV 2 RNA, QL REAL TIME RT PCR NOT DETECTED NOT DETECTED NARRATIVE -1 This test was performed using isothermal JEFF and has been approved as Emergency Use Authorization (EUA) for the qualitative detection [id number] nucleic acid. TROPONIN I, HIGH SENSITIVITY Result Value Ref Range TROPONIN I, HIGH SENSITIVITY 2 0 - 20 pg/mL CBC, EDIF, PLATELET Result Value Ref Range WBC (WHITE BLOOD COUNT) 7.9 3.6 - 11.0 10*3/uL RBC 5.05 4.0 - 6.1 10*6/uL HEMOGLOBIN (HGB) 16.2 14.0 - 18.0 G/DL HEMATOCRIT (HCT) 48.8 42.0 - 52.0 % MEAN CELL VOLUME 96.6 80.0 - 100.0 FL Mean Cell HGB 32.1 26.0 - 35.0 PG MEAN CELL HGB CONCENTRATION 33.3 27.0 - 37.0 G/DL RBC DISTRIBUTION 13.4 11.5 - 14.5 % PLATELET COUNT 285 130.0 - 400.0 10*3/uL MEAN PLATELET VOLUME 7.2 (L) 7.4 - 11.0 FL DIFFERENTIAL TYPE AUTO DIFF % NEUTROPHILS 54.6 37.0 - 75.0 % LYMPHOCYTE 33.7 20.0 - 55.0 % MONOCYTE % 8.0 0.0 - 10.0 % EOSINOPHIL % 2.8 0.0 - 11.0 % BASOPHIL % 0.9 0.0 - 2.0 % Absolute Neutrophil Count 4.3 1.4 - 6.5 10*3/uL LYMPHOCYTES, ABSOLUTE 2.7 1.2 - 3.4 10*3/uL MONOCYTES, ABSOLUTE 0.6 0.0 - 0.7 10*3/uL ABSOLUTE EOSINOPHIL COUNT 0.2 0.0 - 0.7 10*3/uL ABSOLUTE BASOPHIL COUNT 0.1 0.0 - 0.2 10*3/uL COMPREHENSIVE METABOLIC PANEL Result Value Ref Range Glucose 223 (H) 70 - 100 MG/DL BUN 16 7 - 20 MG/DL CREATININE SERUM 1.18 0.66 - 1.25 MG/DL SODIUM 133 (L) 136 - 145 MMOL/L POTASSIUM 3.6 3.5 - 5.1 MMOL/L CHLORIDE 96 (L) 98 - 107 MMOL/L CALCIUM 9.1 8.4 - 10.2 MG/DL PROTEIN, TOTAL 8.1 6.3 - 8.2 GM/DL Albumin 4.1 3.5 - 5.0 G/dl BILIRUBIN, TOTAL 0.2 0.2 - 1.2 MG/DL AST 25 15 - 41 IU/L ALKALINE PHOSPHATASE 72 38 - 126 IU/L CARBON DIOXIDE (CO2) 29 22 - 30 MMOL/L A/G Ratio 1.0 (L) 1.3 - 2.2 RATIO ALT 24 17 - 63 IU/L ESTIMATED GFR, NON AMER 70 ml/min/1.73sq.m ESTIMATED GFR, 84 ml/min/1.73sq.m GFR COMMENT Average GFR for 40-49 years old = 99. D-DIMER,QUANTITATIVE Result Value Ref Range D-DIMER <0.27 <0.50 g/ml Radiographic Imaging XR CHEST PA 1 VIEW Final Result IMPRESSION: There is no acute cardiopulmonary process. Procedures: Procedures Moderate Sedation Procedure: No ED Summary/MDM EKG interpreted by me shows sinus rhythm. Rate of 82 bpm. LA interval 160 ms. No STEMI. This is compared to February 12, 2022 most previous EKG. I appreciate no significant change. Patient's chest x-ray shows no infiltrate no failure or pneumonia. His d-dimer is negative. Chemistry panel reveals a glucose of 223 with a BUN of 16 creatinine of 1.1. Troponin is not elevated. At this time he is resting comfortably. I did discuss with him about observation the hospital and at this time he does not wish to stay. He has capacity to make decisions. He states he will follow-up with his materials scientist Dr. Sampson. He is encouraged to quit smoking. He should take a baby aspirin every day. Return if any worsening symptoms Clinical Impression: 1. Chest pain, unspecified type No follow-ups on file. Discharge Medication List as of 05/27/2022 8:13 AM Discharge Medication List as of 05/27/2022 8:13 AM An After Visit Summary was printed and given to the patient with above information. . Roger Sparks MD 05/27/22 1512 documented in this encounter [facility] 04-02-2022 Emergency department Note Discharge instructions reviewed with pt. He knows when to return to ER for reevaluation and to rock picker his medications. [facility] 04-02-2022 Emergency department Note Discharge instructions reviewed with pt. He knows when to return to ER for reevaluation and to rock picker his medications. Swabs obtained and sent to lab. Pt resting comfortably in chair at bedside. Denies needs at this time. documented in this encounter [facility] 04-02-2022 Emergency department Note Swabs obtained and sent to lab. Pt resting comfortably in chair at bedside. Denies needs at this time. [facility] 02-12-2022 Physician Emergency department Note EKG: Sinus rhythm at 79 beats per minute. Anabel is leftward. LA interval is 158 milliseconds. QRS duration is 92 milliseconds. There is some baseline irregularity and nonspecific ST T-wave changes present on the tracing. No acute ST elevation is seen. It is similar to previous tracing done July 09, 2021 Vincenzo Valencia MD 02/12/22 1605 [facility] Work Phone: 02-12-2022 Emergency department Note EKG: Sinus rhythm at 79 beats per minute. Anabel is leftward. LA interval is 158 milliseconds. QRS duration is 92 milliseconds. There is some baseline irregularity and nonspecific ST T-wave changes present on the tracing. No acute ST elevation is seen. It is similar to previous tracing done July 09, 2021 Vincenzo Valencia MD 02/12/22 1605 documented in this encounter [facility] 11-28-2021 History of Present illness Narrative Patient states he is here for genital warts. Has had them for 1.5 years. Denies any pain. HPI Rusty Alvarez 51 y.o. male presents today for No chief complaint on file. History of genital warts for the last few years. Patient states he has been for about 5 years and 2 years ago he noticed the onset of genital warts. Patient was seen by another infectious disease doctor who prescribed him a medical imiquimod and he states that he had great response and almost clear resolution. However he then ran out of medication and had been using it on his warts as well as on some skin tags. Patient then tried to get a hold of his previous infectious disease doctor but was not able to do so for the last year and now warts record and are worse now. They occur on the genital shaft but no other areas reported. Patient is and no known lesions in spouse reported. Patient denies a history of other STDs including gonorrhea, chlamydia or syphilis. He had screening In 2019 for these conditions as well as HIV and was negative. He has a history of hypertension, neck surgery, hyperlipidemia, diabetes, obesity. Patient for first infectious disease consultation 11/28 for this condition. He denies any rashes or other areas of wart formation ROS No notes on file HISTORY/ALLERGIES/MEDS Allergies Allergen Reactions Augmentin [Amoxicillin-Pot Clavulanate] Nausea and Vomiting Ultram [Tramadol] Nausea Only Past Medical History: Diagnosis Date Arthritis Holguin esophagus BPH (benign prostatic hyperplasia) CAD (coronary artery disease) Chicken pox Chronic low back pain Chronic pain Colitis Diabetes (A1C > or equal to 6.5%) 07/03/2020 Essential hypertension, benign Fever of unknown origin 2009 Doctor in [place]. Pt. outside temp will read 98 and internal temp can read up to 106 occurs every two days Generalized anxiety disorder GERD (gastroesophageal reflux disease) Gout H/O colonoscopy 2014 H/O endoscopy 2012 Internal hemorrhoids Migraine Mixed hyperlipidemia Sleep apnea Tinea pedis Tobacco dependency Vertigo Past Surgical History: Procedure Laterality Date CERVICAL FUSION 03/02/2020 Dr Le @ [facility] ORAL SURGERY 01/2017 complete tooth extraction HEART CATHETERIZATION Right 08/2016 Social History Socioeconomic History Marital status: Spouse name: Not on file Number of children: Not on file Years of education: Not on file Highest education level: Not on file Occupational History Not on file Tobacco Use Smoking status: Current Every Day Smoker Packs/day: 1.00 Smokeless tobacco: Current User Types: Snuff Substance and Sexual Activity Alcohol use: Not Currently Comment: rarely Drug use: No Sexual activity: Yes Partners: Female Other Topics Concern Not on file Social History Narrative Not on file Social Determinants of Health Financial Resource Strain: Not on file Food Insecurity: Not on file Transportation Needs: Not on file Physical Activity: Not on file Stress: Not on file Social Connections: Not on file Intimate Partner Violence: Not on file Housing Stability: Not on file Family History Problem Relation Age of Onset Diabetes Mother Arthritis - Osteo Mother Alcoholism Father Arthritis - Osteo Father Myocardial Infarction Father Other - Specify Father substance abuse Arthritis - Osteo Brother Lung Cancer Paternal Uncle Breast Cancer Maternal Grandmother Arthritis - Osteo Maternal Grandmother Stroke Maternal Grandmother Heart Disease - Other Maternal Grandmother CAD Kidney Disease Maternal Grandmother Heart Disease - Other Maternal Grandfather CAD Arthritis - Osteo Maternal Grandfather Stroke Paternal Grandmother Arthritis - Osteo Paternal Grandmother Myocardial Infarction Paternal Grandmother Heart Disease - Other Paternal Grandmother CAD Myocardial Infarction Paternal Grandfather Arthritis - Osteo Paternal Grandfather Heart Disease - Other Paternal Grandfather CAD Diabetes Other unknown Current Outpatient Medications: amLODIPine 5 MG tablet, Take 1 tablet by mouth daily., Disp: 30 tablet, Rfl: 3 aspirin 81 MG Chew Tab chewable tablet, Chew 1 tablet daily., Disp: , Rfl: atorvastatin 20 MG tablet, Take 1 tablet by mouth daily., Disp: 30 tablet, Rfl: 5 carveDILOL (Coreg) 25 MG tablet, Take 1 tablet by mouth 2 times daily., Disp: 180 tablet, Rfl: 3 cyanocobalamin 1000 MCG tablet, Take 1,000 mcg by mouth. One by mouth daily, Disp: , Rfl: cyclobenzaprine 5 MG tablet, Take 1 tablet by mouth 3 times daily as needed., Disp: , Rfl: gabapentin 300 MG Cap capsule, 400 mg 3 times daily., Disp: , Rfl: glucose blood test strips (ASCENSIA MICROFILL TEST) Strip strip, 1 strip by Instructed route 3 times daily., Disp: 100 strip, Rfl: 3 GLUCOSE MONITOR LANCETS PRESCRIPTION, Use one to check glucose 3 times a day, Disp: 100 Each, Rfl: 3 INSULIN PEN NEEDLES ULTRA FINE PRESCRIPTION, 1 Each by Instructed route daily., Disp: 100 Each, Rfl: 1 Liraglutide (Victoza) 18 MG/3ML Solution Pen-injector injection, Inject 2.4 mg under the skin daily., Disp: 15 mL, Rfl: 3 meloxicam 7.5 MG tablet, Take 1 tablet by mouth daily., Disp: 30 tablet, Rfl: 1 valsartan-hydrochlorothiazide (Diovan HCT) 320-25 MG tablet, Take 1 tablet by mouth daily., Disp: 90 tablet, Rfl: 3 VITAMIN D PO, Take by mouth. 2,000 mg two by mouth daily, Disp: , Rfl: EXAM Smoking Status Current Every Day Smoker Physical Exam Vitals and nursing note reviewed. Exam conducted with a training technician present. Constitutional: General: He is not in acute distress. Appearance: He is obese. He is not toxic-appearing. HENT: Head: Normocephalic and atraumatic. Mouth/Throat: Pharynx: Oropharynx is clear. No oropharyngeal exudate. Eyes: Extraocular Movements: Extraocular movements intact. Conjunctiva/sclera: Conjunctivae normal. Pupils: Pupils are equal, round, and reactive to light. Cardiovascular: Rate and Rhythm: Normal rate and regular rhythm. Pulses: Normal pulses. Heart sounds: No murmur heard. Pulmonary: Effort: No respiratory distress. Breath sounds: Normal breath sounds. No rhonchi or rales. Abdominal: General: Bowel sounds are normal. There is no distension. Palpations: Abdomen is soft. There is no mass. Tenderness: There is no abdominal tenderness. There is no guarding. Genitourinary: Comments: No suprapubic tenderness Warts lesions on shaft bilaterally. Numerous lesions were noted. No penile discharge appreciated. Anthropology Instructor/nurse was present during exam Musculoskeletal: General: No swelling or tenderness. Normal range of motion. Cervical back: Normal range of motion. No rigidity. Skin: General: Skin is warm. Findings: No rash. Neurological: General: No focal deficit present. Mental Status: He is alert. Psychiatric: Mood and Affect: Mood normal. Behavior: Behavior normal. Thought Content: Thought content normal. LABS CBC Lab Results Component Value Date WBC 8.8 07/09/2021 HGB 16.7 07/09/2021 HCT 48.4 07/09/2021 PLATELET 285 07/09/2021 MCV 93.5 07/09/2021 EDIF Lab Results Component Value Date RBCDISTRIBU 13.0 07/09/2021 EOSINOPHILS 2.1 07/09/2021 EOSINOPHILS 0.20 07/09/2021 BASOPHILS 0.6 07/09/2021 BASOPHILS 0.1 07/09/2021 LYMPHOCYTABS 2.70 07/09/2021 PLATELET 285 07/09/2021 MPV 7.6 07/09/2021 EDIF Lab Results Component Value Date RBCDISTRIBU 13.0 07/09/2021 EOSINOPHILS 2.1 07/09/2021 EOSINOPHILS 0.20 07/09/2021 BASOPHILS 0.6 07/09/2021 BASOPHILS 0.1 07/09/2021 LYMPHOCYTABS 2.70 07/09/2021 PLATELET 285 07/09/2021 MPV 7.6 07/09/2021 ESR Lab Results Component Value Date RBCDISTRIBU 13.0 07/09/2021 EOSINOPHILS 2.1 07/09/2021 EOSINOPHILS 0.20 07/09/2021 BASOPHILS 0.6 07/09/2021 BASOPHILS 0.1 07/09/2021 LYMPHOCYTABS 2.70 07/09/2021 PLATELET 285 07/09/2021 MPV 7.6 07/09/2021 Lab Results Component Value Date SODIUM 135 (L) 11/21/2021 POTASSIUM 3.6 11/21/2021 CHLORIDE 100 11/21/2021 CO2 26 11/21/2021 BUN 13 11/21/2021 CREATSERUM 0.90 11/21/2021 GLUCOSE 100 11/21/2021 Lab Results Component Value Date CRP 17.9 (H) 12/15/2020 Lab Results Component Value Date RESULTCULT NO PATHOGENS ISOLATED 09/08/2018 . Lab Results Component Value Date GLUCOSE 100 11/21/2021 . Lab Results Component Value Date CALCIUM 9.5 11/21/2021 Lab Results Component Value Date ALBUMIN 4.7 11/21/2021 Lab Results Component Value Date BILITOTAL 0.6 11/21/2021 Lab Results Component Value Date BUN 13 11/21/2021 Lab Results Component Value Date CREATSERUM 0.90 11/21/2021 Lab Results Component Value Date SODIUM 135 (L) 11/21/2021 POTASSIUM 3.6 11/21/2021 CHLORIDE 100 11/21/2021 CO2 26 11/21/2021 Lab Results Component Value Date ALKPHOS 79 11/21/2021 Lab Results Component Value Date HEPATITISB Negative 06/05/2017 Lab Results Component Value Date ALT 32 11/21/2021 AST 37 11/21/2021 ALKPHOS 79 11/21/2021 BILITOTAL 0.6 11/21/2021 No orders to display IMAGING No results found. Diagnosis/Plan: There are no diagnoses linked to this encounter. Genital warts -Will restart imiquimod which he states that he tolerated in the past and had good treatment response. We will give 5% cream 3 days of the week with thin layer place around wart area. -If patient does not have good response with need to look at other treatment options -No clear history of immunosuppressive condition, however do recommend tight glucose control and weight loss to improve immune response and for disease resolution and this was discussed with him -Patient was uncomfortable during visit given the nature of the situation and was reassured and treatment approach provided to him -Answer questions regarding transmission and recommend safe sex or cautions to avoid transmission to others. -Return to clinic within 4-6 weeks for reevaluation -Patient to call with any new concerns or issues arise and d/w him. 45min Thank you for this consultation Please note Portions of this note utilized [employer] dictation software, please excuse any typographical or grammatical errors. documented in this encounter [facility] 08-19-2021 History of Present illness Narrative Nurse Note: Review of Systems Constitutional: Negative for appetite change, fatigue and fever. HENT: Negative for congestion, dental problem, hearing loss, nosebleeds, postnasal drip, rhinorrhea, sinus pressure, sinus pain, sore throat, tinnitus and voice change. Eyes: Negative for pain, discharge, redness and visual disturbance. Respiratory: Negative for cough, shortness of breath and wheezing. Cardiovascular: Negative for chest pain and palpitations. Gastrointestinal: Negative for abdominal pain, constipation, diarrhea, nausea and vomiting. Endocrine: Negative for cold intolerance, heat intolerance and polyuria. Genitourinary: Negative for dysuria and enuresis. Musculoskeletal: Positive for neck pain. Negative for arthralgias, back pain, joint swelling and myalgias. Skin: Negative for color change and rash. Neurological: Negative for dizziness, tremors, syncope, weakness, numbness and headaches. Hematological: Does not bruise/bleed easily. Psychiatric/Behavioral: Negative for confusion, dysphoric mood, self-injury, sleep disturbance and suicidal ideas. The patient is not nervous/anxious. Nursing Assessment: Physical Exam Chief Complaint: Chief Complaint Patient presents with Diabetes Pt here for diabetes follow up and will need refill on victoza. Pt just saw his materials scientist for his HTN. History of Present Illness Rusty Alvarez is a 50 y.o. male who comes in to follow up on diabetes, HTN From the diabetes standpoint, he reports good compliance with his medications. He checks his blood sugars 2-3 times day. Typical AM readings are 90-120s. Highest reading he recalls is 137. Any low blood sugars: rarely. There are no lesions on the feet. Lab Results Component Value Date HGBA1C 8.5 (H) 06/10/2021 HTN Since his last visit, he reports that he has been checking his blood pressures daily . His blood pressures have typically been 120s/80s. He has been compliant with his medication regimen. He has not noted any side effects. Sees Dr Sampson- saw earlier today - no changes made per patient follow up in 6 months Headaches: no Visual Changes: no Chest Pain: no Shortness of Breath: no Palpitations: no Edema: no Claudication: no Lab Results Component Value Date CHOLESTEROL 241 (H) 06/10/2021 TRIG 403 (H) 06/10/2021 HDL 35 06/10/2021 LDLCALC 125 06/10/2021 Active Problem List Hehas Chronic low back pain; GERD (gastroesophageal reflux disease); Generalized anxiety disorder; Essential hypertension, benign; Mixed hyperlipidemia; Sleep apnea; Vertigo; Tinea pedis; Migraine; Gout; Chronic pain; Holguin esophagus; Arthritis; Other fatigue; Other chest pain; Tobacco abuse; Pure hypercholesterolemia; Sacral bruising, initial encounter; body mass index of 40.0-49.9; Diabetes (A1C > or equal to 6.5%); and Palpitations on their problem list. Current Medications Current Outpatient Medications Medication Sig Dispense Refill amLODIPine 5 MG tablet Take 1 tablet by mouth daily. 30 tablet 3 aspirin 81 MG Chew Tab chewable tablet Chew 1 tablet daily. atorvastatin 20 MG tablet Take 1 tablet by mouth daily. 30 tablet 5 carveDILOL (Coreg) 25 MG tablet Take 1 tablet by mouth 2 times daily. 60 tablet 3 cyanocobalamin 1000 MCG tablet Take 1,000 mcg by mouth. One by mouth daily cyclobenzaprine 5 MG tablet Take 1 tablet by mouth 3 times daily as needed. gabapentin 300 MG Cap capsule 400 mg 3 times daily. Liraglutide (Victoza) 18 MG/3ML Solution Pen-injector injection Inject 1.2 mg under the skin daily. 15 mL 3 meloxicam 7.5 MG tablet Take 1 tablet by mouth daily. 30 tablet 1 metFORMIN-XR 500 MG Tab SR 24 HR Take 1 tablet by mouth 2 times daily. 60 tablet 3 valsartan-hydrochlorothiazide (Diovan HCT) 320-25 MG tablet Take 1 tablet by mouth daily. 90 tablet 3 VITAMIN D PO Take by mouth. 2,000 mg two by mouth daily INSULIN PEN NEEDLES ULTRA FINE PRESCRIPTION 1 Each by Instructed route daily. 100 Each 1 No current facility-administered medications for this visit. Allergies He is allergic to augmentin [amoxicillin-pot clavulanate] and ultram [tramadol]. Family History family history includes Alcoholism in his father; Arthritis - Osteo in his brother, father, maternal grandfather, maternal grandmother, mother, paternal grandfather, and paternal grandmother; Breast Cancer in his maternal grandmother; Diabetes in his mother and another family member; Heart Disease - Other in his maternal grandfather, maternal grandmother, paternal grandfather, and paternal grandmother; Kidney Disease in his maternal grandmother; Lung Cancer in his paternal uncle; Myocardial Infarction in his father, paternal grandfather, and paternal grandmother; Other - Specify in his father; Stroke in his maternal grandmother and paternal grandmother. Social History reports that he has been smoking. He has been smoking about 1.00 pack per day. His smokeless tobacco use includes snuff. He reports previous alcohol use. He reports that he does not use drugs. Immunizations Immunization History Administered Date(s) Administered PPD (Mantoux Test) 06/01/2017 Review of Systems See nursing documentation for full ROS Physical Exam Blood pressure 138/80, pulse 84, temperature 98.1 F (36.7 C), temperature source Temporal, resp. rate 16, height 1.803 m (5' 11 ), weight 135.2 kg (298 lb), SpO2 96 %., Body mass index is 41.56 kg/m . Physical Exam Constitutional: Appearance: Normal appearance. Eyes: Conjunctiva/sclera: Conjunctivae normal. Cardiovascular: Rate and Rhythm: Normal rate and regular rhythm. Pulmonary: Effort: Pulmonary effort is normal. Breath sounds: Normal breath sounds. Neurological: General: No focal deficit present. Mental Status: He is alert. Psychiatric: Mood and Affect: Mood normal. Behavior: Behavior normal. BP Readings from Last 3 Encounters: 08/19/21 138/80 08/19/21 144/85 07/22/21 (!) 147/98 No components found for: LDL, LDLCHOLCALC, DIRLDLCHOL, LDLDIRECTMEA, LDLPOINTOFCA Lab Results Component Value Date HGBA1C 8.5 (H) 06/10/2021 No results found for: MICROALBUMIN, MICROALBUPOC, MICROALBNo results found for: CREATININE Lab Results Component Value Date SODIUM 137 07/09/2021 POTASSIUM 3.8 07/09/2021 CHLORIDE 101 07/09/2021 CO2 28 07/09/2021 Assessment/Plan 1. Essential hypertension, benign Stable and improved No medication changes - COMPREHENSIVE METABOLIC PANEL; Future - HEMOGLOBIN A1C; Future - HEMOGLOBIN A1C - COMPREHENSIVE METABOLIC PANEL 2. Type 2 diabetes mellitus without complication, without long-term current use of insulin Improved and doing well Will have him titrate Victoza up to 1.8 if tolerated to help with appetite and portions Recheck labs today - Liraglutide (Victoza) 18 MG/3ML Solution Pen-injector injection; Inject 1.8 mg under the skin daily. Dispense: 15 mL; Refill: 3 - glucose blood test strips (ASCENSIA MICROFILL TEST) Strip strip; 1 strip by Instructed route 3 times daily. Dispense: 100 strip; Refill: 3 - GLUCOSE MONITOR LANCETS PRESCRIPTION; Use one to check glucose 3 times a day Dispense: 100 Each; Refill: 3 - COMPREHENSIVE METABOLIC PANEL; Future - HEMOGLOBIN A1C; Future - HEMOGLOBIN A1C - COMPREHENSIVE METABOLIC PANEL 3. Class 3 severe obesity with serious comorbidity and body mass index (BMI) of 40.0 to 44.9 in adult, unspecified obesity type - Liraglutide (Victoza) 18 MG/3ML Solution Pen-injector injection; Inject 1.8 mg under the skin daily. Dispense: 15 mL; Refill: 3 - COMPREHENSIVE METABOLIC PANEL; Future - HEMOGLOBIN A1C; Future - HEMOGLOBIN A1C - COMPREHENSIVE METABOLIC PANEL Nurse Note: Review of Systems Nursing Assessment: Physical Exam Lab draw first stick right ant. Cub. With butterfly. Pt. Tolerated well. Pressure bandage applied. documented in this encounter [facility] 07-18-2021 History of Present illness Narrative Nurse Note: Review of Systems Constitutional: Negative for appetite change, fatigue and fever. HENT: Negative for congestion, dental problem, hearing loss, nosebleeds, postnasal drip, rhinorrhea, sinus pressure, sinus pain, sore throat, tinnitus and voice change. Eyes: Negative for pain, discharge, redness and visual disturbance. Respiratory: Negative for cough, shortness of breath and wheezing. Cardiovascular: Negative for chest pain and palpitations. Gastrointestinal: Negative for abdominal pain, constipation, diarrhea, nausea and vomiting. Endocrine: Negative for cold intolerance, heat intolerance and polyuria. Genitourinary: Negative for dysuria and enuresis. Musculoskeletal: Negative for arthralgias, back pain, joint swelling, myalgias and neck pain. Skin: Negative for color change and rash. Neurological: Negative for dizziness, tremors, syncope, weakness, numbness and headaches. Hematological: Does not bruise/bleed easily. Psychiatric/Behavioral: Negative for confusion, dysphoric mood, self-injury, sleep disturbance and suicidal ideas. The patient is not nervous/anxious. Nursing Assessment: Physical Exam Chief Complaint: Chief Complaint Patient presents with Hypertension Patient here for follow up. Pt states has cardiology appointment on 07/22 Abnormal Chest X-Ray Patient would like to discuss xray from 07/09 History of Present Illness Rusty Alvarez is a 50 y.o. male who comes in to follow up on diabetes, HTN HTN Since his last visit, he reports that he has been checking his blood pressures intermittent. His blood pressures have typically been --higher readings in the after- 150-160s/90s. He has been compliant with his medication regimen. He has not noted any side effects. Headaches: no Visual Changes: no Chest Pain: Occasionally - see ER 07/09/21 Shortness of Breath: no Palpitations: intermittent Edema: chronic Claudication: no ER 07/09/21 - chest pain. Labs, EKG and CXR without acute Has appt with Dr Sampson 07/22/21 Has previous heart cath x2 Down 18# pounds since starting Victoza. Decreased appetite, does have nausea after eating C/o diarrhea with Metformin - but slowly improving Does not check glucose Denies hypoglycemia Active Problem List Hehas Chronic low back pain; GERD (gastroesophageal reflux disease); Generalized anxiety disorder; Essential hypertension, benign; Mixed hyperlipidemia; Sleep apnea; Vertigo; Tinea pedis; Migraine; Gout; Chronic pain; Holguin esophagus; Arthritis; Other fatigue; Other chest pain; Tobacco abuse; Pure hypercholesterolemia; Sacral bruising, initial encounter; body mass index of 40.0-49.9; and Diabetes (A1C > or equal to 6.5%) on their problem list. Current Medications Current Outpatient Medications Medication Sig Dispense Refill amLODIPine 5 MG tablet Take 1 tablet by mouth daily. 30 tablet 3 aspirin 81 MG Chew Tab chewable tablet Chew 1 tablet daily. atorvastatin 20 MG tablet Take 1 tablet by mouth daily. 30 tablet 5 cyanocobalamin 1000 MCG tablet Take 1,000 mcg by mouth. One by mouth daily cyclobenzaprine 5 MG tablet Take 1 tablet by mouth 3 times daily as needed. gabapentin 300 MG Cap capsule 400 mg. INSULIN PEN NEEDLES ULTRA FINE PRESCRIPTION 1 Each by Instructed route daily. 100 Each 1 Liraglutide (Victoza) 18 MG/3ML Solution Pen-injector injection Inject 0.6 mg under the skin daily. 15 mL 0 meloxicam 7.5 MG tablet Take 1 tablet by mouth daily. 30 tablet 1 metFORMIN-XR 500 MG Tab SR 24 HR Take 1 tablet by mouth 2 times daily. 60 tablet 3 metoprolol 50 MG tab regular release Take 1 tablet by mouth 2 times daily. 60 tablet 3 valsartan 320 MG tablet Take 1 tablet by mouth daily. 30 tablet 1 VITAMIN D PO Take by mouth. 2,000 mg two by mouth daily No current facility-administered medications for this visit. Allergies He is allergic to augmentin [amoxicillin-pot clavulanate] and ultram [tramadol]. Family History family history includes Alcoholism in his father; Arthritis - Osteo in his brother, father, maternal grandfather, maternal grandmother, mother, paternal grandfather, and paternal grandmother; Breast Cancer in his maternal grandmother; Diabetes in his mother and another family member; Heart Disease - Other in his maternal grandfather, maternal grandmother, paternal grandfather, and paternal grandmother; Kidney Disease in his maternal grandmother; Lung Cancer in his paternal uncle; Myocardial Infarction in his father, paternal grandfather, and paternal grandmother; Other - Specify in his father; Stroke in his maternal grandmother and paternal grandmother. Social History reports that he has been smoking. He has been smoking about 1.00 pack per day. His smokeless tobacco use includes snuff. He reports previous alcohol use. He reports that he does not use drugs. Immunizations Immunization History Administered Date(s) Administered PPD (Mantoux Test) 06/01/2017 Review of Systems See nursing documentation for full ROS Physical Exam Blood pressure 130/82, pulse 88, temperature 98.9 F (37.2 C), temperature source Temporal, resp. rate 16, height 1.803 m (5' 11 ), weight (!) 140.2 kg (309 lb), SpO2 97 %., Body mass index is 43.1 kg/m . Physical Exam Constitutional: Appearance: He is obese. HENT: Mouth/Throat: Pharynx: Oropharynx is clear. Eyes: Conjunctiva/sclera: Conjunctivae normal. Cardiovascular: Rate and Rhythm: Normal rate and regular rhythm. Pulmonary: Effort: Pulmonary effort is normal. Musculoskeletal: Right lower leg: No edema. Left lower leg: No edema. Skin: General: Skin is warm and dry. Neurological: General: No focal deficit present. Mental Status: He is alert. Psychiatric: Mood and Affect: Mood normal. Behavior: Behavior normal. BP Readings from Last 3 Encounters: 07/18/21 130/82 07/09/21 126/75 06/10/21 (!) 160/100 No components found for: LDL, LDLCHOLCALC, DIRLDLCHOL, LDLDIRECTMEA, LDLPOINTOFCA Lab Results Component Value Date HGBA1C 8.5 (H) 06/10/2021 No results found for: MICROALBUMIN, MICROALBUPOC, MICROALBNo results found for: CREATININE Lab Results Component Value Date SODIUM 137 07/09/2021 POTASSIUM 3.8 07/09/2021 CHLORIDE 101 07/09/2021 CO2 28 07/09/2021 Assessment/Plan 1. Essential hypertension, benign Stable reading today, has intermittent chest pain and recent ER visit for this Has follow up with cardiology on 07/22/21 2. Type 2 diabetes mellitus with other specified complication, unspecified whether terminal carman insulin use Doing well on meds, will try to increase Victoza up to 1.2mg - Liraglutide (Victoza) 18 MG/3ML Solution Pen-injector injection; Inject 1.2 mg under the skin daily. Dispense: 15 mL; Refill: 0 3. Class 3 severe obesity with serious comorbidity and body mass index (BMI) of 40.0 to 44.9 in adult, unspecified obesity type - Liraglutide (Victoza) 18 MG/3ML Solution Pen-injector injection; Inject 1.2 mg under the skin daily. Dispense: 15 mL; Refill: 0 Follow up in 1 month for labs recheck documented in this encounter [facility] 07-09-[address] Yury perales. [facility] 07-09-[address] Yury perales. Emergency Department Report [facility] EMERGENCY DEPARTMENT Service Date:.07/09/21 PCP: Paula Casarez Chief Complaint: Chief Complaint Patient presents with Chest Pain Pt presents to the ER with c/o 5/10 chest pain with cough and SOB that started with chest pain. Pt reports it started a couple of hours ago and radiates into neck. RUTH ANN Alvarez is a 50 y.o. male presents to the ED today due to chest pain. Patient states he woke up at 6 AM and has had intermittent chest pain. He states is in the center of his chest and aching sensation radiating to the left side of his chest. Nothing seems to make the discomfort better or worse. Denies any associated nausea vomiting shortness of breath or syncope. He has a history of coronary artery disease and follows with cardiology. He states his last heart catheterization was several years ago. Review of Systems: Review of Systems Constitutional: Negative for fever. Cardiovascular: Positive for chest pain. Negative for palpitations. Gastrointestinal: Negative for vomiting. Past Medical History: Past Medical History: Diagnosis Date Arthritis Holguin esophagus BPH (benign prostatic hyperplasia) CAD (coronary artery disease) Chicken pox Chronic low back pain Chronic pain Colitis Diabetes (A1C > or equal to 6.5%) 07/03/2020 Essential hypertension, benign Fever of unknown origin 2010 Doctor in [place]. Pt. outside temp will read 98 and internal temp can read up to 106 occurs every two days Generalized anxiety disorder GERD (gastroesophageal reflux disease) Gout H/O colonoscopy 2014 H/O endoscopy 2013 Internal hemorrhoids Migraine Mixed hyperlipidemia Sleep apnea Tinea pedis Tobacco dependency Vertigo Past Surgical History: Past Surgical History: Procedure Laterality Date CERVICAL FUSION 03/02/2020 Dr Le @ [facility] ORAL SURGERY 01/2017 complete tooth extraction HEART CATHETERIZATION Right 08/2016 Allergies: Allergies Allergen Reactions Augmentin [Amoxicillin-Pot Clavulanate] Nausea and Vomiting Ultram [Tramadol] Nausea Only Medications: Patient's Medications New Prescriptions No medications on file Previous Medications AMLODIPINE 5 MG TABLET Take 1 tablet by mouth daily. ASPIRIN 81 MG CHEW TAB CHEWABLE TABLET Chew 1 tablet daily. ATORVASTATIN 20 MG TABLET Take 1 tablet by mouth daily. CYANOCOBALAMIN 1000 MCG TABLET Take 1,000 mcg by mouth. One by mouth daily CYCLOBENZAPRINE 5 MG TABLET Take 1 tablet by mouth 3 times daily as needed. GABAPENTIN 300 MG CAP CAPSULE 400 mg. INSULIN PEN NEEDLES ULTRA FINE PRESCRIPTION 1 Each by Instructed route daily. LIRAGLUTIDE (VICTOZA) 18 MG/3ML SOLUTION PEN-INJECTOR INJECTION Inject 0.6 mg under the skin daily. MELOXICAM 7.5 MG TABLET Take 1 tablet by mouth daily. METFORMIN-XR 500 MG TAB SR 24 HR Take 1 tablet by mouth 2 times daily. METOPROLOL 50 MG TAB REGULAR RELEASE Take 1 tablet by mouth 2 times daily. VALSARTAN 320 MG TABLET Take 1 tablet by mouth daily. VITAMIN D PO Take by mouth. 2,000 mg two by mouth daily Modified Medications No medications on file Discontinued Medications No medications on file Family History: Family History Problem Relation Age of Onset Diabetes Mother Arthritis - Osteo Mother Alcoholism Father Arthritis - Osteo Father Myocardial Infarction Father Other - Specify Father substance abuse Arthritis - Osteo Brother Lung Cancer Paternal Uncle Breast Cancer Maternal Grandmother Arthritis - Osteo Maternal Grandmother Stroke Maternal Grandmother Heart Disease - Other Maternal Grandmother CAD Kidney Disease Maternal Grandmother Heart Disease - Other Maternal Grandfather CAD Arthritis - Osteo Maternal Grandfather Stroke Paternal Grandmother Arthritis - Osteo Paternal Grandmother Myocardial Infarction Paternal Grandmother Heart Disease - Other Paternal Grandmother CAD Myocardial Infarction Paternal Grandfather Arthritis - Osteo Paternal Grandfather Heart Disease - Other Paternal Grandfather CAD Diabetes Other unknown Social History: Social History Socioeconomic History Marital status: Spouse name: Not on file Number of children: Not on file Years of education: Not on file Highest education level: Not on file Occupational History Not on file Tobacco Use Smoking status: Current Every Day Smoker Packs/day: 1.00 Smokeless tobacco: Current User Types: Snuff Substance and Sexual Activity Alcohol use: Not Currently Comment: rarely Drug use: No Sexual activity: Yes Partners: Female Other Topics Concern Not on file Social History Narrative Not on file Social Determinants of Health Financial Resource Strain: Not on file Food Insecurity: Not on file Transportation Needs: Not on file Physical Activity: Not on file Stress: Not on file Social Connections: Not on file Intimate Partner Violence: Not on file Housing Stability: Not on file Physical Exam: Physical Exam Vitals and nursing note reviewed. Constitutional: General: He is not in acute distress. Appearance: He is well-developed. He is obese. HENT: Head: Normocephalic and atraumatic. Cardiovascular: Rate and Rhythm: Normal rate and regular rhythm. Heart sounds: Normal heart sounds. Pulmonary: Effort: Pulmonary effort is normal. Breath sounds: Normal breath sounds. Chest: Chest wall: No mass, tenderness or crepitus. Skin: General: Skin is warm. Capillary Refill: Capillary refill takes less than 2 seconds. Neurological: General: No focal deficit present. Mental Status: He is alert. Psychiatric: Mood and Affect: Mood normal. Behavior: Behavior normal. Vital Signs During ED Visit Patient Vitals for the past 24 hrs: BP Temp Temp src Pulse Resp SpO2 07/09/21 1013 126/75 -- -- 74 16 98 % 07/09/21 0820 128/80 -- -- 80 16 97 % 07/09/21 0746 141/80 98.4 F (36.9 C) Oral 88 16 99 % 07/09/21 0742 -- -- -- -- -- 99 % Orders/Results: Orders Placed This Encounter XR CHEST AP PORTABLE CBC, EDIF, PLATELET COMPREHENSIVE METABOLIC PANEL D-DIMER,QUANTITATIVE MAGNESIUM LIPASE Troponin I, High sensitivity Troponin I, High sensitivity ECG Results for orders placed or performed during the hospital encounter of 07/09/21 CBC, EDIF, PLATELET Result Value Ref Range WBC (WHITE BLOOD COUNT) 8.8 3.6 - 11.0 10*3/uL RBC 5.17 4.0 - 6.1 10*6/uL HEMOGLOBIN (HGB) 16.7 14.0 - 18.0 G/DL HEMATOCRIT (HCT) 48.4 42.0 - 52.0 % MEAN CELL VOLUME 93.5 80.0 - 100.0 FL Mean Cell HGB 32.3 26.0 - 35.0 PG MEAN CELL HGB CONCENTRATION 34.5 27.0 - 37.0 G/DL RBC DISTRIBUTION 13.0 11.5 - 14.5 % PLATELET COUNT 285 130.0 - 400.0 10*3/uL MEAN PLATELET VOLUME 7.6 7.4 - 11.0 FL DIFFERENTIAL TYPE AUTO DIFF % NEUTROPHILS 58.3 37.0 - 75.0 % LYMPHOCYTE 30.6 20.0 - 55.0 % MONOCYTE % 8.4 0.0 - 10.0 % EOSINOPHIL % 2.1 0.0 - 11.0 % BASOPHIL % 0.6 0.0 - 2.0 % Absolute Neutrophil Count 5.1 1.4 - 6.5 10*3/uL LYMPHOCYTES, ABSOLUTE 2.70 1.2 - 3.4 10*3/uL MONOCYTES, ABSOLUTE 0.7 0.0 - 0.7 10*3/uL ABSOLUTE EOSINOPHIL COUNT 0.20 0.0 - 0.7 10*3/uL ABSOLUTE BASOPHIL COUNT 0.1 0.0 - 0.2 10*3/uL COMPREHENSIVE METABOLIC PANEL Result Value Ref Range GLUCOSE 135 (H) 70 - 100 MG/DL BUN 13 7 - 20 MG/DL CREATININE SERUM 0.96 0.66 - 1.25 MG/DL SODIUM 137 136 - 145 MMOL/L POTASSIUM 3.8 3.5 - 5.1 MMOL/L CHLORIDE 101 98 - 107 MMOL/L CALCIUM 9.4 8.4 - 10.2 MG/DL PROTEIN, TOTAL 8.3 (H) 6.3 - 8.2 GM/DL ALBUMIN 4.3 3.5 - 5.0 G/dl BILIRUBIN, TOTAL 0.6 0.2 - 1.2 MG/DL AST 43 (H) 15 - 41 IU/L ALKALINE PHOSPHATASE 80 38 - 126 IU/L CARBON DIOXIDE (CO2) 28 22 - 30 MMOL/L A/G Ratio 1.1 (L) 1.3 - 2.2 RATIO ALT 55 17 - 63 IU/L ESTIMATED GFR, NON AMER 89 ml/min/1.73sq.m ESTIMATED GFR, 108 ml/min/1.73sq.m GFR COMMENT Average GFR for 40-49 years old = 99. D-DIMER,QUANTITATIVE Result Value Ref Range D-DIMER 0.30 <0.50 mg/L FEU MAGNESIUM Result Value Ref Range MAGNESIUM 1.9 1.6 - 2.3 MG/DL LIPASE Result Value Ref Range LIPASE 29 23 - 300 U/L TROPONIN I, HIGH SENSITIVITY Result Value Ref Range TROPONIN I, HIGH SENSITIVITY 3 0 - 20 pg/mL TROPONIN I, HIGH SENSITIVITY Result Value Ref Range TROPONIN I, HIGH SENSITIVITY 2 0 - 20 pg/mL Radiographic Imaging XR CHEST AP PORTABLE Preliminary Result IMPRESSION: Cardiomegaly. Minimal bibasilar atelectasis. Otherwise, no gross abnormality within the limitation of the study. Procedures: Procedures Moderate Sedation Procedure: No ED Summary/MDM Patient is with chest discomfort differentials included acute coronary syndrome, pulmonary embolism, aortic dissection, pneumonia, pulmonary embolism. EKG sinus rhythm rate 87 LA interval 152 QRS 84 QTc 421 no acute ischemic changes interpreted by myself. Comparison EKG 12/15/2020 changes. BELOW FINDINGS FROM [facility] ON 02/23/2020 Coronary Findings Diagnostic Dominance: Right Left Main The vessel is moderate in size and is angiographically normal. Left Anterior Descending The vessel is moderate in size. The vessel exhibits minimal luminal irregularities. The vessel is tortuous. Left Circumflex The vessel is small. The vessel exhibits minimal luminal irregularities. Right Coronary Artery The vessel is moderate in size. The vessel exhibits minimal luminal irregularities. Dominant vessel yields small PLD and PDA. Intervention No interventions have been documented. Patient has 2 negative troponins, patient has an nonischemic EKG. Patient is to follow up with cardiology as an outpatient return to the ER as needed MDM Number of Diagnoses or Management Options Amount and/or Complexity of Data Reviewed Clinical lab tests: ordered Tests in the radiology section of CPT : reviewed and ordered Review and summarize past medical records: yes Independent visualization of images, tracings, or specimens: yes Clinical Impression: 1. Chest pain, unspecified type No follow-ups on file. New Prescriptions No medications on file Discontinued Medications No medications on file An After Visit Summary was printed and given to the patient with above information. . . Musa Cotton MD 07/09/21 1031 documented in this encounter [facility] 07-09-2021 Physician Emergency department Note Emergency Department Report [facility] EMERGENCY DEPARTMENT Service Date:.07/09/21 PCP: Paula Casarez Chief Complaint: Chief Complaint Patient presents with Chest Pain Pt presents to the ER with c/o 5/10 chest pain with cough and SOB that started with chest pain. Pt reports it started a couple of hours ago and radiates into neck. HPI Rusty Alvarez is a 50 y.o. male presents to the ED today due to chest pain. Patient states he woke up at 6 AM and has had intermittent chest pain. He states is in the center of his chest and aching sensation radiating to the left side of his chest. Nothing seems to make the discomfort better or worse. Denies any associated nausea vomiting shortness of breath or syncope. He has a history of coronary artery disease and follows with cardiology. He states his last heart catheterization was several years ago. Review of Systems: Review of Systems Constitutional: Negative for fever. Cardiovascular: Positive for chest pain. Negative for palpitations. Gastrointestinal: Negative for vomiting. Past Medical History: Past Medical History: Diagnosis Date Arthritis Holguin esophagus BPH (benign prostatic hyperplasia) CAD (coronary artery disease) Chicken pox Chronic low back pain Chronic pain Colitis Diabetes (A1C > or equal to 6.5%) 07/03/2020 Essential hypertension, benign Fever of unknown origin 2010 Doctor in [place]. Pt. outside temp will read 98 and internal temp can read up to 106 occurs every two days Generalized anxiety disorder GERD (gastroesophageal reflux disease) Gout H/O colonoscopy 2014 H/O endoscopy 2013 Internal hemorrhoids Migraine Mixed hyperlipidemia Sleep apnea Tinea pedis Tobacco dependency Vertigo Past Surgical History: Past Surgical History: Procedure Laterality Date CERVICAL FUSION 03/02/2020 Dr Le @ [facility] ORAL SURGERY 01/2017 complete tooth extraction HEART CATHETERIZATION Right 08/2016 Allergies: Allergies Allergen Reactions Augmentin [Amoxicillin-Pot Clavulanate] Nausea and Vomiting Ultram [Tramadol] Nausea Only Medications: Patient's Medications New Prescriptions No medications on file Previous Medications AMLODIPINE 5 MG TABLET Take 1 tablet by mouth daily. ASPIRIN 81 MG CHEW TAB CHEWABLE TABLET Chew 1 tablet daily. ATORVASTATIN 20 MG TABLET Take 1 tablet by mouth daily. CYANOCOBALAMIN 1000 MCG TABLET Take 1,000 mcg by mouth. One by mouth daily CYCLOBENZAPRINE 5 MG TABLET Take 1 tablet by mouth 3 times daily as needed. GABAPENTIN 300 MG CAP CAPSULE 400 mg. INSULIN PEN NEEDLES ULTRA FINE PRESCRIPTION 1 Each by Instructed route daily. LIRAGLUTIDE (VICTOZA) 18 MG/3ML SOLUTION PEN-INJECTOR INJECTION Inject 0.6 mg under the skin daily. MELOXICAM 7.5 MG TABLET Take 1 tablet by mouth daily. METFORMIN-XR 500 MG TAB SR 24 HR Take 1 tablet by mouth 2 times daily. METOPROLOL 50 MG TAB REGULAR RELEASE Take 1 tablet by mouth 2 times daily. VALSARTAN 320 MG TABLET Take 1 tablet by mouth daily. VITAMIN D PO Take by mouth. 2,000 mg two by mouth daily Modified Medications No medications on file Discontinued Medications No medications on file Family History: Family History Problem Relation Age of Onset Diabetes Mother Arthritis - Osteo Mother Alcoholism Father Arthritis - Osteo Father Myocardial Infarction Father Other - Specify Father substance abuse Arthritis - Osteo Brother Lung Cancer Paternal Uncle Breast Cancer Maternal Grandmother Arthritis - Osteo Maternal Grandmother Stroke Maternal Grandmother Heart Disease - Other Maternal Grandmother CAD Kidney Disease Maternal Grandmother Heart Disease - Other Maternal Grandfather CAD Arthritis - Osteo Maternal Grandfather Stroke Paternal Grandmother Arthritis - Osteo Paternal Grandmother Myocardial Infarction Paternal Grandmother Heart Disease - Other Paternal Grandmother CAD Myocardial Infarction Paternal Grandfather Arthritis - Osteo Paternal Grandfather Heart Disease - Other Paternal Grandfather CAD Diabetes Other unknown Social History: Social History Socioeconomic History Marital status: Spouse name: Not on file Number of children: Not on file Years of education: Not on file Highest education level: Not on file Occupational History Not on file Tobacco Use Smoking status: Current Every Day Smoker Packs/day: 1.00 Smokeless tobacco: Current User Types: Snuff Substance and Sexual Activity Alcohol use: Not Currently Comment: rarely Drug use: No Sexual activity: Yes Partners: Female Other Topics Concern Not on file Social History Narrative Not on file Social Determinants of Health Financial Resource Strain: Not on file Food Insecurity: Not on file Transportation Needs: Not on file Physical Activity: Not on file Stress: Not on file Social Connections: Not on file Intimate Partner Violence: Not on file Housing Stability: Not on file Physical Exam: Physical Exam Vitals and nursing note reviewed. Constitutional: General: He is not in acute distress. Appearance: He is well-developed. He is obese. HENT: Head: Normocephalic and atraumatic. Cardiovascular: Rate and Rhythm: Normal rate and regular rhythm. Heart sounds: Normal heart sounds. Pulmonary: Effort: Pulmonary effort is normal. Breath sounds: Normal breath sounds. Chest: Chest wall: No mass, tenderness or crepitus. Skin: General: Skin is warm. Capillary Refill: Capillary refill takes less than 2 seconds. Neurological: General: No focal deficit present. Mental Status: He is alert. Psychiatric: Mood and Affect: Mood normal. Behavior: Behavior normal. Vital Signs During ED Visit Patient Vitals for the past 24 hrs: BP Temp Temp src Pulse Resp SpO2 07/09/21 1013 126/75 -- -- 74 16 98 % 07/09/21 0820 128/80 -- -- 80 16 97 % 07/09/21 0746 141/80 98.4 F (36.9 C) Oral 88 16 99 % 07/09/21 0742 -- -- -- -- -- 99 % Orders/Results: Orders Placed This Encounter XR CHEST AP PORTABLE CBC, EDIF, PLATELET COMPREHENSIVE METABOLIC PANEL D-DIMER,QUANTITATIVE MAGNESIUM LIPASE Troponin I, High sensitivity Troponin I, High sensitivity ECG Results for orders placed or performed during the hospital encounter of 07/09/21 CBC, EDIF, PLATELET Result Value Ref Range WBC (WHITE BLOOD COUNT) 8.8 3.6 - 11.0 10*3/uL RBC 5.17 4.0 - 6.1 10*6/uL HEMOGLOBIN (HGB) 16.7 14.0 - 18.0 G/DL HEMATOCRIT (HCT) 48.4 42.0 - 52.0 % MEAN CELL VOLUME 93.5 80.0 - 100.0 FL Mean Cell HGB 32.3 26.0 - 35.0 PG MEAN CELL HGB CONCENTRATION 34.5 27.0 - 37.0 G/DL RBC DISTRIBUTION 13.0 11.5 - 14.5 % PLATELET COUNT 285 130.0 - 400.0 10*3/uL MEAN PLATELET VOLUME 7.6 7.4 - 11.0 FL DIFFERENTIAL TYPE AUTO DIFF % NEUTROPHILS 58.3 37.0 - 75.0 % LYMPHOCYTE 30.6 20.0 - 55.0 % MONOCYTE % 8.4 0.0 - 10.0 % EOSINOPHIL % 2.1 0.0 - 11.0 % BASOPHIL % 0.6 0.0 - 2.0 % Absolute Neutrophil Count 5.1 1.4 - 6.5 10*3/uL LYMPHOCYTES, ABSOLUTE 2.70 1.2 - 3.4 10*3/uL MONOCYTES, ABSOLUTE 0.7 0.0 - 0.7 10*3/uL ABSOLUTE EOSINOPHIL COUNT 0.20 0.0 - 0.7 10*3/uL ABSOLUTE BASOPHIL COUNT 0.1 0.0 - 0.2 10*3/uL COMPREHENSIVE METABOLIC PANEL Result Value Ref Range GLUCOSE 135 (H) 70 - 100 MG/DL BUN 13 7 - 20 MG/DL CREATININE SERUM 0.96 0.66 - 1.25 MG/DL SODIUM 137 136 - 145 MMOL/L POTASSIUM 3.8 3.5 - 5.1 MMOL/L CHLORIDE 101 98 - 107 MMOL/L CALCIUM 9.4 8.4 - 10.2 MG/DL PROTEIN, TOTAL 8.3 (H) 6.3 - 8.2 GM/DL ALBUMIN 4.3 3.5 - 5.0 G/dl BILIRUBIN, TOTAL 0.6 0.2 - 1.2 MG/DL AST 43 (H) 15 - 41 IU/L ALKALINE PHOSPHATASE 80 38 - 126 IU/L CARBON DIOXIDE (CO2) 28 22 - 30 MMOL/L A/G Ratio 1.1 (L) 1.3 - 2.2 RATIO ALT 55 17 - 63 IU/L ESTIMATED GFR, NON AMER 89 ml/min/1.73sq.m ESTIMATED GFR, 108 ml/min/1.73sq.m GFR COMMENT Average GFR for 40-49 years old = 99. D-DIMER,QUANTITATIVE Result Value Ref Range D-DIMER 0.30 <0.50 mg/L FEU MAGNESIUM Result Value Ref Range MAGNESIUM 1.9 1.6 - 2.3 MG/DL LIPASE Result Value Ref Range LIPASE 29 23 - 300 U/L TROPONIN I, HIGH SENSITIVITY Result Value Ref Range TROPONIN I, HIGH SENSITIVITY 3 0 - 20 pg/mL TROPONIN I, HIGH SENSITIVITY Result Value Ref Range TROPONIN I, HIGH SENSITIVITY 2 0 - 20 pg/mL Radiographic Imaging XR CHEST AP PORTABLE Preliminary Result IMPRESSION: Cardiomegaly. Minimal bibasilar atelectasis. Otherwise, no gross abnormality within the limitation of the study. Procedures: Procedures Moderate Sedation Procedure: No ED Summary/MDM Patient is with chest discomfort differentials included acute coronary syndrome, pulmonary embolism, aortic dissection, pneumonia, pulmonary embolism. EKG sinus rhythm rate 87 LA interval 152 QRS 84 QTc 421 no acute ischemic changes interpreted by myself. Comparison EKG 12/15/2020 changes. BELOW FINDINGS FROM [facility] ON 02/23/2020 Coronary Findings Diagnostic Dominance: Right Left Main The vessel is moderate in size and is angiographically normal. Left Anterior Descending The vessel is moderate in size. The vessel exhibits minimal luminal irregularities. The vessel is tortuous. Left Circumflex The vessel is small. The vessel exhibits minimal luminal irregularities. Right Coronary Artery The vessel is moderate in size. The vessel exhibits minimal luminal irregularities. Dominant vessel yields small PLD and PDA. Intervention No interventions have been documented. Patient has 2 negative troponins, patient has an nonischemic EKG. Patient is to follow up with cardiology as an outpatient return to the ER as needed MDM Number of Diagnoses or Management Options Amount and/or Complexity of Data Reviewed Clinical lab tests: ordered Tests in the radiology section of CPT : reviewed and ordered Review and summarize past medical records: yes Independent visualization of images, tracings, or specimens: yes Clinical Impression: 1. Chest pain, unspecified type No follow-ups on file. New Prescriptions No medications on file Discontinued Medications No medications on file An After Visit Summary was printed and given to the patient with above information. . . Musa Cotton MD 07/09/21 1031 [facility] Work Phone: 06-10-2021 History of Present illness Narrative Chief Complaint: Chief Complaint Patient presents with Hypertension Pt here for HTN f/u. Pt states at home readings will sometimes reach 170/105. Weight Gain Pt would like to discuss options for weight loss. History of Present Illness Rusty Alvarez is a 50 y.o. male who comes in to follow up on HTN HTN Since his last visit, he reports that he has been checking his blood pressures intermittent. His blood pressures have typically been 150-160/95-105. He has been compliant with his medication regimen. He has not noted any side effects. Headaches: yes intermittently Visual Changes: no Chest Pain: Intermittently Shortness of Breath: intermittent Palpitations: flutters Edema: yes Claudication: Saw Dr Sampson (Cardiology in the past), was supposed to have follow up but has not Had cardiolite stress test Cath- 1- 2 years ago Cholesterol: Compliance with medications is - not currently taking. Lab Results Component Value Date CHOLESTEROL 168 05/10/2020 TRIG 300 (H) 05/10/2020 HDL 34 05/10/2020 LDLCALC 74 05/10/2020 Weight gain- has tried Diet and exercise no help Was on Wellbutrin in the past - to quit smoking- did not lose weight Tried to get him on Saxenda last year and but insurance would not cover. Has gained more weight since then. States he has gained about 50# since being off work for an injury Active Problem List Hehas Chronic low back pain; GERD (gastroesophageal reflux disease); Generalized anxiety disorder; Essential hypertension, benign; Mixed hyperlipidemia; Sleep apnea; Vertigo; Tinea pedis; Migraine; Gout; Chronic pain; Holguin esophagus; Arthritis; Other fatigue; Other chest pain; Tobacco abuse; Pure hypercholesterolemia; Sacral bruising, initial encounter; body mass index of 40.0-49.9; and Diabetes (A1C > or equal to 6.5%) on their problem list. Current Medications Current Outpatient Medications Medication Sig Dispense Refill aspirin 81 MG Chew Tab chewable tablet Chew 1 tablet daily. atorvastatin 20 MG tablet Take 1 tablet by mouth daily. 30 tablet 0 cyanocobalamin 1000 MCG tablet Take 1,000 mcg by mouth. One by mouth daily cyclobenzaprine 5 MG tablet Take 1 tablet by mouth 3 times daily as needed. gabapentin 300 MG Cap capsule 400 mg. meloxicam 7.5 MG tablet Take 1 tablet by mouth daily. 30 tablet 1 metoprolol 50 MG tab regular release Take 1 tablet by mouth 2 times daily. 60 tablet 3 valsartan 320 MG tablet Take 1 tablet by mouth daily. 30 tablet 1 VITAMIN D PO Take by mouth. 2,000 mg two by mouth daily Liraglutide -Weight Management (Saxenda) 18 MG/3ML Solution Pen-injector Inject 0.6 mg under the skin daily. (Patient not taking: Reported on 06/10/2021) 3 mL 1 No current facility-administered medications for this visit. Allergies He is allergic to augmentin [amoxicillin-pot clavulanate] and ultram [tramadol]. Family History family history includes Alcoholism in his father; Arthritis - Osteo in his brother, father, maternal grandfather, maternal grandmother, mother, paternal grandfather, and paternal grandmother; Breast Cancer in his maternal grandmother; Diabetes in his mother and another family member; Heart Disease - Other in his maternal grandfather, maternal grandmother, paternal grandfather, and paternal grandmother; Kidney Disease in his maternal grandmother; Lung Cancer in his paternal uncle; Myocardial Infarction in his father, paternal grandfather, and paternal grandmother; Other - Specify in his father; Stroke in his maternal grandmother and paternal grandmother. Social History reports that he has been smoking. He has been smoking about 1.00 pack per day. His smokeless tobacco use includes snuff. He reports previous alcohol use. He reports that he does not use drugs. Immunizations Immunization History Administered Date(s) Administered PPD (Mantoux Test) 06/01/2017 Review of Systems See nursing documentation for full ROS Physical Exam Blood pressure (!) 160/100, pulse 84, temperature 99.4 F (37.4 C), temperature source Temporal, resp. rate 16, height 1.803 m (5' 11 ), weight (!) 143.8 kg (317 lb), SpO2 97 %., Body mass index is 44.21 kg/m . Physical Exam Constitutional: Appearance: He is obese. HENT: Mouth/Throat: Pharynx: Oropharynx is clear. Eyes: Conjunctiva/sclera: Conjunctivae normal. Cardiovascular: Rate and Rhythm: Normal rate and regular rhythm. Pulmonary: Effort: Pulmonary effort is normal. Breath sounds: Normal breath sounds. Lymphadenopathy: Cervical: No cervical adenopathy. Skin: General: Skin is warm and dry. Neurological: General: No focal deficit present. Mental Status: He is alert. Psychiatric: Mood and Affect: Mood normal. Behavior: Behavior normal. BP Readings from Last 3 Encounters: 06/10/21 (!) 160/100 12/15/20 144/90 12/12/20 142/88 No components found for: LDL, LDLCHOLCALC, DIRLDLCHOL, LDLDIRECTMEA, LDLPOINTOFCA Lab Results Component Value Date HGBA1C 6.7 (H) 05/10/2020 No results found for: MICROALBUMIN, MICROALBUPOC, MICROALBNo results found for: CREATININE Lab Results Component Value Date SODIUM 137 12/15/2020 POTASSIUM 3.7 12/15/2020 CHLORIDE 101 12/15/2020 CO2 22 12/15/2020 Assessment/Plan 1. Essential hypertension, benign Uncontrolled Add amlodipine- will [place] 2 weeks for readings Due for labs Given his hx of CVD- does need to call cardiology for follow up - LIPID PANEL W CALCULATED LDL; Future - CBC, EDIF, PLATELET; Future - COMPREHENSIVE METABOLIC PANEL; Future - HEMOGLOBIN A1C; Future - amLODIPine 5 MG tablet; Take 1 tablet by mouth daily. Dispense: 30 tablet; Refill: 3 - TSH W/FT4 REFLEX; Future - LIPID PANEL W CALCULATED LDL - CBC, EDIF, PLATELET - COMPREHENSIVE METABOLIC PANEL - HEMOGLOBIN A1C - TSH W/FT4 REFLEX 2. Hyperlipidemia, unspecified hyperlipidemia type - LIPID PANEL W CALCULATED LDL; Future - CBC, EDIF, PLATELET; Future - COMPREHENSIVE METABOLIC PANEL; Future - HEMOGLOBIN A1C; Future - TSH W/FT4 REFLEX; Future - LIPID PANEL W CALCULATED LDL - CBC, EDIF, PLATELET - COMPREHENSIVE METABOLIC PANEL - HEMOGLOBIN A1C - TSH W/FT4 REFLEX 3. Elevated glucose - LIPID PANEL W CALCULATED LDL; Future - CBC, EDIF, PLATELET; Future - COMPREHENSIVE METABOLIC PANEL; Future - HEMOGLOBIN A1C; Future - TSH W/FT4 REFLEX; Future - LIPID PANEL W CALCULATED LDL - CBC, EDIF, PLATELET - COMPREHENSIVE METABOLIC PANEL - HEMOGLOBIN A1C - TSH W/FT4 REFLEX 4. Class 3 severe obesity with serious comorbidity and body mass index (BMI) of 40.0 to 44.9 in adult, unspecified obesity type - LIPID PANEL W CALCULATED LDL; Future - CBC, EDIF, PLATELET; Future - COMPREHENSIVE METABOLIC PANEL; Future - HEMOGLOBIN A1C; Future - TSH W/FT4 REFLEX; Future - LIPID PANEL W CALCULATED LDL - CBC, EDIF, PLATELET - COMPREHENSIVE METABOLIC PANEL - HEMOGLOBIN A1C - TSH W/FT4 REFLEX Nurse Note: Review of Systems Constitutional: Positive for fatigue. Negative for appetite change and fever. HENT: Negative for congestion, dental problem, hearing loss, nosebleeds, postnasal drip, rhinorrhea, sinus pressure, sinus pain, sore throat, tinnitus and voice change. Eyes: Negative for pain, discharge, redness and visual disturbance. Respiratory: Positive for shortness of breath. Negative for cough and wheezing. Cardiovascular: Positive for chest pain and leg swelling. Negative for palpitations. Gastrointestinal: Negative for abdominal pain, constipation, diarrhea, nausea and vomiting. Endocrine: Negative for cold intolerance, heat intolerance and polyuria. Genitourinary: Negative for dysuria and enuresis. Musculoskeletal: Positive for neck pain. Negative for arthralgias, back pain, joint swelling and myalgias. Skin: Negative for color change and rash. Neurological: Positive for dizziness and headaches. Negative for tremors, syncope, weakness and numbness. Hematological: Does not bruise/bleed easily. Psychiatric/Behavioral: Negative for confusion, dysphoric mood, self-injury, sleep disturbance and suicidal ideas. The patient is not nervous/anxious. Nursing Assessment: Physical Exam Obtained blood draw RAC 1st attempt butterfly. Applied pressure bandage. documented in this encounter [facility] Evaluation note Diagnosis Essential hypertension, benign- Primary Hyperlipidemia, unspecified hyperlipidemia type Elevated glucose Other abnormal glucose Class 3 severe obesity with serious comorbidity and body mass index (BMI) of 40.0 to 44.9 in adult, unspecified obesity type [facility] Diagnosis Chest pain, unspecified type- Primary [facility] Diagnosis Essential hypertension, benign- Primary Type 2 diabetes mellitus with other specified complication, unspecified whether nursing home insulin use Class 3 severe obesity with serious comorbidity and body mass index (BMI) of 40.0 to 44.9 in adult, unspecified obesity type [facility] Diagnosis Essential hypertension, benign- Primary Type 2 diabetes mellitus without complication, without long-term current use of insulin Class 3 severe obesity with serious comorbidity and body mass index (BMI) of 40.0 to 44.9 in adult, unspecified obesity type [facility] Diagnosis Genital warts- Primary Condyloma acuminatum Type 2 diabetes mellitus with other neurologic complication, without long-term current use of insulin Essential hypertension, benign Mixed hyperlipidemia Obesity (BMI 35.0-39.9 without comorbidity) Obesity, unspecified [facility] Diagnosis Near syncope Syncope and collapse [facility] Diagnosis Chest pain, unspecified type- Primary [facility] Diagnosis Acute non-recurrent maxillary sinusitis- Primary [facility]* Diagnosis Chest pain, unspecified type- Primary [facility]* Diagnosis Hyperlipidemia, unspecified hyperlipidemia type- Primary Essential hypertension, benign Type 2 diabetes mellitus with hyperglycemia, without long-term current use of insulin Non compliance w medication regimen Personal history of noncompliance with medical treatment, presenting hazards to health Bilateral wrist pain Atypical pigmented skin lesion [facility] Diagnosis Bilateral wrist pain- Primary Bilateral hand numbness Disturbance of skin sensation Carpal tunnel syndrome, bilateral Carpal tunnel syndrome [facility]* Diagnosis Post-op pain- Primary Other acute postoperative pain Preop testing Preoperative examination, unspecified Carpal tunnel syndrome on left Carpal tunnel syndrome [facility]* Diagnosis Post-op pain- Primary Other acute postoperative pain Preop testing Preoperative examination, unspecified [facility]* Diagnosis Essential hypertension, benign- Primary Hyperlipidemia, unspecified hyperlipidemia type Type 2 diabetes mellitus with hyperglycemia, without long-term current use of insulin Sleep apnea, unspecified type [facility]* Diagnosis S/P endoscopic carpal tunnel release- MUNIR- Primary Other postprocedural status [facility]* Diagnosis Low testosterone- Primary Other testicular hypofunction Family history of prostate cancer in father Smoking greater than 30 pack years Tobacco use disorder Urinary urgency Urgency of urination [facility] Diagnosis Low testosterone- Primary Other testicular hypofunction Family history of prostate cancer in father Smoking greater than 30 pack years Tobacco use disorder Urinary urgency Urgency of urination [facility]* Diagnosis Sleep apnea, unspecified type- Primary Snoring Other dyspnea and respiratory abnormality Insomnia, unspecified type Fatigue, unspecified type Hypersomnia, unspecified Restless legs syndrome Restless legs syndrome (RLS) Morning headache Headache Tests ordered Laboratory examination, unspecified Pedal edema Edema Low testosterone- Primary Other testicular hypofunction [facility] Low testosterone- Primary Other testicular hypofunction [facility] Attachments The following attachments cannot be sent through Care Everywhere. * Chest Pain What to Do if You Have ([facility]) (Burmese) [facility] Attachments The following attachments cannot be sent through Care Everywhere. * Sinusitis (Burmese) [facility]* Attachments The following attachments cannot be sent through Care Everywhere. * Chest Pain What to Do if You Have ([facility]) (Burmese) [facility] (narrative)* Consultation (Urgent) - Closed Specialty Diagnoses / Procedures Referred By Contac t Referred To Contact Cardiovascular Medicine Diagnoses Chest pain, unspecified type Roger Sparks MD [address] [place] [phone] Neo Sampson MD [address] [place] [id number] Referral ID Status Reason Start Date Expiration Date Visits Re quested Visits Authorized [id number] Closed 05/27/2022 06/21/2023 1 1 * Radiology (Emergency) - Pending Review Specialty Diagnoses / Procedures Referred By Contac t Referred To Contact Procedures ECG Roger Sparks MD [address] [place] [id number] Referral ID Status Reason Start Date Expiration Date V isits Requested Visits Authorized [id number] Pending Review 05/27/2022 06/21/2023 1 1 [facility] Consultation (Routine) - New Request Specialty Diagnoses / Procedures Referred By Contac t Referred To Contact Orthopaedics Diagnoses Bilateral wrist pain Paula Casarez, [employer] W[employer]ER [address] [place] [address] Panda Eagle PA-C [address] [place] [address] Referral ID Status Reason Start Date Expiration Date V isits Requested Visits Authorized [id number] New Request 05/14/2023 06/07/2024 1 1 * Consultation (Routine) - New Request Specialty Diagnoses / Procedures Referred By Contac t Referred To Contact Diagnoses Atypical pigmented skin lesion Paula Casarez, [employer] [address] [place] [address] Silvestre Ferrer MD [address] [place] [address] [address] Referral ID Status Reason Start Date Expiration Date V isits Requested Visits Authorized [id number] New Request 05/14/2023 06/07/2024 1 1 [facility] Summary Purpose Family History No Family History Records FoundNo Family History Records FoundNo Family History Records FoundNo Family History Records FoundNo Family History Records FoundNo Family History Records FoundNo Family History Records FoundNo Family History Records Found Advance Directives No Advanced Directives Records FoundNo Advanced Directives Records FoundNo Advanced Directives Records FoundNo Advanced Directives Records FoundNo Advanced Directives Records FoundNo Advanced Directives Records FoundNo Advanced Directives Records FoundNo Advanced Directives Records Found Reason for Referral Status Reason Specialty Diagnoses / Procedures Referre d By Contact Referred To Contact Closed Diagnoses Sprain of right knee, unspecified ligament, initial encounter Procedures MRI KNEE RIGHT WITHOUT CONTRAST LA MRI LOWER EXTREM JT, W/O CONTRAST Tammy Shannon, [employer] [address] [place] [address] Specialty Diagnoses / Procedures Referred By Contac t Referred To Contact Procedures ECG Musa Cotton MD [address] [place] [address] Referral ID Status Reason Start Date Expiration Date V isits Requested Visits Authorized [id number] New Request 07/09/2021 08/03/2022 1 1 Specialty Diagnoses / Procedures Referred By Contac t Referred To Contact Diagnoses Type 2 diabetes mellitus without complication, without long-term current use of insulin Class 3 severe obesity with serious comorbidity and body mass index (BMI) of 40.0 to 44.9 in adult, unspecified obesity type Hollis Paula Arias, [employer] [address] [place] [facility] [place] [address] Referral ID Status Reason Start Date Expiration Date V isits Requested Visits Authorized [id number] Pending Review 1 1 Specialty Diagnoses / Procedures Referred By Contac t Referred To Contact Ultrasound Diagnoses Near syncope Procedures VASC DUPLEX CAROTID BILATERAL Hollis Paula Arias, [employer] [address] [place] [address] [facility] Ul[facility]ound [address] [place] [address] Referral ID Status Reason Start Date Expiration Date Visits Re quested Visits Authorized [id number] Closed 11/22/2021 12/17/2022 1 1 Specialty Diagnoses / Procedures Referred By Contac t Referred To Contact Diagnoses Bilateral wrist pain Procedures XR WRIST RIGHT 3+ VIEWS Panda Eagle PA-C [address] [place] [address] Referral ID Status Reason Start Date Expiration Date V isits Requested Visits Authorized [id number] New Request 06/26/2023 07/20/2024 1 1 Specialty Diagnoses / Procedures Referred By Contac t Referred To Contact Diagnoses Bilateral wrist pain Procedures XR WRIST LEFT 3+ VIEWS Panda Eagle PA-C [address] [place] [address] Referral ID Status Reason Start Date Expiration Date V isits Requested Visits Authorized [id number] New Request 06/26/2023 07/20/2024 1 1 Specialty Diagnoses / Procedures Referred By Contac t Referred To Contact Diagnoses Type 2 diabetes mellitus with hyperglycemia, without long-term current use of insulin Paula Casarez, [employer] [address] [place] [facility] [place] [address] Referral ID Status Reason Start Date Expiration Date V isits Requested Visits Authorized [id number] Pending Review 1 1 Specialty Diagnoses / Procedures Referred By Contac t Referred To Contact Pulmonary Disease / Sleep Medicine Diagnoses Sleep apnea, unspecified type Paula Casarez, [employer] [address] [place] [facility] [place] [address] Papo Edmonds MD [address] [place] [address] Referral ID Status Reason Start Date Expiration Date V isits Requested Visits Authorized [id number] New Request 08/10/2023 09/03/2024 1 1 Specialty Diagnoses / Procedures [facility] To Contact Diagnoses Sleep apnea, unspecified type Snoring Insomnia, unspecified type Fatigue, unspecified type Hypersomnia, unspecified Restless legs syndrome Morning headache Procedures SLEEP STUDY - DIAGNOSTIC LA POLYSOM 6/>YRS SLEEP 4/> ADDL ADITHYA Monae Willoughby, [employer] [address] [place] [address] Referral ID Status Reason Start Date Expiration Date V isits Requested Visits Authorized [id number] New Request 08/28/2023 09/21/2024 1 1 Specialty Diagnoses / Procedures [facility] Referred To Contact Diagnoses Sleep apnea, unspecified type Snoring Insomnia, unspecified type Fatigue, unspecified type Hypersomnia, unspecified Restless legs syndrome Morning headache Procedures SLEEP STUDY - TITRATION LA POLYSOM 6/>YRS SLEEP W/CPAP 4/> ADDL ADITHYA Monae Willoughby, [employer] [address] [place] [address] Referral ID Status Reason Start Date Expiration Date V isits Requested Visits Authorized [id number] New Request 08/28/2023 09/21/2024 1 1 Assessments Diagnosis Sprain of right knee, unspec ified ligament, initial encounter Diagnosis Displacement of intervertebral disc at C5-C6 level Hospital Course Note MR#: [id number] I [facility] Pt. Name: Rusty Alvarez Admitted: 03/02/2020 Discharged: 03/03/2020 Date of : 1970 Physician: Dani Le M.D. DISCHARGE SUMMARY DISCHARGE DIAGNOSIS: Status post C5-7 anterior cervical discectomy and fusion. 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 He was seen on an outpatient basis and was scheduled to undergo a C5-7 ACDF. He arrived to the hospital on 03/02/2020, and underwent the aforementioned procedure. He was admitted postoperatively for monitoring. On postop day 1, he had done well with physical therapy. His drain was removed and upright x-rays demonstrated no significant swelling. He was subsequently discharged home in stable condition on 03/03/2020. DISCHARGE INSTRUCTIONS: The patient will resume activity as tolerated. He will ambulate regularly and avoid a (more content not included)... Additional Source Comments (unrecognized sect ion and content) No Status Records FoundNo Status Records FoundNo Status Records FoundNo Status Records FoundNo Status Records FoundNo Status Records FoundNo Status Records FoundNo Status Records Found INFORMATION SOURCE (unrecogn ized section and content) DATE CREATED AUTHOR 10/06/2017 [facility] DATE CREATED AUTHOR AUTHOR'S ORGANIZ ATION 06/02/2019 [facility] DATE CREATED AUTHOR AUTHOR'S ORGANIZ ATION 06/20/2020 [facility] DATE CREATED AUTHOR AUTHOR'S ORGANIZ ATION 09/09/2021 [facility] DATE CREATED AUTHOR AUTHOR'S ORGANIZ ATION 05/28/2023 [facility] DATE CREATED AUTHOR AUTHOR'S ORGANIZ ATION 08/31/2023 [facility] DATE CREATED AUTHOR AUTHOR'S ORGANIZ ATION 10/16/2023 [facility] DATE CREATED AUTHOR AUTHOR'S ORGANIZ ATION 10/19/2023 [facility] Reason for Visit (unrecogniz ed section and content) Status Reason Specialty Diagnoses / Procedures Referre d By Contact Referred To Contact Closed Diagnoses Sprain of right knee, unspecified ligament, initial encounter Procedures MRI KNEE RIGHT WITHOUT CONTRAST LA MRI LOWER EXTREM JT, W/O CONTRAST Tammy Shannon APRN-CNP [address] [place] [address] Reason Comments Hypertension Pt here for HTN f/u. Pt states at home readings will sometimes reach 170/105. Weight Gain Pt would like to dis cuss options for weight loss. Reason Comments Chest Pain Pt presents to the E [facility] with c/o 5/10 chest pain with cough and SOB that started with chest pain. Pt reports it started a couple of hours ago and radiates into neck. Reason Comments Hypertension Patient here for fol low up. Pt states has cardiology appointment on 07/22 Abnormal Chest X-Ray Patient would like to discuss xray from 07/09 Reason Comments Diabetes Pt here for diabetes follow up and will need refill on victoza. Pt just saw his materials scientist for his HTN. Reason Comments Genital Warts Patient states he is here for genital warts. Has had them for 1.5 years. Denies any pain. Specialty Diagnoses / Procedures Referred By Contac t Referred To Contact Infectious Diseases Diagnoses Genital warts Paula Casarze, [employer] [address] [place] [address] Ebony Aragon MD [address] [place] [address] Referral ID Status Reason Start Date Expiration Date Visits Re quested Visits Authorized [id number] Closed 11/21/2021 12/16/2022 1 1 Specialty Diagnoses / Procedures Referred By Contac t Referred To Contact Ultrasound Diagnoses Near syncope Procedures VASC DUPLEX CAROTID BILATERAL Paula Casarez, [employer] [address] [place] [address] [facility] [address] [place] [address] Referral ID Status Reason Start Date Expiration Date Visits Re quested Visits Authorized [id number] Closed 11/22/2021 12/17/2022 1 1 Reason Comments Chest Pain Chest pain, SOB, diz zy and left arm feeling heavy for several hours Reason Comments Neck Pain R sided neck pain 3- -4 days, pt reports rodriguez and r shoulder pain initially pain has now moved to side of neck that radiates up to r ear. 4/10 pain . Denies injury Reason Comments Chest Pain Chest pain started 2 days ago in center of chest. Pt states the pain radiates to his left arm across the chest. Reason Comments Hypertension Pt. Is here for [facility] k up on hypertension and other issues.Pt. has not had his blood pressure meds for two months. Wrist Pain Pt. Is here for refe rral for munir wrist pain and numbness. Skin Lesion Pt. Would like to rodriguez ve referral to bleach maker for lesions on right cheek, right spiritism area and scalp. Reason Comments New Patient MUNIR hand and wrist p ain., x 5 years. 10/10 ROM, 4/10 resting pain. Specialty Diagnoses / Procedures Referred By Natty greene Referred To Contact Orthopaedics Diagnoses Bilateral wrist pain Paula Casarez, [employer] [address] [place] [address] Panda Eagle, YASMINE [address] [place] [address] Referral ID Status Reason Start Date Expiration Date V isits Requested Visits Authorized [id number] New Request 05/14/2023 06/07/2024 1 1 Specialty Diagnoses / Procedures Referred By Natty greene Referred To Contact Diagnoses Carpal tunnel syndrome on right Carpal tunnel syndrome on right [G56.01] Procedures LA WRIST ARTHROSCOP,RELEASE XVERS LIG ENDOSCOPY CARPAL TUNNEL RELEASE Morris London MD [address] [place] [address] Referral ID Status Reason Start Date Expiration Date Visits Re quested Visits Authorized [id number] 07/03/2023 1 1 Specialty Diagnoses / Procedures Referred By Natty greene Referred To Contact Diagnoses Carpal tunnel syndrome on left Carpal tunnel syndrome on left [G56.02] Procedures LA WRIST ARTHROSCOP,RELEASE XVERS LIG ENDOSCOPY CARPAL TUNNEL RELEASE Morris London MD [address] [place] [address] Referral ID Status Reason Start Date Expiration Date Visits Re quested Visits Authorized [id number] 07/03/2023 1 1 Reason Comments Hyperlipidemia Pt. Is here for foll ow up on hyperlipidemia. Reason Comments Post Op Visit S/p MUNIR endoscopic C TR, 07/27/23 & 07/30/23. Reason Comments New Patient Low testosterone Specialty Diagnoses / Procedures Referred By Contac t Referred To Contact Urology Diagnoses Fatigue, unspecified type Low testosterone in male Paula Casarez, [employer] [address] [place] [address] Jose Antonio Chaney MD [address] [address] Referral ID Status Reason Start Date Expiration Date V isits Requested Visits Authorized [id number] New Request 08/12/2023 09/05/2024 1 1 Reason Comments Follow-up Low testosterone Reason Comments New Patient Snoring, apnea, and fatigue Specialty Diagnoses / Procedures Referred By Contac t Referred To Contact Sleep Medicine Diagnoses Sleep apnea, unspecified type Paula Casarez, [employer]ER [address] [place] [address] Monae Orona, RU[employer] WIRER [address] [place] [address] Referral ID Status Reason Start Date Expiration Date Visits Re quested Visits Authorized [id number] Closed 08/10/2023 09/03/2024 1 1 Care Teams (unrecognized sec tion and content) Watch Commander Relationship Specialty Start Date End Date Paula Casarez [employer] [address] [place] [id number] PCP - General Nurse Practitioner - Family 05/17/19 Watch Commander Relationship Specialty Start Date End Date Paula Casarez [employer] [address] [place] [facility] [address] PCP - General Nurse Practitioner - Family 05/17/19 Watch Commander Relationship Specialty Start Date End Date Paula Casarez, [employer]ER [address] [place] [address] PCP - General Nurse Practitioner - Family 05/17/19 Watch Commander Relationship Specialty Start Date End Date Paula Casarez, [employer]ER [address] [place] [address] PCP - General Nurse Practitioner - Family 05/17/19 Watch Commander Relationship Specialty Start Date End Date Paula Casarez, [employer]ER [address] [place] [address] PCP - General Nurse Practitioner - Family 05/17/19 Watch Commander Relationship Specialty Start Date End Date Paula Casarez, [employer]ER [address] [place] [address] PCP - General Nurse Practitioner - Family 05/17/19 Watch Commander Relationship Specialty Start Date End Date Paula Casarez, [employer]ER [address] [place] [address] PCP - General Nurse Practitioner - Family 05/17/19 Watch Commander Relationship Specialty Start Date End Date Paula Casarez, RU[employer]ER [employer] WIRER [address] [place] [place] [address], [place] [address] PCP - General Nurse Practitioner - Family 05/17/19 Watch Commander Relationship Specialty Start Date End Date Paula Casarez, RU[employer]ER [employer] WIRER [address] [place] [place] [address], [place] [address] PCP - General Nurse Practitioner - Family 05/17/19 Watch Commander Relationship Specialty Start Date End Date Paula Casarez, RU[employer]ER [employer] WIRER [address] [place] [facility] [place] [address] PCP - General Nurse Practitioner - Family 05/17/19 Watch Commander Relationship Specialty Start Date End Date aPula Casarez, RUBBER OFF-[employer] [address] [place] [facility] [place] [address] PCP - General Nurse Practitioner - Family 05/17/19 Watch Commander Relationship Specialty Start Date End Date Paula Casarez, RUBBER OFF[employer] [address] [place] [facility] [address] PCP - General Nurse Practitioner - Family 05/17/19 Watch Commander Relationship Specialty Start Date End Date Paula Casarez RUBBER [employer] [address] [place] [address] PCP - General Nurse Practitioner - Family 05/17/19 Watch Commander Relationship Specialty Start Date End Date Paula Casarez, RUBBER OFF[employer] [address] [place] [address] PCP - General Nurse Practitioner - Family 05/17/19 Watch Commander Relationship Specialty Start Date End Date Paula Casarez, RUBBER OFF[employer] [address] [place] [address] PCP - General Nurse Practitioner - Family 05/17/19 Watch Commander Relationship Specialty Start Date End Date Paula Casarez, RUBBER OFF[employer] [address] [place] [address] PCP - General Nurse Practitioner - Family 05/17/19 Monae Orona, RUBBER [employer] [address] [place] [address] Nurse Practitioner Sleep Medicine 08/28/23 Watch Commander Relationship Specialty Start Date End Date Paula Casarez APRN-BEATRIZ [address] [place] [address] PCP - General Nurse Practitioner - Family 05/17/19 Monae Orona APRN-[employer]ER [employer] WIRER [address] [place] [address] Nurse Practitioner Sleep Medicine 08/28/23 Scheduled Active and Recently Administ ered Medications (unrecognized section and content) Medication Order 03/31/2022 04/01/2022 04/02/2022 doxycycline hyclate (VIBRAMYCIN) capsule 100 mg (COMPLETED) 100 mg, Oral, ONCE, 1 dose, On Thu04/02/22 at 1845, Avoid antacid and iron administration for 1 hour before and 2 hours after dose 1808 (Given - Provid er: Sherie Gan LPN) predniSONE (DELTASONE) tablet 20 mg (COMPLETED) 20 mg, Oral, ONCE, 1 dose, On Thu04/02/22 at 1845 1808 (Given - Provid er: Sherie Gan LPN) Scheduled Medication Order 05/25/2022 05/26/2022 05/27/2022 aspirin chewable tablet 324 mg (COMPLETED) 324 mg, Oral, ONCE, 1 dose, On Thu05/27/22 at 0815 0736 (Given - Provid er: Tonie Skinner RN) nitroGLYCERIN (NITRO-BID) 2 % ointment 1 inch (COMPLETED) 1 inch, Topical, ONCE, 1 dose, On Thu05/27/22 at 0745 0721 (Given - Provid er: Tonie Skinner RN) Continuous Medication Order 05/25/2022 05/26/2022 05/27/2022 Sodium chloride 0.9% IV solution Intravenous, at 125 mL/hr, CONTINUOUS, Starting on Thu05/27/22 at 0715, Until Thu05/27/22 at 102 0721 ($$New Bag$$ - Provider: Tonie Skinner RN)0824 (Stopped - Provider: Tonie Skinner RN) Scheduled Medication Order 07/25/2023 07/26/2023 07/27/2023 clindamycin (CLEOCIN) 600 mg in normal saline 50 ml premix IVPB (COMPLETED) 600 mg, Intravenous, Administer over 20 Minutes, ONCE, 1 dose, On Thu07/27/23 at 0900, Pre-op/Pre-Proc 1047 (Given - Provid er: Yuniel Pedroza, RUBBER OFF-[facility]) lidocaine 1%/ epinephrine 1:100,000 with sodium bicarbonate 8.4% (10 mL Prepared by Pharmacy) (COMPLETED) 1-10 mL, Infiltration, ONCE, 1 dose, On Thu07/27/23 at 0900, For physician administration ONLY, Pre-op/Pre-Proc 0915 (Given - Provid er: Shonda Javier RN - Comment: administered by Dr. London) lidocaine 1%/ epinephrine 1:100,000 with sodium bicarbonate 8.4% (10 mL Prepared by Pharmacy) 1-10 mL, Infiltration, ONCE, 1 dose, On Thu07/27/23 at 0900, For physician administration ONLY, Pre-op/Pre-Proc 0900 (Canceled Entry - Provider: System Discharge - Comment: Automatically canceled at discontinue of medication order) lidocaine 1%/epinephrine 1:100,000 with sodium bicarbonate 8.4% (3mL Prepared by Pharmacy) (COMPLETED) 0-3 mL, Infiltration, ONCE, 1 dose, On Thu07/27/23 at 0900, For physician administration ONLY, Pre-op/Pre-Proc 0921 (Given - Provid er: Shonda Javier RN - Comment: administered by Dr. London) Sodium chloride 0.9% IV solution (COMPLETED) Intravenous, at 75 mL/hr, ONCE, 1 dose, On Thu07/27/23 at 0900, Pre-op/Pre-Proc 0908 ($$New Bag$$ - Provider: Shonda Javier RN)1159 (Stopped - Provider: Michael Cantor RN) Continuous Medication Order 07/25/2023 07/26/2023 07/27/2023 Sodium chloride 0.9% IV solution Intravenous, at 50 mL/hr, CONTINUOUS, Starting on Thu07/27/23 at 0915, Until Thu07/27/23 at 1617, Until tolerating diet then discontinue, Post-op/Post-Proc 0915 (Canceled Entry - Provider: System Discharge - Comment: Automatically canceled at discontinue of medication order) PRN Medication Order 07/25/2023 07/26/2023 07/27/2023 Gentamicin (GARAMYCIN) 80 mg in Sodium chloride 0.9 % 1,000 mL irrigation solution (CANCELED) NEEDED, Starting on Thu07/27/23 at 1053, Until Thu07/27/23 at 1116, Intra-op/Intra-Proc 1053 (Given - Provid er: Morris London MD) hydroCODone-acetaminophen (NORCO) 5-325 MG per tablet 1-2 tablet 1-2 tablet, Oral, EVERY 4 HOURS NEEDED, Starting on Thu07/27/23 at 0904, Until Thu07/27/23 at 1617, Severe Pain, Maximum dose of acetaminophen is 4000 mg from all sources in 24 hours., Post-op/Post-Proc Ondansetron 4mg/2ml (ZOFRAN) injection 4 mg 4 mg, Intravenous, EVERY 4 HOURS NEEDED, Starting on Thu07/27/23 at 0904, Until Thu07/27/23 at 1617, Nausea / Vomiting, Post-op/Post-Proc Scheduled Medication Order 07/28/2023 07/29/2023 07/30/2023 clindamycin (CLEOCIN) 600 mg in normal saline 50 ml premix IVPB (COMPLETED) 600 mg, Intravenous, Administer over 20 Minutes, ONCE, 1 dose, On Macey 07/30/23 at 0915, Pre-op/Pre-Proc 1045 (Given - Provid er: Sharon Valenzuela APRN-STAMP ANALYST) lidocaine 1%/ epinephrine 1:100,000 with sodium bicarbonate 8.4% (10 mL Prepared by Pharmacy) (COMPLETED) 1-10 mL, Infiltration, ONCE, 1 dose, On Macey 07/30/23 at 0915, For physician administration ONLY, Pre-op/Pre-Proc 1005 (Given - Provid er: Shonda Javier RN - Comment: administered by Dr. London) lidocaine 1%/ epinephrine 1:100,000 with sodium bicarbonate 8.4% (10 mL Prepared by Pharmacy) 1-10 mL, Infiltration, ONCE, 1 dose, On Macey 4/18/24 at 0915, For physician administration ONLY, Pre-op/Pre-Proc 0915 (Canceled Entry - Provider: System Discharge - Comment: Automatically canceled at discontinue of medication order) lidocaine 1%/epinephrine 1:100,000 with sodium bicarbonate 8.4% (3mL Prepared by Pharmacy) (COMPLETED) 0-3 mL, Infiltration, ONCE, 1 dose, On Macey 24 at 0915, For physician administration ONLY, Pre-op/Pre-Proc 1005 (Given - Provid er: Shonda Javier RN - Comment: administered by Dr. London) Sodium chloride 0.9% IV solution (COMPLETED) Intravenous, at 75 mL/hr, ONCE, 1 dose, On Macey 24 at 0915, Pre-op/Pre-Proc 0941 ($$New Bag$$ - Provider: Shonda Javier RN)1208 (Stopped - Provider: Antolin Negrete LPN) PRN Medication Order 07/28/2023 07/29/2023 07/30/2023 Gentamicin (GARAMYCIN) 80 mg in Sodium chloride 0.9 % 500 mL irrigation solution (CANCELED) NEEDED, Starting on Mcaey 07/30/23 at 1058, Until Macey 07/30/23 at 1112, Intra-op/Intra-Proc 1058 (Given - Provid er: Morris London MD) FOR RECORDS PERTAINING TO PATIENTS WHO ARE OR HAVE BEEN ENROLLED IN A CHEMICAL DEPENDENCY/SUBSTANCEABUSE PROGRAM, SOME INFORMATION MAY BE OMITTED. This clinical summary was aggregated from multiple sources. Caution should be exercised in using it in the provision of clinical care. This summary normalizes information from multiple sources, and as a consequence, information in this document may materially change the coding, format and clinical context of patient data. In addition, data may be omitted in some cases. CLINICAL DECISIONS SHOULD BE BASED ON THE PRIMARY CLINICAL RECORDS. [employer] provides no warranty or guarantee of the accuracy or completeness of information in this document.
--- NOTE | 2024-03-12 14:36 | US_ITS ---
The [address] [address] Patient Name: OLIVIA ALVAREZ MRN: [id number] date: 1970 Sex: M Assigned Patient Location: ED.MAIN Current Patient Location: ER Accession/Order Number: [id number] Exam Date: 03/12/2024 15:00 Report Date: 03/12/2024 15:45 At the request of: ZITA AGUILA Procedure: US venous doppler LE RT RIGHT LOWER EXTREMITY VENOUS ULTRASOUND CLINICAL INFORMATION: Right lower leg redness and swelling. COMPARISON: None PROCEDURE AND FINDINGS: Multiple monroy scale, color, and Doppler/spectral ultrasound images were obtained of the deep venous system of the right lower extremity. There is compressibility of the common femoral, femoral, and popliteal veins. Augmentation of the common femoral and popliteal veins is seen. The visualized calf veins are patent. There is a prominent lymph node in the right groin measuring 4.1 x 1.9 x 0.8 cm. Edema is noted extending from the popliteal fossa throughout the lower leg. US/US venous doppler LE RT IMPRESSION: No evidence of deep venous thrombosis in the right lower extremity. Edema noted in the lower leg. Prominent right groin lymph node. Electronically authenticated by: STEPHANIE WALKER Date: 03/12/2024 15:45
--- NOTE | 2024-03-12 14:37 | XR_ITS ---
[address] [address] Patient Name: OLIVIA ALVAREZ MRN: [id number] date: 1970 Sex: M Assigned Patient Location: ER Current Patient Location: Accession/Order Number: [id number] Exam Date: 03/12/2024 14:45 Report Date: 03/12/2024 15:49 At the request of: ZITA AGUILA Procedure: XR tibia fibula RT 2V EXAM: XR tibia fibula RT 2V HISTORY: infection COMPARISON: None. FINDINGS/IMPRESSION: 1. No acute fracture or dislocation. 2. Normal alignment of the knee joint and ankle joint. 3. Calcaneal Achilles and plantar enthesophytes are normal. 4. No ankle joint effusion. 5. Mild degeneration of the mid foot. 6. Subcutaneous soft tissue edema of the lower extremity, extending to the ankle. Electronically authenticated by: VERNON BARTH Date: 03/12/2024 15:49
[2024-03-12 14:43] LABS: Basophils Absolute Auto 0.1 10^3/uL (0.0-0.1); Basophils Percent Auto 0.7 % (0.2-2.0); Eosinophils Absolute Auto 0.2 10^3/uL (0.0-0.7); Eosinophils Percent Auto 1.2 % (0.9-7.0); Hematocrit 40.8 % (42.0-54.0); Hemoglobin 13.5 g/dL (14.0-18.0); Immature Granulocytes Abs Auto 0.43 10^3/uL (0.00-0.03); Immature Granulocytes Pct Auto 2.8 % (0.0-0.5); Lymphocytes Absolute Auto 2.8 10^3/uL (1.2-3.8); Lymphocytes Percent Auto 18.5 % (20.5-60.0); Mean Corpuscular HGB Conc 33.1 g/dL (29.9-35.2); Mean Corpuscular Hemoglobin 32.2 pg (25.9-34.0); Mean Corpuscular Volume 97.4 fL (80.0-94.0); Mean Platelet Volume 8.8 fL (9.5-13.5); Monocytes Absolute Auto 0.8 10^3/uL (0.3-0.8); Monocytes Percent Auto 5.4 % (1.7-12.0); Neutrophils Absolute Auto 10.9 10^3/uL (1.4-6.5); Neutrophils Percent Auto 71.4 % (43.0-75.0); Platelet Count 451 10^3/uL (150-450); Red Blood Count 4.19 10^6/uL (4.70-6.10); Red Cell Distribution Width 13.2 % (11.0-15.0); White Blood Count 15.3 10^3/uL (4.0-11.0)
[2024-03-12] MEDS: KETOROLAC TROMETHAMINE 30 MG/ML VIAL 15 MG IVP (14:48)
[2024-03-12 15:01] LABS: Alanine Aminotransferase 38 U/L (16-63); Albumin Globulin Ratio 0.6; Albumin Level 3.1 g/dL (3.4-5.0); Alkaline Phosphatase 97 U/L (46-116); Anion Gap 11.7; Aspartate Amino Transferase 23 U/L (15-37); BUN Creatinine Ratio 11.1; Bilirubin Total 0.5 mg/dL (0.2-1.0); Calcium 9.3 mg/dL (8.5-10.1); Carbon Dioxide 28.8 mmol/L (21.0-32.0); Chloride 100 mmol/L (98-107); Estimated GFR (African America >60 (>=60 mL/min/1.73m^2); Estimated GFR (Non-African Ame >60 (>=60 mL/min/1.73m^2); Globulin 5.1 g/dL; Glucose 207 mg/dL (74-106); Potassium 3.5 mmol/L (3.5-5.1); Sodium 137 mmol/L (136-145); Total Protein 8.2 g/dL (6.4-8.2)
[2024-03-12 15:04] LABS: Lactate/Lactic Acid 1.9 mmol/L (0.4-2.0)
--- NOTE | 2024-03-12 16:09 | ED_ITS ---
HPI - Extremity Problem General Chief complaint: Extremity Problem, Nontraumatic Stated complaint: R LEG PAIN/SWELLING Time Seen by Provider: 03/12/24 14:22 Source: patient and family Mode of arrival: walk-in Limitations: no limitations History of Present Illness HPI Narrative: The patient was diagnosed with right leg cellulitis almost a week ago when he was in [place] at that time he presented to an ER where he was treated with OCTIVANCIN 1 injection before he was discharged The patient did drive over here and he arrived almost 3 days ago is coming to us with increased swelling in the right leg, no fever no chills no nausea vomiting or any other concerns The redness is improving but the patient is noticing the swelling and that why he came to the ER Related Data Home Medications ?Medication ?Instructions ?Recorded ?Confirmed cyclobenzaprine 10 mg tablet 10 mg PO DAILY 05/04/23 05/04/23 dapagliflozin propanediol 5 mg 5 mg PO DAILY 05/04/23 05/04/23 tablet (Farxiga) gabapentin 400 mg capsule 400 mg PO TID 05/04/23 05/04/23 valsartan 320 1 tab PO DAILY 03/12/24 03/12/24 mg-hydrochlorothiazide 25 mg tablet Previous Rx's ?Medication ?Instructions ?Recorded cephalexin 500 mg capsule 500 mg PO Q8H 7 days #21 caps 03/12/24 clindamycin HCl 300 mg capsule 300 mg PO Q6H 7 days #28 caps 03/12/24 Allergies Allergy/AdvReac Type Severity Reaction Status Date / Time tramadol (From Ultram) Allergy Intermediate Difficulty Verified 05/04/23 06:32 Breathing augmentin Allergy Intermediate Vomiting Uncoded 05/04/23 06:32 Review of Systems ROS Status of ROS 10 or more systems reviewed and unremark able except as noted in history and below PFSH PFSH Social History Little interest or pleasure in doing things: not at all Feeling down, depressed, or hopeless: not at all Exam Narrative Exam Narrative: Nurses notes and vital signs reviewed and patient is not hypoxic. Lower extremity; the patient have no vascular injury detected there is good anterior tibial pulse on the right side and the patient have the right leg almost doubled the size of the left leg with 1+ pitting edema And area of redness almost 15 cm x 12 in size oval in shape, just anterior to the middle of the tibia with no entrance point of there is a scarring of the previous wound No fluctuation there is warmth and redness but no tenderness at the moment General: Well-appearing and in no apparent distress. Skin: Warm, dry, no pallor noted. No rash. Head: Normocephalic, atraumatic. Neck: Supple, non-tender. Eye: Pupils are equal, round and EOMI. No scleral icterus. Ears, Nose, Mouth, and Throat: TM are clear, no nasal mucosal hypertrophy. Oral mucosa is moist, no posterior oropharynx erythema, uvula is mid-line Cardiovascular: Regular Rate and Rhythm without murmur, gallop or rub. Respiratory: No accessory muscle use or respiratory distress. Lungs are clear to auscultation, no wheezing, rales or rhonchi Chest Wall: no tenderness Back: No midline thoracic or lumbar vertebral tenderness. No CVA tenderness GI: Abdomen is soft, non-distended. Normal bowel sounds. No masses appreciated. No tenderness to palpation. No rebound, guarding, or rigidity noted. Neurological: A&O x4. No cranial nerve dysfunction observed. No truncal ataxia. Moves all extremities. Sensation intact. Psychiatric: Cooperative and interactive. Normal mood and affect. Constitutional Vital Signs, click to edit/add: Last Vital Signs Temp 98 F 03/12/24 14:17 Pulse 78 03/12/24 14:17 Resp 16 03/12/24 14:17 BP 128/83 03/12/24 14:17 Pulse Ox 98 03/12/24 14:17 O2 Del Method Room Air 03/12/24 14:17 Course Vital Signs Vital signs: Vital Signs Temperature 98 F 03/12/24 14:17 Pulse Rate 78 03/12/24 14:17 Respiratory Rate 16 03/12/24 14:17 Blood Pressure 128/83 03/12/24 14:17 Pulse Oximetry 98 03/12/24 14:17 Oxygen Delivery Method Room Air 03/12/24 14:17 Temperature 98 F 03/12/24 14:17 Pulse Rate 78 03/12/24 14:17 Respiratory Rate 16 03/12/24 14:17 Blood Pressure 128/83 03/12/24 14:17 Pulse Oximetry 98 03/12/24 14:17 Oxygen Delivery Method Room Air 03/12/24 14:17 MDM - Extremity (Nontraumatic) MDM Narrative Medical decision making narrative: Duplex of the right lower extremity was negative for any DVT X-ray of the right lower extremity tibia and fibula showed no acute pathology as well except for the edema of the soft tissue CBC shows leukocytosis with no elevated lactic acid and normal kidney function The patient was not treated with p.o. antibiotic as outpatient but I offered to him to be admitted and he requested to be discharged with p.o. antibiotic The patient was treated in the ER with Zosyn in addition to clindamycin discharged home with ceftriaxone clindamycin Patient instructed to come back in case of new symptoms or concerns also had the cellulitis in the right lower extremity marked and he is to come back in case of any increasing redness fever or increasing pain The patient is to follow up with primary care physician in next 2-3 days or to return to the emergency department should any of the signs or symptoms worsen or new symptoms develop. The patient agrees with the following Diagnosis and Treatment plan and the patient will be discharged home. Lab Data Labs: Lab Results 03/12/24 Range/Units 14:25 WBC 15.3 H (4.0-11.0) 10^3/uL RBC 4.19 L (4.70-6.10) 10^6/uL Hgb 13.5 L (14.0-18.0) g/dL Hct 40.8 L (42.0-54.0) % MCV 97.4 H (80.0-94.0) fL MCH 32.2 (25.9-34.0) pg MCHC 33.1 (29.9-35.2) g/dL RDW 13.2 (11.0-15.0) % Plt Count 451 H (150-450) 10^3/uL MPV 8.8 L (9.5-13.5) fL Neut % (Auto) 71.4 (43.0-75.0) % Lymph % (Auto) 18.5 L (20.5-60.0) % Fulton % (Auto) 5.4 (1.7-12.0) % Eos % (Auto) 1.2 (0.9-7.0) % Baso % (Auto) 0.7 (0.2-2.0) % Neut # (Auto) 10.9 H (1.4-6.5) 10^3/uL Lymph # (Auto) 2.8 (1.2-3.8) 10^3/uL Fulton # (Auto) 0.8 (0.3-0.8) 10^3/uL Eos # (Auto) 0.2 (0.0-0.7) 10^3/uL Baso # (Auto) 0.1 (0.0-0.1) 10^3/uL Abs Immat Gran (auto) 0.43 H (0.00-0.03) 10^3/uL Imm/Tot Granulo (auto) 2.8 H (0.0-0.5) % Sodium 137 (136-145) mmol/L Potassium 3.5 (3.5-5.1) mmol/L Chloride 100 (98-107) mmol/L Carbon Dioxide 28.8 (21.0-32.0) mmol/L Anion Gap 11.7 BUN 13.0 (7.0-18.0) mg/dL Creatinine 1.17 (0.70-1.30) mg/dL Est GFR ( Amer) >60 (>=60 mL/min/1.73m^2) Est GFR (Non-Af Amer) >60 (>=60 mL/min/1.73m^2) BUN/Creatinine Ratio 11.1 Glucose 207 H (74-106) mg/dL Lactate 1.9 (0.4-2.0) mmol/L Calcium 9.3 (8.5-10.1) mg/dL Total Bilirubin 0.5 (0.2-1.0) mg/dL AST 23 (15-37) U/L ALT 38 (16-63) U/L Alkaline Phosphatase 97 (46-116) U/L Total Protein 8.2 (6.4-8.2) g/dL Albumin 3.1 L (3.4-5.0) g/dL Globulin 5.1 g/dL Albumin/Globulin Ratio 0.6 Discharge Plan Discharge Chief Complaint: Extremity Problem, Nontraumatic Clinical Impression: Cellulitis of leg Patient Disposition: Home, Self-Care Time of Disposition Decision: 16:15 Condition: Good Prescriptions / Home Meds: New cephalexin 500 mg capsule 500 mg PO Q8H 7 Days Qty: 21 0RF clindamycin HCl 300 mg capsule 300 mg PO Q6H 7 Days Qty: 28 0RF No Action valsartan-hydrochlorothiazide 320-25 mg tablet 1 tab PO DAILY gabapentin 400 mg capsule 400 mg PO TID cyclobenzaprine 10 mg tablet 10 mg PO DAILY Farxiga 5 mg tablet 5 mg PO DAILY Print Language: British Instructions: Cellulitis (ED) Referrals: Physician,Non-Staff, MD [Primary Care Provider] - 1 week
[2024-03-12] MEDS: CLINDAMYCIN HCL 150 MG CAPSULE 450 MG PO (16:10)
[2024-03-12] MEDS: PIPERACILLIN SODIUM/TAZOBACTAM 4.5 GM in 0.9 % SODIUM CHLORIDE 50 ML IV (16:10)
== END 2024-03-12 16:45 | disposition home or self-care (01) ==
PROVIDERS: Emergency Provider Emergency Medicine
DX: L03.115 Cellulitis of right lower limb (principal)
CPT/HCPCS: 36415; 73590; 80053; 83605; 85025; 93971; 96374; 96375; 99285; J1885; J2543